=== PATIENT | female | born 1945 | race Caucasian/White ===

== ENCOUNTER 2017-09-01 02:40 | Inpatient (IN) | payer MEDICARE, MEDICAID, SELFPAY ==
--- NOTE | 2017-09-02 02:50 | RAD_ITS ---
STUDY: X-RAY CHEST REASON FOR EXAM: Female, 71 years old. Fever and cough. TECHNIQUE: Single AP portable view of the chest. COMPARISON: June 21, 2016. FINDINGS: Cardiac monitoring leads are present. The lungs are underexpanded with crowding of the bronchovascular markings and obscuration of lung bases. There is no demonstrated pleural abnormality. There is borderline cardiomegaly. Normal mediastinum and tomasz. There is prominence of the pulmonary hilar arteries with peripheral pulmonary vascular congestion. There is atherosclerotic calcification of the aortic arch with tortuosity. There is demineralization of the osseous structures. There are moderate degenerative changes of both shoulders. There is no demonstrated abnormality of the visualized soft tissue structures of the upper abdomen. RAD/Chest 1 View IMPRESSION: Borderline cardiomegaly with pulmonary congestion. Electronically Signed: Flory Hyde MD at 4:04 EDT , Service support ,
--- NOTE | 2017-09-02 06:45 | DT_ITS ---
This patient was seen during an EMR downtime August 28, 2017 - September 04, 2017. This patient may have a combination of paper and electronic documentation or all paper documentation. All documentation is viewable within the e-chart portion of [facility] for each patient visit.
--- NOTE | 2017-09-02 13:32 | EKG12_ITS ---
Test Reason : R/O SEPSIS Blood Pressure : / mmHG Vent. Rate : 116 BPM Atrial Rate : 116 BPM P-R Int : 158 ms QRS Dur : 092 ms QT Int : 334 ms P-R-T Axes : 049 -13 041 degrees QTc Int : 464 ms Sinus tachycardia Otherwise normal ECG Confirmed by KYLER BASHIR, JESÚS ([id number]), supervising editor trailer CYNTHIA PAT ([id number]) on 09/06/2017 5:40:44 PM Referred By: JUVE Confirmed By:JESÚS CHÁVEZ MD
[2017-09-03 07:16] LABS: White Blood Count 17.3 K/mm3 (4.4-11.0)
[2017-09-03 07:17] LABS: Hematocrit 32.8 % (37-47); Hemoglobin 9.8 g/dl (12.0-15.0); Mean Corpuscular Hgb 30.3 pg (27.0-32.0); Mean Corpuscular Volume 101.5 fL (81-99); Red Blood Count 3.23 M/mm3 (4.2-5.4)
[2017-09-03 07:18] LABS: Mean Corp Hgb Conc 29.9 g/gl (32-36)
[2017-09-03 07:19] LABS: Absolute Lymphocyte Count 0.55 X10^3/ul (0.83-4.51); Absolute Neutrophil Count 16.2 X10^3/uL (2.0-7.7); Basophil# 0.01 X10^3/uL; Basophil% 0.1 % (0-1); Differential Indicated SCAN CRITERIA MET; Lymphocyte # 0.55 X10^3/ul (4.0); Lymphocyte % 3.2 % (19-41); Mean Platelet Vol. 10.8 fl (6.2-12.0); Monocyte# 0.52 X10^3/uL; Neutrophil % 93.6 % (47-70); POSITIVE COUNT NO; POSITIVE DIFFERENTIAL YES; POSITIVE MORPHOLOGY NO; Platelet Count 89 K/mm3 (150-450); RBC Distribution Width CV 15.6 % (11.6-14.6); RBC Distribution Width SD 58.1 fl (35.1-43.9)
[2017-09-03 12:48] LABS: Anion Gap 8 (5-15); BUN 35 mg/dL (7-18); Calcium,Total 7.6 mg/dL (8.5-10.1); Chloride 105 mmol/L (98-107); Creatinine, Serum 1.46 mg/dL (0.55-1.02); EST Glomerular Filtration Rate 38 mL/min (>60); Est Glom Filt Rate - Afr Amer 46 mL/min (>60); Glucose 99 mg/dL (74-106); Potassium 4.3 mmol/L (3.5-5.1); Sodium Level 141 mmol/L (136-145)
[2017-09-04] MEDS: Acetaminophen 325 MG Tablet 650 MG PO (01:55)
[2017-09-04] MEDS: 0.9% Normal Saline 1,000 ML 100 ML IV (04:20)
[2017-09-04] MEDS: Nystatin Powder 15gm Bottle 1 APPLIC TOPICAL ×3 (06:00→21:17)
[2017-09-04] MEDS: Carbidopa/Levodopa 25/100 Tablet PO ×3 (06:00→21:16)
[2017-09-04] MEDS: Gabapentin 100 MG Capsule PO ×3 (06:00→21:16)
[2017-09-04 07:01] LABS: Hematocrit 37.1 % (37-47); Hemoglobin 11.3 g/dl (12.0-15.0); Mean Corp Hgb Conc 30.5 g/gl (32-36); Mean Corpuscular Hgb 31.1 pg (27.0-32.0); Mean Corpuscular Volume 102.2 fL (81-99); Mean Platelet Vol. 11.6 fl (6.2-12.0); Platelet Count 91 K/mm3 (150-450); RBC Distribution Width SD 55.6 fl (35.1-43.9); Red Blood Count 3.63 M/mm3 (4.2-5.4); White Blood Count 9.7 K/mm3 (4.4-11.0)
[2017-09-04 07:09] LABS: Scan Indicated on CBC? Y/N NO
[2017-09-04 07:23] LABS: Anion Gap 8 (5-15); BUN 21 mg/dL (7-18); BUN/Creat Ratio 19.4 RATIO (10-20); Calcium,Total 8.4 mg/dL (8.5-10.1); Chloride 106 mmol/L (98-107); Creatinine, Serum 1.08 mg/dL (0.55-1.02); EST Glomerular Filtration Rate 53 mL/min (>60); Est Glom Filt Rate - Afr Amer 65 mL/min (>60); Glucose 111 mg/dL (74-106); Potassium 3.9 mmol/L (3.5-5.1); Sodium Level 140 mmol/L (136-145)
[2017-09-04] MEDS: Ondansetron 4 MG/2 ML Vial IV ×2 (09:30→23:17)
--- NOTE | 2017-09-04 10:12 | CASEMGMT ---
Social Work Note SW received referral that pt is from [facility]. LAURA placed a call to Delfina in admissions updating her of pt's admission into hospital and asked if pt will need pre-cert to return to [facility] at discharge. LAURA waiting for call back. Plan: Return to [facility] Haven Travis LEAF STICKER, STEWARD/STEWARDESS WINE
[2017-09-04] MEDS: Escitalopram Oxalate 10 MG Tablet PO (10:52)
[2017-09-04] MEDS: ARIPiprazole 5 MG Tablet PO (10:52)
[2017-09-04] MEDS: Lactulose 20 GM/30 ML UDC PO (10:52)
[2017-09-04 11:48] VITALS: BP 160/87; PULSE 89; RESP 18; TEMP 37; O2SAT 93
[2017-09-04] MEDS: Famotidine 20 MG Tablet PO ×2 (12:18→21:17)
[2017-09-04] MEDS: buPROPion (XL) 300 MG TABLET.XL PO (12:18)
--- NOTE | 2017-09-04 12:31 | CASEMGMT ---
Social Work Note SW placed a call to [facility] and spoke with Dolores, linux system administrator regarding pt. 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 Dolores states that if pt requires skilled services, she can still accept pt back without pre-cert and can submit for pre-cert once pt is returned to facility. PAULINA Mejias updated of this. PAULINA Mejias updated Dr. Cooper of this. Plan: Return to [facility] when medically cleared Haven Travis QUALITY ASSURANCE QA LAB ANALYST, PAPER TUBE GRADER
--- NOTE | 2017-09-04 12:54 | PCM.PN.HOSP ---
Subjective: + Nausea and vomiting today. No abd pain. Vitals/I&O's: Vital Signs Temp Pulse Resp BP Pulse Ox 37.0 C 89 18 160/87 H 93 09/04/17 11:48 09/04/17 11:48 09/04/17 11:48 09/04/17 11:48 09/04/17 11:48 Oxygen Delivery Method Room Air Intake and Output for Last 24 Hours 09/02/17 09/03/17 09/04/17 23:59 23:59 23:59 Intake Total 612 / 612 Output Total 250 / 250 Balance 362 / 362 General: Alert, No apparent distress HEENT: Atraumatic, Normocephalic Neck: No Nodes, Thyroid Normal Size and Texture Lungs: Clear to auscultation, Normal air movement, No rhonchi, No wheeze Cardiovascular: Regular rate, Regular Rhythm, Normal S1, Normal S2, No murmurs Abdomen: Bowel Sounds Present, Soft, Non Tender, Non-Distended, No Hepato-splenomegaly Extremities: No edema, No Calf Tenderness Psych/Mental Status: Normal Affect, Appropriate Laboratory Results 09/04/17 05:40: WBC 9.7, RBC 3.63 L, Hgb 11.3 L, Hct 37.1, MCV 102.2 H, MCH 31.1, MCHC 30.5 L, RDW 15.0 H, RDW Differential 55.6 H, Plt Count 91 L, MPV 11.6 09/04/17 05:40: Sodium 140, Potassium 3.9, Chloride 106, Carbon Dioxide 26.0, Anion Gap 8, BUN 21 H, Creatinine 1.08 H, Est GFR (MDRD) Af Amer 65, Est GFR (MDRD) Non-Af 53 L, BUN/Creatinine Ratio 19.4, Glucose 111 H, Calcium 8.4 L Current Medications Acetaminophen (Tylenol) 650 mg PO Q4H PRN PRN PRN Reason: PAIN/FEVER Al Hydroxide/Mg Hydroxide (Mylanta Ii) 30 ml PO Q6H PRN PRN PRN Reason: DYSPEPSIA Albuterol Sulfate (Ventolin Aerosols) 2.5 mg INHALATION Q2H PRN PRN PRN Reason: DYSPNEA/WHEEZING Aripiprazole (Abilify) 5 mg PO DAILY [facility] Last Admin: 09/04/17 10:52 Dose: 5 mg Bupropion HCl (Wellbutrin Xl) 300 mg PO DAILY [facility] Last Admin: 09/04/17 12:18 Dose: 300 mg Carbidopa/Levodopa (Sinemet) 1 tablet PO TID [facility] Escitalopram Oxalate (Lexapro) 10 mg PO DAILY [facility] Last Admin: 09/04/17 10:52 Dose: 10 mg Famotidine (Pepcid) 20 mg PO BID [facility] Last Admin: 09/04/17 12:18 Dose: 20 mg Gabapentin (Neurontin) 100 mg PO TID [facility] Hydralazine HCl (Apresoline Iv) 10 mg IV Q4H PRN PRN PRN Reason: SBP >/= 160 Sodium Chloride () 1,000 mls @ 150 mls/hr IV .Q6H40M [facility] Vancomycin HCl (Vancomycin) 1,000 mg in 200 mls @ 200 mls/hr IV Q24H [facility] Clindamycin Phosphate 600 mg/ (Sodium Chloride) 54 mls @ 162 mls/hr IV Q8 [facility] Lactobacillus Acidophilus (Acidophilus) 1 tablet PO BID [facility] Last Admin: 09/04/17 10:52 Dose: 1 tablet Lactulose (Chronulac, Cephulac) 20 gm PO DAILY [facility] Last Admin: 09/04/17 10:52 Dose: 20 gm Morphine Sulfate () 1 - 2 mg IV Q4H PRN PRN PRN Reason: SEVERE PAIN (6-10/10) Nystatin (Mycostatin Powder) 1 applic TOPICAL TID [facility] Ondansetron HCl (Zofran) 4 mg IV Q6H PRN PRN PRN Reason: NAUSEA/VOMITING Last Admin: 09/04/17 09:30 Dose: 4 mg Oxycodone HCl (Oxyir) 5 - 10 mg PO Q4H PRN PRN PRN Reason: MILD-MODERATE PAIN Promethazine HCl (Phenergan) 6.25 mg IV Q6H PRN PRN PRN Reason: NAUSEA/VOMITING Sodium Chloride () 5 - 30 ml IV UD PRN PRN Reason: SALINE FLUSH Medical Necessity - Tobacco Use Smoking Status: Never smoker Assessment/Plan All Active Problems (Last Updated 08/23/17 @ 16:34 by Vero Jasso RN) Nausea & vomiting (Acute) UTI (urinary tract infection) (Acute) Dehydration (Acute) Hypomagnesemia (Acute) Hyponatremia (Acute) Cellulitis (Resolved) Squamous cell carcinoma in situ (Resolved) 1. Severe sepsis: POA due to LE cellultis v UTI BCx from 9th negative. 2. Bilateral LE cellulitis on vanc and clinda wrapped this AM, did not remove 3. Possible UTI + E. coli I suspect this could be a contaminant since pt improved with G+ coverage only No UA done, will check 4. Nausea and vomiting Ileus/SBO + umbilical hernia, but reducible. not incarcerated clinically check AXR 5. DVT proph LMWH Code Visit Inpatient E&M: 04166 Subs Hosp L2
--- NOTE | 2017-09-04 13:00 | PN_ITS ---
Subjective: + Nausea and vomiting today. No abd pain. Vitals/I&O's: Vital Signs Temp Pulse Resp BP Pulse Ox 37.0 C 89 18 160/87 H 93 09/04/17 11:48 09/04/17 11:48 09/04/17 11:48 09/04/17 11:48 09/04/17 11:48 Oxygen Delivery Method Room Air Intake and Output for Last 24 Hours 09/02/17 09/03/17 09/04/17 23:59 23:59 23:59 Intake Total 612 / 612 Output Total 250 / 250 Balance 362 / 362 General: Alert, No apparent distress HEENT: Atraumatic, Normocephalic Neck: No Nodes, Thyroid Normal Size and Texture Lungs: Clear to auscultation, Normal air movement, No rhonchi, No wheeze Cardiovascular: Regular rate, Regular Rhythm, Normal S1, Normal S2, No murmurs Abdomen: Bowel Sounds Present, Soft, Non Tender, Non-Distended, No Hepato- splenomegaly Extremities: No edema, No Calf Tenderness Psych/Mental Status: Normal Affect, Appropriate Laboratory Results 09/04/17 05:40: WBC 9.7, RBC 3.63 L, Hgb 11.3 L, Hct 37.1, MCV 102.2 H, MCH 31.1 , MCHC 30.5 L, RDW 15.0 H, RDW Differential 55.6 H, Plt Count 91 L, MPV 11.6 09/04/17 05:40: Sodium 140, Potassium 3.9, Chloride 106, Carbon Dioxide 26.0, Anion Gap 8, BUN 21 H, Creatinine 1.08 H, Est GFR (MDRD) Af Amer 65, Est GFR ( MDRD) Non-Af 53 L, BUN/Creatinine Ratio 19.4, Glucose 111 H, Calcium 8.4 L Current Medications Acetaminophen (Tylenol) 650 mg PO Q4H PRN PRN PRN Reason: PAIN/FEVER Al Hydroxide/Mg Hydroxide (Mylanta Ii) 30 ml PO Q6H PRN PRN PRN Reason: DYSPEPSIA Albuterol Sulfate (Ventolin Aerosols) 2.5 mg INHALATION Q2H PRN PRN PRN Reason: DYSPNEA/WHEEZING Aripiprazole (Abilify) 5 mg PO DAILY [facility] Last Admin: 09/04/17 10:52 Dose: 5 mg Bupropion HCl (Wellbutrin Xl) 300 mg PO DAILY [facility] Last Admin: 09/04/17 12:18 Dose: 300 mg Carbidopa/Levodopa (Sinemet) 1 tablet PO TID [facility] Escitalopram Oxalate (Lexapro) 10 mg PO DAILY [facility] Last Admin: 09/04/17 10:52 Dose: 10 mg Famotidine (Pepcid) 20 mg PO BID [facility] Last Admin: 09/04/17 12:18 Dose: 20 mg Gabapentin (Neurontin) 100 mg PO TID [facility] Hydralazine HCl (Apresoline Iv) 10 mg IV Q4H PRN PRN PRN Reason: SBP >/= 160 Sodium Chloride () 1,000 mls @ 150 mls/hr IV .Q6H40M [facility] Vancomycin HCl (Vancomycin) 1,000 mg in 200 mls @ 200 mls/hr IV Q24H [facility] Clindamycin Phosphate 600 mg/ (Sodium Chloride) 54 mls @ 162 mls/hr IV Q8 [facility] Lactobacillus Acidophilus (Acidophilus) 1 tablet PO BID [facility] Last Admin: 09/04/17 10:52 Dose: 1 tablet Lactulose (Chronulac, Cephulac) 20 gm PO DAILY [facility] Last Admin: 09/04/17 10:52 Dose: 20 gm Morphine Sulfate () 1 - 2 mg IV Q4H PRN PRN PRN Reason: SEVERE PAIN (6-10/10) Nystatin (Mycostatin Powder) 1 applic TOPICAL TID [facility] Ondansetron HCl (Zofran) 4 mg IV Q6H PRN PRN PRN Reason: NAUSEA/VOMITING Last Admin: 09/04/17 09:30 Dose: 4 mg Oxycodone HCl (Oxyir) 5 - 10 mg PO Q4H PRN PRN PRN Reason: MILD-MODERATE PAIN Promethazine HCl (Phenergan) 6.25 mg IV Q6H PRN PRN PRN Reason: NAUSEA/VOMITING Sodium Chloride () 5 - 30 ml IV UD PRN PRN Reason: SALINE FLUSH Medical Necessity - Tobacco Use Smoking Status: Never smoker Assessment/Plan All Active Problems (Last Updated 08/23/17 @ 16:34 by Vero Jasso RN) Nausea & vomiting (Acute) UTI (urinary tract infection) (Acute) Dehydration (Acute) Hypomagnesemia (Acute) Hyponatremia (Acute) Cellulitis (Resolved) Squamous cell carcinoma in situ (Resolved) 1. Severe sepsis: * POA * due to LE cellultis v UTI * BCx from 9th negative. 2. Bilateral LE cellulitis * on vanc and clinda * wrapped this AM, did not remove 3. Possible UTI * + E. coli * I suspect this could be a contaminant since pt improved with G+ coverage only * No UA done, will check 4. Nausea and vomiting * Ileus/SBO * + umbilical hernia, but reducible. not incarcerated clinically * check AXR 5. DVT proph LMWH Code Visit Inpatient E&M: 32848 Subs Hosp L2
--- NOTE | 2017-09-04 13:00 | RAD_ITS ---
STUDY: X-RAY - ABDOMEN/PELVIS REASON FOR EXAM: Female, 71 years old. Abdominal pain TECHNIQUE: 3 AP images of the abdomen. COMPARISON: July 11, 2016 FINDINGS: Normal visualized lung bases. There is a moderate amount of gastric distention. There are gas-filled dilated loops of small bowel. There are surgical clips within the right upper quadrant consistent with prior cystectomy. Normal soft tissue structures. There are diffuse degenerative changes of the visualized lumbar spine. RAD/Abdomen Single View (Portable) IMPRESSION: Findings suggestive of a small bowel obstruction. Gastric distention. Electronically Signed: Jessica Carnes MD at 17:01 EDT Tel , Service support ,
[2017-09-04] MEDS: 0.9% Normal Saline 1,000 ML 150 ML IV (13:25)
[2017-09-04 13:31] LABS: Mucous, Urine 0 SEEN /hpf (<or=2+)
[2017-09-04 13:43] LABS: Color, Urine Yellow (Yellow); Glucose, Dipstick Normal (Normal); Ketone-Dipstick 15 mg/dl (Negative); Leukocyte Esterase-Dipstick 25 /ul (Negative); Nitrite-Dipstick Negative (Negative); Occult Blood-Urine 250 /ul (Negative); Protein-Dipstick 100 mg/dl (Negative); Specific Gravity, Urine 1.025 (1.002-1.030); Urine Bilirubin Dipstick Negative (Negative); Urine Clarity Sl. Cloudy (Clear); Urine Urobilinogen Normal (Normal)
[2017-09-04 13:52] LABS: Bacteria 1+ /hpf (None Seen); Red Blood Cells-Urine 25-50 SEEN /hpf (0-5); Squamous Epithelial Cells - UA 0-5 SEEN /hpf (5-10); White Blood Cells 0-5 SEEN /hpf (0-5)
[2017-09-04 13:52] LABS: Vancomycin, Trough Level 6.5 ug/mL (5.0-15.0)
[2017-09-04 16:24] VITALS: BP 158/83; PULSE 88; RESP 16; TEMP 37.1; O2SAT 93
[2017-09-04 21:15] VITALS: BP 179/91; PULSE 90
[2017-09-04] MEDS: hydrALAZINE 20 MG/ML Vial 10 MG IV (21:15)
[2017-09-04 21:24] VITALS: BP 179/91; PULSE 90; RESP 18; TEMP 36.9; O2SAT 95
[2017-09-05] VITALS (8 sets, daily range): BP systolic 147–171; BP diastolic 83–97; PULSE 96–108; RESP 18–20; TEMP 36.9–37.1; O2SAT 94–96
[2017-09-05] MEDS: 0.9% Normal Saline 1,000 ML 100 ML IV ×2 (01:59→11:44)
[2017-09-05 05:52] LABS: Absolute Lymphocyte Count 0.67 X10^3/ul (0.83-4.51); Absolute Neutrophil Count 4.3 X10^3/uL (2.0-7.7); Eosinophil# 0.07 X10^3/uL; Eosinophils% 1.2 % (0-5); Hematocrit 37.8 % (37-47); Hemoglobin 11.4 g/dl (12.0-15.0); Lymphocyte # 0.67 X10^3/ul (4.0); Lymphocyte % 11.9 % (19-41); Mean Corp Hgb Conc 30.2 g/gl (32-36); Mean Corpuscular Hgb 30.6 pg (27.0-32.0); Mean Corpuscular Volume 101.3 fL (81-99); Monocyte# 0.55 X10^3/uL; Monocyte% 9.8 % (0-10); Neutrophil % 76.7 % (47-70); Platelet Count 94 K/mm3 (150-450); RBC Distribution Width CV 14.9 % (11.6-14.6); RBC Distribution Width SD 54.5 fl (35.1-43.9); Red Blood Count 3.73 M/mm3 (4.2-5.4); White Blood Count 5.6 K/mm3 (4.4-11.0)
--- NOTE | 2017-09-05 05:55 | RAD_ITS ---
STUDY: X-RAY - ABDOMEN/PELVIS REASON FOR EXAM: Female, 71 years old. Abdominal distention. TECHNIQUE: Two AP supine views of the abdomen and pelvis. COMPARISON: None. FINDINGS: Normal visualized lung bases. There is a paralytic ileus of the small intestine with mild gaseous distention. There is no demonstrated free abdominal air. The visualized liver, spleen and kidneys are grossly normal in size and morphology. Normal soft tissue structures. Normal visualized osseous structures. RAD/Abdomen Single View (Portable) IMPRESSION: There is a paralytic ileus of the small intestine with mild gaseous distention. Electronically Signed: Denis Brewster MD at 9:30 EDT Tel , Service support ,
[2017-09-05] MEDS: Carbidopa/Levodopa 25/100 Tablet PO (05:56)
[2017-09-05] MEDS: Gabapentin 100 MG Capsule PO (05:56)
[2017-09-05] MEDS: Enoxaparin 40 MG/0.4 ML Syringe SC (05:56)
[2017-09-05] MEDS: Nystatin Powder 15gm Bottle 1 APPLIC TOPICAL ×3 (05:57→22:00)
[2017-09-05 05:59] LABS: POSITIVE COUNT NO; POSITIVE DIFFERENTIAL NO; POSITIVE MORPHOLOGY NO
[2017-09-05 06:09] LABS: Anion Gap 9 (5-15); BUN 19 mg/dL (7-18); BUN/Creat Ratio 16.4 RATIO (10-20); Calcium,Total 8.1 mg/dL (8.5-10.1); Chloride 108 mmol/L (98-107); Creatinine, Serum 1.16 mg/dL (0.55-1.02); EST Glomerular Filtration Rate 49 mL/min (>60); Est Glom Filt Rate - Afr Amer 59 mL/min (>60); Glucose 102 mg/dL (74-106); Sodium Level 144 mmol/L (136-145)
[2017-09-05] MEDS: ARIPiprazole 5 MG Tablet PO (08:44)
[2017-09-05] MEDS: Escitalopram Oxalate 10 MG Tablet PO (08:44)
[2017-09-05] MEDS: buPROPion (XL) 300 MG TABLET.XL PO (08:44)
[2017-09-05] MEDS: Famotidine 20 MG Tablet PO (08:44)
[2017-09-05] MEDS: hydrALAZINE 20 MG/ML Vial 10 MG IV ×2 (08:51→15:05)
[2017-09-05] MEDS: Ondansetron 4 MG/2 ML Vial IV ×2 (08:51→15:05)
[2017-09-05 09:47] LABS: Lactic Acid 1.5 mmol/L (0.4-2.0); Phosphorus 4.3 mg/dL (2.5-4.9)
[2017-09-05 10:08] LABS: ALB/GLOB Ratio 0.6 RATIO (0.9-2.4); AST(SGOT) 29 U/L (15-37); Alanine Aminotransfer ALT/SGPT 19 U/L (13-56); Alkaline Phosphatase 139 U/L (45-117); Anion Gap 10 (5-15); BUN 42 mg/dL (7-18); Calcium,Total 8.6 mg/dL (8.5-10.1); Chloride 99 mmol/L (98-107); EST Glomerular Filtration Rate 26 mL/min (>60); Est Glom Filt Rate - Afr Amer 32 mL/min (>60); Globulin 4.8 g/dL (2.2-4.2); Glucose 156 mg/dL (74-106); Potassium 4.3 mmol/L (3.5-5.1); Protein, Total 7.8 g/dL (6.4-8.2); Sodium Level 139 mmol/L (136-145)
[2017-09-05 10:09] LABS: Lactic Acid 2.8 mmol/L (0.4-2.0)
--- NOTE | 2017-09-05 11:26 | CT_ITS ---
STUDY: CT ABDOMEN AND PELVIS WITH CONTRAST REASON FOR EXAM: Female, 71 years old. Bloating, ileus RADIATION DOSAGE (If Supplied By Facility): CTDIvol = ( 23.53 ) mGy, DLP = ( 1698.42 ) mGycm TECHNIQUE: Transaxial images were obtained from the dome of the diaphragm to the symphysis pubis without oral contrast. 100 ml of Isovue 300 contrast was administered. Sagittal and coronal images were reconstructed. Individualized dose optimization techniques were used for this CT. COMPARISON: July 15, 2016 and abdominal radiograph dated September 04, 2017 FINDINGS: The visualized lung bases are unremarkable. The visualized portions of the heart are within normal limits. There is fluid within the right upper quadrant. Normal liver. There are surgical clips in the gallbladder fossa consistent with a prior cholecystectomy. Normal spleen. Normal pancreas. Normal bilateral adrenal glands. Normal right kidney. Normal left kidney. Normal visualized stomach. There are dilated loops of jejunum and ileum associated with air-fluid levels. There appears to be twisting of the mesentery left of midline. Normal colon. There is non-visualization of the appendix. Normal abdominal aorta. Normal inferior vena cava. Normal retroperitoneum. Normal urinary bladder. There are postsurgical changes along the anterior abdominal wall. There are diffuse degenerative changes of the visualized lumbar spine. There is a grade 1 anterior spinal listhesis of L4 on L5. There is a left hip arthroplasty. CT/Abdomen/Pelvis WITH Contrast IMPRESSION: Small bowel obstruction, cannot exclude an underlying closed loop obstruction. Electronically Signed: Jessica Carnes MD at 16:00 EDT Tel , Service support ,
--- NOTE | 2017-09-05 11:28 | PN_ITS ---
Subjective: Cc: Abdominal distention Objective: Her abdomen is distended , plain x-rays done yesterday showed paralytic ileus of the small intestine with mild gaseous distention. She was made n.p.o. and is asking to drink liquids. Vitals/I&O's: Vital Signs Temp Pulse Resp BP Pulse Ox 98.6 F 96 20 H 171/97 H 96 09/05/17 08:37 09/05/17 08:51 09/05/17 08:37 09/05/17 08:37 09/05/17 08:37 Oxygen Delivery Method Room Air Weight: 119.7 kg Intake and Output for Last 24 Hours 09/03/17 09/04/17 09/05/17 23:59 23:59 23:59 Intake Total 1377 / 1377 1168 / 1168 Output Total 450 / 450 400 / 400 Balance 927 / 927 768 / 768 General: Alert, Oriented x3 Oral: Dry Mucosa Neck: Supple, No JVD Lungs: Clear to auscultation Cardiovascular: Normal S1, Normal S2 Abdomen: Bowel Sounds Present, Distended Extremities: No edema Neurological: Motor Exam 5/5 strength throughout Laboratory Results 09/02/17 07:58: Lactic Acid 1.5 09/02/17 07:58: Phosphorus 4.3, Magnesium 2.0 09/04/17 13:00: Urine Color Yellow, Urine Clarity Sl. Cloudy, Urine pH 6.0, Ur Specific [place] 1.025, Urine Protein 100 H, Urine Glucose (UA) Normal, Urine Ketones 15 H, Urine Occult Blood 250 H, Urine Nitrite Negative, Urine Bilirubin Negative, Urine Urobilinogen Normal, Ur Leukocyte Esterase 25 H, Urine RBC 25- 50 SEEN, Urine WBC 0-5 SEEN, Ur Squamous Epith Cells 0-5 SEEN, Urine Bacteria 1+ , Urine Mucus 0 SEEN 09/04/17 13:10: Vancomycin Trough 6.5 09/05/17 05:30: WBC 5.6, RBC 3.73 L, Hgb 11.4 L, Hct 37.8, MCV 101.3 H, MCH 30.6 , MCHC 30.2 L, RDW 14.9 H, RDW Differential 54.5 H, Plt Count 94 L, MPV 11.0, Immature Gran % (Auto) 0.400, Neut % (Auto) 76.7 H, Lymph % (Auto) 11.9 L, [place] % (Auto) 9.8, Eos % (Auto) 1.2, Baso % (Auto) 0.0, Absolute Neuts (auto) 4.3, Absolute Lymphs (auto) 0.67 L, Total Counted Not Reportable 09/05/17 05:30: Sodium 144, Potassium 4.0, Chloride 108 H, Carbon Dioxide 27.0, Anion Gap 9, BUN 19 H, Creatinine 1.16 H, Est GFR (MDRD) Af Amer 59 L, Est GFR ( MDRD) Non-Af 49 L, BUN/Creatinine Ratio 16.4, Glucose 102, Calcium 8.1 L Current Medications Acetaminophen (Tylenol) 650 mg PO Q4H PRN PRN PRN Reason: PAIN/FEVER Last Admin: 09/04/17 01:55 Dose: 650 mg Al Hydroxide/Mg Hydroxide (Mylanta Ii) 30 ml PO Q6H PRN PRN PRN Reason: DYSPEPSIA Albuterol Sulfate (Ventolin Aerosols) 2.5 mg INHALATION Q2H PRN PRN PRN Reason: DYSPNEA/WHEEZING Aripiprazole (Abilify) 5 mg PO DAILY [facility] Last Admin: 09/05/17 08:44 Dose: 5 mg Bupropion HCl (Wellbutrin Xl) 300 mg PO DAILY [facility] Last Admin: 09/05/17 08:44 Dose: 300 mg Carbidopa/Levodopa (Sinemet) 1 tablet PO TID [facility] Last Admin: 09/05/17 05:56 Dose: 1 tablet Enoxaparin Sodium (Lovenox) 40 mg SC DAILY@0600 [facility] Last Admin: 09/05/17 05:56 Dose: 40 mg Escitalopram Oxalate (Lexapro) 10 mg PO DAILY [facility] Last Admin: 09/05/17 08:44 Dose: 10 mg Famotidine (Pepcid) 20 mg PO BID [facility] Last Admin: 09/05/17 08:44 Dose: 20 mg Gabapentin (Neurontin) 100 mg PO TID [facility] Last Admin: 09/05/17 05:56 Dose: 100 mg Hydralazine HCl (Apresoline Iv) 10 mg IV Q4H PRN PRN PRN Reason: SBP >/= 160 Last Admin: 09/05/17 08:51 Dose: 10 mg Sodium Chloride () 1,000 mls @ 100 mls/hr IV .Q10H [facility] Last Admin: 09/05/17 01:59 Dose: 100 mls/hr Vancomycin HCl (Vancomycin) 1,000 mg in 200 mls @ 200 mls/hr IV Q24H [facility] Last Admin: 09/04/17 14:11 Dose: 200 mls/hr Clindamycin Phosphate 600 mg/ (Sodium Chloride) 54 mls @ 162 mls/hr IV Q8 [facility] Last Admin: 09/05/17 05:56 Dose: 162 mls/hr Lactobacillus Acidophilus (Acidophilus) 1 tablet PO BID [facility] Last Admin: 09/05/17 08:44 Dose: 1 tablet Lactulose (Chronulac, Cephulac) 20 gm PO DAILY [facility] Last Admin: 09/05/17 08:55 Dose: Not Given Morphine Sulfate () 1 - 2 mg IV Q4H PRN PRN PRN Reason: SEVERE PAIN (6-10/10) Nystatin (Mycostatin Powder) 1 applic TOPICAL TID [facility] Last Admin: 09/05/17 05:57 Dose: 1 applicatio Ondansetron HCl (Zofran) 4 mg IV Q6H PRN PRN PRN Reason: NAUSEA/VOMITING Last Admin: 09/05/17 08:51 Dose: 4 mg Oxycodone HCl (Oxyir) 5 - 10 mg PO Q4H PRN PRN PRN Reason: MILD-MODERATE PAIN Promethazine HCl (Phenergan) 6.25 mg IV Q6H PRN PRN PRN Reason: NAUSEA/VOMITING Sodium Chloride () 5 - 30 ml IV UD PRN PRN Reason: SALINE FLUSH Medical Necessity - Tobacco Use Smoking Status: Never smoker Assessment/Plan All Active Problems (Last Updated 08/23/17 @ 16:34 by Vero Jasso RN) Nausea & vomiting (Acute) UTI (urinary tract infection) (Acute) Dehydration (Acute) Hypomagnesemia (Acute) Hyponatremia (Acute) Cellulitis (Resolved) Squamous cell carcinoma in situ (Resolved) 1. Severe sepsis; patient remains hemodynamically stable. 2. Ileus/SBO; her abdomen very much distended today, we would go ahead and obtain a CT scan of the abdomen and pelvis to go from there. 3. Bilateral LE cellulitis; we will continue antibiotics and local skin care. 4. Acute cystitis; urine culture grew E. coli we will continue the current antibiotic therapy. Code Visit Inpatient E&M: 52146 Subs Hosp L2
[2017-09-05] MEDS: proMETHazine 25 MG/ML Syringe 6.25 MG IV (11:43)
[2017-09-05 11:59] LABS: LDH 404 U/L (84-246)
--- NOTE | 2017-09-05 15:43 | PCM.RX.CS ---
Consult Pharmacy has been consulted to manage selected antiobiotic: Vancomycin Type of Consult: Follow-up Suspected Infection: Skin/Soft tissue Labs: Sodium 144 mmol/L (136-145) 09/05/17 05:30 Potassium 4.0 mmol/L (3.5-5.1) 09/05/17 05:30 Chloride 108 mmol/L (98-107) H 09/05/17 05:30 Carbon Dioxide 27.0 mmol/L (21.0-32.0) 09/05/17 05:30 Anion Gap 9 (5-15) 09/05/17 05:30 BUN 19 mg/dL (7-18) H 09/05/17 05:30 Creatinine 1.16 mg/dL (0.55-1.02) H 09/05/17 05:30 Est GFR (MDRD) Af Amer 59 mL/min (>60) L 09/05/17 05:30 Est GFR (MDRD) Non-Af 49 mL/min (>60) L 09/05/17 05:30 BUN/Creatinine Ratio 16.4 RATIO (10-20) 09/05/17 05:30 Glucose 102 mg/dL (74-106) 09/05/17 05:30 Vancomycin Trough 6.5 ug/mL (5.0-15.0) 09/04/17 13:10 Weight used for dosin kg Goal Trough: 10-15 mcg/mL Pharmacy Plan for Drug Dosing: Pharmacy Service will continue to monitor and adjust dosing as required. The patient had a trough drawn @1310 on 09/05/17, which resulted in a value of 6.5, a trough goal of 10-15 has been set. Will plan on increasing the dose of vancomycin and rechecking a trough prior to the 3rd dose of new regimen. PLAN/RECOMMENDATIONS 1. START vancomycin 1500mg IV Q24hrs (09/06/17 @1000) 2. Trough scheduled 09/08/17 @0930, prior to 3rd dose of new regimen 3. Pharmacy will continue to monitor the patient daily
[2017-09-05 18:23] LABS: Differential Indicated SCAN CRITERIA MET; Hematocrit 39.9 % (37-47); Hemoglobin 12.3 g/dl (12.0-15.0); Lymphocyte % 1.4 % (19-41); Mean Corp Hgb Conc 30.8 g/gl (32-36); Mean Corpuscular Hgb 30.8 pg (27.0-32.0); Mean Platelet Vol. 10.7 fl (6.2-12.0); Monocyte% 2.9 % (0-10); Neutrophil % 95.3 % (47-70); POSITIVE COUNT NO; POSITIVE DIFFERENTIAL YES; POSITIVE MORPHOLOGY NO; Platelet Count 140 K/mm3 (150-450); RBC Distribution Width SD 54.9 fl (35.1-43.9); Red Blood Count 3.99 M/mm3 (4.2-5.4); White Blood Count 29.8 K/mm3 (4.4-11.0)
[2017-09-05 18:24] LABS: Absolute Lymphocyte Count 0.42 X10^3/ul (0.83-4.51); Absolute Neutrophil Count 23.3 X10^3/uL (2.0-7.7); Basophil# 0.01 X10^3/uL; Differential Comment SCANNED; Eosinophil# 0.01 X10^3/uL; Lymphocyte # 0.42 X10^3/ul (4.0); Monocyte# 0.87 X10^3/uL; Neutrophil # 28.32 X10^3/uL (2.7-7.7)
[2017-09-06] MEDS: 0.9% Normal Saline 1,000 ML 100 ML IV (01:35)
[2017-09-06 02:05] VITALS: BP 150/83; PULSE 103; RESP 18; TEMP 37.2; O2SAT 94
[2017-09-06] MEDS: Ondansetron 4 MG/2 ML Vial IV (02:13)
[2017-09-06] MEDS: Enoxaparin 40 MG/0.4 ML Syringe SC (05:30)
[2017-09-06] MEDS: Nystatin Powder 15gm Bottle 1 APPLIC TOPICAL ×3 (05:30→20:52)
[2017-09-06] MEDS: Acetaminophen 325 MG Tablet 650 MG PO (05:46)
[2017-09-06 07:25] VITALS: O2SAT 96
[2017-09-06 08:05] VITALS: BP 164/87; PULSE 95; RESP 20; TEMP 36.6; O2SAT 95
[2017-09-06 08:18] VITALS: PULSE 95
[2017-09-06] MEDS: hydrALAZINE 20 MG/ML Vial 10 MG IV (08:18)
[2017-09-06] MEDS: Morphine 2 MG/ML Syringe IV ×2 (08:18→13:27)
--- NOTE | 2017-09-06 10:30 | RAD_ITS ---
STUDY: X-RAY - ABDOMEN/PELVIS REASON FOR EXAM: Female, 71 years old. NG tube placement TECHNIQUE: Single view COMPARISON: None. FINDINGS: Gaseous distended small bowel loops. Obstruction cannot be excluded. Nasogastric tube is noted with tip just distal to the GE junction. It needs to be further transferred into the stomach. There is no demonstrated free abdominal air. Normal soft tissue structures. Degenerative vertebral changes and scoliosis. RAD/Abdomen Single View (Portable) IMPRESSION: Gaseous distended small bowel loops. Obstruction cannot be excluded. Nasogastric tube needs to be advanced further into the stomach. Electronically Signed: Bahman Orr DO at 21:40 EDT Tel [phone], Service support ,
[2017-09-06] MEDS: Dext 5%-0.45% NS 1,000 ML 60 ML IV (10:41)
--- NOTE | 2017-09-06 12:48 | CASEMGMT ---
Addendum entered by Haven Travis 09/06/17 12:55: Pt gave this worker permission to call her son Markie. SW placed a call to Markie and left a message for him. Original Note: Social Work Note Pt is needing NG Tube placed now. LAURA placed a call and left a message with Delfina at [facility] updating her that pt is needing NG Tubed placed and that pt is currently on IV antibiotics and that PT/OT has seen and evaluated pt and they recommend further skilled therapy. LAURA asked Delfina if she would like to get senior receptionist before returning on the [facility] care side. LAURA faxed updated clinicals to Delfina at [facility]. LAURA waiting for call back. Plan: Returning to [facility] skilled vs. non skilled Haven Travis MATERIALS PLANNING ANALYST, GUITAR PLAYER
[2017-09-06 14:35] VITALS: BP 145/85; PULSE 96; RESP 20; TEMP 36.6; O2SAT 93
--- NOTE | 2017-09-06 16:11 | PCM.PN.HOSP ---
Subjective: CC: Abdominal distention, bilateral leg swelling and erythema. Objective: The patient still has significant abdominal pain and distention, CT scan of the abdomen and pelvis done yesterday demonstrated small bowel obstruction. Vitals/I&O's: Vital Signs Temp Pulse Resp BP Pulse Ox 97.8 F 96 20 H 145/85 H 93 09/06/17 14:35 09/06/17 14:35 09/06/17 14:35 09/06/17 14:35 09/06/17 14:35 Oxygen Delivery Method Room Air Weight: 119.7 kg Intake and Output for Last 24 Hours 09/04/17 09/05/17 09/06/17 23:59 23:59 23:59 Intake Total 1377 / 1377 2898 / 2898 1399 / 1399 Output Total 450 / 450 1400 / 1400 500 / 500 Balance 927 / 927 1498 / 1498 899 / 899 General: Alert, Oriented x3 HEENT: Atraumatic Neck: Supple, No JVD Lungs: Clear to auscultation Cardiovascular: Regular rate, Normal S1, Normal S2 Abdomen: Bowel Sounds Present, Soft, Non Tender Neurological: Cranial nerves II-XII grossly intact, Deep Tendon Reflexes 2+/4 and Symmetrical, Motor Exam 5/5 strength throughout Current Medications Acetaminophen (Tylenol) 650 mg PO Q4H PRN PRN PRN Reason: PAIN/FEVER Last Admin: 09/06/17 05:46 Dose: 650 mg Al Hydroxide/Mg Hydroxide (Mylanta Ii) 30 ml PO Q6H PRN PRN PRN Reason: DYSPEPSIA Albuterol Sulfate (Ventolin Aerosols) 2.5 mg INHALATION Q2H PRN PRN PRN Reason: DYSPNEA/WHEEZING Aripiprazole (Abilify) 5 mg PO DAILY [facility] Last Admin: 09/06/17 08:07 Dose: Not Given Bupropion HCl (Wellbutrin Xl) 300 mg PO DAILY [facility] Last Admin: 09/06/17 08:08 Dose: Not Given Carbidopa/Levodopa (Sinemet) 1 tablet PO TID [facility] Last Admin: 09/06/17 13:20 Dose: Not Given Enoxaparin Sodium (Lovenox) 40 mg SC DAILY@0600 [facility] Last Admin: 09/06/17 05:30 Dose: 40 mg Escitalopram Oxalate (Lexapro) 10 mg PO DAILY [facility] Last Admin: 09/06/17 08:07 Dose: Not Given Famotidine (Pepcid) 20 mg PO BID [facility] Last Admin: 09/06/17 08:08 Dose: Not Given Gabapentin (Neurontin) 100 mg PO TID [facility] Last Admin: 09/06/17 13:20 Dose: Not Given Hydralazine HCl (Apresoline Iv) 10 mg IV Q4H PRN PRN PRN Reason: SBP >/= 160 Last Admin: 09/06/17 08:18 Dose: 10 mg Vancomycin HCl 1,500 mg/ (Sodium Chloride) 530 mls @ 250 mls/hr IV DAILY [facility] Last Admin: 09/06/17 10:39 Dose: 250 mls/hr Dextrose/Sodium Chloride () 1,000 mls @ 60 mls/hr IV .[id number] [facility] Last Admin: 09/06/17 10:41 Dose: 60 mls/hr Cefepime HCl 1 gm/ Sodium (Chloride) 50 mls @ 100 mls/hr IV Q12 [facility] Last Admin: 09/06/17 13:19 Dose: 100 mls/hr Lactobacillus Acidophilus (Acidophilus) 1 tablet PO BID [facility] Last Admin: 09/06/17 08:07 Dose: Not Given Lactulose (Chronulac, Cephulac) 20 gm PO DAILY [facility] Last Admin: 09/06/17 08:07 Dose: Not Given Morphine Sulfate () 1 - 2 mg IV Q4H PRN PRN PRN Reason: SEVERE PAIN (6-10/10) Last Admin: 09/06/17 13:27 Dose: 2 mg Nystatin (Mycostatin Powder) 1 applic TOPICAL TID [facility] Last Admin: 09/06/17 13:20 Dose: 1 applicatio Ondansetron HCl (Zofran) 4 mg IV Q6H PRN PRN PRN Reason: NAUSEA/VOMITING Last Admin: 09/06/17 02:13 Dose: 4 mg Oxycodone HCl (Oxyir) 5 - 10 mg PO Q4H PRN PRN PRN Reason: MILD-MODERATE PAIN Promethazine HCl (Phenergan) 6.25 mg IV Q6H PRN PRN PRN Reason: NAUSEA/VOMITING Last Admin: 09/05/17 11:43 Dose: 6.25 mg Sodium Chloride () 5 - 30 ml IV UD PRN PRN Reason: SALINE FLUSH Medical Necessity - Tobacco Use Smoking Status: Never smoker Assessment/Plan All Active Problems (Last Updated 08/23/17 @ 16:34 by Vero Jasso RN) Nausea & vomiting (Acute) UTI (urinary tract infection) (Acute) Dehydration (Acute) Hypomagnesemia (Acute) Hyponatremia (Acute) Cellulitis (Resolved) Squamous cell carcinoma in situ (Resolved) 1. Sepsis; patient remains hemodynamically stable. She is receiving IV antibiotics for her cellulitis 2. Acute small bowel obstruction ; we will place an NG tube to intermittent suction. 3. Bilateral LE cellulitis; we will continue on IV vancomycin, clindamycin was stopped and replaced with Cefepime. 4. Acute cystitis; urine culture grew E. coli , current antibiotics will cover. 5. chronic kidney disease stage III; we will monitor renal parameters closely. 6. Anemia of chronic disease; hemoglobin is stable, will monitor. 7. essential hypertension; 8. chronic bilateral lower extremity lymphedema/stasis dermatitis; keep legs elevated the patient will be started on diuretics, will continue local skin care. 9 Depression; we will continue current antidepressants. 10. DVT prophylaxis with subcu heparin. Code Visit Inpatient E&M: 02930 Subs Hosp L2
--- NOTE | 2017-09-06 16:19 | PN_ITS ---
Subjective: CC: Abdominal distention, bilateral leg swelling and erythema. Objective: The patient still has significant abdominal pain and distention, CT scan of the abdomen and pelvis done yesterday demonstrated small bowel obstruction. Vitals/I&O's: Vital Signs Temp Pulse Resp BP Pulse Ox 97.8 F 96 20 H 145/85 H 93 09/06/17 14:35 09/06/17 14:35 09/06/17 14:35 09/06/17 14:35 09/06/17 14:35 Oxygen Delivery Method Room Air Weight: 119.7 kg Intake and Output for Last 24 Hours 09/04/17 09/05/17 09/06/17 23:59 23:59 23:59 Intake Total 1377 / 1377 2898 / 2898 1399 / 1399 Output Total 450 / 450 1400 / 1400 500 / 500 Balance 927 / 927 1498 / 1498 899 / 899 General: Alert, Oriented x3 HEENT: Atraumatic Neck: Supple, No JVD Lungs: Clear to auscultation Cardiovascular: Regular rate, Normal S1, Normal S2 Abdomen: Bowel Sounds Present, Soft, Non Tender Neurological: Cranial nerves II-XII grossly intact, Deep Tendon Reflexes 2+/4 and Symmetrical, Motor Exam 5/5 strength throughout Current Medications Acetaminophen (Tylenol) 650 mg PO Q4H PRN PRN PRN Reason: PAIN/FEVER Last Admin: 09/06/17 05:46 Dose: 650 mg Al Hydroxide/Mg Hydroxide (Mylanta Ii) 30 ml PO Q6H PRN PRN PRN Reason: DYSPEPSIA Albuterol Sulfate (Ventolin Aerosols) 2.5 mg INHALATION Q2H PRN PRN PRN Reason: DYSPNEA/WHEEZING Aripiprazole (Abilify) 5 mg PO DAILY [facility] Last Admin: 09/06/17 08:07 Dose: Not Given Bupropion HCl (Wellbutrin Xl) 300 mg PO DAILY [facility] Last Admin: 09/06/17 08:08 Dose: Not Given Carbidopa/Levodopa (Sinemet) 1 tablet PO TID [facility] Last Admin: 09/06/17 13:20 Dose: Not Given Enoxaparin Sodium (Lovenox) 40 mg SC DAILY@0600 [facility] Last Admin: 09/06/17 05:30 Dose: 40 mg Escitalopram Oxalate (Lexapro) 10 mg PO DAILY [facility] Last Admin: 09/06/17 08:07 Dose: Not Given Famotidine (Pepcid) 20 mg PO BID [facility] Last Admin: 09/06/17 08:08 Dose: Not Given Gabapentin (Neurontin) 100 mg PO TID [facility] Last Admin: 09/06/17 13:20 Dose: Not Given Hydralazine HCl (Apresoline Iv) 10 mg IV Q4H PRN PRN PRN Reason: SBP >/= 160 Last Admin: 09/06/17 08:18 Dose: 10 mg Vancomycin HCl 1,500 mg/ (Sodium Chloride) 530 mls @ 250 mls/hr IV DAILY [facility] Last Admin: 09/06/17 10:39 Dose: 250 mls/hr Dextrose/Sodium Chloride () 1,000 mls @ 60 mls/hr IV .[id number] [facility] Last Admin: 09/06/17 10:41 Dose: 60 mls/hr Cefepime HCl 1 gm/ Sodium (Chloride) 50 mls @ 100 mls/hr IV Q12 [facility] Last Admin: 09/06/17 13:19 Dose: 100 mls/hr Lactobacillus Acidophilus (Acidophilus) 1 tablet PO BID [facility] Last Admin: 09/06/17 08:07 Dose: Not Given Lactulose (Chronulac, Cephulac) 20 gm PO DAILY [facility] Last Admin: 09/06/17 08:07 Dose: Not Given Morphine Sulfate () 1 - 2 mg IV Q4H PRN PRN PRN Reason: SEVERE PAIN (6-10/10) Last Admin: 09/06/17 13:27 Dose: 2 mg Nystatin (Mycostatin Powder) 1 applic TOPICAL TID [facility] Last Admin: 09/06/17 13:20 Dose: 1 applicatio Ondansetron HCl (Zofran) 4 mg IV Q6H PRN PRN PRN Reason: NAUSEA/VOMITING Last Admin: 09/06/17 02:13 Dose: 4 mg Oxycodone HCl (Oxyir) 5 - 10 mg PO Q4H PRN PRN PRN Reason: MILD-MODERATE PAIN Promethazine HCl (Phenergan) 6.25 mg IV Q6H PRN PRN PRN Reason: NAUSEA/VOMITING Last Admin: 09/05/17 11:43 Dose: 6.25 mg Sodium Chloride () 5 - 30 ml IV UD PRN PRN Reason: SALINE FLUSH Medical Necessity - Tobacco Use Smoking Status: Never smoker Assessment/Plan All Active Problems (Last Updated 08/23/17 @ 16:34 by Vero Jasso RN) Nausea & vomiting (Acute) UTI (urinary tract infection) (Acute) Dehydration (Acute) Hypomagnesemia (Acute) Hyponatremia (Acute) Cellulitis (Resolved) Squamous cell carcinoma in situ (Resolved) 1. Sepsis; patient remains hemodynamically stable. She is receiving IV antibiotics for her cellulitis 2. Acute small bowel obstruction ; we will place an NG tube to intermittent suction. 3. Bilateral LE cellulitis; we will continue on IV vancomycin, clindamycin was stopped and replaced with Cefepime. 4. Acute cystitis; urine culture grew E. coli , current antibiotics will cover. 5. chronic kidney disease stage III; we will monitor renal parameters closely. 6. Anemia of chronic disease; hemoglobin is stable, will monitor. 7. essential hypertension; 8. chronic bilateral lower extremity lymphedema/stasis dermatitis; keep legs elevated the patient will be started on diuretics, will continue local skin care. 9 Depression; we will continue current antidepressants. 10. DVT prophylaxis with subcu heparin. Code Visit Inpatient E&M: 57831 Subs Hosp L2
[2017-09-06 20:45] VITALS: BP 134/76; PULSE 89; RESP 18; TEMP 36.6; O2SAT 94
[2017-09-07 03:40] VITALS: BP 140/84; PULSE 95; RESP 18; TEMP 36.7; O2SAT 94
[2017-09-07] MEDS: Nystatin Powder 15gm Bottle 1 APPLIC TOPICAL ×3 (05:25→22:50)
[2017-09-07] MEDS: Enoxaparin 40 MG/0.4 ML Syringe SC (05:25)
[2017-09-07 07:42] VITALS: O2SAT 94
[2017-09-07 08:25] VITALS: O2SAT 94
[2017-09-07] MEDS: Dext 5%-0.45% NS 1,000 ML 60 ML IV (08:54)
[2017-09-07 09:45] VITALS: BP 156/77; PULSE 88; RESP 18; TEMP 36.7; O2SAT 95
--- NOTE | 2017-09-07 10:48 | CASEMGMT ---
Social Work Note LAURA received call from Delfina at [facility] stating that she will bring pt back on skilled side. Delfina confirms that pt has Medicare and that pt is able to return to [facility] when medically cleared as pt has met her three midnight stays. LAURA updated Delfina that this worker is unsure when pt will be discharged as pt now has a small bowel obstruction. LAURA informed Delfina that once this worker knows a tentative discharge date this worker will inform her. Delfina states understanding. LAURA will continue to follow along to assist with discharge planning. 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
--- NOTE | 2017-09-07 14:52 | PCM.PN.HOSP ---
Subjective: CC: abdominal distention, bilateral leg cellulitis Objective: The patient's emergency room is distended, NG tube to suction. She reports no abdominal pain, shortness of breath, chest pain, fever or chills. Vitals/I&O's: Vital Signs Temp Pulse Resp BP Pulse Ox 98.1 F 88 18 156/77 H 95 09/07/17 09:45 09/07/17 09:45 09/07/17 09:45 09/07/17 09:45 09/07/17 09:45 Oxygen Flow Rate (L/min) 1 Oxygen Delivery Method Room Air Weight: 119.7 kg Intake and Output for Last 24 Hours 09/05/17 09/06/17 09/07/17 23:59 23:59 23:59 Intake Total 2898 / 2898 2091 / 2091 1086 / 1086 Output Total 1400 / 1400 1350 / 1350 950 / 950 Balance 1498 / 1498 741 / 741 136 / 136 General: Alert, Oriented x3 HEENT: Atraumatic Oral: Moist Mucosa Neck: Supple Lungs: Clear to auscultation Cardiovascular: Regular rate, Normal S1, Normal S2 Abdomen: Bowel Sounds Present, Soft, Non Tender Extremities: No clubbing, No edema Neurological: Cranial nerves II-XII grossly intact, Motor Exam 5/5 strength throughout Current Medications Acetaminophen (Tylenol) 650 mg PO Q4H PRN PRN PRN Reason: PAIN/FEVER Last Admin: 09/06/17 05:46 Dose: 650 mg Al Hydroxide/Mg Hydroxide (Mylanta Ii) 30 ml PO Q6H PRN PRN PRN Reason: DYSPEPSIA Albuterol Sulfate (Ventolin Aerosols) 2.5 mg INHALATION Q2H PRN PRN PRN Reason: DYSPNEA/WHEEZING Aripiprazole (Abilify) 5 mg PO DAILY [facility] Last Admin: 09/07/17 12:07 Dose: Not Given Bupropion HCl (Wellbutrin Xl) 300 mg PO DAILY [facility] Last Admin: 09/07/17 12:08 Dose: Not Given Carbidopa/Levodopa (Sinemet) 1 tablet PO TID [facility] Last Admin: 09/07/17 05:25 Dose: Not Given Enoxaparin Sodium (Lovenox) 40 mg SC DAILY@0600 [facility] Last Admin: 09/07/17 05:25 Dose: 40 mg Escitalopram Oxalate (Lexapro) 10 mg PO DAILY [facility] Last Admin: 09/07/17 12:08 Dose: Not Given Gabapentin (Neurontin) 100 mg PO TID [facility] Last Admin: 09/07/17 05:25 Dose: Not Given Hydralazine HCl (Apresoline Iv) 10 mg IV Q4H PRN PRN PRN Reason: SBP >/= 160 Last Admin: 09/06/17 08:18 Dose: 10 mg Vancomycin HCl 1,500 mg/ (Sodium Chloride) 530 mls @ 250 mls/hr IV DAILY [facility] Last Admin: 09/07/17 10:44 Dose: 250 mls/hr Dextrose/Sodium Chloride () 1,000 mls @ 60 mls/hr IV .[id number] [facility] Last Admin: 09/07/17 08:54 Dose: 60 mls/hr Cefepime HCl 1 gm/ Sodium (Chloride) 50 mls @ 100 mls/hr IV Q12 [facility] Last Admin: 09/07/17 09:03 Dose: 100 mls/hr Famotidine (Pepcid 20mg) 20 mg in 50 mls @ 150 mls/hr IV Q12 [facility] Lactobacillus Acidophilus (Acidophilus) 1 tablet PO BID [facility] Last Admin: 09/07/17 12:08 Dose: Not Given Lactulose (Chronulac, Cephulac) 20 gm PO DAILY [facility] Last Admin: 09/07/17 12:08 Dose: Not Given Morphine Sulfate () 1 - 2 mg IV Q4H PRN PRN PRN Reason: SEVERE PAIN (6-10/10) Last Admin: 09/06/17 13:27 Dose: 2 mg Nystatin (Mycostatin Powder) 1 applic TOPICAL TID [facility] Last Admin: 09/07/17 05:25 Dose: 1 applicatio Ondansetron HCl (Zofran) 4 mg IV Q6H PRN PRN PRN Reason: NAUSEA/VOMITING Last Admin: 09/06/17 02:13 Dose: 4 mg Oxycodone HCl (Oxyir) 5 - 10 mg PO Q4H PRN PRN PRN Reason: MILD-MODERATE PAIN Promethazine HCl (Phenergan) 6.25 mg IV Q6H PRN PRN PRN Reason: NAUSEA/VOMITING Last Admin: 09/05/17 11:43 Dose: 6.25 mg Sodium Chloride () 5 - 30 ml IV UD PRN PRN Reason: SALINE FLUSH Medical Necessity - Tobacco Use Smoking Status: Never smoker Assessment/Plan All Active Problems (Last Updated 08/23/17 @ 16:34 by Vero Jasso RN) Nausea & vomiting (Acute) UTI (urinary tract infection) (Acute) Dehydration (Acute) Hypomagnesemia (Acute) Hyponatremia (Acute) Cellulitis (Resolved) Squamous cell carcinoma in situ (Resolved) 1. Sepsis; she remains hemodynamically stable. She is receiving IV antibiotics for her cellulitis. 2. Acute small bowel obstruction ; continue NG tube decompression, IV fluids , we will consult general surgery for an input. 3. Bilateral LE cellulitis; we will continue on IV vancomycin, clindamycin was stopped and replaced with Cefepime. 4. Acute cystitis; urine culture grew E. coli , current antibiotics will cover. 5. chronic kidney disease stage III; we will monitor renal parameters closely. 6. Anemia of chronic disease; hemoglobin is stable, will monitor. 7. essential hypertension; this is controlled. 8. chronic bilateral lower extremity lymphedema/stasis dermatitis; keep legs elevated the patient will be started on diuretics, will continue local skin care. 9 Depression; we will continue current antidepressants. 10. DVT prophylaxis with SC heparin. Code Visit Inpatient E&M: 39744 Subs Hosp L3
[2017-09-07 15:45] VITALS: BP 154/76; PULSE 91; RESP 16; TEMP 36.9; O2SAT 95
[2017-09-07 20:07] VITALS: BP 169/92; PULSE 84; RESP 20; TEMP 36.6; O2SAT 96
[2017-09-07] MEDS: Morphine 2 MG/ML Syringe IV (20:25)
[2017-09-07] MEDS: Gabapentin 100 MG Capsule NG (22:50)
[2017-09-07] MEDS: Carbidopa/Levodopa 25/100 Tablet NG (22:50)
[2017-09-08 02:07] VITALS: BP 155/81; PULSE 92; RESP 20; TEMP 36.7; O2SAT 95
[2017-09-08] MEDS: Dext 5%-0.45% NS 1,000 ML 60 ML IV (05:42)
[2017-09-08] MEDS: Enoxaparin 40 MG/0.4 ML Syringe SC (05:42)
[2017-09-08] MEDS: Carbidopa/Levodopa 25/100 Tablet NG (05:43)
[2017-09-08] MEDS: Gabapentin 100 MG Capsule NG (05:43)
[2017-09-08] MEDS: Nystatin Powder 15gm Bottle 1 APPLIC TOPICAL ×3 (05:43→22:17)
[2017-09-08] MEDS: Acetaminophen 650 MG/20 ML UDC NG (05:50)
[2017-09-08 05:59] LABS: Absolute Lymphocyte Count 0.73 X10^3/ul (0.83-4.51); Absolute Neutrophil Count 3.1 X10^3/uL (2.0-7.7); Basophil# 0.01 X10^3/uL; Basophil% 0.2 % (0-1); Eosinophil# 0.13 X10^3/uL; Eosinophils% 2.9 % (0-5); Hematocrit 36.1 % (37-47); Hemoglobin 10.8 g/dl (12.0-15.0); Lymphocyte # 0.73 X10^3/ul (4.0); Lymphocyte % 16.3 % (19-41); Mean Corp Hgb Conc 29.9 g/gl (32-36); Mean Corpuscular Hgb 29.6 pg (27.0-32.0); Mean Corpuscular Volume 98.9 fL (81-99); Mean Platelet Vol. 10.4 fl (6.2-12.0); Monocyte# 0.49 X10^3/uL; Monocyte% 10.9 % (0-10); Neutrophil # 3.07 X10^3/uL (2.7-7.7); Neutrophil % 68.6 % (47-70); Platelet Count 117 K/mm3 (150-450); RBC Distribution Width CV 14.7 % (11.6-14.6); RBC Distribution Width SD 52.6 fl (35.1-43.9); Red Blood Count 3.65 M/mm3 (4.2-5.4); White Blood Count 4.5 K/mm3 (4.4-11.0)
[2017-09-08 06:07] LABS: POSITIVE COUNT NO; POSITIVE DIFFERENTIAL NO; POSITIVE MORPHOLOGY NO
[2017-09-08 06:22] LABS: Anion Gap 7 (5-15); BUN 11 mg/dL (7-18); BUN/Creat Ratio 11.6 RATIO (10-20); Calcium,Total 7.9 mg/dL (8.5-10.1); Chloride 106 mmol/L (98-107); Creatinine, Serum 0.94 mg/dL (0.55-1.02); EST Glomerular Filtration Rate 62 mL/min (>60); Est Glom Filt Rate - Afr Amer 75 mL/min (>60); Estimated Creatinine Clearance 52.88 ml/min; Glucose 84 mg/dL (74-106); Potassium 3.5 mmol/L (3.5-5.1); Sodium Level 139 mmol/L (136-145)
[2017-09-08 08:07] VITALS: BP 178/96; PULSE 90; RESP 18; TEMP 36.9; O2SAT 97
[2017-09-08] MEDS: buPROPion (XL) 300 MG TABLET.XL PO (09:07)
[2017-09-08] MEDS: ARIPiprazole 5 MG Tablet NG (09:07)
[2017-09-08] MEDS: Lactulose 20 GM/30 ML UDC NG (09:08)
[2017-09-08] MEDS: Escitalopram Oxalate 10 MG Tablet NG (09:08)
[2017-09-08 10:13] LABS: Vancomycin, Trough Level 15.3 ug/mL (5.0-15.0)
[2017-09-08] MEDS: Carbidopa/Levodopa 25/100 Tablet PO ×2 (14:32→22:16)
[2017-09-08] MEDS: Gabapentin 100 MG Capsule PO ×2 (14:32→22:16)
--- NOTE | 2017-09-08 16:08 | PCM.RX.CS ---
Consult Pharmacy has been consulted to manage selected antiobiotic: Vancomycin Type of Consult: Follow-up Suspected Infection: Skin/Soft tissue Prior Doses of Antibiotics Received/Current Regimen: Vancomycin 1500mg q24h x2 doses Labs: Sodium 139 mmol/L (136-145) 09/08/17 05:35 Potassium 3.5 mmol/L (3.5-5.1) 09/08/17 05:35 Chloride 106 mmol/L (98-107) 09/08/17 05:35 Carbon Dioxide 26.0 mmol/L (21.0-32.0) 09/08/17 05:35 Anion Gap 7 (5-15) 09/08/17 05:35 BUN 11 mg/dL (7-18) 09/08/17 05:35 Creatinine 0.94 mg/dL (0.55-1.02) 09/08/17 05:35 Est GFR (MDRD) Af Amer 75 mL/min (>60) 09/08/17 05:35 Est GFR (MDRD) Non-Af 62 mL/min (>60) 09/08/17 05:35 BUN/Creatinine Ratio 11.6 RATIO (10-20) 09/08/17 05:35 Glucose 84 mg/dL (74-106) 09/08/17 05:35 Vancomycin Trough 15.3 ug/mL (5.0-15.0) H 09/08/17 09:35 Weight used for dosin kg Estimated Creatinine Clearance: 52ml/min Goal Trough: 10-15 mcg/mL Pharmacy Plan for Drug Dosing: Pt's trough came back at 15.3. Recommend keeping same dose of 1500mg q24h and checking trough 09/10/17 Pharmacy Service will continue to monitor and adjust dosing as required. Follow-Up Labs: Trough Vancomycin Labs to be done on [date and time ordered]: trough 09/10/17
--- NOTE | 2017-09-08 16:45 | RAD_ITS ---
STUDY: X-RAY - ABDOMEN/PELVIS REASON FOR EXAM: Female, 71 years old. Abdominal distention TECHNIQUE: 3 frontal views of the abdomen COMPARISON: 09/06/2017 FINDINGS: Again noted are multiple air-filled dilated loops of small bowel throughout the abdomen and pelvis. This is slightly decreased when compared with the prior exam. There is an enteric tube noted with its tip in the stomach. Stable degenerative changes noted in the spine. RAD/Abdomen Single View IMPRESSION: Redemonstration of multiple air filled dilated small bowel loops which is slightly decreased when compared with the prior exam. Continued follow-up is recommended as obstruction is not excluded. Electronically Signed: Jarrett Lux, at 17:47 EDT Tel , Service support ,
[2017-09-08 17:16] VITALS: BP 168/88; PULSE 84; RESP 18; TEMP 36.8; O2SAT 98
--- NOTE | 2017-09-08 17:18 | PCM.PN.HOSP ---
Subjective: Cc: Follow-up of small bowel obstruction Objective: Patient has less abdominal pain today, and still has significant output. Erythema and swelling of the legs have improved. Vitals/I&O's: Vital Signs Temp Pulse Resp BP Pulse Ox 98.2 F 84 18 168/88 H 98 09/08/17 17:16 09/08/17 17:16 09/08/17 17:16 09/08/17 17:16 09/08/17 17:16 Oxygen Flow Rate (L/min) 1 Oxygen Delivery Method Room Air Weight: 119.7 kg Intake and Output for Last 24 Hours 09/06/17 09/07/17 09/08/17 23:59 23:59 23:59 Intake Total 2091 / 2091 2167 / 2167 1025 / 1025 Output Total 1350 / 1350 1500 / 1500 1040 / 1040 Balance 741 / 741 667 / 667 - General: Alert, Oriented x3 Oral: Moist Mucosa Neck: Supple Cardiovascular: Regular rate, Normal S1, Normal S2 Abdomen: Bowel Sounds Present, Soft, Non Tender Extremities: No edema Neurological: Cranial nerves II-XII grossly intact, Deep Tendon Reflexes 2+/4 and Symmetrical, Motor Exam 5/5 strength throughout Laboratory Results 09/08/17 05:35: Sodium 139, Potassium 3.5, Chloride 106, Carbon Dioxide 26.0, Anion Gap 7, BUN 11, Creatinine 0.94, Estim Creat Clear Calc 52.88, Est GFR (MDRD) Af Amer 75, Est GFR (MDRD) Non-Af 62, BUN/Creatinine Ratio 11.6, Glucose 84, Calcium 7.9 L 09/08/17 05:35: WBC 4.5, RBC 3.65 L, Hgb 10.8 L, Hct 36.1 L, MCV 98.9, MCH 29.6, MCHC 29.9 L, RDW 14.7 H, RDW Differential 52.6 H, Plt Count 117 L, MPV 10.4, Immature Gran % (Auto) 1.100 H, Neut % (Auto) 68.6, Lymph % (Auto) 16.3 L, Phillips % (Auto) 10.9 H, Eos % (Auto) 2.9, Baso % (Auto) 0.2, Absolute Neuts (auto) 3.1, Absolute Lymphs (auto) 0.73 L, Total Counted Not Reportable 09/08/17 09:35: Vancomycin Trough 15.3 H Current Medications Acetaminophen (Tylenol) 650 mg PO Q4H PRN PRN PRN Reason: PAIN/FEVER Al Hydroxide/Mg Hydroxide (Mylanta Ii) 30 ml PO Q6H PRN PRN PRN Reason: DYSPEPSIA Albuterol Sulfate (Ventolin Aerosols) 2.5 mg INHALATION Q2H PRN PRN PRN Reason: DYSPNEA/WHEEZING Aripiprazole (Abilify) 5 mg PO DAILY [facility] Bupropion HCl (Wellbutrin Xl) 300 mg PO DAILY [facility] Last Admin: 09/08/17 09:07 Dose: 300 mg Carbidopa/Levodopa (Sinemet) 1 tablet PO TID [facility] Last Admin: 09/08/17 14:32 Dose: 1 tablet Enoxaparin Sodium (Lovenox) 40 mg SC DAILY@0600 [facility] Last Admin: 09/08/17 05:42 Dose: 40 mg Escitalopram Oxalate (Lexapro) 10 mg PO DAILY [facility] Gabapentin (Neurontin) 100 mg PO TID [facility] Last Admin: 09/08/17 14:32 Dose: 100 mg Hydralazine HCl (Apresoline Iv) 10 mg IV Q4H PRN PRN PRN Reason: SBP >/= 160 Last Admin: 09/06/17 08:18 Dose: 10 mg Hydralazine HCl (Apresoline Iv) 10 mg IV Q4H PRN PRN PRN Reason: Hypertensive Emergency Vancomycin HCl 1,500 mg/ (Sodium Chloride) 530 mls @ 250 mls/hr IV DAILY [facility] Last Admin: 09/08/17 11:28 Dose: 250 mls/hr Dextrose/Sodium Chloride () 1,000 mls @ 60 mls/hr IV .[id number] [facility] Last Admin: 09/08/17 05:42 Dose: 60 mls/hr Cefepime HCl 1 gm/ Sodium (Chloride) 50 mls @ 100 mls/hr IV Q12 [facility] Last Admin: 09/08/17 09:05 Dose: 100 mls/hr Famotidine (Pepcid 20mg) 20 mg in 50 mls @ 150 mls/hr IV Q12 [facility] Last Admin: 09/08/17 10:35 Dose: 150 mls/hr Lactobacillus Acidophilus (Acidophilus) 1 tablet PO BID [facility] Lactulose (Chronulac, Cephulac) 20 gm PO DAILY [facility] Morphine Sulfate () 1 - 2 mg IV Q4H PRN PRN PRN Reason: SEVERE PAIN (6-10/10) Last Admin: 09/07/17 20:25 Dose: 2 mg Nystatin (Mycostatin Powder) 1 applic TOPICAL TID [facility] Last Admin: 09/08/17 14:32 Dose: 1 applicatio Ondansetron HCl (Zofran) 4 mg IV Q6H PRN PRN PRN Reason: NAUSEA/VOMITING Last Admin: 09/06/17 02:13 Dose: 4 mg Oxycodone HCl (Oxyir) 5 - 10 mg PO Q4H PRN PRN PRN Reason: MILD-MODERATE PAIN Promethazine HCl (Phenergan) 6.25 mg IV Q6H PRN PRN PRN Reason: NAUSEA/VOMITING Last Admin: 09/05/17 11:43 Dose: 6.25 mg Sodium Chloride () 5 - 30 ml IV UD PRN PRN Reason: SALINE FLUSH Medical Necessity - Tobacco Use Smoking Status: Never smoker Assessment/Plan All Active Problems (Last Updated 08/23/17 @ 16:34 by Vero Jasso RN) Nausea & vomiting (Acute) UTI (urinary tract infection) (Acute) Dehydration (Acute) Hypomagnesemia (Acute) Hyponatremia (Acute) Cellulitis (Resolved) Squamous cell carcinoma in situ (Resolved) 1. Sepsis; she has improved with IV antibiotics for her cellulitis. 2. Acute small bowel obstruction ; continue NG tube decompression, IV fluids , will repeat KUB today and we will consult general surgery if no improvement. 3. Bilateral LE cellulitis; we will continue on IV vancomycin and Cefepime. 4. Acute cystitis; urine culture grew E. coli , current antibiotics will cover. 5. chronic kidney disease stage III; we will monitor renal parameters closely. We will avoid potential nephrotoxic medications. 6. Anemia of chronic disease; hemoglobin is stable, will monitor. 7. essential hypertension; this is controlled. 8. chronic bilateral lower extremity lymphedema/stasis dermatitis; keep legs elevated the patient will be started on diuretics, will continue local skin care. 9 Depression; we will continue current antidepressants. 10. DVT prophylaxis with SC heparin. Code Visit Inpatient E&M: 82923 Subs Hosp L3
--- NOTE | 2017-09-08 17:21 | PN_ITS ---
Subjective: Cc: Follow-up of small bowel obstruction Objective: Patient has less abdominal pain today, and still has significant output. Erythema and swelling of the legs have improved. Vitals/I&O's: Vital Signs Temp Pulse Resp BP Pulse Ox 98.2 F 84 18 168/88 H 98 09/08/17 17:16 09/08/17 17:16 09/08/17 17:16 09/08/17 17:16 09/08/17 17:16 Oxygen Flow Rate (L/min) 1 Oxygen Delivery Method Room Air Weight: 119.7 kg Intake and Output for Last 24 Hours 09/06/17 09/07/17 09/08/17 23:59 23:59 23:59 Intake Total 2091 / 2091 2167 / 2167 1025 / 1025 Output Total 1350 / 1350 1500 / 1500 1040 / 1040 Balance 741 / 741 667 / 667 - General: Alert, Oriented x3 Oral: Moist Mucosa Neck: Supple Cardiovascular: Regular rate, Normal S1, Normal S2 Abdomen: Bowel Sounds Present, Soft, Non Tender Extremities: No edema Neurological: Cranial nerves II-XII grossly intact, Deep Tendon Reflexes 2+/4 and Symmetrical, Motor Exam 5/5 strength throughout Laboratory Results 09/08/17 05:35: Sodium 139, Potassium 3.5, Chloride 106, Carbon Dioxide 26.0, Anion Gap 7, BUN 11, Creatinine 0.94, Estim Creat Clear Calc 52.88, Est GFR ( MDRD) Af Amer 75, Est GFR (MDRD) Non-Af 62, BUN/Creatinine Ratio 11.6, Glucose 84, Calcium 7.9 L 09/08/17 05:35: WBC 4.5, RBC 3.65 L, Hgb 10.8 L, Hct 36.1 L, MCV 98.9, MCH 29.6 , MCHC 29.9 L, RDW 14.7 H, RDW Differential 52.6 H, Plt Count 117 L, MPV 10.4, Immature Gran % (Auto) 1.100 H, Neut % (Auto) 68.6, Lymph % (Auto) 16.3 L, [place] % (Auto) 10.9 H, Eos % (Auto) 2.9, Baso % (Auto) 0.2, Absolute Neuts (auto) 3.1 , Absolute Lymphs (auto) 0.73 L, Total Counted Not Reportable 09/08/17 09:35: Vancomycin Trough 15.3 H Current Medications Acetaminophen (Tylenol) 650 mg PO Q4H PRN PRN PRN Reason: PAIN/FEVER Al Hydroxide/Mg Hydroxide (Mylanta Ii) 30 ml PO Q6H PRN PRN PRN Reason: DYSPEPSIA Albuterol Sulfate (Ventolin Aerosols) 2.5 mg INHALATION Q2H PRN PRN PRN Reason: DYSPNEA/WHEEZING Aripiprazole (Abilify) 5 mg PO DAILY [facility] Bupropion HCl (Wellbutrin Xl) 300 mg PO DAILY [facility] Last Admin: 09/08/17 09:07 Dose: 300 mg Carbidopa/Levodopa (Sinemet) 1 tablet PO TID [facility] Last Admin: 09/08/17 14:32 Dose: 1 tablet Enoxaparin Sodium (Lovenox) 40 mg SC DAILY@0600 [facility] Last Admin: 09/08/17 05:42 Dose: 40 mg Escitalopram Oxalate (Lexapro) 10 mg PO DAILY [facility] Gabapentin (Neurontin) 100 mg PO TID [facility] Last Admin: 09/08/17 14:32 Dose: 100 mg Hydralazine HCl (Apresoline Iv) 10 mg IV Q4H PRN PRN PRN Reason: SBP >/= 160 Last Admin: 09/06/17 08:18 Dose: 10 mg Hydralazine HCl (Apresoline Iv) 10 mg IV Q4H PRN PRN PRN Reason: Hypertensive Emergency Vancomycin HCl 1,500 mg/ (Sodium Chloride) 530 mls @ 250 mls/hr IV DAILY [facility] Last Admin: 09/08/17 11:28 Dose: 250 mls/hr Dextrose/Sodium Chloride () 1,000 mls @ 60 mls/hr IV .[id number] [facility] Last Admin: 09/08/17 05:42 Dose: 60 mls/hr Cefepime HCl 1 gm/ Sodium (Chloride) 50 mls @ 100 mls/hr IV Q12 [facility] Last Admin: 09/08/17 09:05 Dose: 100 mls/hr Famotidine (Pepcid 20mg) 20 mg in 50 mls @ 150 mls/hr IV Q12 [facility] Last Admin: 09/08/17 10:35 Dose: 150 mls/hr Lactobacillus Acidophilus (Acidophilus) 1 tablet PO BID [facility] Lactulose (Chronulac, Cephulac) 20 gm PO DAILY [facility] Morphine Sulfate () 1 - 2 mg IV Q4H PRN PRN PRN Reason: SEVERE PAIN (6-10/10) Last Admin: 09/07/17 20:25 Dose: 2 mg Nystatin (Mycostatin Powder) 1 applic TOPICAL TID [facility] Last Admin: 09/08/17 14:32 Dose: 1 applicatio Ondansetron HCl (Zofran) 4 mg IV Q6H PRN PRN PRN Reason: NAUSEA/VOMITING Last Admin: 09/06/17 02:13 Dose: 4 mg Oxycodone HCl (Oxyir) 5 - 10 mg PO Q4H PRN PRN PRN Reason: MILD-MODERATE PAIN Promethazine HCl (Phenergan) 6.25 mg IV Q6H PRN PRN PRN Reason: NAUSEA/VOMITING Last Admin: 09/05/17 11:43 Dose: 6.25 mg Sodium Chloride () 5 - 30 ml IV UD PRN PRN Reason: SALINE FLUSH Medical Necessity - Tobacco Use Smoking Status: Never smoker Assessment/Plan All Active Problems (Last Updated 08/23/17 @ 16:34 by Vero Jasso RN) Nausea & vomiting (Acute) UTI (urinary tract infection) (Acute) Dehydration (Acute) Hypomagnesemia (Acute) Hyponatremia (Acute) Cellulitis (Resolved) Squamous cell carcinoma in situ (Resolved) 1. Sepsis; she has improved with IV antibiotics for her cellulitis. 2. Acute small bowel obstruction ; continue NG tube decompression, IV fluids , will repeat KUB today and we will consult general surgery if no improvement. 3. Bilateral LE cellulitis; we will continue on IV vancomycin and Cefepime. 4. Acute cystitis; urine culture grew E. coli , current antibiotics will cover. 5. chronic kidney disease stage III; we will monitor renal parameters closely. We will avoid potential nephrotoxic medications. 6. Anemia of chronic disease; hemoglobin is stable, will monitor. 7. essential hypertension; this is controlled. 8. chronic bilateral lower extremity lymphedema/stasis dermatitis; keep legs elevated the patient will be started on diuretics, will continue local skin care. 9 Depression; we will continue current antidepressants. 10. DVT prophylaxis with SC heparin. Code Visit Inpatient E&M: 28777 Subs Hosp L3
[2017-09-08] MEDS: Morphine 2 MG/ML Syringe IV (17:57)
[2017-09-08] MEDS: Acetaminophen 325 MG Tablet 650 MG PO (22:19)
[2017-09-08 22:41] VITALS: BP 160/93; PULSE 91; RESP 20; TEMP 36.6; O2SAT 95
[2017-09-09] VITALS (8 sets, daily range): BP systolic 150–176; BP diastolic 72–100; PULSE 61–113; RESP 18–20; TEMP 36.5–37.1; O2SAT 95–100
[2017-09-09] MEDS: Dext 5%-0.45% NS 1,000 ML 60 ML IV ×2 (04:45→14:34)
--- NOTE | 2017-09-09 05:22 | NURSING ---
Called CPS about patient having audible exp wheezes.
[2017-09-09] MEDS: Gabapentin 100 MG Capsule PO ×3 (05:49→22:08)
[2017-09-09] MEDS: Acetaminophen 325 MG Tablet 650 MG PO (05:49)
[2017-09-09] MEDS: Carbidopa/Levodopa 25/100 Tablet PO ×3 (05:49→22:08)
[2017-09-09] MEDS: Nystatin Powder 15gm Bottle 1 APPLIC TOPICAL ×3 (05:50→22:08)
[2017-09-09] MEDS: Albuterol 2.5 MG/3 ML VIAL.NEB. INHALATION ×2 (05:56→16:10)
[2017-09-09 07:42] LABS: Absolute Lymphocyte Count 0.72 X10^3/ul (0.83-4.51); Absolute Neutrophil Count 2.6 X10^3/uL (2.0-7.7); Basophil# 0.01 X10^3/uL; Basophil% 0.3 % (0-1); Eosinophils% 2.6 % (0-5); Hematocrit 35.1 % (37-47); Hemoglobin 10.7 g/dl (12.0-15.0); Lymphocyte # 0.72 X10^3/ul (4.0); Lymphocyte % 18.5 % (19-41); Mean Corp Hgb Conc 30.5 g/gl (32-36); Mean Corpuscular Hgb 29.7 pg (27.0-32.0); Mean Corpuscular Volume 97.5 fL (81-99); Mean Platelet Vol. 10.4 fl (6.2-12.0); Monocyte# 0.37 X10^3/uL; Monocyte% 9.5 % (0-10); Neutrophil # 2.64 X10^3/uL (2.7-7.7); Neutrophil % 67.6 % (47-70); Platelet Count 119 K/mm3 (150-450); RBC Distribution Width CV 14.7 % (11.6-14.6); RBC Distribution Width SD 52.3 fl (35.1-43.9); White Blood Count 3.9 K/mm3 (4.4-11.0)
[2017-09-09 07:45] LABS: POSITIVE COUNT NO; POSITIVE DIFFERENTIAL NO; POSITIVE MORPHOLOGY NO
[2017-09-09 07:50] LABS: Anion Gap 7 (5-15); BUN 8 mg/dL (7-18); BUN/Creat Ratio 9.2 RATIO (10-20); Chloride 103 mmol/L (98-107); Creatinine, Serum 0.87 mg/dL (0.55-1.02); EST Glomerular Filtration Rate 68 mL/min (>60); Est Glom Filt Rate - Afr Amer 83 mL/min (>60); Estimated Creatinine Clearance 57.13 ml/min; Glucose 84 mg/dL (74-106); Potassium 3.4 mmol/L (3.5-5.1); Sodium Level 137 mmol/L (136-145)
[2017-09-09] MEDS: Enoxaparin 40 MG/0.4 ML Syringe SC (11:32)
[2017-09-09] MEDS: buPROPion (XL) 300 MG TABLET.XL PO (11:34)
[2017-09-09] MEDS: Lactulose 20 GM/30 ML UDC PO (11:35)
[2017-09-09] MEDS: Escitalopram Oxalate 10 MG Tablet PO (11:35)
[2017-09-09] MEDS: ARIPiprazole 5 MG Tablet PO (11:36)
--- NOTE | 2017-09-09 12:54 | PCM.PN.HOSP ---
Subjective: CC: smalll bowel obstruction, leg cellulitis Objective: She is much improved today, abdomen is less distended, she still has not passed gas or had bowel movement. Vitals/I&O's: Vital Signs Temp Pulse Resp BP Pulse Ox 97.9 F 100 20 H 163/90 H 95 09/09/17 04:00 09/09/17 05:57 09/09/17 05:57 09/09/17 04:00 09/09/17 04:00 Oxygen Flow Rate (L/min) 1 Oxygen Delivery Method Room Air Weight: 119.7 kg Intake and Output for Last 24 Hours 09/07/17 09/08/17 09/09/17 23:59 23:59 23:59 Intake Total 2167 / 2167 1320 / 1320 1069 / 1069 Output Total 1500 / 1500 990 / 990 900 / 900 Balance 667 / 667 330 / 330 169 / 169 General: Alert, Oriented x3 Oral: Moist Mucosa Neck: Supple, No JVD Lungs: No wheeze, No rales Cardiovascular: Regular rate, Normal S1, Normal S2 Abdomen: Distended, Tender, Hernia Extremities: Edema Skin: No rashes Neurological: Cranial nerves II-XII grossly intact, Motor Exam 5/5 strength throughout Laboratory Results 09/09/17 07:01: Sodium 137, Potassium 3.4 L, Chloride 103, Carbon Dioxide 27.0, Anion Gap 7, BUN 8, Creatinine 0.87, Estim Creat Clear Calc 57.13, Est GFR (MDRD) Af Amer 83, Est GFR (MDRD) Non-Af 68, BUN/Creatinine Ratio 9.2 L, Glucose 84, Calcium 8.0 L 09/09/17 07:01: WBC 3.9 L, RBC 3.60 L, Hgb 10.7 L, Hct 35.1 L, MCV 97.5, MCH 29.7, MCHC 30.5 L, RDW 14.7 H, RDW Differential 52.3 H, Plt Count 119 L, MPV 10.4, Immature Gran % (Auto) 1.500 H, Neut % (Auto) 67.6, Lymph % (Auto) 18.5 L, [place] % (Auto) 9.5, Eos % (Auto) 2.6, Baso % (Auto) 0.3, Absolute Neuts (auto) 2.6, Absolute Lymphs (auto) 0.72 L, Total Counted Not Reportable Current Medications Acetaminophen (Tylenol) 650 mg PO Q4H PRN PRN PRN Reason: PAIN/FEVER Last Admin: 09/09/17 05:49 Dose: 650 mg Al Hydroxide/Mg Hydroxide (Mylanta Ii) 30 ml PO Q6H PRN PRN PRN Reason: DYSPEPSIA Albuterol Sulfate (Ventolin Aerosols) 2.5 mg INHALATION Q2H PRN PRN PRN Reason: DYSPNEA/WHEEZING Last Admin: 09/09/17 05:56 Dose: 2.5 mg Aripiprazole (Abilify) 5 mg PO DAILY [facility] Last Admin: 09/09/17 11:36 Dose: 5 mg Bupropion HCl (Wellbutrin Xl) 300 mg PO DAILY [facility] Last Admin: 09/09/17 11:34 Dose: 300 mg Carbidopa/Levodopa (Sinemet) 1 tablet PO TID [facility] Last Admin: 09/09/17 05:49 Dose: 1 tablet Enoxaparin Sodium (Lovenox) 40 mg SC DAILY@0600 [facility] Last Admin: 09/09/17 11:32 Dose: 40 mg Escitalopram Oxalate (Lexapro) 10 mg PO DAILY [facility] Last Admin: 09/09/17 11:35 Dose: 10 mg Gabapentin (Neurontin) 100 mg PO TID [facility] Last Admin: 09/09/17 05:49 Dose: 100 mg Hydralazine HCl (Apresoline Iv) 10 mg IV Q4H PRN PRN PRN Reason: SBP >/= 160 Last Admin: 09/06/17 08:18 Dose: 10 mg Hydralazine HCl (Apresoline Iv) 10 mg IV Q4H PRN PRN PRN Reason: Hypertensive Emergency Vancomycin HCl 1,500 mg/ (Sodium Chloride) 530 mls @ 250 mls/hr IV DAILY [facility] Last Admin: 09/09/17 11:34 Dose: 250 mls/hr Dextrose/Sodium Chloride () 1,000 mls @ 60 mls/hr IV .[id number] [facility] Last Admin: 09/09/17 04:45 Dose: 60 mls/hr Cefepime HCl 1 gm/ Sodium (Chloride) 50 mls @ 100 mls/hr IV Q12 [facility] Last Admin: 09/09/17 10:47 Dose: 100 mls/hr Famotidine (Pepcid 20mg) 20 mg in 50 mls @ 150 mls/hr IV Q12 [facility] Last Admin: 09/08/17 22:40 Dose: 150 mls/hr Lactobacillus Acidophilus (Acidophilus) 1 tablet PO BID [facility] Last Admin: 09/09/17 11:36 Dose: 1 tablet Lactulose (Chronulac, Cephulac) 20 gm PO DAILY [facility] Last Admin: 09/09/17 11:35 Dose: 20 gm Morphine Sulfate () 1 - 2 mg IV Q4H PRN PRN PRN Reason: SEVERE PAIN (6-01/03) Last Admin: 09/08/17 17:57 Dose: 2 mg Nystatin (Mycostatin Powder) 1 applic TOPICAL TID [facility] Last Admin: 09/09/17 11:36 Dose: 1 applicatio Ondansetron HCl (Zofran) 4 mg IV Q6H PRN PRN PRN Reason: NAUSEA/VOMITING Last Admin: 09/06/17 02:13 Dose: 4 mg Oxycodone HCl (Oxyir) 5 - 10 mg PO Q4H PRN PRN PRN Reason: MILD-MODERATE PAIN Promethazine HCl (Phenergan) 6.25 mg IV Q6H PRN PRN PRN Reason: NAUSEA/VOMITING Last Admin: 09/05/17 11:43 Dose: 6.25 mg Sodium Chloride () 5 - 30 ml IV UD PRN PRN Reason: SALINE FLUSH Medical Necessity - Tobacco Use Smoking Status: Never smoker Assessment/Plan All Active Problems (Last Updated 08/23/17 @ 16:34 by Vero Jasso RN) Nausea & vomiting (Acute) UTI (urinary tract infection) (Acute) Dehydration (Acute) Hypomagnesemia (Acute) Hyponatremia (Acute) Cellulitis (Resolved) Squamous cell carcinoma in situ (Resolved) 1. Sepsis from cellulitis, resolved with antibiotic therapy. 2. Acute small bowel obstruction ; repeat KUB showed dilated small bowel loops, we will obtain Gastrografin status and if she has persistent small bowel obstruction we will consult general surgery. 3. Bilateral LE cellulitis; improved, will discontinue IV vancomycin, will continue on IV cefepime for now. . 4. Acute cystitis; treated with antibiotics. 5. chronic kidney disease stage III; we will monitor renal parameters closely. We will avoid potential nephrotoxic medications. 6. Anemia of chronic disease; hemoglobin is stable, will monitor. 7. essential hypertension; this is controlled. 8. chronic bilateral lower extremity lymphedema/stasis dermatitis; keep legs elevated the patient will be started on diuretics, will continue local skin care. 9 Depression; we will continue current antidepressants. 10. DVT prophylaxis with SC heparin.
--- NOTE | 2017-09-09 12:58 | PN_ITS ---
Subjective: CC: smalll bowel obstruction, leg cellulitis Objective: She is much improved today, abdomen is less distended, she still has not passed gas or had bowel movement. Vitals/I&O's: Vital Signs Temp Pulse Resp BP Pulse Ox 97.9 F 100 20 H 163/90 H 95 09/09/17 04:00 09/09/17 05:57 09/09/17 05:57 09/09/17 04:00 09/09/17 04:00 Oxygen Flow Rate (L/min) 1 Oxygen Delivery Method Room Air Weight: 119.7 kg Intake and Output for Last 24 Hours 09/07/17 09/08/17 09/09/17 23:59 23:59 23:59 Intake Total 2167 / 2167 1320 / 1320 1069 / 1069 Output Total 1500 / 1500 990 / 990 900 / 900 Balance 667 / 667 330 / 330 169 / 169 General: Alert, Oriented x3 Oral: Moist Mucosa Neck: Supple, No JVD Lungs: No wheeze, No rales Cardiovascular: Regular rate, Normal S1, Normal S2 Abdomen: Distended, Tender, Hernia Extremities: Edema Skin: No rashes Neurological: Cranial nerves II-XII grossly intact, Motor Exam 5/5 strength throughout Laboratory Results 09/09/17 07:01: Sodium 137, Potassium 3.4 L, Chloride 103, Carbon Dioxide 27.0, Anion Gap 7, BUN 8, Creatinine 0.87, Estim Creat Clear Calc 57.13, Est GFR (MDRD ) Af Amer 83, Est GFR (MDRD) Non-Af 68, BUN/Creatinine Ratio 9.2 L, Glucose 84, Calcium 8.0 L 09/09/17 07:01: WBC 3.9 L, RBC 3.60 L, Hgb 10.7 L, Hct 35.1 L, MCV 97.5, MCH 29.7, MCHC 30.5 L, RDW 14.7 H, RDW Differential 52.3 H, Plt Count 119 L, MPV 10.4, Immature Gran % (Auto) 1.500 H, Neut % (Auto) 67.6, Lymph % (Auto) 18.5 L , [place] % (Auto) 9.5, Eos % (Auto) 2.6, Baso % (Auto) 0.3, Absolute Neuts (auto) 2.6, Absolute Lymphs (auto) 0.72 L, Total Counted Not Reportable Current Medications Acetaminophen (Tylenol) 650 mg PO Q4H PRN PRN PRN Reason: PAIN/FEVER Last Admin: 09/09/17 05:49 Dose: 650 mg Al Hydroxide/Mg Hydroxide (Mylanta Ii) 30 ml PO Q6H PRN PRN PRN Reason: DYSPEPSIA Albuterol Sulfate (Ventolin Aerosols) 2.5 mg INHALATION Q2H PRN PRN PRN Reason: DYSPNEA/WHEEZING Last Admin: 09/09/17 05:56 Dose: 2.5 mg Aripiprazole (Abilify) 5 mg PO DAILY [facility] Last Admin: 09/09/17 11:36 Dose: 5 mg Bupropion HCl (Wellbutrin Xl) 300 mg PO DAILY [facility] Last Admin: 09/09/17 11:34 Dose: 300 mg Carbidopa/Levodopa (Sinemet) 1 tablet PO TID [facility] Last Admin: 09/09/17 05:49 Dose: 1 tablet Enoxaparin Sodium (Lovenox) 40 mg SC DAILY@0600 [facility] Last Admin: 09/09/17 11:32 Dose: 40 mg Escitalopram Oxalate (Lexapro) 10 mg PO DAILY [facility] Last Admin: 09/09/17 11:35 Dose: 10 mg Gabapentin (Neurontin) 100 mg PO TID [facility] Last Admin: 09/09/17 05:49 Dose: 100 mg Hydralazine HCl (Apresoline Iv) 10 mg IV Q4H PRN PRN PRN Reason: SBP >/= 160 Last Admin: 09/06/17 08:18 Dose: 10 mg Hydralazine HCl (Apresoline Iv) 10 mg IV Q4H PRN PRN PRN Reason: Hypertensive Emergency Vancomycin HCl 1,500 mg/ (Sodium Chloride) 530 mls @ 250 mls/hr IV DAILY [facility] Last Admin: 09/09/17 11:34 Dose: 250 mls/hr Dextrose/Sodium Chloride () 1,000 mls @ 60 mls/hr IV .[id number] [facility] Last Admin: 09/09/17 04:45 Dose: 60 mls/hr Cefepime HCl 1 gm/ Sodium (Chloride) 50 mls @ 100 mls/hr IV Q12 [facility] Last Admin: 09/09/17 10:47 Dose: 100 mls/hr Famotidine (Pepcid 20mg) 20 mg in 50 mls @ 150 mls/hr IV Q12 [facility] Last Admin: 09/08/17 22:40 Dose: 150 mls/hr Lactobacillus Acidophilus (Acidophilus) 1 tablet PO BID [facility] Last Admin: 09/09/17 11:36 Dose: 1 tablet Lactulose (Chronulac, Cephulac) 20 gm PO DAILY [facility] Last Admin: 09/09/17 11:35 Dose: 20 gm Morphine Sulfate () 1 - 2 mg IV Q4H PRN PRN PRN Reason: SEVERE PAIN (6-01/03) Last Admin: 09/08/17 17:57 Dose: 2 mg Nystatin (Mycostatin Powder) 1 applic TOPICAL TID [facility] Last Admin: 09/09/17 11:36 Dose: 1 applicatio Ondansetron HCl (Zofran) 4 mg IV Q6H PRN PRN PRN Reason: NAUSEA/VOMITING Last Admin: 09/06/17 02:13 Dose: 4 mg Oxycodone HCl (Oxyir) 5 - 10 mg PO Q4H PRN PRN PRN Reason: MILD-MODERATE PAIN Promethazine HCl (Phenergan) 6.25 mg IV Q6H PRN PRN PRN Reason: NAUSEA/VOMITING Last Admin: 09/05/17 11:43 Dose: 6.25 mg Sodium Chloride () 5 - 30 ml IV UD PRN PRN Reason: SALINE FLUSH Medical Necessity - Tobacco Use Smoking Status: Never smoker Assessment/Plan All Active Problems (Last Updated 08/23/17 @ 16:34 by Vero Jasso RN) Nausea & vomiting (Acute) UTI (urinary tract infection) (Acute) Dehydration (Acute) Hypomagnesemia (Acute) Hyponatremia (Acute) Cellulitis (Resolved) Squamous cell carcinoma in situ (Resolved) 1. Sepsis from cellulitis, resolved with antibiotic therapy. 2. Acute small bowel obstruction ; repeat KUB showed dilated small bowel loops , we will obtain Gastrografin status and if she has persistent small bowel obstruction we will consult general surgery. 3. Bilateral LE cellulitis; improved, will discontinue IV vancomycin, will continue on IV cefepime for now. . 4. Acute cystitis; treated with antibiotics. 5. chronic kidney disease stage III; we will monitor renal parameters closely. We will avoid potential nephrotoxic medications. 6. Anemia of chronic disease; hemoglobin is stable, will monitor. 7. essential hypertension; this is controlled. 8. chronic bilateral lower extremity lymphedema/stasis dermatitis; keep legs elevated the patient will be started on diuretics, will continue local skin care. 9 Depression; we will continue current antidepressants. 10. DVT prophylaxis with SC heparin.
--- NOTE | 2017-09-09 13:00 | RAD_ITS ---
STUDY: SMALL BOWEL FOLLOW-THROUGH EXAMINATION. REASON FOR EXAM: Female, 71 years old. Gaseous distention of the abdomen. TECHNIQUE: A city dispatch supervisor film was obtained. Following this, the patient ingested 2 cups of Gastrografin. A small bowel series was then obtained. COMPARISON: None. FINDINGS: The city dispatch supervisor film demonstrates gaseous distention of small bowel as well as the colon. Degenerative changes of the lumbar spine with a dextroscoliosis. Status post left total hip replacement. There is a marked delay of transit of the Gastrografin through the bowel. Contrast is seen within the rectosigmoid colon. Findings are in keeping with ileus pattern. RAD/Small Bowel Series Only IMPRESSION: The delayed transit. Findings are in keeping with ileus gas pattern. Electronically Signed: Federico Cevallos MD at 13:28 EDT Tel [phone], Service support ,
[2017-09-09] MEDS: 0.9% NaCl Peripheral Flush Adult/Peds IV ×4 (14:38→19:06)
[2017-09-09] MEDS: Morphine 2 MG/ML Syringe IV ×2 (14:43→19:06)
[2017-09-09] MEDS: hydrALAZINE 20 MG/ML Vial 10 MG IV ×2 (16:32→22:05)
[2017-09-10] VITALS (9 sets, daily range): BP systolic 146–171; BP diastolic 87–112; PULSE 80–111; RESP 20; TEMP 36.7–37.6; O2SAT 91–98
[2017-09-10] MEDS: Morphine 2 MG/ML Syringe IV ×2 (00:58→10:06)
[2017-09-10] MEDS: Dext 5%-0.45% NS 1,000 ML 60 ML IV (00:58)
[2017-09-10] MEDS: Enoxaparin 40 MG/0.4 ML Syringe SC (06:18)
[2017-09-10] MEDS: Carbidopa/Levodopa 25/100 Tablet PO (06:19)
[2017-09-10] MEDS: Gabapentin 100 MG Capsule PO (06:19)
[2017-09-10] MEDS: Nystatin Powder 15gm Bottle 1 APPLIC TOPICAL ×3 (06:19→21:42)
[2017-09-10 06:59] LABS: Absolute Neutrophil Count 3.7 X10^3/uL (2.0-7.7); Basophil# 0.01 X10^3/uL; Basophil% 0.2 % (0-1); Eosinophil# 0.09 X10^3/uL; Eosinophils% 1.7 % (0-5); Hematocrit 37.3 % (37-47); Hemoglobin 11.2 g/dl (12.0-15.0); Lymphocyte % 11.6 % (19-41); Mean Corpuscular Hgb 29.5 pg (27.0-32.0); Mean Corpuscular Volume 98.2 fL (81-99); Mean Platelet Vol. 10.6 fl (6.2-12.0); Monocyte# 0.69 X10^3/uL; Monocyte% 13.3 % (0-10); Neutrophil # 3.73 X10^3/uL (2.7-7.7); Platelet Count 130 K/mm3 (150-450); RBC Distribution Width SD 52.8 fl (35.1-43.9); White Blood Count 5.2 K/mm3 (4.4-11.0)
[2017-09-10 07:01] LABS: Differential Indicated SCAN CRITERIA MET; POSITIVE COUNT NO; POSITIVE DIFFERENTIAL YES; POSITIVE MORPHOLOGY NO
[2017-09-10 07:04] LABS: Anion Gap 8 (5-15); BUN 6 mg/dL (7-18); BUN/Creat Ratio 7.3 RATIO (10-20); Calcium,Total 8.2 mg/dL (8.5-10.1); Chloride 102 mmol/L (98-107); Creatinine, Serum 0.83 mg/dL (0.55-1.02); EST Glomerular Filtration Rate 73 mL/min (>60); Est Glom Filt Rate - Afr Amer 88 mL/min (>60); Estimated Creatinine Clearance 59.89 ml/min; Glucose 95 mg/dL (74-106); Potassium 3.3 mmol/L (3.5-5.1); Sodium Level 139 mmol/L (136-145)
[2017-09-10] MEDS: hydrALAZINE 20 MG/ML Vial 10 MG IV (08:31)
--- NOTE | 2017-09-10 10:28 | RAD_ITS ---
STUDY: X-RAY - ABDOMEN/PELVIS REASON FOR EXAM: Female, 71 years old. NG tube placement. TECHNIQUE: Single AP view of the abdomen / pelvis. COMPARISON: September 06, 2017 FINDINGS: An NG tube is place the tip is in the stomach. There are distended loops of small bowel present. RAD/Abdomen Single View (Portable) IMPRESSION: Distended loops of small bowel consider partial visualization of ileus or small bowel obstruction. NG tube in satisfactory position. Electronically Signed: Cierra Aguilar MD at 14:42 EDT Tel , Service support ,
[2017-09-10 10:33] LABS: Vancomycin, Trough Level 12.4 ug/mL (5.0-15.0)
--- NOTE | 2017-09-10 11:21 | PCM.PN.HOSP ---
Subjective: CC: Sepsis from leg cellulitis, small bowel obstruction Objective: The patient presented with sepsis from leg cellulitis that has improved with antibiotic therapy. She has a small bowel obstruction and NG tube is in Place Gastrografin status pending. Nursing noted blood in her NG tube today, she reports passing gas but no bowel movement as yet. Vitals/I&O's: Vital Signs Temp Pulse Resp BP Pulse Ox 98.2 F 80 20 H 161/87 H 94 09/10/17 11:18 09/10/17 11:18 09/10/17 11:18 09/10/17 11:18 09/10/17 11:18 Oxygen Flow Rate (L/min) 2 Oxygen Delivery Method Nasal Cannula Weight: 119.7 kg Intake and Output for Last 24 Hours 09/08/17 09/09/17 09/10/17 23:59 23:59 23:59 Intake Total 1320 / 1320 2362 / 2362 895 / 895 Output Total 990 / 990 3600 / 3600 1150 / 1150 Balance 330 / 330 -1238 / -1238 -255 / -255 Laboratory Results 09/10/17 05:40: Sodium 139, Potassium 3.3 L, Chloride 102, Carbon Dioxide 29.0, Anion Gap 8, BUN 6 L, Creatinine 0.83, Estim Creat Clear Calc 59.89, Est GFR (MDRD) Af Amer 88, Est GFR (MDRD) Non-Af 73, BUN/Creatinine Ratio 7.3 L, Glucose 95, Calcium 8.2 L 09/10/17 05:40: WBC 5.2, RBC 3.80 L, Hgb 11.2 L, Hct 37.3, MCV 98.2, MCH 29.5, MCHC 30.0 L, RDW 15.0 H, RDW Differential 52.8 H, Plt Count 130 L, MPV 10.6, Immature Gran % (Auto) 1.200 H, Neut % (Auto) 72.0 H, Lymph % (Auto) 11.6 L, [place] % (Auto) 13.3 H, Eos % (Auto) 1.7, Baso % (Auto) 0.2, Absolute Neuts (auto) 3.7, Absolute Lymphs (auto) 0.60 L, Total Counted Not Reportable, Differential Comment 06/17/18 09:13: Vancomycin Trough 12.4 Current Medications Acetaminophen (Tylenol) 650 mg PO Q4H PRN PRN PRN Reason: PAIN/FEVER Last Admin: 09/09/17 05:49 Dose: 650 mg Al Hydroxide/Mg Hydroxide (Mylanta Ii) 30 ml PO Q6H PRN PRN PRN Reason: DYSPEPSIA Albuterol Sulfate (Ventolin Aerosols) 2.5 mg INHALATION Q2H PRN PRN PRN Reason: DYSPNEA/WHEEZING Last Admin: 09/09/17 16:10 Dose: 2.5 mg Aripiprazole (Abilify) 5 mg PO DAILY [facility] Last Admin: 09/09/17 11:36 Dose: 5 mg Bupropion HCl (Wellbutrin Xl) 300 mg PO DAILY [facility] Last Admin: 09/09/17 11:34 Dose: 300 mg Carbidopa/Levodopa (Sinemet) 1 tablet PO TID [facility] Last Admin: 09/10/17 06:19 Dose: 1 tablet Enoxaparin Sodium (Lovenox) 40 mg SC DAILY@0600 [facility] Last Admin: 09/10/17 06:18 Dose: 40 mg Escitalopram Oxalate (Lexapro) 10 mg PO DAILY [facility] Last Admin: 09/09/17 11:35 Dose: 10 mg Gabapentin (Neurontin) 100 mg PO TID [facility] Last Admin: 09/10/17 06:19 Dose: 100 mg Hydralazine HCl (Apresoline Iv) 10 mg IV Q4H PRN PRN PRN Reason: SBP >/= 160 Last Admin: 09/10/17 08:31 Dose: 10 mg Hydralazine HCl (Apresoline Iv) 10 mg IV Q4H PRN PRN PRN Reason: Hypertensive Emergency Dextrose/Sodium Chloride () 1,000 mls @ 60 mls/hr IV .[id number] [facility] Last Admin: 09/10/17 00:58 Dose: 60 mls/hr Cefepime HCl 1 gm/ Sodium (Chloride) 50 mls @ 100 mls/hr IV Q12 [facility] Last Admin: 09/10/17 10:10 Dose: 100 mls/hr Famotidine (Pepcid 20mg) 20 mg in 50 mls @ 150 mls/hr IV Q12 [facility] Last Admin: 09/10/17 10:10 Dose: 150 mls/hr Lactobacillus Acidophilus (Acidophilus) 1 tablet PO BID [facility] Last Admin: 09/09/17 22:08 Dose: 1 tablet Lactulose (Chronulac, Cephulac) 20 gm PO DAILY [facility] Last Admin: 09/09/17 11:35 Dose: 20 gm Morphine Sulfate () 1 - 2 mg IV Q4H PRN PRN PRN Reason: SEVERE PAIN (6-10/10) Last Admin: 09/10/17 10:06 Dose: 2 mg Nystatin (Mycostatin Powder) 1 applic TOPICAL TID [facility] Last Admin: 09/10/17 06:19 Dose: 1 applicatio Ondansetron HCl (Zofran) 4 mg IV Q6H PRN PRN PRN Reason: NAUSEA/VOMITING Last Admin: 09/06/17 02:13 Dose: 4 mg Oxycodone HCl (Oxyir) 5 - 10 mg PO Q4H PRN PRN PRN Reason: MILD-MODERATE PAIN Promethazine HCl (Phenergan) 6.25 mg IV Q6H PRN PRN PRN Reason: NAUSEA/VOMITING Last Admin: 09/05/17 11:43 Dose: 6.25 mg Sodium Chloride () 5 - 30 ml IV UD PRN PRN Reason: SALINE FLUSH Last Admin: 09/09/17 19:06 Dose: 10 ml Medical Necessity - Tobacco Use Smoking Status: Never smoker Assessment/Plan All Active Problems (Last Updated 08/23/17 @ 16:34 by Vero Jasso RN) Nausea & vomiting (Acute) UTI (urinary tract infection) (Acute) Dehydration (Acute) Hypomagnesemia (Acute) Hyponatremia (Acute) Cellulitis (Resolved) Squamous cell carcinoma in situ (Resolved) 1. Sepsis from cellulitis, this has resolved with antibiotic therapy. 2. Acute small bowel obstruction ; repeat KUB showed dilated small bowel loops, Gastrografin studies ordered but would not be done until tomorrow, consulted general surgery. 3. Bilateral LE cellulitis; improved antibiotics, IV vancomycin discontinued, will continue on IV cefepime for now. 4. Acute cystitis; treated with antibiotics. 5. chronic kidney disease stage III; renal parameters remain stable. 6. Anemia of chronic disease; hemoglobin is stable, will monitor. 7. essential hypertension; this is controlled. 8. chronic bilateral lower extremity lymphedema/stasis dermatitis; keep legs elevated the patient will be started on diuretics, will continue local skin care. 9 Depression; we will continue current antidepressants. 10. DVT prophylaxis with SC heparin. 11. CODE STATUS; CC DNR CC and does not wish to undergo any invasive testing. Code Visit Inpatient E&M: 76607 Subs Hosp L2
--- NOTE | 2017-09-10 11:25 | PN_ITS ---
Subjective: CC: Sepsis from leg cellulitis, small bowel obstruction Objective: The patient presented with sepsis from leg cellulitis that has improved with antibiotic therapy. She has a small bowel obstruction and NG tube is in Place Gastrografin status pending. Nursing noted blood in her NG tube today, she reports passing gas but no bowel movement as yet. Vitals/I&O's: Vital Signs Temp Pulse Resp BP Pulse Ox 98.2 F 80 20 H 161/87 H 94 09/10/17 11:18 09/10/17 11:18 09/10/17 11:18 09/10/17 11:18 09/10/17 11:18 Oxygen Flow Rate (L/min) 2 Oxygen Delivery Method Nasal Cannula Weight: 119.7 kg Intake and Output for Last 24 Hours 09/08/17 09/09/17 09/10/17 23:59 23:59 23:59 Intake Total 1320 / 1320 2362 / 2362 895 / 895 Output Total 990 / 990 3600 / 3600 1150 / 1150 Balance 330 / 330 -1238 / -1238 -255 / -255 Laboratory Results 09/10/17 05:40: Sodium 139, Potassium 3.3 L, Chloride 102, Carbon Dioxide 29.0, Anion Gap 8, BUN 6 L, Creatinine 0.83, Estim Creat Clear Calc 59.89, Est GFR ( MDRD) Af Amer 88, Est GFR (MDRD) Non-Af 73, BUN/Creatinine Ratio 7.3 L, Glucose 95, Calcium 8.2 L 09/10/17 05:40: WBC 5.2, RBC 3.80 L, Hgb 11.2 L, Hct 37.3, MCV 98.2, MCH 29.5, MCHC 30.0 L, RDW 15.0 H, RDW Differential 52.8 H, Plt Count 130 L, MPV 10.6, Immature Gran % (Auto) 1.200 H, Neut % (Auto) 72.0 H, Lymph % (Auto) 11.6 L, [place] % (Auto) 13.3 H, Eos % (Auto) 1.7, Baso % (Auto) 0.2, Absolute Neuts (auto ) 3.7, Absolute Lymphs (auto) 0.60 L, Total Counted Not Reportable, Differential Comment 06/17/18 09:13: Vancomycin Trough 12.4 Current Medications Acetaminophen (Tylenol) 650 mg PO Q4H PRN PRN PRN Reason: PAIN/FEVER Last Admin: 09/09/17 05:49 Dose: 650 mg Al Hydroxide/Mg Hydroxide (Mylanta Ii) 30 ml PO Q6H PRN PRN PRN Reason: DYSPEPSIA Albuterol Sulfate (Ventolin Aerosols) 2.5 mg INHALATION Q2H PRN PRN PRN Reason: DYSPNEA/WHEEZING Last Admin: 09/09/17 16:10 Dose: 2.5 mg Aripiprazole (Abilify) 5 mg PO DAILY [facility] Last Admin: 09/09/17 11:36 Dose: 5 mg Bupropion HCl (Wellbutrin Xl) 300 mg PO DAILY [facility] Last Admin: 09/09/17 11:34 Dose: 300 mg Carbidopa/Levodopa (Sinemet) 1 tablet PO TID [facility] Last Admin: 09/10/17 06:19 Dose: 1 tablet Enoxaparin Sodium (Lovenox) 40 mg SC DAILY@0600 [facility] Last Admin: 09/10/17 06:18 Dose: 40 mg Escitalopram Oxalate (Lexapro) 10 mg PO DAILY [facility] Last Admin: 09/09/17 11:35 Dose: 10 mg Gabapentin (Neurontin) 100 mg PO TID [facility] Last Admin: 09/10/17 06:19 Dose: 100 mg Hydralazine HCl (Apresoline Iv) 10 mg IV Q4H PRN PRN PRN Reason: SBP >/= 160 Last Admin: 09/10/17 08:31 Dose: 10 mg Hydralazine HCl (Apresoline Iv) 10 mg IV Q4H PRN PRN PRN Reason: Hypertensive Emergency Dextrose/Sodium Chloride () 1,000 mls @ 60 mls/hr IV .[id number] [facility] Last Admin: 09/10/17 00:58 Dose: 60 mls/hr Cefepime HCl 1 gm/ Sodium (Chloride) 50 mls @ 100 mls/hr IV Q12 [facility] Last Admin: 09/10/17 10:10 Dose: 100 mls/hr Famotidine (Pepcid 20mg) 20 mg in 50 mls @ 150 mls/hr IV Q12 [facility] Last Admin: 09/10/17 10:10 Dose: 150 mls/hr Lactobacillus Acidophilus (Acidophilus) 1 tablet PO BID [facility] Last Admin: 09/09/17 22:08 Dose: 1 tablet Lactulose (Chronulac, Cephulac) 20 gm PO DAILY [facility] Last Admin: 09/09/17 11:35 Dose: 20 gm Morphine Sulfate () 1 - 2 mg IV Q4H PRN PRN PRN Reason: SEVERE PAIN (6-10/10) Last Admin: 09/10/17 10:06 Dose: 2 mg Nystatin (Mycostatin Powder) 1 applic TOPICAL TID [facility] Last Admin: 09/10/17 06:19 Dose: 1 applicatio Ondansetron HCl (Zofran) 4 mg IV Q6H PRN PRN PRN Reason: NAUSEA/VOMITING Last Admin: 09/06/17 02:13 Dose: 4 mg Oxycodone HCl (Oxyir) 5 - 10 mg PO Q4H PRN PRN PRN Reason: MILD-MODERATE PAIN Promethazine HCl (Phenergan) 6.25 mg IV Q6H PRN PRN PRN Reason: NAUSEA/VOMITING Last Admin: 09/05/17 11:43 Dose: 6.25 mg Sodium Chloride () 5 - 30 ml IV UD PRN PRN Reason: SALINE FLUSH Last Admin: 09/09/17 19:06 Dose: 10 ml Medical Necessity - Tobacco Use Smoking Status: Never smoker Assessment/Plan All Active Problems (Last Updated 08/23/17 @ 16:34 by Vero Jasso RN) Nausea & vomiting (Acute) UTI (urinary tract infection) (Acute) Dehydration (Acute) Hypomagnesemia (Acute) Hyponatremia (Acute) Cellulitis (Resolved) Squamous cell carcinoma in situ (Resolved) 1. Sepsis from cellulitis, this has resolved with antibiotic therapy. 2. Acute small bowel obstruction ; repeat KUB showed dilated small bowel loops , Gastrografin studies ordered but would not be done until tomorrow, consulted general surgery. 3. Bilateral LE cellulitis; improved antibiotics, IV vancomycin discontinued, will continue on IV cefepime for now. 4. Acute cystitis; treated with antibiotics. 5. chronic kidney disease stage III; renal parameters remain stable. 6. Anemia of chronic disease; hemoglobin is stable, will monitor. 7. essential hypertension; this is controlled. 8. chronic bilateral lower extremity lymphedema/stasis dermatitis; keep legs elevated the patient will be started on diuretics, will continue local skin care. 9 Depression; we will continue current antidepressants. 10. DVT prophylaxis with SC heparin. 11. CODE STATUS; CC DNR CC and does not wish to undergo any invasive testing. Code Visit Inpatient E&M: 08334 Subs Hosp L2
[2017-09-10 12:03] LABS: Absolute Lymphocyte Count 0.57 X10^3/ul (0.83-4.51); Absolute Neutrophil Count 3.6 X10^3/uL (2.0-7.7); Basophil# 0.02 X10^3/uL; Basophil% 0.4 % (0-1); Differential Indicated SCAN CRITERIA MET; Eosinophil# 0.12 X10^3/uL; Eosinophils% 2.5 % (0-5); Hematocrit 36.7 % (37-47); Hemoglobin 11.5 g/dl (12.0-15.0); Lymphocyte # 0.57 X10^3/ul (4.0); Lymphocyte % 11.7 % (19-41); Mean Corp Hgb Conc 31.3 g/gl (32-36); Mean Corpuscular Hgb 30.9 pg (27.0-32.0); Mean Corpuscular Volume 98.7 fL (81-99); Mean Platelet Vol. 10.1 fl (6.2-12.0); Monocyte# 0.52 X10^3/uL; Monocyte% 10.7 % (0-10); Neutrophil # 3.57 X10^3/uL (2.7-7.7); Neutrophil % 73.5 % (47-70); POSITIVE COUNT NO; POSITIVE DIFFERENTIAL YES; POSITIVE MORPHOLOGY NO; Platelet Count 109 K/mm3 (150-450); RBC Distribution Width CV 14.9 % (11.6-14.6); RBC Distribution Width SD 52.3 fl (35.1-43.9); Red Blood Count 3.72 M/mm3 (4.2-5.4); White Blood Count 4.9 K/mm3 (4.4-11.0)
--- NOTE | 2017-09-10 15:37 | CON.PCM_ITS ---
Problem List (1) Small bowel obstruction Status: Acute Reason for Consult Date of Consultation: 09/10/17 History of Present Illness: The patient is a 71 year old F who presented with lower extremity cellulitis and sepsis. She appears to involve a small bowel obstruction. I have been asked for surgical consultation. Been asked by Dr. Aguirre to see the patient and a written copy of my surgical consult will be returned to him. The patient is known not to be an operative surgical candidate. The patient's previously had nausea and vomiting. The following is results from a Gastrografin small bowel series performed June 30, 2016 ] Small Bowel Series Only MR#: [id number] Acct: [id number] Name: STACY VEE Rep #: [id number] : 1945 F 70 From: Federico Cevallos MD PCP: Care Physician,No Primary Status: ADM IN Study: Small Bowel Series Only Date of Exam: 06/30/16 Exam# [id number] Ordering Dr: Alcon Méndez MD STUDY: GASTROGRAFIN SMALL BOWEL FOLLOW-THROUGH. REASON FOR EXAM: Female, 70 years old. Distended small bowel loops most likely secondary to small bowel obstruction. TECHNIQUE: The patient ingested Gastrografin. A small bowel follow-through examination was performed up to 5 hours prior to ingestion. COMPARISON: None. FINDINGS: A nasogastric tube is seen with the tip in the body of the stomach. Gastrografin was introduced through the tube. There is evidence of a dilatation of the small bowel suggestive of a distal small bowel obstruction. The patient is status post cholecystectomy. A moderate amount of residual Gastrografin is seen within the distended stomach. A diverticulum is seen within the second portion of the duodenum. There is persistent dilatation of the small bowel loops down to the ileal region with a dilution of the contrast at that site. Several calcific densities seen in the right lower quadrant. This may represent patient's ingestion of pills and probable obstruction at that site. Clinical correlation is recommended. Multilevel degenerative changes of the lumbar spine with a dextroscoliosis. Status post left hip replacement. RAD/Small Bowel Series Only IMPRESSION: Multiple findings as discussed above. Electronically Signed: Federico Cevallos MD at 15:17 EDT Tel [phone], Service support [phone], I believe the patient was admitted September 02, 2017. Severe sepsis from ulcerations of lower extremities with cellulitis. She also had a distended abdomen. My understanding is that she has had an NG tube in place for 5 days. There was some bloody drainage and NG tube this morning. She is on subcu heparin therapy. She is felt not to be a surgical candidate and she has declined surgery. She has a known incisional hernia related to a classic cholecystectomy. She is also had a previous hysterectomy. On September 05, [address] a CT scan performed with IV but without oral contrast. Is felt to be twisting of the mesentery. Concern over a closed loop small bowel obstruction. In particular I am being asked to see her to determine any assistance with nonoperative management of her distended abdomen As of today her white blood cell count is 4.9 hemoglobin 11.5 hematocrit 36.7 platelet count 109,073% neutrophils.her potassium is 3.3 BUN is 6 and creatinine 0.83 Past Medical History Past Medical History (Chronic Problems): Chronic Problems (Last Updated 08/23/17 @ 16:34 by Vero Jasso RN) Obesity, Class III, BMI 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 obesity) (Chronic) HTN (hypertension) (Chronic) Chronic venous stasis dermatitis of both lower extremities (Chronic) Chronic venous insufficiency (Chronic) Venous ulcers of both lower extremities (Chronic) 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) Bilateral leg edema (Chronic) Parkinson's disease (tremor, stiffness, slow motion, unstable posture) (Chronic) Ileus (Chronic) Moderate malnutrition (Chronic) Autonomic neuropathy (Chronic) Schizo affective schizophrenia (Chronic) Medical History: Medical History (Last Updated 08/23/17 @ 16:34 by Vero Jasso RN) Anemia in other chronic diseases classified elsewhere D63.8 Anxiety F41.9 Bipolar disorder, current episode manic without psychotic features F31.10 COPD (chronic obstructive pulmonary disease) J44.9 Cellulitis of extremity L03.119 Chronic kidney disease N18.9 Dysuria R30.0 Encounter for attention to gastrostomy Z43.1 Hypertensive chronic kidney disease with stage 1 through stage 4 chronic kidney disease, or unspecified chronic kidney disease I12.9 Hypokalemia E87.6 Hypothyroidism E03.9 Ileus K56.7 Insomnia G47.00 Major depressive disorder, recurrent F33.9 Muscle weakness M62.81 Obesity E66.9 Other lack of coordination R27.8 Personal history of urinary infection Z87.440 Presence of artificial hip joint Z96.649 Schizoaffective disorder F25.9 Sepsis A41.9 Stage II pressure ulcer of sacral region L89.152 Thrombocytopenia D69.6 Unsteadiness on feet R26.81 Vitamin D deficiency E55.9 Allergies piperacillin [From Zosyn] Adverse Reaction (Verified 08/23/17 13:38) Rash tazobactam [From Zosyn] Adverse Reaction (Verified 08/23/17 13:38) Rash Home Medications: Ambulatory Orders Medication Instructions Recorded Carvedilol [Coreg (Beta Justin)] 3.125 mg PO BID 11/17/15 Cholecalciferol (VIT D3) [Vitamin 2,000 unit PO BREAKFAST 11/17/15 D3] Furosemide [Lasix] 20 mg PO DAILY 11/17/15 Gabapentin [Neurontin] 100 mg PO TIDCM 11/17/15 Lisinopril [Zestril] 2.5 mg PO QHS 11/17/15 Omeprazole [Prilosec] 20 mg PO DAILY 11/17/15 Ropinirole HCl [Ropinirole ER] 8 mg PO QHS 11/17/15 buPROPion XL [Wellbutrin Xl] 300 mg PO BREAKFAST 11/17/15 Acetaminophen [Tylenol] 500 mg PO QHS PRN PRN 06/21/16 Calcium Carbonate 600 mg PO DAILY 06/21/16 Escitalopram Oxalate [Lexapro] 10 mg PO BREAKFAST 06/22/16 Ondansetron HCl [Zofran] 4 mg PO Q6H PRN PRN 07/15/16 Hydrocodone Bitart/Apap 5-325 1 tablet PO Q4H PRN PRN #30 tablet 07/18/16 [[place] 5/325] Acetaminophen [Feverall] 1 supp RECTALLY Q4H PRN PRN MDD 4 08/23/17 GM Acetaminophen [Tylenol Arthritis] 650 mg PO Q4H PRN PRN MDD 4 GM 08/23/17 Aripiprazole [Abilify] 5 mg PO DAILY 08/23/17 Bisacodyl [Bisac-Evac] 10 mg RC DAILY PRN PRN 08/23/17 Carbidopa/Levodopa 25/100 [Sinemet 1 tablet PO TIDAC 08/23/17 25/100] Cetirizine HCl [Zyrtec] 10 mg PO BID 08/23/17 DiphenhydrAMINE [Benadryl] 25 mg PO Q6H PRN PRN 08/23/17 Diphenhydramine HCl/Zinc Acet 28.3 gm TP TID PRN PRN 08/23/17 [Benadryl Itch Stopping Crm] Guaifenesin 200 mg PO Q4H PRN PRN 08/23/17 Hydrocodone/Acetaminophen [[place] 1 each PO BID 08/23/17 5-325 Tablet] Lactobacillus Rhamnosus GG 1 unit PO QHS 08/23/17 [Culturelle] Lactulose [Chronulac] 20 gm PO BREAKFAST 08/23/17 Mag Hydrox/Al Hydrox/Simeth 30 ml PO Q4H PRN PRN 08/23/17 [Mylanta II] Magnesium Hydroxide [Milk Of 30 ml PO DAILY PRN PRN 08/23/17 Magnesia] Na Phos,M-B/Na Phos,Di-Ba [Fleet 1 bottle RECTAL DAILY PRN PRN 08/23/17 Enema] Nystatin Powder [Mycostatin Powder] 1 applic TOPICAL TID 08/23/17 Rotigotine [Neupro] 2 mg TRANSDERM. QHS 08/23/17 Urea [Ure-K] 142 gm TP QHS PRN PRN 08/23/17 Senna [Senokot] 2 tablet PO BID 09/05/17 Surgical History: Surgical History (Last Updated 08/23/17 @ 16:34 by Vero Jasso RN) Presence of cardiac and vascular implant and graft Z95.9 Surgical History: noncontributory Psychiatric History: Depression Smoking Status: Never smoker - *Family History Maternal History Items: No pertinent history Review of Systems Constitutional: Reports: Anorexia Eyes: Reports: Pain HEENT: Reports: Nasal Congestion Cardiovascular: Reports: Chest Tightness Gastrointestinal: Reports: Abdominal Pain, Nausea, Vomiting Musculoskeletal: Reports: Leg Pain Skin: Reports: Wounds Neurological: Reports: - - Able to respond to questions Psychiatric: Reports: - - Affect Patient Problems: Active and Suspected Problems (Last Updated 08/23/17 @ 16:34 by Vero Jasso RN) Small bowel obstruction (Acute) - Physical Exam General: Cooperative HEENT: - - Base appears very red Oral: Moist Mucosa Neck: - - Gorged neck Lungs: - - Markedly diminished breath sounds throughout Cardiovascular: - - Heart sounds Abdomen: - - Markedly tightly distended. Infraumbilical midline incision. Long supraumbilical midline incision with incisional hernia in the inferior aspect. Bulb was able to palpate it is not tender. She is other tightly distended in all other aspects of her abdomen. Mildly diffusely tender. Occasional audible rushes. Extremities: - - Erythematous lower extremities with multiple wounds Musculoskeletal: - - Lower extremities are tender to palpation and markedly edematous Lymphatic: No Cervical, Supraclavicular, or Inguinal Adenopathy Neurological: - - Patient completed bed rest Psych/Mental Status: Flat Affect Vital Signs Temp Pulse Resp BP Pulse Ox 98.0 F 111 H 20 H 146/90 H 98 09/10/17 15:09 09/10/17 15:09 09/10/17 15:09 09/10/17 15:09 09/10/17 15:09 Oxygen Flow Rate (L/min) 2 Oxygen Delivery Method Nasal Cannula Weight: 263 lb 14.293 oz Intake and Output for Last 24 Hours 09/08/17 09/09/17 09/10/17 23:59 23:59 23:59 Intake Total 1320 / 1320 2362 / 2362 1278 / 1278 Output Total 990 / 990 3600 / 3600 1450 / 1450 Balance 330 / 330 -1238 / -1238 -172 / -172 Laboratory Tests Past 24 Hrs 09/10/17 09/10/17 09/10/17 05:40 05:40 09:13 WBC 5.2 RBC 3.80 L Hgb 11.2 L Hct 37.3 MCV 98.2 MCH 29.5 MCHC 30.0 L RDW 15.0 H RDW Differential 52.8 H Plt Count 130 L MPV 10.6 Immature Gran % (Auto) 1.200 H Neut % (Auto) 72.0 H Lymph % (Auto) 11.6 L [place] % (Auto) 13.3 H Eos % (Auto) 1.7 Baso % (Auto) 0.2 Absolute Neuts (auto) 3.7 Absolute Lymphs (auto) 0.60 L Total Counted Not Reportable Differential Comment Sodium 139 Potassium 3.3 L Chloride 102 Carbon Dioxide 29.0 Anion Gap 8 BUN 6 L Creatinine 0.83 Estim Creat Clear Calc 59.89 Est GFR (MDRD) Af Amer 88 Est GFR (MDRD) Non-Af 73 BUN/Creatinine Ratio 7.3 L Glucose 95 Calcium 8.2 L Vancomycin Trough 12.4 09/10/17 11:50 WBC 4.9 RBC 3.72 L Hgb 11.5 L Hct 36.7 L MCV 98.7 MCH 30.9 MCHC 31.3 L RDW 14.9 H RDW Differential 52.3 H Plt Count 109 L MPV 10.1 Immature Gran % (Auto) 1.200 H Neut % (Auto) 73.5 H Lymph % (Auto) 11.7 L [place] % (Auto) 10.7 H Eos % (Auto) 2.5 Baso % (Auto) 0.4 Absolute Neuts (auto) 3.6 Absolute Lymphs (auto) 0.57 L Total Counted Not Reportable Differential Comment Sodium Potassium Chloride Carbon Dioxide Anion Gap BUN Creatinine Estim Creat Clear Calc Est GFR (MDRD) Af Amer Est GFR (MDRD) Non-Af BUN/Creatinine Ratio Glucose Calcium Vancomycin Trough Assessment/Plan All Active Problems (Last Updated 08/23/17 @ 16:34 by Vero Jasso RN) Nausea & vomiting (Acute) UTI (urinary tract infection) (Acute) Dehydration (Acute) Hypomagnesemia (Acute) Hyponatremia (Acute) Small bowel obstruction (Acute) Cellulitis (Resolved) Squamous cell carcinoma in situ (Resolved) 71-year-old female. She is felt not to be a operative candidate. She is DNR CC CODE STATUS. She declined surgery. Her NG tube currently appears to lightly bilious. This likely a small amount of NG tube trauma causing the small amount of bleeding. I do not recommend upper endoscopy or any particular intervention regarding that. Certainly the subcu heparin can be held if the bleeding persists. Regarding the patient's tightly distended abdomen. This may well represent a twist in the mesentery and a partial or complete small bowel obstruction. On September 05 to evaluate her abdomen she did not have oral contrast given for her CT scan. I would recommend a repeat abdominal pelvic CT scan with oral contrast given through the NG tube. This may assist with resumption of bowel function. She clearly has a component of chronic ileus as well as likely chronic obstruction. Her ventral hernia does not appear to be symptomatic at this time. We will obtain a CT with oral Gastrografin. This may facilitate diagnosis. May facilitate resolution. Otherwise I do not have any nonsurgical options. I would concur that the patient is a prohibitive operative risk let alone the fact that she is declining operative intervention Leonides Palomares M.D., F.A.C.S.
--- NOTE | 2017-09-10 15:40 | CT_ITS ---
STUDY: CT ABDOMEN AND PELVIS WITH CONTRAST REASON FOR EXAM: Female, 71 years old. BLOATING,ILEUS HX:COPD,KIDNEY DZ, squamous CELL TO BILAT LEGS RADIATION DOSAGE (If Supplied By Facility): CTDIvol = ( 18.74 ) mGy, DLP = ( 1244.94 ) mGycm TECHNIQUE: Transaxial images were obtained from the dome of the diaphragm to the symphysis pubis with oral contrast. 100ML ml of Isovue 300 contrast was administered. Sagittal and coronal images were reconstructed. Individualized dose optimization techniques were used for this CT. COMPARISON: September 05, 2017 FINDINGS: There is a new small left pleural effusion. There is a stable small right pleural effusion. The visualized portions of the heart are within normal limits. Normal liver. There are surgical clips in the gallbladder fossa consistent with a prior cholecystectomy. Normal spleen. Normal pancreas. Normal bilateral adrenal glands. Normal right kidney. Normal left kidney. Enteric tube distal tip is in the stomach. There is a stable duodenal diverticulum. Again seen are multiple dilated small bowel loops with air-fluid levels consistent with a partial small bowel obstruction or ileus. There is interval mild improvement with less severe dilatation. Normal colon. There is non-visualization of the appendix. There is diffuse atherosclerotic calcification of the abdominal aorta, without a demonstrated aneurysm. Normal inferior vena cava. There has been a hysterectomy. . There is a Sood catheter in a decompressed bladder. Again seen is an umbilical hernia. There is now bowel in the hernia. There hernia is not related to the small bowel obstruction or ileus. There are diffuse degenerative changes of the visualized lumbar spine. Again seen is a left hip arthroplasty. CT/Abdomen/Pelvis WITH Contrast IMPRESSION: There is mild interval improvement in the small bowel obstruction or ileus. Electronically Signed: Azul Page MD at 19:09 EDT , Service support ,
--- NOTE | 2017-09-10 17:36 | NURSING ---
pt to ct scan via bed
[2017-09-11] VITALS (7 sets, daily range): BP systolic 150–187; BP diastolic 74–88; PULSE 91–102; RESP 16–20; TEMP 36.4–36.9; O2SAT 93–98
[2017-09-11] MEDS: Nystatin Powder 15gm Bottle 1 APPLIC TOPICAL ×3 (05:38→23:46)
[2017-09-11] MEDS: Enoxaparin 40 MG/0.4 ML Syringe SC (05:38)
[2017-09-11 06:23] LABS: Hematocrit 36.3 % (37-47); Hemoglobin 10.9 g/dl (12.0-15.0); Mean Corpuscular Hgb 29.7 pg (27.0-32.0); Mean Corpuscular Volume 98.9 fL (81-99); Mean Platelet Vol. 10.3 fl (6.2-12.0); Platelet Count 120 K/mm3 (150-450); RBC Distribution Width CV 15.2 % (11.6-14.6); RBC Distribution Width SD 54.6 fl (35.1-43.9); Red Blood Count 3.67 M/mm3 (4.2-5.4); White Blood Count 4.1 K/mm3 (4.4-11.0)
--- NOTE | 2017-09-11 06:24 | PN.SURG_ITS ---
Patient Problems: Active and Suspected Problems (Last Updated 08/23/17 @ 16:34 by Vero Jasso RN) Small bowel obstruction (Acute) Subjective: Pt again states she will not have any surgery - Physical Exam Abdomen: - - tightly distended, occ spencer of BS, hernia is reducible Vital Signs Temp Pulse Resp BP Pulse Ox 98.2 F 102 H 20 H 159/74 H 96 09/11/17 03:21 09/11/17 03:21 09/11/17 03:21 09/11/17 03:21 09/11/17 03:21 Oxygen Flow Rate (L/min) 2 Oxygen Delivery Method Nasal Cannula Weight: 263 lb 14.293 oz Intake and Output for Last 24 Hours 09/09/17 09/10/17 09/11/17 23:59 23:59 23:59 Intake Total 2362 / 2362 1734 / 1734 706 / 706 Output Total 3600 / 3600 2050 / 2050 1550 / 1550 Balance -1238 / -1238 -316 / -316 -844 / -844 Laboratory Tests Past 24 Hrs 09/10/17 09/10/17 09/10/17 05:40 05:40 09:13 WBC 5.2 RBC 3.80 L Hgb 11.2 L Hct 37.3 MCV 98.2 MCH 29.5 MCHC 30.0 L RDW 15.0 H RDW Differential 52.8 H Plt Count 130 L MPV 10.6 Immature Gran % (Auto) 1.200 H Neut % (Auto) 72.0 H Lymph % (Auto) 11.6 L [place] % (Auto) 13.3 H Eos % (Auto) 1.7 Baso % (Auto) 0.2 Absolute Neuts (auto) 3.7 Absolute Lymphs (auto) 0.60 L Total Counted Not Reportable Differential Comment Sodium 139 Potassium 3.3 L Chloride 102 Carbon Dioxide 29.0 Anion Gap 8 BUN 6 L Creatinine 0.83 Estim Creat Clear Calc 59.89 Est GFR (MDRD) Af Amer 88 Est GFR (MDRD) Non-Af 73 BUN/Creatinine Ratio 7.3 L Glucose 95 Calcium 8.2 L Vancomycin Trough 12.4 09/10/17 09/11/17 11:50 05:40 WBC 4.9 Pending RBC 3.72 L Pending Hgb 11.5 L Pending Hct 36.7 L Pending MCV 98.7 Pending MCH 30.9 Pending MCHC 31.3 L Pending RDW 14.9 H Pending RDW Differential 52.3 H Pending Plt Count 109 L Pending MPV 10.1 Immature Gran % (Auto) 1.200 H Neut % (Auto) 73.5 H Lymph % (Auto) 11.7 L [place] % (Auto) 10.7 H Eos % (Auto) 2.5 Baso % (Auto) 0.4 Absolute Neuts (auto) 3.6 Absolute Lymphs (auto) 0.57 L Total Counted Not Reportable Differential Comment Sodium Potassium Chloride Carbon Dioxide Anion Gap BUN Creatinine Estim Creat Clear Calc Est GFR (MDRD) Af Amer Est GFR (MDRD) Non-Af BUN/Creatinine Ratio Glucose Calcium Vancomycin Trough Medical Necessity - Tobacco Use Smoking Status: Never smoker Assessment/Plan All Active Problems (Last Updated 08/23/17 @ 16:34 by Vero Jasso, RN) Nausea & vomiting (Acute) UTI (urinary tract infection) (Acute) Dehydration (Acute) Hypomagnesemia (Acute) Hyponatremia (Acute) Small bowel obstruction (Acute) Cellulitis (Resolved) Squamous cell carcinoma in situ (Resolved) CT performed with oral gastrograffin contrast with minimal change from 09/05 CT without oral contrast Ileus vs SBO NGT output does not appear grossly bloody this a.m. Pt is ordered for prn morphine and oxyir which will worsen ileus/sbo Mobilization would help but pt certainly appears to have limitations here Pt declines surgery I do not have additional advice at this time
[2017-09-11 06:27] LABS: Scan Indicated on CBC? Y/N NO
--- NOTE | 2017-09-11 07:55 | NURSING ---
O2 DECREASED TO 1L NC
[2017-09-11] MEDS: 0.9% NaCl Peripheral Flush Adult/Peds IV ×2 (08:07→23:46)
[2017-09-11] MEDS: Morphine 2 MG/ML Syringe IV ×2 (08:07→14:46)
--- NOTE | 2017-09-11 12:30 | PN_ITS ---
Patient Problems: Active and Suspected Problems (Last Updated 08/23/17 @ 16:34 by Vero Jasso RN) Small bowel obstruction (Acute) Subjective: The patient is a 71-year-old female originally admitted to the hospital with severe sepsis secondary to cellulitis of the lower extremity and urinary tract infection. The urine culture grew E. Coli resistant to fluoroquinolones and ampicillin. She is currently on cefepime. While in the hospital she developed a ileus versus small bowel obstruction and Dr. Palomares was consulted. CT of the abdomen with Gastrografin done on 09/10/2017 showed no significant change from a CT without contrast at admission. The patient has refused surgery. She is afebrile. Her pressures are mildly elevated and the current blood pressure is 150/76. Heart rate is 95 and the respiratory rate is 20 with a 95% saturation on a 2 L nasal cannula. Fluid balance since admission is +1765. All lab was personally reviewed. The white blood cell count today is 4.1. Hemoglobin is 10.9 and platelets are 120,000 and stable. SCM on 09/10 was 3.3 and has not been rechecked today. Has been primarily sedentary since admission. She is passing gas but has not had a BM. She has some pain in the abdomen but had no guarding with palpation. She currently denies nausea. - Physical Exam General: Alert, Oriented x3, Cooperative, No apparent distress HEENT: Atraumatic, PERRLA, EOMI Oral: Moist Mucosa, No Gingival or Mucosal Lesions/ Ulcerations Neck: Trachea Midline, - - short thick neck - unable to assess for JVD Lungs: Clear to auscultation, Diminished, - - Poor inspiratory effort Cardiovascular: Regular rate, Regular Rhythm, Normal S1, Normal S2, No Gallop Abdomen: Hypoactive Bowel Sounds, Distended, - - She has a reducible umbilical hernia. The abdomen is firm and she complains of some tenderness but there is no guarding. There are no masses. Extremities: No edema Skin: No rashes Neurological: Cranial nerves II-XII grossly intact, Neuro grossly intact Psych/Mental Status: Normal Affect, Appropriate Vital Signs Temp Pulse Resp BP Pulse Ox 98.5 F 95 20 H 150/76 H 95 09/11/17 07:54 09/11/17 07:54 09/11/17 07:54 09/11/17 07:54 09/11/17 07:54 Oxygen Flow Rate (L/min) 2 Oxygen Delivery Method Nasal Cannula Weight: 263 lb 14.293 oz Intake and Output for Last 24 Hours 09/09/17 09/10/17 09/11/17 23:59 23:59 23:59 Intake Total 2362 / 2362 1734 / 1734 706 / 706 Output Total 3600 / 3600 2050 / 2049 1550 / 1550 Balance -1238 / -1238 -316 / -316 -844 / -844 Laboratory Tests Past 24 Hrs 09/10/17 09/11/17 11:50 05:40 WBC 4.9 4.1 L RBC 3.72 L 3.67 L Hgb 11.5 L 10.9 L Hct 36.7 L 36.3 L MCV 98.7 98.9 MCH 30.9 29.7 MCHC 31.3 L 30.0 L RDW 14.9 H 15.2 H RDW Differential 52.3 H 54.6 H Plt Count 109 L 120 L MPV 10.1 10.3 Immature Gran % (Auto) 1.200 H Neut % (Auto) 73.5 H Lymph % (Auto) 11.7 L [place] % (Auto) 10.7 H Eos % (Auto) 2.5 Baso % (Auto) 0.4 Absolute Neuts (auto) 3.6 Absolute Lymphs (auto) 0.57 L Total Counted Not Reportable Medical Necessity - Tobacco Use Smoking Status: Never smoker Assessment/Plan All Active Problems (Last Updated 08/23/17 @ 16:34 by Vero Jasso RN) Nausea & vomiting (Acute) UTI (urinary tract infection) (Acute) Dehydration (Acute) Hypomagnesemia (Acute) Hyponatremia (Acute) Small bowel obstruction (Acute) Cellulitis (Resolved) Squamous cell carcinoma in situ (Resolved) Impressions 1. cellulitis of the LE's - improved 2. UTI secondary to E. coli. 3. Small bowel obstruction versus ileus 4. Morbid obesity DC the Cefepime and start ANcef and finish 10 days of antibiotic tx I strongly encouraged the patient to get out of bed an ambulate. Recheck BMP in the a.m. Patient has refused to have surgery. I did explain to her that if the small bowel obstruction/ileus fails to resolve she may not have a choice. She has had prior abdominal surgery and likely has adhesions. Appreciate Dr. Palomares's input. Continue the NPO status. Code Visit Inpatient E&M: 33506 Subs Hosp L2
--- NOTE | 2017-09-11 12:56 | NURSING ---
DRSGS TO BLES & LUE CHANGED ORDERED. PT TOLERATED WELL.
--- NOTE | 2017-09-11 14:29 | CASEMGMT ---
Social Work Note SW received message from Delfina at [facility] asking for updated clinicals. SW faxed updated clinicals to Delfina at [facility]. Plan: [facility] when medically cleared Haven Travis EQUIPMENT CLEANER AND TESTER, FILM MOUNTER
[2017-09-11] MEDS: Dext 5%-0.45% NS 1,000 ML 60 ML IV (14:41)
[2017-09-11] MEDS: hydrALAZINE 20 MG/ML Vial 10 MG IV (14:47)
[2017-09-11] MEDS: Gabapentin 100 MG Capsule PO (23:51)
[2017-09-11] MEDS: Carbidopa/Levodopa 25/100 Tablet PO (23:51)
[2017-09-12] VITALS (8 sets, daily range): BP systolic 158–173; BP diastolic 72–107; PULSE 95–117; RESP 18–20; TEMP 36.3–36.7; O2SAT 93–97
[2017-09-12] MEDS: Morphine 2 MG/ML Syringe IV (05:31)
[2017-09-12] MEDS: 0.9% NaCl Peripheral Flush Adult/Peds IV ×2 (05:31→09:27)
[2017-09-12] MEDS: Enoxaparin 40 MG/0.4 ML Syringe SC (05:32)
[2017-09-12] MEDS: Carbidopa/Levodopa 25/100 Tablet PO ×3 (05:32→21:15)
[2017-09-12] MEDS: Nystatin Powder 15gm Bottle 1 APPLIC TOPICAL ×3 (05:32→21:16)
[2017-09-12] MEDS: Gabapentin 100 MG Capsule PO ×3 (05:32→21:17)
--- NOTE | 2017-09-12 06:04 | PCM.PN.SRG ---
Patient Problems: Active and Suspected Problems (Last Updated 08/23/17 @ 16:34 by Vero Jasso, PAULINA) Small bowel obstruction (Acute) Subjective: Pt states she passes alot of flatus last night, feels better - Physical Exam Abdomen: - - sl softer, NT, occ BS Vital Signs Temp Pulse Resp BP Pulse Ox 97.4 F L 117 H 20 H 159/107 H 93 09/12/17 05:08 09/12/17 05:08 09/12/17 05:08 09/12/17 05:08 09/12/17 05:08 Oxygen Flow Rate (L/min) 1 Oxygen Delivery Method Room Air Weight: 263 lb 14.293 oz Intake and Output for Last 24 Hours 09/10/17 09/11/17 09/12/17 23:59 23:59 23:59 Intake Total 1734 / 1734 1329 / 1329 842 / 842 Output Total 2049 / 2049 2580 / 2580 625 / 625 Balance -316 / -316 -1251 / -1251 217 / 217 Laboratory Tests Past 24 Hrs 09/11/17 05:40 WBC 4.1 L RBC 3.67 L Hgb 10.9 L Hct 36.3 L MCV 98.9 MCH 29.7 MCHC 30.0 L RDW 15.2 H RDW Differential 54.6 H Plt Count 120 L MPV 10.3 Medical Necessity - Tobacco Use Smoking Status: Never smoker Assessment/Plan All Active Problems (Last Updated 08/23/17 @ 16:34 by Vero Jasso, RN) Nausea & vomiting (Acute) UTI (urinary tract infection) (Acute) Dehydration (Acute) Hypomagnesemia (Acute) Hyponatremia (Acute) Small bowel obstruction (Acute) Cellulitis (Resolved) Squamous cell carcinoma in situ (Resolved) I cannot find this a.m. ngt output record but yesterday it was declining With flatus I would consider removing ngt It seems apparent from previous studies that she either has a chronic partial sbo or ileus. I do not anticipate that her imaging will return to normal.
[2017-09-12 06:40] LABS: Hematocrit 37.3 % (37-47); Hemoglobin 11.6 g/dl (12.0-15.0); Mean Corp Hgb Conc 31.1 g/gl (32-36); Mean Corpuscular Hgb 30.4 pg (27.0-32.0); Mean Corpuscular Volume 97.9 fL (81-99); Mean Platelet Vol. 11.2 fl (6.2-12.0); Platelet Count 122 K/mm3 (150-450); RBC Distribution Width CV 15.2 % (11.6-14.6); RBC Distribution Width SD 54.2 fl (35.1-43.9); Red Blood Count 3.81 M/mm3 (4.2-5.4); White Blood Count 5.1 K/mm3 (4.4-11.0)
[2017-09-12 06:44] LABS: Scan Indicated on CBC? Y/N NO
[2017-09-12 08:25] LABS: Anion Gap 6 (5-15); BUN 4 mg/dL (7-18); BUN/Creat Ratio 5.1 RATIO (10-20); Calcium,Total 8.4 mg/dL (8.5-10.1); Chloride 100 mmol/L (98-107); Creatinine, Serum 0.79 mg/dL (0.55-1.02); EST Glomerular Filtration Rate 76 mL/min (>60); Est Glom Filt Rate - Afr Amer 93 mL/min (>60); Glucose 94 mg/dL (74-106); Potassium 3.6 mmol/L (3.5-5.1); Sodium Level 137 mmol/L (136-145)
--- NOTE | 2017-09-12 08:57 | PN_ITS ---
Patient Problems: Active and Suspected Problems (Last Updated 08/23/17 @ 16:34 by Vero Jasso RN) Small bowel obstruction (Acute) Subjective: Day #6 cefepime NG tube was clamped this a.m. by Dr. Palomares. Patient did not ambulate yesterday as instructed. Currently denies abdominal pain. Afebrile since admission. Blood pressures have been high. Her only antihypertensive as an outpatient is carvedilol 3.125 mg twice daily. Currently she is on as needed hydralazine for hypertension. All lab was personally reviewed. White blood cell count is 5.1 and hemoglobin is 11.6 and stable. Platelets are stable at 122,000. Electrolytes are within normal limits and the BUN is 4 with a creatinine of 0.79. - Physical Exam General: Alert, Non-Cooperative - will not ambulate and lies in bed and unable to even turn herself. Pages the nurses to adjust her pillow. Oral: Moist Mucosa Lungs: Clear to auscultation, Diminished Cardiovascular: Regular rate, Regular Rhythm, Normal S1, Normal S2, No Gallop Abdomen: Hypoactive Bowel Sounds, Distended - and hypertympanic, Obese, - - umbilical hernia still reducible, the abdomen is firm Extremities: No clubbing, No cyanosis, No edema, No Calf Tenderness Skin: No rashes, No breakdown Neurological: Cranial nerves II-XII grossly intact, Neuro grossly intact Psych/Mental Status: Flat Affect Vital Signs Temp Pulse Resp BP Pulse Ox 97.4 F L 117 H 20 H 159/107 H 93 09/12/17 05:08 09/12/17 05:08 09/12/17 05:08 09/12/17 05:08 09/12/17 05:08 Oxygen Flow Rate (L/min) 1 Oxygen Delivery Method Room Air Weight: 263 lb 14.293 oz Intake and Output for Last 24 Hours 09/10/17 09/11/17 09/12/17 23:59 23:59 23:59 Intake Total 1734 / 1734 1329 / 1329 842 / 842 Output Total 2049 / 2049 2580 / 2580 625 / 625 Balance -316 / -316 -1251 / -1251 217 / 217 Laboratory Tests Past 24 Hrs 09/12/17 09/12/17 06:04 07:50 WBC 5.1 RBC 3.81 L Hgb 11.6 L Hct 37.3 MCV 97.9 MCH 30.4 MCHC 31.1 L RDW 15.2 H RDW Differential 54.2 H Plt Count 122 L MPV 11.2 Sodium 137 Potassium 3.6 Chloride 100 Carbon Dioxide 31.0 Anion Gap 6 BUN 4 L Creatinine 0.79 Estim Creat Clear Calc 49.70 Est GFR (MDRD) Af Amer 93 Est GFR (MDRD) Non-Af 76 BUN/Creatinine Ratio 5.1 L Glucose 94 Calcium 8.4 L Medical Necessity - Tobacco Use Smoking Status: Never smoker Assessment/Plan All Active Problems (Last Updated 08/23/17 @ 16:34 by Vero Jasso, RN) Nausea & vomiting (Acute) UTI (urinary tract infection) (Acute) Dehydration (Acute) Hypomagnesemia (Acute) Hyponatremia (Acute) Small bowel obstruction (Acute) Cellulitis (Resolved) Squamous cell carcinoma in situ (Resolved) Impressions 1. cellulitis of the LE's - improved 2. UTI secondary to E. coli. 3. Small bowel obstruction versus ileus 4. Morbid obesity 5. Autonomic neuropathy 6. Chronic venous insufficiency with history of stasis ulcers 7. Hypertension 8. Parkinson's disease 9. prior admissions to [facility] for ileus without obstruction.....Tried on Reglan and Erythromycin with no improvement. Neupro patch has helped in the past. She has even been on TPN in the past because when she is started on a diet, even clear liquids, the abdomen becomes more distended. 10. Schizoaffective disorder DC the Cefepime and start ANcef and finish 10 days of antibiotic tx I strongly encouraged the patient to get out of bed an ambulate. Recheck BMP in the a.m. Pt is basically sedentary and does nothing to help herself......relies on nurses /aid for anything. Has not eaten since the . NG is currently clamped......if it is not removed today will need to consider starting TPN.......this is a recurrent problem. Will start a Neupro patch to see if this helps. Code Visit Inpatient E&M: 70626 Subs Hosp L2
[2017-09-12] MEDS: Escitalopram Oxalate 10 MG Tablet PO (09:28)
[2017-09-12] MEDS: buPROPion (XL) 300 MG TABLET.XL PO (09:28)
[2017-09-12] MEDS: ARIPiprazole 5 MG Tablet PO (09:28)
[2017-09-12] MEDS: Lactulose 20 GM/30 ML UDC PO (09:29)
[2017-09-12] MEDS: Dext 5%-0.45% NS 1,000 ML 60 ML IV (09:34)
[2017-09-12] MEDS: Cefazolin 1 GM/50 ML BAG IV ×3 (10:25→21:16)
[2017-09-12] MEDS: hydrALAZINE 20 MG/ML Vial 10 MG IV ×2 (14:09→18:42)
[2017-09-12] MEDS: oxyCODONE 5 MG Tablet PO (18:44)
[2017-09-12] MEDS: Acetaminophen 325 MG Tablet 650 MG PO (22:28)
[2017-09-13] VITALS (7 sets, daily range): BP systolic 143–182; BP diastolic 61–95; PULSE 92–111; RESP 14–18; TEMP 36.4–36.8; O2SAT 95–97
[2017-09-13] MEDS: oxyCODONE 5 MG Tablet PO ×2 (02:10→21:37)
[2017-09-13] MEDS: Dext 5%-0.45% NS 1,000 ML 60 ML IV ×2 (04:03→21:37)
--- NOTE | 2017-09-13 05:37 | PCM.PN.SRG ---
Patient Problems: Active and Suspected Problems (Last Updated 08/23/17 @ 16:34 by Vero Jasso, RN) Small bowel obstruction (Acute) Subjective: Pt states no abdominal pain and still passing flatus NGT 200, currently clamped - Physical Exam Abdomen: Non Tender, Hypoactive Bowel Sounds, Distended Vital Signs Temp Pulse Resp BP Pulse Ox 97.6 F L 103 H 14 143/61 H 95 09/13/17 02:00 09/13/17 02:00 09/13/17 02:00 09/13/17 02:00 09/13/17 02:00 Oxygen Flow Rate (L/min) 1 Oxygen Delivery Method Room Air Weight: 263 lb 14.293 oz Intake and Output for Last 24 Hours 09/11/17 09/12/17 09/13/17 23:59 23:59 23:59 Intake Total 1329 / 1329 1880 / 1880 617 / 617 Output Total 2580 / 2580 1700 / 1700 450 / 450 Balance -1251 / -1251 180 / 180 167 / 167 Laboratory Tests Past 24 Hrs 09/12/17 09/12/17 06:04 07:50 WBC 5.1 RBC 3.81 L Hgb 11.6 L Hct 37.3 MCV 97.9 MCH 30.4 MCHC 31.1 L RDW 15.2 H RDW Differential 54.2 H Plt Count 122 L MPV 11.2 Sodium 137 Potassium 3.6 Chloride 100 Carbon Dioxide 31.0 Anion Gap 6 BUN 4 L Creatinine 0.79 Estim Creat Clear Calc 49.70 Est GFR (MDRD) Af Amer 93 Est GFR (MDRD) Non-Af 76 BUN/Creatinine Ratio 5.1 L Glucose 94 Calcium 8.4 L Medical Necessity - Tobacco Use Smoking Status: Never smoker Assessment/Plan All Active Problems (Last Updated 08/23/17 @ 16:34 by Vero Jasso, RN) Nausea & vomiting (Acute) UTI (urinary tract infection) (Acute) Dehydration (Acute) Hypomagnesemia (Acute) Hyponatremia (Acute) Small bowel obstruction (Acute) Cellulitis (Resolved) Squamous cell carcinoma in situ (Resolved) Pt appears stable I would consider removing ngt because while it is clamped it does cause potential risk of aspiration
[2017-09-13] MEDS: Carbidopa/Levodopa 25/100 Tablet PO ×3 (05:59→21:21)
[2017-09-13] MEDS: Cefazolin 1 GM/50 ML BAG IV ×3 (05:59→22:14)
[2017-09-13] MEDS: Gabapentin 100 MG Capsule PO ×3 (05:59→21:21)
[2017-09-13] MEDS: Enoxaparin 40 MG/0.4 ML Syringe SC (05:59)
[2017-09-13] MEDS: Nystatin Powder 15gm Bottle 1 APPLIC TOPICAL ×3 (06:00→21:21)
[2017-09-13] MEDS: buPROPion (XL) 300 MG TABLET.XL PO (08:33)
[2017-09-13] MEDS: ARIPiprazole 5 MG Tablet PO (08:33)
[2017-09-13] MEDS: Lactulose 20 GM/30 ML UDC PO (08:33)
[2017-09-13] MEDS: Escitalopram Oxalate 10 MG Tablet PO (08:33)
--- NOTE | 2017-09-13 11:04 | CASEMGMT ---
Social Work Note Dr. Maldonado states that pt had TG tub taken out and that pt will begin advancing diet and if pt tolerates diet will then pt could possible d/c tomorrow. placed a call to Delfina at [facility] to update her of this. Delfina states understanding. Plan: [facility] when medically cleared Haven Travis PACKAGER OR PACKER AND WEIGHER, BIAS BINDING FOLDER
[2017-09-13] MEDS: hydrALAZINE 20 MG/ML Vial IV ×2 (14:55→22:15)
--- NOTE | 2017-09-13 20:45 | PN_ITS ---
Patient Problems: Active and Suspected Problems (Last Updated 08/23/17 @ 16:34 by Vero Jasso RN) Small bowel obstruction (Acute) Subjective: NG tube removed today. she is tolerating clears with no abdominal pain and no nausea or emesis. She took 1350 oral today. She is afebrile. Heart rate is persistently mildly increased in the range from 100-112. Blood pressures have been high and her oral antihypertensives have been restarted. Blood cell count is normal at 5.1 today. Platelets are low at 122 and stable. Hemoglobin is stable at 11.6. Electrolytes are within normal limits. Denies chest pain, shortness of breath, cough nausea, abdominal pain. She is able to understand she has autonomic neuropathy and she will always be prone to abdominal distension and recurrent ileus.......would likely benefit from frequent small meals Objective: General: Alert, cooperative today and pleasant Oral: Moist Mucosa Lungs: Clear to auscultation, Diminished Cardiovascular: Regular rate, Regular Rhythm, Normal S1, Normal S2, No Gallop Abdomen: Hypoactive Bowel Sounds, Distended - and hypertympanic, Obese, - - umbilical hernia still reducible, the abdomen is firm Extremities: No clubbing, No cyanosis, No edema, No Calf Tenderness Skin: No rashes, No breakdown Neurological: Cranial nerves II-XII grossly intact, Neuro grossly intact Psych/Mental Status: Flat Affect - Physical Exam Vital Signs Temp Pulse Resp BP Pulse Ox 97.8 F 111 H 18 148/82 H 95 09/13/17 14:50 09/13/17 17:15 09/13/17 14:50 09/13/17 17:15 09/13/17 14:50 Oxygen Flow Rate (L/min) 1 Oxygen Delivery Method Room Air Weight: 263 lb 14.293 oz Intake and Output for Last 24 Hours 09/11/17 09/12/17 09/13/17 23:59 23:59 23:59 Intake Total 1329 / 1329 1880 / 1880 2713 / 2713 Output Total 2580 / 2580 1700 / 1700 1625 / 1625 Balance -1251 / -1251 180 / 180 1088 / 1088 Medical Necessity - Tobacco Use Smoking Status: Never smoker Assessment/Plan All Active Problems (Last Updated 08/23/17 @ 16:34 by Vero Jasso, RN) Nausea & vomiting (Acute) UTI (urinary tract infection) (Acute) Dehydration (Acute) Hypomagnesemia (Acute) Hyponatremia (Acute) Small bowel obstruction (Acute) Cellulitis (Resolved) Squamous cell carcinoma in situ (Resolved) Day # 7 antibiotics Impressions 1. cellulitis of the LE's - improved 2. UTI secondary to E. coli. 3. Small bowel obstruction versus ileus 4. Morbid obesity 5. Autonomic neuropathy 6. Chronic venous insufficiency with history of stasis ulcers 7. Hypertension 8. Parkinson's disease 9. prior admissions to [facility] for ileus without obstruction.....Tried on Reglan and Erythromycin with no improvement. Neupro patch has helped in the past. She has even been on TPN in the past because when she is started on a diet, even clear liquids, the abdomen becomes more distended. 10. Schizoaffective disorder Advance the diet to full liquid in the AM.....if she tolerates this will DC the Ancef and start Duricef PO. 5 small meals a day Continue the Neupro Probable DC in the next 24-48 hours if she is able to tolerate the advance in the diet. Will need to research whether Wellbutrin slows down enteric motility Increase the lactobacillus to 2 capsules twice daily...could bacterial overgrowth be contributing to the gas and distension? EMYCIN has not helped in the past.....Flagyl? Code Visit Inpatient E&M: 99770 Subs Hosp L2
[2017-09-14 02:29] VITALS: BP 158/92; PULSE 109; RESP 18; TEMP 36.6; O2SAT 95
[2017-09-14] MEDS: Gabapentin 100 MG Capsule PO ×3 (05:19→20:48)
[2017-09-14] MEDS: Carbidopa/Levodopa 25/100 Tablet PO ×3 (05:19→20:48)
[2017-09-14] MEDS: Enoxaparin 40 MG/0.4 ML Syringe SC (05:20)
[2017-09-14] MEDS: Cefazolin 1 GM/50 ML BAG IV ×3 (05:20→20:50)
[2017-09-14] MEDS: Nystatin Powder 15gm Bottle 1 APPLIC TOPICAL ×3 (05:20→20:48)
--- NOTE | 2017-09-14 06:56 | PCM.PN.SRG ---
Patient Problems: Active and Suspected Problems (Last Updated 08/23/17 @ 16:34 by Vero Jasso, RN) Small bowel obstruction (Acute) Subjective: Patient evaluated resting comfortably in bed. She denies nausea, vomiting with diet. she tolerated clear liquids well over night. She noted having multiple bowel movements yesterday. She continues to pass flatus. She denies abdominal pain/discomfort. She denies increased distention. - Physical Exam General: Alert, Oriented x3, Cooperative Abdomen: Non Tender, Passing Flatus, Hypoactive Bowel Sounds, Distended, Obese, Hernia - umbilical Vital Signs Temp Pulse Resp BP Pulse Ox 97.8 F 109 H 18 158/92 H 95 09/14/17 02:29 09/14/17 02:29 09/14/17 02:29 09/14/17 02:29 09/14/17 02:29 Oxygen Flow Rate (L/min) 1 Oxygen Delivery Method Room Air Weight: 263 lb 14.293 oz Intake and Output for Last 24 Hours 09/12/17 09/13/17 09/14/17 23:59 23:59 23:59 Intake Total 1880 / 1880 2713 / 2713 1217 / 1217 Output Total 1700 / 1700 1625 / 1625 500 / 500 Balance 180 / 180 1088 / 1088 717 / 717 Medical Necessity - Tobacco Use Smoking Status: Never smoker Assessment/Plan All Active Problems (Last Updated 08/23/17 @ 16:34 by Vero Jasso, RN) Nausea & vomiting (Acute) UTI (urinary tract infection) (Acute) Dehydration (Acute) Hypomagnesemia (Acute) Hyponatremia (Acute) Small bowel obstruction (Acute) Cellulitis (Resolved) Squamous cell carcinoma in situ (Resolved) I am following this patient in conjunction with Dr. Palomares Impression: Small bowel obstruction, improving Increase diet to full liquids Patient appears stable If patient tolerates diet agree with discharge.
[2017-09-14 07:28] VITALS: O2SAT 95
[2017-09-14 08:30] VITALS: BP 160/83; PULSE 107; RESP 16; TEMP 36.8; O2SAT 94
[2017-09-14] MEDS: Escitalopram Oxalate 10 MG Tablet PO (08:32)
[2017-09-14] MEDS: Lactulose 20 GM/30 ML UDC PO (08:33)
[2017-09-14] MEDS: buPROPion (XL) 300 MG TABLET.XL PO (08:33)
[2017-09-14] MEDS: ARIPiprazole 5 MG Tablet PO (08:33)
[2017-09-14] MEDS: oxyCODONE 5 MG Tablet PO ×2 (08:35→20:39)
--- NOTE | 2017-09-14 08:58 | NURSING ---
wound photo: right lower leg
--- NOTE | 2017-09-14 08:58 | NURSING ---
wound photo: right medial thigh
--- NOTE | 2017-09-14 08:59 | NURSING ---
wound photo: left medial lower leg
--- NOTE | 2017-09-14 08:59 | NURSING ---
wound photo: left lateral lower leg
--- NOTE | 2017-09-14 13:42 | PN_ITS ---
Patient Problems: Active and Suspected Problems (Last Updated 08/23/17 @ 16:34 by Vero Jasso RN) Small bowel obstruction (Acute) Subjective: Continues to be afebrile. Blood pressures are better but still elevated. Heart rate is 107 today. She is 94-95% saturated on room air. She was advanced to full liquids today and did tolerate well until a short time ago when she had an emesis. She took 1350 orally yesterday with no problem. She denies abdominal pain. she is pleasant today and conversant - Physical Exam General: Alert, Oriented x3, Cooperative, No apparent distress Oral: Moist Mucosa Lungs: No rhonchi, No wheeze, No rales, Diminished Cardiovascular: Regular rate, Regular Rhythm, Normal S1, Normal S2, No Gallop Abdomen: Bowel Sounds Present, Distended - and hypertympanic Extremities: - - leg wounds are improving Neurological: Cranial nerves II-XII grossly intact, Neuro grossly intact Psych/Mental Status: Appropriate Vital Signs Temp Pulse Resp BP Pulse Ox 98.3 F 107 H 16 160/83 H 94 09/14/17 08:30 09/14/17 08:30 09/14/17 08:30 09/14/17 08:30 09/14/17 08:30 Oxygen Flow Rate (L/min) 1 Oxygen Delivery Method Room Air Weight: 263 lb 14.293 oz Intake and Output for Last 24 Hours 09/12/17 09/13/17 09/14/17 23:59 23:59 23:59 Intake Total 1880 / 1880 2713 / 2713 2098 / 2098 Output Total 1700 / 1700 1625 / 1625 750 / 750 Balance 180 / 180 1088 / 1088 1348 / 1348 Medical Necessity - Tobacco Use Smoking Status: Never smoker Assessment/Plan All Active Problems (Last Updated 08/23/17 @ 16:34 by Vero Jasso RN) Nausea & vomiting (Acute) UTI (urinary tract infection) (Acute) Dehydration (Acute) Hypomagnesemia (Acute) Hyponatremia (Acute) Small bowel obstruction (Acute) Cellulitis (Resolved) Squamous cell carcinoma in situ (Resolved) Day # 8 antibiotics Impressions 1. cellulitis of the LE's - improved 2. UTI secondary to E. coli. 3. Small bowel obstruction versus ileus 4. Morbid obesity 5. Autonomic neuropathy 6. Chronic venous insufficiency with history of stasis ulcers 7. Hypertension 8. Parkinson's disease 9. prior admissions to [facility] for ileus without obstruction.....Tried on Reglan and Erythromycin with no improvement. Neupro patch has helped in the past. She has even been on TPN in the past because when she is started on a diet, even clear liquids, the abdomen becomes more distended. 10. Schizoaffective disorder Asked the refiner operator to give a liquid diet that would be adequate in protein and calories.....she seems to tolerate liquids without a problem Obtain a gastric emptying study in the AM....if this is normal will consider getting rid of medications that slow the bowel down ...Wellbutrin, narcotics, gabapentin, abilify. would need to discuss with the psychiatrist treating the BPD Recheck lab in the a.m. Code Visit Inpatient E&M: 34749 Subs Hosp L2
[2017-09-14 14:20] VITALS: BP 135/71; PULSE 107; RESP 16; TEMP 36.8; O2SAT 96
[2017-09-14] MEDS: Dext 5%-0.45% NS 1,000 ML 60 ML IV (17:17)
[2017-09-14 20:20] VITALS: BP 175/87; PULSE 99; RESP 16; TEMP 36.6; O2SAT 96
[2017-09-14] MEDS: 0.9% NaCl Peripheral Flush Adult/Peds IV (20:39)
[2017-09-14] MEDS: Lisinopril 2.5 MG Tablet PO (20:47)
[2017-09-14] MEDS: Carvedilol 3.125 MG TABLET PO (20:47)
[2017-09-14] MEDS: Famotidine 20mg IV Push Syringe Q12 300 MG IVP (20:49)
[2017-09-14 22:55] VITALS: BP 160/104; PULSE 103
[2017-09-14] MEDS: hydrALAZINE 20 MG/ML Vial IV (22:55)
--- NOTE | 2017-09-14 23:17 | NURSING ---
Spoke to Svetlana in Radiology, said to have patient NPO at midnight for gastric empyting test in AM (for unknown time)
[2017-09-15 00:07] VITALS: BP 134/69; PULSE 107; RESP 18; TEMP 36.6; O2SAT 96
--- NOTE | 2017-09-15 03:57 | NURSING ---
Investigated reason for milan catheter. Unsure of why placed. No order to maintain, but there is order to D/C. Will D/C milan this AM prior to shift change.
[2017-09-15 05:28] VITALS: BP 151/77; PULSE 108; RESP 18; TEMP 36.6; O2SAT 93
[2017-09-15] MEDS: Nystatin Powder 15gm Bottle 1 APPLIC TOPICAL ×2 (05:46→15:10)
[2017-09-15] MEDS: Enoxaparin 40 MG/0.4 ML Syringe SC (05:46)
[2017-09-15] MEDS: Cefazolin 1 GM/50 ML BAG IV ×2 (05:46→15:08)
--- NOTE | 2017-09-15 05:55 | NM_ITS ---
CLINICAL: 71-year-old female with reported history of abdominal bloating and nausea. SEMI-SOLID PHASE 99m Tc SULFUR COLLOID GASTRIC EMPTYING STUDY COMPARISON: CT of the abdomen-pelvis report 09/10/2017 FINDINGS: The patient was administered 1.0 mCi of 99m Tc sulfur colloid mixed with oatmeal and consumed per os. Image acquisitions in the anterior-posterior projections for 60 minutes. There is prompt visualization of the stomach. There is no gastroesophageal reflux identified. There is no emptying visualized. The T1/2 linear fit was non-calculable, (Normal: 12-56 minutes). NM/Gastric Emptying Study IMPRESSION: 1. ABNORMAL 99m Tc sulfur colloid semi-solid phase (oatmeal) gastric emptying imaging examination. A. There is markedly severe delayed semi-solid phase gastric emptying compared to normal controls. (Padmini et al, J Nucl Med Tech 38: 186, 2010). Electronically Signed: Darryl Holm DO at 11:13 EDT Tel , Service support ,
[2017-09-15 06:54] LABS: Absolute Lymphocyte Count 0.68 X10^3/ul (0.83-4.51); Absolute Neutrophil Count 3.1 X10^3/uL (2.0-7.7); Basophil# 0.01 X10^3/uL; Basophil% 0.2 % (0-1); Eosinophil# 0.08 X10^3/uL; Eosinophils% 1.8 % (0-5); Hematocrit 38.6 % (37-47); Hemoglobin 11.5 g/dl (12.0-15.0); Lymphocyte # 0.68 X10^3/ul (4.0); Lymphocyte % 15.2 % (19-41); Mean Corp Hgb Conc 29.8 g/gl (32-36); Mean Corpuscular Hgb 29.7 pg (27.0-32.0); Mean Corpuscular Volume 99.7 fL (81-99); Mean Platelet Vol. 10.8 fl (6.2-12.0); Monocyte# 0.56 X10^3/uL; Monocyte% 12.5 % (0-10); Neutrophil # 3.12 X10^3/uL (2.7-7.7); Neutrophil % 69.9 % (47-70); Platelet Count 148 K/mm3 (150-450); RBC Distribution Width CV 16.1 % (11.6-14.6); RBC Distribution Width SD 58.3 fl (35.1-43.9); Red Blood Count 3.87 M/mm3 (4.2-5.4); White Blood Count 4.5 K/mm3 (4.4-11.0)
[2017-09-15 06:56] LABS: POSITIVE COUNT NO; POSITIVE DIFFERENTIAL NO; POSITIVE MORPHOLOGY NO
[2017-09-15 06:58] LABS: Erythrocyte Sedimentation Rate 83 mm/hr (0-30)
[2017-09-15 07:10] LABS: ALB/GLOB Ratio 0.5 RATIO (0.9-2.4); AST(SGOT) 22 U/L (15-37); Alanine Aminotransfer ALT/SGPT 12 U/L (13-56); Albumin, Serum 2.6 g/dL (3.2-5.0); Alkaline Phosphatase 94 U/L (45-117); Anion Gap 6 (5-15); BUN 4 mg/dL (7-18); BUN/Creat Ratio 4.1 RATIO (10-20); Calcium,Total 8.7 mg/dL (8.5-10.1); Chloride 100 mmol/L (98-107); Creatinine, Serum 0.98 mg/dL (0.55-1.02); EST Glomerular Filtration Rate 60 mL/min (>60); Est Glom Filt Rate - Afr Amer 72 mL/min (>60); Estimated Creatinine Clearance 50.72 ml/min; Glucose 133 mg/dL (74-106); Magnesium 2.1 mg/dL (1.6-2.6); Phosphorus 3.2 mg/dL (2.5-4.9); Potassium 3.2 mmol/L (3.5-5.1); Protein, Total 7.6 g/dL (6.4-8.2); Sodium Level 139 mmol/L (136-145)
--- NOTE | 2017-09-15 09:27 | NURSING ---
pt off unit for gastric emptying study at this time.
--- NOTE | 2017-09-15 09:29 | NURSING ---
At 08:55 this morning, this nurse Saline locked IV and was brought by DISTRICT AGENT to [facility] for gastric emptying study. Is still down there at this time on special [facility] mattress/bed.
[2017-09-15 11:15] VITALS: BP 174/99; PULSE 92; RESP 20; TEMP 36.8; O2SAT 96
[2017-09-15] MEDS: Famotidine 20mg IV Push Syringe Q12 300 MG IVP (11:19)
[2017-09-15] MEDS: Dext 5%-0.45% NS 1,000 ML 60 ML IV (11:20)
[2017-09-15] MEDS: oxyCODONE 5 MG Tablet PO (11:21)
[2017-09-15] MEDS: Carvedilol 3.125 MG TABLET PO (11:23)
[2017-09-15] MEDS: ARIPiprazole 5 MG Tablet PO (11:24)
[2017-09-15] MEDS: Escitalopram Oxalate 10 MG Tablet PO (11:25)
[2017-09-15] MEDS: buPROPion (XL) 300 MG TABLET.XL PO (11:26)
[2017-09-15] MEDS: Carbidopa/Levodopa 25/100 Tablet PO (15:10)
[2017-09-15] MEDS: Gabapentin 100 MG Capsule PO (15:10)
--- NOTE | 2017-09-15 15:17 | CASEMGMT ---
Social Work Note Dr. Maldonado is discharging pt. Pt will return to [facility] skilled at discharge. Dr. Maldonado is currently working on completed discharge paperwork. Once discharge paperwork is complete this worker or a different staff at [facility] will fax completed discharge paperwork to [facility]. LAURA completed convalescent 7000 in [facility]. Original in SNF folder and copy on pt's chart. LAURA set up transportation through [facility] via cot for 5:00pm. LAURA updated Charge Nurse Desiree, PAULINA Licea and pt of transportation time. Pt gave this worker permission to call her son to update him that pt will be discharged to [facility] today. Pt denied additional needs or concerns at this time. LAURA placed a call to pt's son Markie and left him a message updating him that pt will be discharged back to [facility] today and transportation is set up for 5:00pm. LAURA placed a call to Delfina at [facility] updated her that transportation is set up for 5:00pm and once discharge paperwork is completed this worker will fax paperwork. Delfina states understanding. Plan: Discharge paperwork will need fax to [facility] when available Pt to discharge to [facility] under skilled with transportation set up at 5:00pm through [place] via cot Haven Travis JOSS HOUSE KEEPER, EMBLEM FUSER TENDER
[2017-09-15 15:34] VITALS: BP 130/68; PULSE 87; RESP 18; TEMP 36.5; O2SAT 96
--- NOTE | 2017-09-15 15:41 | PCM.TXEXTCAR ---
- Diet 09/15/17 00:00 Very thin full liquid diet, 1800 calories daily, low salt with Ensure Enlive TID with meals. - Routine Orders/Code Status Enema Type: Fleetz Enema Frequency: Daily PRN Suppository Type: Dulcolax 10mg Suppository Frequency: Daily PRN O2 Liters per Minute: 1-2 O2 Frequency: PRN Keep PO Greater than or Equal to (%): 89 Routine Lab Work: - - CBC with diff, BMP, mag in 1 week - Wound(s) right lower leg Wound Type: scattered areas of squamous cell carcinoma Dressing Change: Dry Sterile Dressing left medial lower leg Wound Type: squamous cell carcinoma Dressing Change: Adaptic left lateral lower leg Wound Type: squamous cell carcinoma Dressing Change: Adaptic right medial thigh Wound Type: dried blister Dressing Change: Adaptic BUE Wound Type: small red scars scattered over arms Left arm Wound Type: Skin Tear - Problem/Diagnosis (1) Cellulitis Status: Acute Comment: legs Current Visit: Yes (2) Delayed gastric emptying Status: Chronic Current Visit: Yes (3) Small bowel obstruction Status: Ruled-out Current Visit: Yes (4) Dehydration Status: Acute Current Visit: No (5) Hypomagnesemia Status: Acute Current Visit: No (6) Hyponatremia Status: Acute Current Visit: No (7) Nausea & vomiting Status: Acute Current Visit: No (8) UTI (urinary tract infection) Status: Acute Comment: E. Coli Current Visit: No (9) Autonomic neuropathy Status: Chronic Current Visit: No (10) Bilateral leg edema Status: Chronic Current Visit: No (11) Chronic venous insufficiency Status: Chronic Current Visit: No (12) Chronic venous stasis dermatitis of both lower extremities Status: Chronic Current Visit: No (13) HTN (hypertension) Status: Chronic Current Visit: No (14) Ileus Status: Chronic Current Visit: No (15) Moderate malnutrition Status: Resolved Current Visit: No (16) 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 layer exposed Status: Chronic Current Visit: No (17) Obesity, Class III, BMI 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 obesity) Status: Chronic Current Visit: No (18) Parkinson's disease (tremor, stiffness, slow motion, unstable posture) Status: Chronic Current Visit: No (19) Schizo affective schizophrenia Status: Chronic Current Visit: No (20) Venous ulcers of both lower extremities Status: Chronic Current Visit: No - Allergies/Procedures Done in Hospital Allergies/Adverse Reactions: Allergies piperacillin [From Zosyn] Adverse Reaction (Verified 08/23/17 13:38) Rash tazobactam [From Zosyn] Adverse Reaction (Verified 08/23/17 13:38) Rash Procedures: - - Gastric emptying study - Type of Care/Length of Stay Estimated LOS: More Than 30 Days Type of Care Needed: Skilled Rehab Potential: Poor Prognosis: Poor - Additional Orders/Day of Discharge Additional Orders: She had a gastric emptying study on the day of DC and has very delayed emptying of her stomach......when give a regular full liquid diet she had vomiting. she tolerates thin liquids without N/V. She had a BM on the day of DC. H&P will serve as current which was dated: 09/02/17 Day of Discharge: 09/15/17 - Dietary and Speech Recommendations Dietitian Recommendations/Changes: Continue THIN full liquid diet as tolerated. - Follow Up Care Primary Care Physician: Bridget Corrales,Out of [Primary Care Provider] -
--- NOTE | 2017-09-15 15:54 | PCM.DC.SUM ---
Discharge Date and Diagnosis Date of Admission: 09/02/16 Date of Discharge: 09/15/17 - Primary Discharge Diagnosis Active and Suspected Problems (Last Updated 08/23/17 @ 16:34 by Vero Jasso RN) Severe sepsis secondary to cellulitis of the bilateral lower extremities and urinary tract infection secondary to E. coli. Cellulitis (Acute) - legs UTI due to E. 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 Electronically Signed: Flory Hyde MD at 4:04 EDT , Service support , KUB X-Ray 09/04/17 13:00 IMPRESSION: Findings suggestive of a small bowel obstruction. Gastric distention. Electronically Signed: Jessica Carnes MD at 17:01 EDT Tel , Service support , KUB X-Ray 09/05/17 05:55 IMPRESSION: There is a paralytic ileus of the small intestine with mild gaseous distention. Electronically Signed: Denis Brewster MD at 9:30 EDT Tel , Service support , Abdomen/Pelvis CT 09/05/17 11:26 IMPRESSION: Small bowel obstruction, cannot exclude an underlying closed loop obstruction. Electronically Signed: eJssica Carnes MD at 16:00 EDT Tel , Service support , KUB X-Ray 09/06/17 10:30 IMPRESSION: Gaseous distended small bowel loops. Obstruction cannot be excluded. Nasogastric tube needs to be advanced further into the stomach. Electronically Signed: Bahman Orr DO at 21:40 EDT Tel [phone], Service support , KUB X-Ray 09/08/17 16:45 IMPRESSION: Redemonstration of multiple air filled dilated small bowel loops which is slightly decreased when compared with the prior exam. Continued follow-up is recommended as obstruction is not excluded. Electronically Signed: Jarrett Lux at 17:47 EDT Tel , Service support , Small Bowel X-Ray 09/09/17 13:00 IMPRESSION: The delayed transit. Findings are in keeping with ileus gas pattern. Electronically Signed: Federico Cevallos MD at 13:28 EDT Tel [phone], Service support , KUB X-Ray 09/10/17 10:28 IMPRESSION: Distended loops of small bowel consider partial visualization of ileus or small bowel obstruction. NG tube in satisfactory position. Electronically Signed: Cierra Aguilar MD at 14:42 EDT Tel , Service support , Abdomen/Pelvis CT 09/10/17 15:40 IMPRESSION: There is mild interval improvement in the small bowel obstruction or ileus. Electronically Signed: Azul Page MD at 19:09 EDT cf, Service support , Gastric Emptying Nuclear Medicine 09/15/17 05:55 IMPRESSION: 1. ABNORMAL 99m Tc sulfur colloid semi-solid phase (oatmeal) gastric emptying imaging examination. A. There is markedly severe delayed semi-solid phase gastric emptying compared to normal controls. (Padmini et al, J Nucl Med Tech 38: 186, 2010). Electronically Signed: Darryl Holm DO at 11:13 EDT Tel , Service support , Microbiology 09/02/17 03:30 Blood Culture (Wb) - Right Hand Blood Culture - Final No growth in 5 days. 09/02/17 03:05 Blood Culture (Wb) - Left Hand Blood Culture - Final No growth in 5 days. 09/02/17 02:36 Urine, Clean Catch Urine Culture - Final Escherichia coli Laboratory Results - last 24 hr 09/15/17 09/15/17 06:27 06:27 WBC 4.5 RBC 3.87 L Hgb 11.5 L Hct 38.6 MCV 99.7 H MCH 29.7 MCHC 29.8 L RDW 16.1 H RDW Differential 58.3 H Plt Count 148 L MPV 10.8 Immature Gran % (Auto) 0.400 Neut % (Auto) 69.9 Lymph % (Auto) 15.2 L Gordon % (Auto) 12.5 H Eos % (Auto) 1.8 Baso % (Auto) 0.2 Absolute Neuts (auto) 3.1 Absolute Lymphs (auto) 0.68 L Total Counted Not Reportable ESR 83 H Sodium 139 Potassium 3.2 L Chloride 100 Carbon Dioxide 33.0 H Anion Gap 6 BUN 4 L Creatinine 0.98 Estim Creat Clear Calc 50.72 Est GFR (MDRD) Af Amer 72 Est GFR (MDRD) Non-Af 60 BUN/Creatinine Ratio 4.1 L Glucose 133 H Calcium 8.7 Phosphorus 3.2 Magnesium 2.1 Total Bilirubin 0.60 AST 22 ALT 12 L Alkaline Phosphatase 94 C-React Prot Ext Range 44.40 H Total Protein 7.6 Albumin 2.6 L Globulin 5.0 H Albumin/Globulin Ratio 0.5 L Consultations 09/02/17 05:00 Consult: Onc/Wound/box folding machine operator Routine Comment: Dr. Leonides Palomares-general surgery Operations: None Procedures: None Summary of Care Provided: The patient is a 71-year-old female originally admitted to the hospital with severe sepsis secondary to cellulitis of the lower extremity and urinary tract infection. The urine culture grew E. Coli resistant to fluoroquinolones and ampicillin. She was treated with cefepime initially and then transitioned to ancef when the culture report became available. While in the hospital she developed a ileus versus small bowel obstruction and Dr. Palomares was consulted. This has been a recurrent problem for her and she is presumed to have autonomic neuropathy due to PD. CT of the abdomen with Gastrografin done on 09/10/2017 showed no significant change from a CT without contrast at admission. The patient refused surgery. An NG was inserted. The NG was removed on 09/13 and she was started on Clear Liquids which she tolerated. On 09/14 she was advanced to full liquids and once again started vomiting. She has been tried on Reglan and Erythromycin in the past with no improvement. Diet was taken back down to liquids and the courtroom deputy or calendar clerk was asked to prescribe a liquid diet that would meet her protein and calorie requirements. On 09/15 she had a gastric emptying study that showed markedly severe delayed semisolid phase gastric emptying compared to normal controls. she was transferred back to the [place] on 09/15 and will remain on a very thin full liquid 1800 calorie diet with Ensure Enlive TID with meals. I think she should be referred to gastroenterology for consideration for a gastric PM in the future. she was not discharged on an antibiotics because she had a 10 day course while in the hospital. Home Medications: Medications to take at Discharge Carvedilol [Coreg (Beta Justin)] 3.125 mg PO BID 11/17/15 Cholecalciferol (VIT D3) [Vitamin D3] 2,000 unit PO BREAKFAST 11/17/15 Furosemide [Lasix] 20 mg PO DAILY 11/17/15 Gabapentin [Neurontin] 100 mg PO TIDCM 11/17/15 Lisinopril [Zestril] 2.5 mg PO QHS 11/17/15 Omeprazole [Prilosec] 20 mg PO DAILY 11/17/15 Ropinirole HCl [Ropinirole ER] 8 mg PO QHS 11/17/15 buPROPion XL [Wellbutrin Xl] 300 mg PO BREAKFAST 11/17/15 Acetaminophen [Tylenol] 500 mg PO QHS PRN PRN 06/21/16 Calcium Carbonate 600 mg PO DAILY 06/21/16 Escitalopram Oxalate [Lexapro] 10 mg PO BREAKFAST 06/22/16 Ondansetron HCl [Zofran] 4 mg PO Q6H PRN PRN 07/15/16 Hydrocodone Bitart/Apap 5-325 [[place] 5/325] 1 tablet PO Q4H PRN PRN #30 tablet 07/18/16 Acetaminophen [Feverall] 1 supp RECTALLY Q4H PRN PRN MDD 4 GM 08/23/17 Acetaminophen [Tylenol Arthritis] 650 mg PO Q4H PRN PRN MDD 4 GM 08/23/17 Aripiprazole [Abilify] 5 mg PO DAILY 08/23/17 Bisacodyl [Bisac-Evac] 10 mg RC DAILY PRN PRN 08/23/17 Carbidopa/Levodopa 25/100 [Sinemet 25/100] 1 tablet PO TIDAC 08/23/17 Cetirizine HCl [Zyrtec] 10 mg PO BID 08/23/17 DiphenhydrAMINE [Benadryl] 25 mg PO Q6H PRN PRN 08/23/17 Diphenhydramine HCl/Zinc Acet [Benadryl Itch Stopping Crm] 28.3 gm TP TID PRN PRN 08/23/17 Guaifenesin 200 mg PO Q4H PRN PRN 08/23/17 Hydrocodone/Acetaminophen [[place] 5-325 Tablet] 1 each PO BID 08/23/17 Lactobacillus Rhamnosus GG [Culturelle] 1 unit PO QHS 08/23/17 Lactulose [Chronulac] 20 gm PO BREAKFAST 08/23/17 Mag Hydrox/Al Hydrox/Simeth [Mylanta II] 30 ml PO Q4H PRN PRN 08/23/17 Magnesium Hydroxide [Milk Of Magnesia] 30 ml PO DAILY PRN PRN 08/23/17 Na Phos,M-B/Na Phos,Di-Ba [Fleet Enema] 1 bottle RECTAL DAILY PRN PRN 08/23/17 Nystatin Powder [Mycostatin Powder] 1 applic TOPICAL TID 08/23/17 Rotigotine [Neupro] 2 mg TRANSDERM. QHS 08/23/17 Urea [Ure-K] 142 gm TP QHS PRN PRN 08/23/17 Senna [Senokot] 2 tablet PO BID 09/05/17 Primary Care Physician: Bridget Doctor,Out of [Primary Care Provider] - Disposition: [facility] facility Minutes spent on discharge:: 35 Patient Condition:: Stable Medical Necessity - Tobacco Use Smoking Status: Never smoker Meaningful Use Info Meaningful Use Diagnoses (Choose all that apply): None applicable Code Visit Inpatient E&M: 66223 Disch Hosp
--- NOTE | 2017-09-15 15:58 | DS.PCM_ITS ---
Discharge Date and Diagnosis Date of Admission: 09/02/16 Date of Discharge: 09/15/17 - Primary Discharge Diagnosis Active and Suspected Problems (Last Updated 08/23/17 @ 16:34 by Vero Jasso RN) Severe sepsis secondary to cellulitis of the bilateral lower extremities and urinary tract infection secondary to E. coli. Cellulitis (Acute) - legs UTI due to E. 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 Electronically Signed: Flory Hyde MD at 4:04 EDT , Service support , KUB X-Ray 09/04/17 13:00 IMPRESSION: Findings suggestive of a small bowel obstruction. Gastric distention. Electronically Signed: Jessica Carnes MD at 17:01 EDT Tel , Service support , KUB X-Ray 09/05/17 05:55 IMPRESSION: There is a paralytic ileus of the small intestine with mild gaseous distention. Electronically Signed: Denis Brewster MD at 9:30 EDT Tel , Service support , Abdomen/Pelvis CT 09/05/17 11:26 IMPRESSION: Small bowel obstruction, cannot exclude an underlying closed loop obstruction. Electronically Signed: Jessica Carnes MD at 16:00 EDT Tel , Service support , KUB X-Ray 09/06/17 10:30 IMPRESSION: Gaseous distended small bowel loops. Obstruction cannot be excluded. Nasogastric tube needs to be advanced further into the stomach. Electronically Signed: Bahman Orr DO at 21:40 EDT Tel [phone], Service support , KUB X-Ray 09/08/17 16:45 IMPRESSION: Redemonstration of multiple air filled dilated small bowel loops which is slightly decreased when compared with the prior exam. Continued follow-up is recommended as obstruction is not excluded. Electronically Signed: Jarrett Lux at 17:47 EDT Tel , Service support , Small Bowel X-Ray 09/09/17 13:00 IMPRESSION: The delayed transit. Findings are in keeping with ileus gas pattern. Electronically Signed: Federico Cevallos MD at 13:28 EDT Tel [phone], Service support , KUB X-Ray 09/10/17 10:28 IMPRESSION: Distended loops of small bowel consider partial visualization of ileus or small bowel obstruction. NG tube in satisfactory position. Electronically Signed: Cierra Aguilar MD at 14:42 EDT Tel , Service support , Abdomen/Pelvis CT 09/10/17 15:40 IMPRESSION: There is mild interval improvement in the small bowel obstruction or ileus. Electronically Signed: Azul Page MD at 19:09 EDT cf, Service support , Gastric Emptying Nuclear Medicine 09/15/17 05:55 IMPRESSION: 1. ABNORMAL 99m Tc sulfur colloid semi-solid phase (oatmeal) gastric emptying imaging examination. A. There is markedly severe delayed semi-solid phase gastric emptying compared to normal controls. (Padmini et al, J Nucl Med Tech 38: 186, 2010). Electronically Signed: Darryl Holm DO at 11:13 EDT Tel , Service support , Microbiology 09/02/17 03:30 Blood Culture (Wb) - Right Hand Blood Culture - Final No growth in 5 days. 09/02/17 03:05 Blood Culture (Wb) - Left Hand Blood Culture - Final No growth in 5 days. 09/02/17 02:36 Urine, Clean Catch Urine Culture - Final Escherichia coli Laboratory Results - last 24 hr 09/15/17 09/15/17 06:27 06:27 WBC 4.5 RBC 3.87 L Hgb 11.5 L Hct 38.6 MCV 99.7 H MCH 29.7 MCHC 29.8 L RDW 16.1 H RDW Differential 58.3 H Plt Count 148 L MPV 10.8 Immature Gran % (Auto) 0.400 Neut % (Auto) 69.9 Lymph % (Auto) 15.2 L Thomas % (Auto) 12.5 H Eos % (Auto) 1.8 Baso % (Auto) 0.2 Absolute Neuts (auto) 3.1 Absolute Lymphs (auto) 0.68 L Total Counted Not Reportable ESR 83 H Sodium 139 Potassium 3.2 L Chloride 100 Carbon Dioxide 33.0 H Anion Gap 6 BUN 4 L Creatinine 0.98 Estim Creat Clear Calc 50.72 Est GFR (MDRD) Af Amer 72 Est GFR (MDRD) Non-Af 60 BUN/Creatinine Ratio 4.1 L Glucose 133 H Calcium 8.7 Phosphorus 3.2 Magnesium 2.1 Total Bilirubin 0.60 AST 22 ALT 12 L Alkaline Phosphatase 94 C-React Prot Ext Range 44.40 H Total Protein 7.6 Albumin 2.6 L Globulin 5.0 H Albumin/Globulin Ratio 0.5 L Consultations 09/02/17 05:00 Consult: Onc/Wound/crayon sawyer Routine Comment: Dr. Leonides Palomares-general surgery Operations: None Procedures: None Summary of Care Provided: The patient is a 71-year-old female originally admitted to the hospital with severe sepsis secondary to cellulitis of the lower extremity and urinary tract infection. The urine culture grew E. Coli resistant to fluoroquinolones and ampicillin. She was treated with cefepime initially and then transitioned to ancef when the culture report became available. While in the hospital she developed a ileus versus small bowel obstruction and Dr. Palomares was consulted. This has been a recurrent problem for her and she is presumed to have autonomic neuropathy due to PD. CT of the abdomen with Gastrografin done on 09/10/2017 showed no significant change from a CT without contrast at admission. The patient refused surgery. An NG was inserted. The NG was removed on 09/13 and she was started on Clear Liquids which she tolerated. On 09/14 she was advanced to full liquids and once again started vomiting. She has been tried on Reglan and Erythromycin in the past with no improvement. Diet was taken back down to liquids and the surg nurse was asked to prescribe a liquid diet that would meet her protein and calorie requirements. On 09/15 she had a gastric emptying study that showed markedly severe delayed semisolid phase gastric emptying compared to normal controls. she was transferred back to the [place] on 09/15 and will remain on a very thin full liquid 1800 calorie diet with Ensure Enlive TID with meals. I think she should be referred to gastroenterology for consideration for a gastric PM in the future. she was not discharged on an antibiotics because she had a 10 day course while in the hospital. Home Medications: Medications to take at Discharge Carvedilol [Coreg (Beta Justin)] 3.125 mg PO BID 11/17/15 Cholecalciferol (VIT D3) [Vitamin D3] 2,000 unit PO BREAKFAST 11/17/15 Furosemide [Lasix] 20 mg PO DAILY 11/17/15 Gabapentin [Neurontin] 100 mg PO TIDCM 11/17/15 Lisinopril [Zestril] 2.5 mg PO QHS 11/17/15 Omeprazole [Prilosec] 20 mg PO DAILY 11/17/15 Ropinirole HCl [Ropinirole ER] 8 mg PO QHS 11/17/15 buPROPion XL [Wellbutrin Xl] 300 mg PO BREAKFAST 11/17/15 Acetaminophen [Tylenol] 500 mg PO QHS PRN PRN 06/21/16 Calcium Carbonate 600 mg PO DAILY 06/21/16 Escitalopram Oxalate [Lexapro] 10 mg PO BREAKFAST 06/22/16 Ondansetron HCl [Zofran] 4 mg PO Q6H PRN PRN 07/15/16 Hydrocodone Bitart/Apap 5-325 [[place] 5/325] 1 tablet PO Q4H PRN PRN #30 tablet 07/18/16 Acetaminophen [Feverall] 1 supp RECTALLY Q4H PRN PRN MDD 4 GM 08/23/17 Acetaminophen [Tylenol Arthritis] 650 mg PO Q4H PRN PRN MDD 4 GM 08/23/17 Aripiprazole [Abilify] 5 mg PO DAILY 08/23/17 Bisacodyl [Bisac-Evac] 10 mg RC DAILY PRN PRN 08/23/17 Carbidopa/Levodopa 25/100 [Sinemet 25/100] 1 tablet PO TIDAC 08/23/17 Cetirizine HCl [Zyrtec] 10 mg PO BID 08/23/17 DiphenhydrAMINE [Benadryl] 25 mg PO Q6H PRN PRN 08/23/17 Diphenhydramine HCl/Zinc Acet [Benadryl Itch Stopping Crm] 28.3 gm TP TID PRN PRN 08/23/17 Guaifenesin 200 mg PO Q4H PRN PRN 08/23/17 Hydrocodone/Acetaminophen [[place] 5-325 Tablet] 1 each PO BID 08/23/17 Lactobacillus Rhamnosus GG [Culturelle] 1 unit PO QHS 08/23/17 Lactulose [Chronulac] 20 gm PO BREAKFAST 08/23/17 Mag Hydrox/Al Hydrox/Simeth [Mylanta II] 30 ml PO Q4H PRN PRN 08/23/17 Magnesium Hydroxide [Milk Of Magnesia] 30 ml PO DAILY PRN PRN 08/23/17 Na Phos,M-B/Na Phos,Di-Ba [Fleet Enema] 1 bottle RECTAL DAILY PRN PRN 08/23/17 Nystatin Powder [Mycostatin Powder] 1 applic TOPICAL TID 08/23/17 Rotigotine [Neupro] 2 mg TRANSDERM. QHS 08/23/17 Urea [Ure-K] 142 gm TP QHS PRN PRN 08/23/17 Senna [Senokot] 2 tablet PO BID 09/05/17 Primary Care Physician: Bridget Doctor,Out of [Primary Care Provider] - Disposition: [facility] facility Minutes spent on discharge:: 35 Patient Condition:: Stable Medical Necessity - Tobacco Use Smoking Status: Never smoker Meaningful Use Info Meaningful Use Diagnoses (Choose all that apply): None applicable Code Visit Inpatient E&M: 65926 Disch Hosp
--- NOTE | 2017-09-15 16:07 | CASEMGMT ---
Social Work Note SW updated Charge Nurse Rosa to fax transfer to extended care facility, signed medication list and any scripts to [facility] when completed. Green sheet on pt's chart. Plan: Discharge to [facility] via cot through [facility] at 5:00pm FAVIO WorleyW
--- NOTE | 2017-09-15 17:25 | NURSING ---
Report given to Rosa at [facility] at this time.
== END 2017-09-15 15:15 | disposition skilled nursing facility (03) | DRG 872 ==
LOC: ED 09-02 12:06 → MS3 09-02 12:33
PROVIDERS: Internal Medicine; Admitting Provider Family Medicine; Emergency Provider Emergency Medicine; Visit Provider Internal Medicine
DX: A41.9 Sepsis, unspecified organism (principal); L03.115 Cellulitis of right lower limb; L03.116 Cellulitis of left lower limb; K56.0 Paralytic ileus; N30.00 Acute cystitis without hematuria; Z68.41 Body mass index [BMI] 40.0-44.9, adult; Z66 Do not resuscitate; G20 Parkinson's disease; D69.6 Thrombocytopenia, unspecified; J44.9 Chronic obstructive pulmonary disease, unspecified; B96.20 Unspecified Escherichia coli [E. coli] as the cause of diseases classified elsewhere; D63.8 Anemia in other chronic diseases classified elsewhere; N18.3 Chronic kidney disease, stage 3 (moderate); I12.9 Hypertensive chronic kidney disease with stage 1 through stage 4 chronic kidney disease, or unspecified chronic kidney disease; I89.0 Lymphedema, not elsewhere classified; I87.2 Venous insufficiency (chronic) (peripheral); Z16.23 Resistance to quinolones and fluoroquinolones; Z16.11 Resistance to penicillins; E66.01 Morbid (severe) obesity due to excess calories; F25.9 Schizoaffective disorder, unspecified; G90.9 Disorder of the autonomic nervous system, unspecified; K30 Functional dyspepsia; E87.6 Hypokalemia; R65.20 Severe sepsis without septic shock
CPT/HCPCS: 36415; 51702; 71045; 74018; 74177; 74250; 78264; 80048; 80053; 80202; 81001; 83605; 83615; 83735; 84100; 85025; 85027; 85652; 86140; 87040; 87077; 87086; 87088; 87186; 93005; 94640; 96361; 96374; 97110; 97162; 97166; 97530; 97802; 99205; 99285; A9541; J7030; J7040; Q9967; A4216; G0463; J2405; J3490; J7799

== ENCOUNTER 2017-09-08 17:03 | Outpatient (RCR) | payer MEDICARE, MEDICAID, SELFPAY | END 2017-09-23 23:59 | LOC: WC 17:03 | PROVIDERS: Visit Provider Podiatrist | DX: L97.822 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 layer exposed (principal); L97.812 Non-pressure chronic ulcer of other part of right lower leg with fat layer exposed; I87.2 Venous insufficiency (chronic) (peripheral); F32.9 Major depressive disorder, single episode, unspecified; G20 Parkinson's disease | CPT/HCPCS: 99205; G0463 ==

== ENCOUNTER 2017-10-20 14:35 | Outpatient (RCR) | payer MEDICARE, MEDICAID, SELFPAY ==
--- NOTE | 2017-10-20 | IMM_PTH ---
PATIENT: STACY VEE LOC: U#:[id number] AGE/SX: 71/F ROOM: RE10/20/[address]: Dr. Stephanie Garcia DO : 1945 BED: DIS: 10/24/2017 SPEC #: [id number] RECD: 10/24/17 12:05 STATUS: UMESH DAVIDSON #: [id number] ANGELIA: 10/20/17 00:[address]: Stephanie Garcia DEPT: IMMUNOHISTOCHEMISTRY RECD BY: Desiree Nichole ENTERED: 10/24/17 12:08 SP TYPE: IMMUNO OTHR DR: Out of [facility] Doctor Tissues: A - ULCER Procedures: CK5-6 (initial) MART1 (add) P40 (add) S-100 (add) PHYSICIAN & INSTITUTION [place] [id number] SPECIMEN INFORMATION: Tissue Source: A ? Left lateral LE ulcer Clinical Info: SCC, nonhealing LE ulcers Specimen Number: [id number] CPT code: 11901, 90053 x3 METHODOLOGY: Deparaffinized sections of prefer/formalin-fixed tissue or PAP/DQ stained slides are incubated with monoclonal/polyclonal antibodies/oligonucleotide probes. Localization is made via biotin free immunoperoxidase method. Appropriate controls are performed and reacted as expected. Results on target cell population are indicated in the following table: RESULTS: ANTIBODY / CLONE RESULT Block A CK5-6 (D5 & 1684) positive P40 (BC28) positive S-100 (4C4.9) negative MART-1 (A-103) negative These tests were developed and their performance characteristics determined by [facility]. They may not have been cleared or approved by the U.S. Food and Drug Administration. The FDA has determined that such clearance or approval is not necessary. INTERPRETATION: A. Left lateral LE ulcer, punch biopsy: Detached minute fragments of tissue with markedly atypical cells consistent with poorly differentiated squamous cell carcinoma. SJ:anaya 10/25/17
[2017-10-20 14:51] VITALS: BP 108/46; PULSE 92; RESP 16; TEMP 35.7
--- NOTE | 2017-10-20 15:45 | UL_PTH ---
PATIENT: STACY VEE LOC: U#:[id number] AGE/SX: 71/F ROOM: RE10/20/[address]: Dr. Stephanie Garcia DO : 1945 BED: DIS: 10/24/2017 SPEC #: [id number] RECD: 10/20/17 17:41 STATUS: UMESH STUART #: [id number] ANGELIA: 10/20/17 15:[address]: Stephanie Garcia DEPT: SURGICAL PATHOLOGY RECD BY: Joshua Carson ENTERED: 10/23/17 09:02 SP TYPE: ULCER SUSANA DR: Out of Town Doctor Tissues: A - ULCER B - ULCER Procedures: Surgery Specimen Level IV HEADER OPERATION: Not noted PRE-OP DIAGNOSIS: SCC/nonhealing LE ulcers TISSUE SUBMITTED: A. Left lateral LE ulcer, B. Medial LE ulcer MICROSCOPIC DIAGNOSIS A. Left lateral LE ulcer, punch biopsy: Detached minute fragment of tissue with markedly atypical squamous cells consistent with poorly differentiated squamous cell carcinoma. See comment. Skin and underlying tissue with acute and chronic inflammation and granulation tissue reaction. B. Left medial LE ulcer, punch biopsy: Invasive moderately differentiated squamous cell carcinoma. SJ:rg 10/24/17 COMMENT A. Immunohistochemistry ([id number]) supports the above diagnosis. Please make reference to previous specimen ([id number]) skin of right lower leg, excision with diagnosis of basal cell carcinoma and ([id number]) skin lesion of left lower leg, excision with diagnosis of invasive squamous cell carcinoma. This case is discussed with Dr. Garcia on 10/1817. Case has been reviewed in consultation with Dr. Denis who concurs with the above diagnosis. IDC:AM MICROSCOPIC DESCRIPTION Slides are reviewed. GROSS DESCRIPTION A - Received in fixative is one container labeled with the patient's name and designated left lateral LE ulcer. The specimen consists of a punch biopsy of boothe-white skin measuring 0.2 cm in diameter and 0.4 cm in length. The specimen is totally submitted in one cassette. B - Received in fixative is one container labeled with the patient's name and designated left medial LE ulcer. The specimen consists of a punch biopsy of boothe-white skin measuring 0.2 cm in diameter and 0.2 cm in length. The specimen is totally submitted in one cassette. / QUINTIN:anaya 10/24/17 TC:0 CPT: 45196 x2
--- NOTE | 2017-10-20 18:05 | HP.PCM_ITS ---
(1) H/O squamous cell carcinoma of skin Status: Chronic Current Visit: Yes Code(s): Z85.828 - Personal history of other malignant neoplasm of skin Comment: of lower extremities (2) Obesity, Class III, BMI 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 obesity) Status: Chronic Current Visit: Yes Code(s): E66.01 - Morbid (severe) obesity due to excess calories (3) Chronic venous insufficiency Status: Chronic Current Visit: Yes (4) Venous ulcers of both lower extremities Status: Chronic Current Visit: Yes Code(s): I87.2 - Venous insufficiency ( chronic) (peripheral) (5) 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 layer exposed Status: Chronic Current Visit: Yes Code(s): L97.822 - 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 layer exposed (6) Bilateral leg edema Status: Chronic Current Visit: Yes Code(s): R60.0 - Localized edema (7) Parkinson's disease (tremor, stiffness, slow motion, unstable posture) Status: Chronic Current Visit: Yes Code(s): G20 - Parkinson's disease History of Present Illness Date of Service: 10/20/17 Chief Complaint: Venous ulcers to the bilateral lower extremities. Chronic venous stasis disease. Possible underlying SCC of nonhealing wounds. History of Wound: Judy is a pleasant 71-year-old female resident at [facility], [place] who presents to the wound healing center for evaluation of ulcers to her bilateral lower extremities. This has been an ongoing and recurrent problem for this patient. She's been treated numerous times previously at the wound center. She has a h/o nonhealing wound of left ankle which revealed squamous cell carcinoma which was treated with Mohs surgery on December 30 2015 and the lesion had been completely excised at the time. She is scheduled for vascular testing on 11/03/17. She was seen recently for her wounds by Dr. Bardales in the beginning of August but was subsequently admitted to the hospital for a bowel obstruction and sepsis. Her wounds have progressed since her visit in August. Vascular studies were postponed but labs ordered by Dr. Bardales are available and do not show any significant abnormalities other than some slight protein malnutrition for which she is already taking a protein supplement. She has been using adaptic and dry gauze as instructed after her visit with Dr. Bardales. She reports significant drainage from the wounds. She is wearing tubigrip compression as well. She has not had any biopsies of her current wounds. She is not surrently on antibiotics but was treated with Cefepime and Ancef during her hospital stay. She reports that the wounds are painful and draining but denies fever or chills. Past Medical History Past Medical History: Chronic Problems (Last Updated 08/23/17 @ 16:34 by Vero Jasso RN) Obesity, Class III, BMI 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 obesity) (Chronic) HTN (hypertension) (Chronic) Chronic venous stasis dermatitis of both lower extremities (Chronic) Chronic venous insufficiency (Chronic) Venous ulcers of both lower extremities (Chronic) 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) Bilateral leg edema (Chronic) Parkinson's disease (tremor, stiffness, slow motion, unstable posture) (Chronic) Ileus (Chronic) Autonomic neuropathy (Chronic) Schizo affective schizophrenia (Chronic) Delayed gastric emptying (Chronic) H/O squamous cell carcinoma of skin (Chronic) of lower extremities Surgical History: noncontributory Allergies/Adverse Reactions: Allergies piperacillin [From Zosyn] Adverse Reaction (Verified 08/23/17 13:38) Rash tazobactam [From Zosyn] Adverse Reaction (Verified 08/23/17 13:38) Rash Home Medications: Ambulatory Orders Medication Instructions Recorded Carvedilol [Coreg (Beta Justin)] 3.125 mg PO BID 11/17/15 Cholecalciferol (VIT D3) [Vitamin 2,000 unit PO BREAKFAST 11/17/15 D3] Furosemide [Lasix] 20 mg PO DAILY 11/17/15 Gabapentin [Neurontin] 100 mg PO TIDCM 11/17/15 Lisinopril [Zestril] 2.5 mg PO QHS 11/17/15 Omeprazole [Prilosec] 20 mg PO DAILY 11/17/15 Ropinirole HCl [Ropinirole ER] 8 mg PO QHS 11/17/15 buPROPion XL [Wellbutrin Xl] 300 mg PO BREAKFAST 11/17/15 Acetaminophen [Tylenol] 500 mg PO QHS PRN PRN 06/21/16 Calcium Carbonate 600 mg PO DAILY 06/21/16 Escitalopram Oxalate [Lexapro] 10 mg PO BREAKFAST 06/22/16 Ondansetron HCl [Zofran] 4 mg PO Q6H PRN PRN 07/15/16 Hydrocodone Bitart/Apap 5-325 1 tablet PO Q4H PRN PRN #30 tablet 07/18/16 [[place] 5/325] Acetaminophen [Feverall] 1 supp RECTALLY Q4H PRN PRN MDD 4 08/23/17 GM Acetaminophen [Tylenol Arthritis] 650 mg PO Q4H PRN PRN MDD 4 GM 08/23/17 Aripiprazole [Abilify] 5 mg PO DAILY 08/23/17 Bisacodyl [Bisac-Evac] 10 mg RC DAILY PRN PRN 08/23/17 Carbidopa/Levodopa 25/100 [Sinemet 1 tablet PO TIDAC 08/23/17 25/] Cetirizine HCl [Zyrtec] 10 mg PO BID 08/23/17 DiphenhydrAMINE [Benadryl] 25 mg PO Q6H PRN PRN 08/23/17 Diphenhydramine HCl/Zinc Acet 28.3 gm TP TID PRN PRN 08/23/17 [Benadryl Itch Stopping Crm] Guaifenesin 200 mg PO Q4H PRN PRN 08/23/17 Hydrocodone/Acetaminophen [[place] 1 each PO BID 08/23/17 5-325 Tablet] Lactobacillus Rhamnosus GG 1 unit PO QHS 08/23/17 [Culturelle] Lactulose [Chronulac] 20 gm PO BREAKFAST 08/23/17 Mag Hydrox/Al Hydrox/Simeth 30 ml PO Q4H PRN PRN 08/23/17 [Mylanta II] Magnesium Hydroxide [Milk Of 30 ml PO DAILY PRN PRN 08/23/17 Magnesia] Na Phos,M-B/Na Phos,Di-Ba [Fleet 1 bottle RECTAL DAILY PRN PRN 08/23/17 Enema] Nystatin Powder [Mycostatin Powder] 1 applic TOPICAL TID 08/23/17 Rotigotine [Neupro] 2 mg TRANSDERM. QHS 08/23/17 Urea [Ure-K] 142 gm TP QHS PRN PRN 08/23/17 Senna [Senokot] 2 tablet PO BID 09/05/17 - Family History Maternal No pertinent history Lives: Senior Living Smoking Status: Never smoker Tobacco Use: Non-smoker Alcohol: None Drugs: None Review of Systems Constitutional: Denies: Chills, Fever, Weight Change Eyes: Denies: Pain, Vision Change HEENT: Denies: Difficulty Hearing, Difficulty Swallowing, Sinus Congestion Cardiovascular: Denies: Chest Pain, Palpitations Respiratory: Denies: Cough, Shortness of Breath Gastrointestinal: Denies: Diarrhea, Nausea, Vomiting Genitourinary: Denies: Dysuria, Hematuria Musculoskeletal: Reports: Back Pain, Leg Pain Skin: Reports: Dryness, Wounds Hematologic/ Lymphatic: Denies: Easy Bruising, Easy Bleeding - Physical Exam Vital Signs Temp Pulse Resp BP 96.2 F L 92 16 108/46 L 10/20/17 14:51 10/20/17 14:51 10/20/17 14:51 10/20/17 14:51 General: Alert, Oriented x3, Cooperative, No apparent distress HEENT: Atraumatic, Normocephalic Oral: Moist Mucosa Neck: Supple Lungs: Clear to auscultation Cardiovascular: Regular rate, Regular Rhythm Abdomen: Soft, Non Tender, Obese Extremities: Diminished Peripheral Pulses, Edema Skin: Ulcer/ Wound Wound Measurements and Assessment WC - Nurse 1 - General Ulcer Measurement Start: 10/20/17 14:37 Freq: Status: Active Protocol: Activity Type Activity Date Activity User E-Sign Co-Sign Detail Recorded Client Recorded Date Recorded By Document 10/20/17 14:51 [id number] 10/20/17 15:10 10/20/17 14:51 Wound Center Nurse 1 [Ulcer Assessment] #9 LEFT ANTERIOR FOOT -Combined with other wound No -Current Size (cm) - Length 1.2 -Current Size (cm) - Width 1.3 -Current Size (cm) - Depth 0.1 -Total Square Cm 1.56 -Date of Last Picture (Recall this 10/20/17 field) -Photo Taken Yes -Epithelialization None Present -Tunneling No -Undermining/Tunneling No -Circular Undermining No -Granulation Quality N/A -Slough/Fibrin No -Necrosis Amt None Present (0 %) -Necrotic Tissue Type Adherent Slough -Texture (Cristina-wound Skin Appearance) No Abnormality Assessed -Moisture (Cristina-wound Skin Appearance No Abnormality ) Assessed -Color (Cristina-wound Skin Appearance) Assessed Hemosiderin Staining -Temperature (Cristina-wound Skin No Abnormality Appearance) (Pt Warm) -Tenderness on Palpation (Cristina-wound Yes Skin Appearance) -Ulcer Cleansing Wound Cleanser -Foul Odor after Cleansing No -Anesthetic Used 4% Lidocaine Solution #8 LEFT LATERAL -Combined with other wound No -Current Size (cm) - Length 2.1 -Current Size (cm) - Width 1.7 -Current Size (cm) - Depth 0.1 -Total Square Cm 3.57 -Moisture (Cristina-wound Skin Appearance No Abnormality ) Assessed -Color (Cristina-wound Skin Appearance) No Abnormality Assessed -Temperature (Cristina-wound Skin No Abnormality Appearance) (Pt Warm) -Tenderness on Palpation (Cristina-wound No Skin Appearance) -Ulcer Cleansing Wound Cleanser -Foul Odor after Cleansing No -Anesthetic Used 4% Lidocaine Solution #7 LEFT MEDIAL LE -Combined with other wound No -Current Size (cm) - Length 14 -Current Size (cm) - Width 11 -Current Size (cm) - Depth 0.1 -Total Square Cm 154 -Date of Last Picture (Recall this 10/20/17 field) -Photo Taken Yes -Epithelialization None Present -Tunneling No -Undermining/Tunneling No -Circular Undermining No -Exudate Amt Large (67-100%) -Exudate Type Serosanguineous -Wound Margin Distinct, Outline Attached -Granulation Amt Large (67-100%) -Granulation Quality [place] Red -Slough/Fibrin No -Necrosis Amt None Present (0 %) -Necrotic Tissue Type Adherent Slough -Structure Exposed N/A None/Limited to Skin Breakdown -Texture (Cristina-wound Skin Appearance) No Abnormality Assessed -Temperature (Cristina-wound Skin No Abnormality Appearance) (Pt Warm) -Tenderness on Palpation (Cristina-wound Yes Skin Appearance) -Ulcer Cleansing Wound Cleanser -Foul Odor after Cleansing No -Anesthetic Used 4% Lidocaine Solution [Edema Assessment] -Lower Limb Edema Present Yes -Right Calf (cm) 35.0 -Right Ankle (cm) 24.5 -Left Calf (cm) 37.2 -Left Ankle (cm) 25.0 WC - Nurse 2 - General Ulcer CM Notes Start: 10/20/17 14:37 Freq: Status: Active Protocol: Activity Type Activity Date Activity User E-Sign Co-Sign Detail Recorded Client Recorded Date Recorded By Document 10/20/17 15:21 TM [id number] 10/20/17 16:10 TM 10/20/17 15:21 Wound Center Nurse 2 [Procedure/Treatment] #9 LEFT ANTERIOR FOOT -Time 15:58 -Correct Patient Yes -Correct Side, Site, Position Yes -Correct Procedure Yes -Procedure Performed Yes -Type of Procedure Debridement -Clinical Debridement Subcutaneous -Post Debridement Size (cm) - Length 1.3 -Post Debridement Size (cm) - Width 1.4 -Post Debridement Size (cm) - Depth 0.1 -Total Square Cm 1.82 -Wound/Ulcer Outcome Not Healed -Ulcer Cleansing Rinsed/ Irrigated with Saline -Foul Odor after Cleansing No -Bioengineered Tissue No -Topical Lidocaine (%) 4 -Bleeding Controlled with Pressure -Treatment Response Procedure Tolerated Well #8 LEFT LATERAL -Time 16:01 -Correct Patient Yes -Correct Side, Site, Position Yes -Correct Procedure Yes -Procedure Performed Yes -Type of Procedure Debridement -Clinical Debridement Subcutaneous -Post Debridement Size (cm) - Length 2.2 -Post Debridement Size (cm) - Width 1.8 -Post Debridement Size (cm) - Depth 0.1 -Total Square Cm 3.96 -Wound/Ulcer Outcome Not Healed -Ulcer Cleansing Rinsed/ Irrigated with Saline -Foul Odor after Cleansing No -Bioengineered Tissue No -Topical Lidocaine (%) 4 -Bleeding Controlled with Pressure -Treatment Response Procedure Tolerated Well #7 LEFT MEDIAL LE -Time 16:01 -Correct Patient Yes -Correct Side, Site, Position Yes -Correct Procedure Yes -Procedure Performed Yes -Type of Procedure Debridement -Clinical Debridement Subcutaneous -Post Debridement Size (cm) - Length 14.1 -Post Debridement Size (cm) - Width 11.1 -Post Debridement Size (cm) - Depth 0.1 -Total Square Cm 156.51 -Wound/Ulcer Outcome Not Healed -Ulcer Cleansing Rinsed/ Irrigated with Saline -Foul Odor after Cleansing No -Bioengineered Tissue No -Topical Lidocaine (%) 4 -Bleeding Controlled with Pressure -Treatment Response Procedure Tolerated Well [See Physician Procedure note for Specifics] Pain Scale: 0-10 Numeric [Pain] -Is Patient Pain Free? Yes Psych/Mental Status: Normal Affect, Appropriate Debridement Note Post-Debridement Measurements/Treatment WC - Nurse 2 - General Ulcer CM Notes Start: 10/20/17 14:37 Freq: Status: Active Protocol: Activity Type Activity Date Activity User E-Sign Co-Sign Detail Recorded Client Recorded Date Recorded By Document 10/20/17 15:21 [id number] 10/20/17 16:10 10/20/17 15:21 Wound Center Nurse 2 #9 LEFT ANTERIOR FOOT -Time 15:58 -Correct Patient Yes -Correct Side, Site, Position Yes -Correct Procedure Yes -Procedure Performed Yes -Type of Procedure Debridement -Clinical Debridement Subcutaneous -Post Debridement Size (cm) - Length 1.3 -Post Debridement Size (cm) - Width 1.4 -Post Debridement Size (cm) - Depth 0.1 -Total Square Cm 1.82 -Wound/Ulcer Outcome Not Healed -Ulcer Cleansing Rinsed/ Irrigated with Saline -Foul Odor after Cleansing No -Bioengineered Tissue No -Topical Lidocaine (%) 4 -Bleeding Controlled with Pressure -Treatment Response Procedure Tolerated Well #8 LEFT LATERAL -Time 16:01 -Correct Patient Yes -Correct Side, Site, Position Yes -Correct Procedure Yes -Procedure Performed Yes -Type of Procedure Debridement -Clinical Debridement Subcutaneous -Post Debridement Size (cm) - Length 2.2 -Post Debridement Size (cm) - Width 1.8 -Post Debridement Size (cm) - Depth 0.1 -Total Square Cm 3.96 -Wound/Ulcer Outcome Not Healed -Ulcer Cleansing Rinsed/ Irrigated with Saline -Foul Odor after Cleansing No -Bioengineered Tissue No -Topical Lidocaine (%) 4 -Bleeding Controlled with Pressure -Treatment Response Procedure Tolerated Well #7 LEFT MEDIAL LE -Time 16:01 -Correct Patient Yes -Correct Side, Site, Position Yes -Correct Procedure Yes -Procedure Performed Yes -Type of Procedure Debridement -Clinical Debridement Subcutaneous -Post Debridement Size (cm) - Length 14.1 -Post Debridement Size (cm) - Width 11.1 -Post Debridement Size (cm) - Depth 0.1 -Total Square Cm 156.51 -Wound/Ulcer Outcome Not Healed -Ulcer Cleansing Rinsed/ Irrigated with Saline -Foul Odor after Cleansing No -Bioengineered Tissue No -Topical Lidocaine (%) 4 -Bleeding Controlled with Pressure -Treatment Response Procedure Tolerated Well Pain Scale: 0-10 Numeric Is Patient Pain Free? Yes Wound debrided: left anterior foot Laterality: Left Type of Debridement: Excisional debridement Anesthesia Used: 4% Lidocaine Solution Depth: Down to and including healthy tissue, in the subcutaneous layer Percentage of wound debrided: 100 Instrument Used: 5mm curette Tissue Removed: yellow slough, devitalized tissue Severity: Fat Layer Exposed Amount of bleeding with debridement: Mild Bleeding Controlled with: Compression and gauze Patient tolerated procedure well - Additional Wound Wound debrided: left lateral LE Laterality: Left Type of Debridement: Excisional debridement Anesthesia Used: 4% Lidocaine Solution Depth: Down to and including healthy tissue, in the subcutaneous layer Percentage of wound debrided: 100 Instrument Used: 5mm curette, - - 3 mm punch biopsy Tissue Removed: yellow slough, devitalized tissue - biopsy of lateral edge adjacent to vasquez Severity: Fat Layer Exposed Amount of bleeding with debridement: Mild Bleeding Controlled with: Compression and gauze Patient tolerated procedure: Patient tolerated procedure well - Additional Wound Wound debrided: left medial LE Laterality: Left Type of Debridement: Excisional debridement Anesthesia Used: 4% Lidocaine Solution Depth: Down to and including healthy tissue, in the subcutaneous layer Percentage of wound debrided: 100 Instrument Used: 5mm curette Tissue Removed: yellow slough, devitalized tissue - biopsy of edge adjacent to vasquez Severity: Fat Layer Exposed Amount of bleeding with debridement: Mild Bleeding Controlled with: Compression and gauze Patient tolerated procedure: Patient tolerated procedure well Assessment/Plan Active Problems (Last Updated 08/23/17 @ 16:34 by Vero Jasso RN) Obesity, Class III, BMI 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 obesity) (Chronic) Chronic venous insufficiency (Chronic) Venous ulcers of both lower extremities (Chronic) 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) Bilateral leg edema (Chronic) Parkinson's disease (tremor, stiffness, slow motion, unstable posture) (Chronic) H/O squamous cell carcinoma of skin (Chronic) of lower extremities Assessment: Chronic venous stasis disease of the bilateral lower extremities. Venous stasis ulcers of left LE and foot Plan: Judy's wounds were evaluated and debrided today. Punch biopsies with 3 mm punch biopsy instruments were taken of the two larger wounds to r/o possible SCC as being an underlying issue. Will treat her wounds with Aquacel and continue tubigrip for compression. Will continue with scheduled vascular testing. Advised to discontinue peroxide soaks to wounds/legs to remove scaling. Encouraged increased protein and continue with protein supplement that she is taking currently. Wounds were also cultured as there was a foul odor from the wounds. Will call with recommendations for treatment for wounds based on culture results. F/U in 1 week or sooner if necessary.
== END 2017-10-24 23:59 ==
LOC: WC 14:35
PROVIDERS: Visit Provider Family Medicine
DX: I87.2 Venous insufficiency (chronic) (peripheral) (principal); G20 Parkinson's disease; R60.0 Localized edema; E66.01 Morbid (severe) obesity due to excess calories; Z71.3 Dietary counseling and surveillance; L97.822 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 layer exposed; Z85.828 Personal history of other malignant neoplasm of skin; Z79.899 Other long term (current) drug therapy
CPT/HCPCS: 11042; 11045; 87070; 87075; 87186; 87205; 88304; 88305; 88341; 88342

== ENCOUNTER 2017-11-24 14:00 | Outpatient (RCR) | payer MEDICARE, MEDICAID, SELFPAY ==
[2017-10-25 01:08] VITALS: BP 108/46; PULSE 92; RESP 16; TEMP 35.7
[2017-10-27 15:43] VITALS: BP 108/68; PULSE 87; RESP 16; TEMP 36.6
--- NOTE | 2017-10-27 19:06 | PCM.WC.PN ---
(1) Squamous cell carcinoma of left lower leg Status: Chronic Current Visit: Yes Code(s): C44.729 - Squamous cell carcinoma of skin of left lower limb, including hip (2) Squamous cell carcinoma of right lower leg Status: Chronic Current Visit: Yes Code(s): C44.722 - Squamous cell carcinoma of skin of right lower limb, including hip (3) Obesity, Class III, BMI 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 obesity) Status: Chronic Current Visit: Yes Code(s): E66.01 - Morbid (severe) obesity due to excess calories (4) Chronic venous insufficiency Status: Chronic Current Visit: Yes (5) 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 layer exposed Status: Chronic Current Visit: Yes Code(s): L97.822 - 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 layer exposed (6) Parkinson's disease (tremor, stiffness, slow motion, unstable posture) Status: Chronic Current Visit: Yes Code(s): G20 - Parkinson's disease Type of Wound Date of Service: 10/27/17 Chief Complaint: Venous ulcers to the bilateral lower extremities. Chronic venous stasis disease. Possible underlying SCC of nonhealing wounds. History of Wound: Judy is a pleasant 71-year-old female resident at [facility] who presents to the wound healing center for evaluation of ulcers to her bilateral lower extremities. This has been an ongoing and recurrent problem for this patient. She's been treated numerous times previously at the wound center. She has a h/o nonhealing wound of left ankle which revealed squamous cell carcinoma which was treated with Mohs surgery on December 30 2015 and the lesion had been completely excised at the time. She is scheduled for vascular testing on 11/03/17. She was seen recently for her wounds by Dr. Bardales in the beginning of August but was subsequently admitted to the hospital for a bowel obstruction and sepsis. Her wounds have progressed since her visit in August. Vascular studies were postponed but labs ordered by Dr. Bardales are available and do not show any significant abnormalities other than some slight protein malnutrition for which she is already taking a protein supplement. She had been using adaptic and dry gauze as instructed after her visit with Dr. Bardales. She reports significant drainage from the wounds. She is wearing tubigrip compression as well. She was treated with Cefepime and Ancef during her hospital stay. Her large ulcers of her left lower leg were punch biopsied on 10/20/17 and showed squamous cell carcinoma. She reports that the wounds are painful and draining but denies fever or chills. Progress of Wound: Karins wounds have improved slightly in size with the change in dressings but are still significantly draining and friable, especially the left medial wound. Punch biopsy's taken last week revealed squamous cell carcinoma. Her case was discussed with her orthodontic treatment coordinator, Dr. Johnny Grady. Prior to her hospitalization in August, he had been considering radiation treatment for her squamous cell lesions of her lower extremities. He had consulted Dr. Le and planned to biopsy several areas to help with planning of radiation but unfortunately she was hospitalized and has not been back to see him in follow up. He still feels that this would be a viable treatment option and plans to discuss this further with Judy's son and with Dr. Le. Judy is tolerating antibiotic treatment at this time and also has tolerated dressings. They are adherent to her wounds per nursing staff. - Physical Exam Vital Signs Temp Pulse Resp BP 97.8 F 87 16 108/68 10/27/17 15:43 10/27/17 15:43 10/27/17 15:43 10/27/17 15:43 General: Alert, Oriented x3, Cooperative, No apparent distress HEENT: Atraumatic, Normocephalic Oral: Moist Mucosa Abdomen: Obese Skin: Ulcer/ Wound Wound Measurements and Assessment WC - Nurse 1 - General Ulcer Measurement Start: 10/27/17 15:43 Freq: Status: Active Protocol: Activity Type Activity Date Activity User E-Sign Co-Sign Detail Recorded Client Recorded Date Recorded By Document 10/27/17 15:43 MW [id number] 10/27/17 15:52 MW 10/27/17 15:43 Wound Center Nurse 1 [Ulcer Assessment] #9 LEFT ANTERIOR FOOT -Combined with other wound No -Current Size (cm) - Length 1.0 -Current Size (cm) - Width 0.6 -Current Size (cm) - Depth 0.1 -Total Square Cm 0.60 -Photo Taken No -Epithelialization None Present -Tunneling No -Undermining/Tunneling No -Circular Undermining No -Exudate Amt None Present (0 %) -Wound Margin Thickened -Granulation Amt None Present (0 %) -Granulation Quality N/A -Slough/Fibrin Yes -Necrosis Amt Large (67-100%) -Necrotic Tissue Type Eschar -Structure Exposed None/Limited to Skin Breakdown -Texture (Cristina-wound Skin Appearance) Assessed Localized Edema -Moisture (Cristina-wound Skin Appearance Assessed ) Dry/Scaly -Color (Cristina-wound Skin Appearance) Assessed Rubor -Temperature (Cristina-wound Skin No Abnormality Appearance) (Pt Warm) -Tenderness on Palpation (Cristina-wound No Skin Appearance) -Ulcer Cleansing Wound Cleanser -Foul Odor after Cleansing No -Anesthetic Used 5% Lidocaine Gel #10 LEFT LATERAL LE -Combined with other wound No -Current Size (cm) - Length 2.4 -Current Size (cm) - Width 1.9 -Current Size (cm) - Depth 0.2 -Total Square Cm 4.56 -Photo Taken No -Epithelialization Large 67-100% -Tunneling No -Undermining/Tunneling No -Circular Undermining No -Exudate Amt Medium (34-66%) -Exudate Type Sanguineous -Wound Margin Distinct, Outline Attached -Granulation Amt Large (67-100%) -Granulation Quality Red -Slough/Fibrin Yes -Necrosis Amt Small (1-33%) -Necrotic Tissue Type Adherent Slough -Structure Exposed None/Limited to Skin Breakdown -Texture (Cristina-wound Skin Appearance) Excoriation Friable Localized Edema -Moisture (Cristina-wound Skin Appearance Assessed ) Dry/Scaly -Color (Cristina-wound Skin Appearance) Assessed Hemosiderin Staining Rubor -Temperature (Cristina-wound Skin No Abnormality Appearance) (Pt Warm) -Tenderness on Palpation (Cristina-wound Yes Skin Appearance) -Ulcer Cleansing Wound Cleanser -Foul Odor after Cleansing No -Anesthetic Used 5% Lidocaine Gel #11 LEFT MEDIAL LE -Combined with other wound No -Current Size (cm) - Length 6.7 -Current Size (cm) - Width 8.2 -Current Size (cm) - Depth 0.1 -Total Square Cm 54.94 -Photo Taken No -Epithelialization None Present -Tunneling No -Undermining/Tunneling No -Circular Undermining No -Exudate Amt Medium (34-66%) -Exudate Type Sanguineous -Wound Margin Distinct, Outline Attached -Granulation Amt Large (67-100%) -Granulation Quality Red -Slough/Fibrin Yes -Necrosis Amt Small (1-33%) -Necrotic Tissue Type Adherent Slough -Structure Exposed None/Limited to Skin Breakdown -Texture (Cristina-wound Skin Appearance) Assessed Excoriation Friable Localized Edema -Moisture (Cristina-wound Skin Appearance Assessed ) Dry/Scaly -Color (Cristina-wound Skin Appearance) Assessed Hemosiderin Staining Rubor -Temperature (Cristina-wound Skin No Abnormality Appearance) (Pt Warm) -Tenderness on Palpation (Cristina-wound Yes Skin Appearance) -Ulcer Cleansing Wound Cleanser -Foul Odor after Cleansing No -Anesthetic Used 5% Lidocaine Gel [Edema Assessment] -Lower Limb Edema Present Yes -Right Calf (cm) 32.7 -Right Ankle (cm) 23.4 -Left Calf (cm) 35.6 -Left Ankle (cm) 24.0 WC - Nurse 2 - General Ulcer CM Notes Start: 10/27/17 15:43 Freq: Status: Active Protocol: Activity Type Activity Date Activity User E-Sign Co-Sign Detail Recorded Client Recorded Date Recorded By Document 10/27/17 16:40 [id number] 10/27/17 16:51 10/27/17 16:40 Wound Center Nurse 2 [Procedure/Treatment] #9 LEFT ANTERIOR FOOT -Time 16:48 -Correct Patient Yes -Correct Side, Site, Position Yes -Correct Procedure Yes -Procedure Performed Yes -Type of Procedure Debridement -Clinical Debridement Selective -Post Debridement Size (cm) - Length 0.4 -Post Debridement Size (cm) - Width 0.2 -Post Debridement Size (cm) - Depth 0.1 -Total Square Cm 0.08 -Wound/Ulcer Outcome Not Healed -Ulcer Cleansing Rinsed/ Irrigated with Saline -Foul Odor after Cleansing No -Bioengineered Tissue No -Topical Lidocaine (%) 4 -Bleeding Controlled with Pressure -Treatment Response Procedure Tolerated Well #10 LEFT LATERAL LE -Time 16:48 -Correct Patient Yes -Correct Side, Site, Position Yes -Correct Procedure Yes -Procedure Performed Yes -Post Debridement Size (cm) - Length 2.4 -Post Debridement Size (cm) - Width 1.9 -Post Debridement Size (cm) - Depth 0.2 -Total Square Cm 4.56 -Wound/Ulcer Outcome Not Healed -Ulcer Cleansing Rinsed/ Irrigated with Saline -Foul Odor after Cleansing No -Bioengineered Tissue No -Topical Lidocaine (%) 4 -Bleeding Controlled with NA -Other NO DEBRIDEMENT -Treatment Response Procedure Tolerated Well #11 LEFT MEDIAL LE -Time 16:49 -Correct Patient Yes -Correct Side, Site, Position Yes -Correct Procedure Yes -Procedure Performed Yes -Post Debridement Size (cm) - Length 6.4 -Post Debridement Size (cm) - Width 8.2 -Post Debridement Size (cm) - Depth 0.1 -Total Square Cm 52.48 -Wound/Ulcer Outcome Not Healed -Ulcer Cleansing Rinsed/ Irrigated with Saline -Foul Odor after Cleansing No -Bioengineered Tissue No -Topical Lidocaine (%) 4 -Bleeding Controlled with NA -Other NO DEBRIDEMENT -Treatment Response Procedure Tolerated Well [See Physician Procedure note for Specifics] Pain Scale: 0-10 Numeric [Pain] -Is Patient Pain Free? Yes Psych/Mental Status: Normal Affect, Appropriate Debridement Note Post-Debridement Measurements/Treatment WC - Nurse 2 - General Ulcer CM Notes Start: 10/27/17 15:43 Freq: Status: Active Protocol: Activity Type Activity Date Activity User E-Sign Co-Sign Detail Recorded Client Recorded Date Recorded By Document 10/27/17 16:40 [id number] 10/27/17 16:51 10/27/17 16:40 Wound Center Nurse 2 #9 LEFT ANTERIOR FOOT -Time 16:48 -Correct Patient Yes -Correct Side, Site, Position Yes -Correct Procedure Yes -Procedure Performed Yes -Type of Procedure Debridement -Clinical Debridement Selective -Post Debridement Size (cm) - Length 0.4 -Post Debridement Size (cm) - Width 0.2 -Post Debridement Size (cm) - Depth 0.1 -Total Square Cm 0.08 -Wound/Ulcer Outcome Not Healed -Ulcer Cleansing Rinsed/ Irrigated with Saline -Foul Odor after Cleansing No -Bioengineered Tissue No -Topical Lidocaine (%) 4 -Bleeding Controlled with Pressure -Treatment Response Procedure Tolerated Well #10 LEFT LATERAL LE -Time 16:48 -Correct Patient Yes -Correct Side, Site, Position Yes -Correct Procedure Yes -Procedure Performed Yes -Post Debridement Size (cm) - Length 2.4 -Post Debridement Size (cm) - Width 1.9 -Post Debridement Size (cm) - Depth 0.2 -Total Square Cm 4.56 -Wound/Ulcer Outcome Not Healed -Ulcer Cleansing Rinsed/ Irrigated with Saline -Foul Odor after Cleansing No -Bioengineered Tissue No -Topical Lidocaine (%) 4 -Bleeding Controlled with NA -Other NO DEBRIDEMENT -Treatment Response Procedure Tolerated Well #11 LEFT MEDIAL LE -Time 16:49 -Correct Patient Yes -Correct Side, Site, Position Yes -Correct Procedure Yes -Procedure Performed Yes -Post Debridement Size (cm) - Length 6.4 -Post Debridement Size (cm) - Width 8.2 -Post Debridement Size (cm) - Depth 0.1 -Total Square Cm 52.48 -Wound/Ulcer Outcome Not Healed -Ulcer Cleansing Rinsed/ Irrigated with Saline -Foul Odor after Cleansing No -Bioengineered Tissue No -Topical Lidocaine (%) 4 -Bleeding Controlled with NA -Other NO DEBRIDEMENT -Treatment Response Procedure Tolerated Well Pain Scale: 0-10 Numeric Is Patient Pain Free? Yes Wound debrided: left anterior foot Laterality: Left Type of Debridement: Selective debridement Anesthesia Used: 5% Lidocaine Gel Depth: Down to and including healthy tissue Percentage of wound debrided: 100 Instrument Used: Forceps Tissue Removed: devitalized tissue Severity: Fat Layer Exposed Amount of bleeding with debridement: Mild Bleeding Controlled with: Compression and gauze Patient tolerated procedure well - Additional Wound Wound debrided: left lateral LE Laterality: Left Operative Diagnosis: no debridement completed due to bleeding - Additional Wound Wound debrided: left medial LE Laterality: Left Operative Diagnosis: no debridement completed due to bleeding Assessment/Plan Active Problems (Last Updated 08/23/17 @ 16:34 by Vero Jasso RN) Obesity, Class III, BMI 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 obesity) (Chronic) Chronic venous insufficiency (Chronic) 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) Parkinson's disease (tremor, stiffness, slow motion, unstable posture) (Chronic) 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 Venous stasis ulcers of left LE and foot. 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 Punch biopsy results were reviewed with the patient. Will continue to treat her wounds with Aquacel and continue tubigrip for compression. Complete antibiotics prescribed for positive wound cultures. Will continue with scheduled vascular testing. Encouraged increased protein and continue with protein supplement that she is taking currently. Discussed following up with Dr. Grady for further recommendations for treatment of her squamous cell carcinoma with possible radiation treatment. Her treatment course has been changed to complex care due to her comorbidities and the complexity of her wounds. F/U in 2 weeks.
--- NOTE | 2017-11-03 12:59 | VDLE_ITS ---
Reason For Study: Non-healing wounds RIGHT LEFT CFV is compressible, spontaneous, phasic, CFV is compressible, spontaneous, phasic, competent and demonstrates normal competent, and demonstrates normal augmentation. augmentation. FV is compressible, spontaneous, phasic, FV is compressible, spontaneous, phasic, competent and demonstrates normal competent and demonstrates normal augmentation. augmentation. POP V is compressible, spontaneous, phasic, POP V is compressible, spontaneous, phasic, competent and demonstrates normal competent and demonstrates normal augmentation. augmentation. T/P Trunk is compressible. T/P Trunk is compressible. PTV is compressible. PTV is compressible. RT PerV is compressible. LT PerV is compressible. SFJ is INCOMPETENT SFJ is competent GSV is diminutive - unable to assess GSV is INCOMPETENT with reflux greater GSV branch at S5 is INCOMPETENT with reflux than .5 sec and diameter of .50 x .48 cm greater than .5 sec and diameter of .48 SSV is diminutive - unable to assess. x .53 cm SSV is INCOMPETENT with reflux greater than .5 sec and diameter of .23 x .24 cm. Procedure Exam performed in department. A preliminary report was called and/or faxed to [facility]. Interpretation Summary Deep veins of the lower extremities are bilaterally patent and compressible segmentally. There is no evidence of deep vein thrombosis on either side. Valvular competence appears intact within the proximal deep venous systems bilaterally. The right sapheno-femoral junction is incompetent . The left sapheno-femoral junction is competent . The right greater saphenous vein is too small to assess. The left greater saphenous vein appears segmentally incompetent. The right small saphenous vein is patent and incompetent. The left small saphenous vein is too small to assess. An incompetent accessory saphenous vein is noted in the right lower extremity at the S5 position. Ordering Physician: Stephanie Garcia Referring Physician: Stephanie Garcia Performed By: Chanel Hugo RVT
--- NOTE | 2017-11-03 19:48 | LEAS_ITS ---
Arterial Study - Arterial Study Arterial Study: This is a 71-year-old female with a history of hypertension, chronic obstructive pulmonary disease, and Parkinson's disease. The patient presents with chronic nonhealing wounds to the lower extremities. Suspecting the presence of atherosclerotic peripheral arterial occlusive disease, the patient was brought to the noninvasive vascular laboratory at this time for the purpose of bilateral noninvasive lower extremity arterial assessment. Doppler signal assessment was used to evaluate the pulses at ankle level bilaterally. The posterior tibial and dorsalis pedis pulses were triphasic bilaterally. Segmental limb pressures were obtained at ankle level bilaterally. The right ankle pressure, as determined by posterior tibial pulse, was measured at 166 mmHg. The right ankle pressure, as determined by dorsalis pedis pulse, was measured at 166 mmHg. The left ankle pressure, as determined by posterior tibial pulse, was measured at 148 mmHg. The left ankle pressure, as determined by dorsalis pedis pulse, was measured at 153 mmHg. Pulse-volume recordings were obtained bilaterally and segmentally. Waveform amplitudes appeared to be satisfactory at all levels bilaterally, including low thigh, calf, ankle, and digital levels. Resting ankle-brachial indices were calculated bilaterally. The resting right ankle-brachial index was calculated to be 1.17. The resting left ankle- brachial index was calculated be 1.08. Impression: Based upon the findings of this resting noninvasive lower extremity arterial study, there is no evidence of significant atherosclerotic peripheral arterial occlusive disease in the lower extremities bilaterally. Triphasic waveforms were noted at ankle level bilaterally. Resting ankle-brachial indices were bilaterally normal. In summary, this represents a normal resting noninvasive lower extremity arterial study bilaterally.
[2017-11-10 14:39] VITALS: BP 115/77; PULSE 96; RESP 16; TEMP 35.8
--- NOTE | 2017-11-10 17:39 | PCM.WC.PN ---
(1) Squamous cell carcinoma of left lower leg Status: Chronic Current Visit: Yes Code(s): C44.729 - Squamous cell carcinoma of skin of left lower limb, including hip (2) Squamous cell carcinoma of right lower leg Status: Chronic Current Visit: Yes Code(s): C44.722 - Squamous cell carcinoma of skin of right lower limb, including hip (3) Obesity, Class III, BMI 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 obesity) Status: Chronic Current Visit: Yes Code(s): E66.01 - Morbid (severe) obesity due to excess calories (4) Chronic venous insufficiency Status: Chronic Current Visit: Yes (5) 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 layer exposed Status: Chronic Current Visit: Yes Code(s): L97.822 - 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 layer exposed (6) Parkinson's disease (tremor, stiffness, slow motion, unstable posture) Status: Chronic Current Visit: Yes Code(s): G20 - Parkinson's disease Type of Wound Date of Service: 11/10/17 Chief Complaint: Venous ulcers to the bilateral lower extremities. Chronic venous stasis disease. Possible underlying SCC of nonhealing wounds. History of Wound: Judy is a pleasant 71-year-old female resident at [facility] who presents to the wound healing center for evaluation of ulcers to her bilateral lower extremities. This has been an ongoing and recurrent problem for this patient. She's been treated numerous times previously at the wound center. She has a h/o nonhealing wound of left ankle which revealed squamous cell carcinoma which was treated with Mohs surgery on December 30 2015 and the lesion had been completely excised at the time. She is scheduled for vascular testing on 11/03/17. She was seen recently for her wounds by Dr. Bardales in the beginning of August but was subsequently admitted to the hospital for a bowel obstruction and sepsis. Her wounds have progressed since her visit in August. Vascular studies were postponed but labs ordered by Dr. Bardales are available and do not show any significant abnormalities other than some slight protein malnutrition for which she is already taking a protein supplement. She had been using adaptic and dry gauze as instructed after her visit with Dr. Bardales. She reports significant drainage from the wounds. She is wearing tubigrip compression as well. She was treated with Cefepime and Ancef during her hospital stay. Her large ulcers of her left lower leg were punch biopsied on 10/20/17 and showed squamous cell carcinoma. She reports that the wounds are painful and draining but denies fever or chills. Progress of Wound: Karins wounds are still significantly draining and friable, especially the left medial wound. Punch biopsies revealed squamous cell carcinoma. Her case was discussed with her journeyman operator assistant, Dr. Johnny Grady. Prior to her hospitalization in August, he had been considering radiation treatment for her squamous cell lesions of her lower extremities. He had consulted Dr. Le and planned to biopsy several areas to help with planning of radiation but unfortunately she was hospitalized and has not been back to see him in follow up. He still feels that this would be a viable treatment option and plans to discuss this further with Judy's son and with Dr. Le. Judy completed antibiotic treatment and also has tolerated dressings and compression. Vascular studies were done last week which showed incompetence of bilateral GSV, right SSV and right SFJ. There has been an increase in odor for the last several days. - Physical Exam Vital Signs Temp Pulse Resp BP 96.4 F L 96 16 115/77 11/10/17 14:39 11/10/17 14:39 11/10/17 14:39 11/10/17 14:39 General: Alert, Oriented x3, Cooperative, No apparent distress HEENT: Atraumatic, Normocephalic Oral: Moist Mucosa Abdomen: Obese Extremities: Edema Skin: Ulcer/ Wound Wound Measurements and Assessment WC - Nurse 1 - General Ulcer Measurement Start: 10/27/17 15:43 Freq: Status: Active Protocol: Activity Type Activity Date Activity User E-Sign Co-Sign Detail Recorded Client Recorded Date Recorded By Document 11/10/17 14:39 [id number] 11/10/17 14:47 11/10/17 14:39 Wound Center Nurse 1 [Ulcer Assessment] #9 LEFT ANTERIOR FOOT -Combined with other wound No -Current Size (cm) - Length 0.1 -Current Size (cm) - Width 0.1 -Current Size (cm) - Depth 0.1 -Total Square Cm 0.01 -Photo Taken No -Epithelialization Large 67-100% #10 LEFT LATERAL LE -Combined with other wound No -Current Size (cm) - Length 2.6 -Current Size (cm) - Width 1.8 -Current Size (cm) - Depth 0.1 -Total Square Cm 4.68 -Photo Taken No -Epithelialization Large 67-100% -Tunneling No -Undermining/Tunneling No -Circular Undermining No -Exudate Amt Large (67-100%) -Exudate Type Sanguineous -Wound Margin Distinct, Outline Attached -Granulation Quality [place] Red -Necrosis Amt Small (1-33%) -Necrotic Tissue Type Adherent Slough -Structure Exposed None/Limited to Skin Breakdown -Texture (Cristina-wound Skin Appearance) No Abnormality Assessed -Moisture (Cristina-wound Skin Appearance No Abnormality ) Assessed -Color (Cristina-wound Skin Appearance) No Abnormality Assessed -Temperature (Cristina-wound Skin No Abnormality Appearance) (Pt Warm) -Tenderness on Palpation (Cristina-wound Yes Skin Appearance) -Ulcer Cleansing Wound Cleanser -Foul Odor after Cleansing Yes -Anesthetic Used 4% Lidocaine Solution #11 LEFT MEDIAL LE -Combined with other wound No -Current Size (cm) - Length 14.3 -Current Size (cm) - Width 14.0 -Current Size (cm) - Depth 0.1 -Total Square Cm 200.20 -Photo Taken No -Epithelialization None Present -Tunneling No -Undermining/Tunneling No -Circular Undermining No -Wound Margin Thickened -Granulation Amt None Present (0 %) -Slough/Fibrin Yes -Necrosis Amt None Present (0 %) -Necrotic Tissue Type Adherent Slough -Temperature (Cristina-wound Skin No Abnormality Appearance) (Pt Warm) -Tenderness on Palpation (Cristina-wound Yes Skin Appearance) -Ulcer Cleansing Wound Cleanser -Foul Odor after Cleansing Yes -Anesthetic Used 4% Lidocaine Solution [Edema Assessment] -Lower Limb Edema Present NA WC - Nurse 2 - General Ulcer CM Notes Start: 10/27/17 15:43 Freq: Status: Active Protocol: Activity Type Activity Date Activity User E-Sign Co-Sign Detail Recorded Client Recorded Date Recorded By Document 11/10/17 15:34 [id number] 11/10/17 15:37 11/10/17 15:34 Wound Center Nurse 2 [Procedure/Treatment] #10 LEFT LATERAL LE -Time 15:35 -Correct Patient Yes -Correct Side, Site, Position Yes -Correct Procedure Yes -Procedure Performed Yes -Type of Procedure Debridement -Clinical Debridement Subcutaneous -Post Debridement Size (cm) - Length 2.7 -Post Debridement Size (cm) - Width 1.9 -Post Debridement Size (cm) - Depth 0.1 -Total Square Cm 5.13 -Wound/Ulcer Outcome Not Healed -Ulcer Cleansing Rinsed/ Irrigated with Saline -Foul Odor after Cleansing No -Bioengineered Tissue No -Topical Lidocaine (%) 4 -Bleeding Controlled with Pressure -Treatment Response Procedure Tolerated Well #11 LEFT MEDIAL LE -Time 15:36 -Correct Patient Yes -Correct Side, Site, Position Yes -Correct Procedure Yes -Procedure Performed Yes -Type of Procedure Debridement -Clinical Debridement Subcutaneous -Post Debridement Size (cm) - Length 14.4 -Post Debridement Size (cm) - Width 14.1 -Post Debridement Size (cm) - Depth 0.1 -Total Square Cm 203.04 -Wound/Ulcer Outcome Not Healed -Ulcer Cleansing Rinsed/ Irrigated with Saline -Foul Odor after Cleansing No -Bioengineered Tissue No -Topical Lidocaine (%) 4 -Bleeding Controlled with Pressure -Treatment Response Procedure Tolerated Well [See Physician Procedure note for Specifics] Pain Scale: 0-10 Numeric [Pain] -Is Patient Pain Free? Yes Psych/Mental Status: Normal Affect, Appropriate Debridement Note Post-Debridement Measurements/Treatment WC - Nurse 2 - General Ulcer CM Notes Start: 10/27/17 15:43 Freq: Status: Active Protocol: Activity Type Activity Date Activity User E-Sign Co-Sign Detail Recorded Client Recorded Date Recorded By Document 10/27/17 16:40 [id number] 10/27/17 16:51 TM Document 11/10/17 15:34 [id number] 11/10/17 15:37 TM 10/27/17 11/10/17 16:40 15:34 Wound Center Nurse 2 #9 LEFT ANTERIOR FOOT -Time 16:48 -Correct Patient Yes -Correct Side, Site, Position Yes -Correct Procedure Yes -Procedure Performed Yes -Type of Procedure Debridement -Clinical Debridement Selective -Post Debridement Size (cm) - Length 0.4 -Post Debridement Size (cm) - Width 0.2 -Post Debridement Size (cm) - Depth 0.1 -Total Square Cm 0.08 -Wound/Ulcer Outcome Not Healed -Ulcer Cleansing Rinsed/ Irrigated with Saline -Foul Odor after Cleansing No -Bioengineered Tissue No -Topical Lidocaine (%) 4 -Bleeding Controlled with Pressure -Treatment Response Procedure Tolerated Well #10 LEFT LATERAL LE -Time 16:48 15:35 -Correct Patient Yes Yes -Correct Side, Site, Position Yes Yes -Correct Procedure Yes Yes -Procedure Performed Yes Yes -Type of Procedure Debridement -Clinical Debridement Subcutaneous -Post Debridement Size (cm) - Length 2.4 2.7 -Post Debridement Size (cm) - Width 1.9 1.9 -Post Debridement Size (cm) - Depth 0.2 0.1 -Total Square Cm 4.56 5.13 -Wound/Ulcer Outcome Not Healed Not Healed -Ulcer Cleansing Rinsed/ Rinsed/ Irrigated with Irrigated with Saline Saline -Foul Odor after Cleansing No No -Bioengineered Tissue No No -Topical Lidocaine (%) 4 4 -Bleeding Controlled with NA Pressure -Other NO DEBRIDEMENT -Treatment Response Procedure Procedure Tolerated Well Tolerated Well #11 LEFT MEDIAL LE -Time 16:49 15:36 -Correct Patient Yes Yes -Correct Side, Site, Position Yes Yes -Correct Procedure Yes Yes -Procedure Performed Yes Yes -Type of Procedure Debridement -Clinical Debridement Subcutaneous -Post Debridement Size (cm) - Length 6.4 14.4 -Post Debridement Size (cm) - Width 8.2 14.1 -Post Debridement Size (cm) - Depth 0.1 0.1 -Total Square Cm 52.48 203.04 -Wound/Ulcer Outcome Not Healed Not Healed -Ulcer Cleansing Rinsed/ Rinsed/ Irrigated with Irrigated with Saline Saline -Foul Odor after Cleansing No No -Bioengineered Tissue No No -Topical Lidocaine (%) 4 4 -Bleeding Controlled with NA Pressure -Other NO DEBRIDEMENT -Treatment Response Procedure Procedure Tolerated Well Tolerated Well Pain Scale: 0-10 Numeric Is Patient Pain Free? Yes Yes Wound debrided: left anterior foot Laterality: Left No debridement was completed today - wound is healed - Additional Wound Wound debrided: left medial LE Laterality: Left Type of Debridement: Excisional debridement Anesthesia Used: 4% Lidocaine Solution Depth: Down to and including healthy tissue, in the subcutaneous layer Percentage of wound debrided: 100 Instrument Used: 7mm curette Tissue Removed: yellow slough, devitalized tissue Severity: Fat Layer Exposed Amount of bleeding with debridement: Moderate Bleeding Controlled with: Compression and gauze Patient tolerated procedure: Patient tolerated procedure well - Additional Wound Wound debrided: left lateral LE Laterality: Left Type of Debridement: Excisional debridement Anesthesia Used: 4% Lidocaine Solution Depth: Down to and including healthy tissue, in the subcutaneous layer Percentage of wound debrided: 100 Instrument Used: 5mm curette Tissue Removed: yellow slough, devitalized tissue Severity: Fat Layer Exposed Amount of bleeding with debridement: Mild Bleeding Controlled with: Compression and gauze Patient tolerated procedure: Patient tolerated procedure well Assessment/Plan Active Problems (Last Updated 08/23/17 @ 16:34 by Vero Jasso RN) Obesity, Class III, BMI 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 obesity) (Chronic) Chronic venous insufficiency (Chronic) 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) Parkinson's disease (tremor, stiffness, slow motion, unstable posture) (Chronic) 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 Venous stasis ulcers of left LE and foot. 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 Vascular tests reviewed with the patient. Normal arterial testing, venous incompetence b/l. Will continue to treat her wounds with Aquacel and continue tubigrip for compression. Will restart antibiotics due to odor. Encouraged increased protein and continue with protein supplement that she is taking currently. Discussed following up with Dr. Grady for further recommendations for treatment of her squamous cell carcinoma with possible radiation treatment. Her treatment course has been changed to complex care due to her comorbidities and the complexity of her wounds. F/U in 2 weeks.
[2017-11-24 14:12] VITALS: BP 123/60; PULSE 85; RESP 16; TEMP 36.5
--- NOTE | 2017-11-24 19:21 | PCM.WC.PN ---
(1) Squamous cell carcinoma of left lower leg Status: Chronic Current Visit: Yes Code(s): C44.729 - Squamous cell carcinoma of skin of left lower limb, including hip (2) Squamous cell carcinoma of right lower leg Status: Chronic Current Visit: Yes Code(s): C44.722 - Squamous cell carcinoma of skin of right lower limb, including hip (3) Obesity, Class III, BMI 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 obesity) Status: Chronic Current Visit: Yes Code(s): E66.01 - Morbid (severe) obesity due to excess calories (4) Chronic venous insufficiency Status: Chronic Current Visit: Yes (5) 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 layer exposed Status: Chronic Current Visit: Yes Code(s): L97.822 - 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 layer exposed (6) Parkinson's disease (tremor, stiffness, slow motion, unstable posture) Status: Chronic Current Visit: Yes Code(s): G20 - Parkinson's disease Type of Wound Date of Service: 11/24/17 Chief Complaint: Venous ulcers to the bilateral lower extremities. Chronic venous stasis disease. Possible underlying SCC of nonhealing wounds. History of Wound: Judy is a pleasant 71-year-old female resident at [facility] who presents to the wound healing center for evaluation of ulcers to her bilateral lower extremities. This has been an ongoing and recurrent problem for this patient. She's been treated numerous times previously at the wound center. She has a h/o nonhealing wound of left ankle which revealed squamous cell carcinoma which was treated with Mohs surgery on December 30 2015 and the lesion had been completely excised at the time. She is scheduled for vascular testing on 11/03/17. She was seen recently for her wounds by Dr. Bardales in the beginning of August but was subsequently admitted to the hospital for a bowel obstruction and sepsis. Her wounds have progressed since her visit in August. Vascular studies were postponed but labs ordered by Dr. Bardales are available and do not show any significant abnormalities other than some slight protein malnutrition for which she is already taking a protein supplement. She had been using adaptic and dry gauze as instructed after her visit with Dr. Bardales. She reports significant drainage from the wounds. She is wearing tubigrip compression as well. She was treated with Cefepime and Ancef during her hospital stay. Her large ulcers of her left lower leg were punch biopsied on 10/20/17 and showed squamous cell carcinoma. She reports that the wounds are painful and draining but denies fever or chills. Progress of Wound: Karins wounds are still significantly draining and friable, especially the left medial wound. The left medial wound is increasing in size and has a large amount of necrotic tissue and odor. Punch biopsies revealed squamous cell carcinoma. Her case was discussed with her form designer, Dr. Johnny Grady. Prior to her hospitalization in August, he had been considering radiation treatment for her squamous cell lesions of her lower extremities. He had consulted Dr. Worrell and planned to biopsy several areas to help with planning of radiation but unfortunately she was hospitalized and has not been back to see him in follow up. He still feels that this would be a viable treatment option and plans to discuss this further with Judy's son and with Dr. Worrell. Judy completed antibiotic treatment and also has tolerated dressings and compression. Vascular studies were done last week which showed incompetence of bilateral GSV, right SSV and right SFJ. She is scheduled for follow up with Dr. Worrell to discuss possible radiation. - Physical Exam Vital Signs Temp Pulse Resp BP 97.7 F L 85 16 123/60 H 11/24/17 14:12 11/24/17 14:12 11/24/17 14:12 11/24/17 14:12 General: Alert, Oriented x3, Cooperative, No apparent distress HEENT: Atraumatic, Normocephalic Oral: Moist Mucosa Abdomen: Obese Extremities: Edema Skin: Ulcer/ Wound Wound Measurements and Assessment WC - Nurse 1 - General Ulcer Measurement Start: 10/27/17 15:43 Freq: Status: Active Protocol: Activity Type Activity Date Activity User E-Sign Co-Sign Detail Recorded Client Recorded Date Recorded By Document 11/24/17 14:12 [id number] 11/24/17 14:22 11/24/17 14:12 Wound Center Nurse 1 [Ulcer Assessment] #10 LEFT LATERAL LE -Combined with other wound No -Current Size (cm) - Length 3.1 -Current Size (cm) - Width 1.9 -Current Size (cm) - Depth 0.1 -Total Square Cm 5.89 -Photo Taken No -Epithelialization None Present -Tunneling No -Undermining/Tunneling No -Circular Undermining No -Exudate Amt Large (67-100%) -Exudate Type Sanguineous -Wound Margin Distinct, Outline Attached -Granulation Amt Large (67-100%) -Granulation Quality Red -Slough/Fibrin No -Necrosis Amt None Present (0 %) -Texture (Cristina-wound Skin Appearance) Scarring -Moisture (Cristina-wound Skin Appearance Maceration ) Weeping Dry/Scaly -Color (Cristina-wound Skin Appearance) Ecchymosis Erythema Hemosiderin Staining -Temperature (Cristina-wound Skin No Abnormality Appearance) (Pt Warm) -Tenderness on Palpation (Cristina-wound Yes Skin Appearance) -Ulcer Cleansing Wound Cleanser -Foul Odor after Cleansing No -Anesthetic Used 4% Lidocaine Solution #11 LEFT MEDIAL LE -Combined with other wound No -Current Size (cm) - Length 12.2 -Current Size (cm) - Width 10.5 -Current Size (cm) - Depth 0.1 -Total Square Cm 128.10 -Photo Taken No -Epithelialization None Present -Tunneling No -Undermining/Tunneling No -Circular Undermining No -Exudate Amt Large (67-100%) -Exudate Type Serosanguineous -Wound Margin Distinct, Outline Attached -Granulation Amt Medium (34-66%) -Granulation Quality Red -Slough/Fibrin Yes -Necrosis Amt Medium (34-66%) -Necrotic Tissue Type Adherent Slough -Texture (Cristina-wound Skin Appearance) Scarring -Moisture (Cristina-wound Skin Appearance Dry/Scaly ) -Color (Cristina-wound Skin Appearance) Erythema Hemosiderin Staining -Temperature (Cristina-wound Skin No Abnormality Appearance) (Pt Warm) -Tenderness on Palpation (Cristina-wound Yes Skin Appearance) -Ulcer Cleansing Wound Cleanser -Foul Odor after Cleansing No -Anesthetic Used 4% Lidocaine Solution WC - Nurse 2 - General Ulcer CM Notes Start: 10/27/17 15:43 Freq: Status: Active Protocol: Activity Type Activity Date Activity User E-Sign Co-Sign Detail Recorded Client Recorded Date Recorded By Document 11/24/17 14:58 TM [id number] 11/24/17 15:01 TM 11/24/17 14:58 Wound Center Nurse 2 [Procedure/Treatment] #10 LEFT LATERAL LE -Time 14:58 -Correct Patient Yes -Correct Side, Site, Position Yes -Correct Procedure Yes -Procedure Performed Yes -Type of Procedure Debridement -Clinical Debridement Subcutaneous -Post Debridement Size (cm) - Length 3.0 -Post Debridement Size (cm) - Width 2.8 -Post Debridement Size (cm) - Depth 0.1 -Total Square Cm 8.40 -Wound/Ulcer Outcome Not Healed -Ulcer Cleansing Rinsed/ Irrigated with Saline -Foul Odor after Cleansing No -Bioengineered Tissue No -Topical Lidocaine (%) 5 -Bleeding Controlled with Pressure -Treatment Response Procedure Tolerated Well #11 LEFT MEDIAL LE -Time 14:59 -Correct Patient Yes -Correct Side, Site, Position Yes -Correct Procedure Yes -Procedure Performed Yes -Type of Procedure Debridement -Clinical Debridement Subcutaneous -Post Debridement Size (cm) - Length 14.0 -Post Debridement Size (cm) - Width 11.0 -Post Debridement Size (cm) - Depth 0.1 -Total Square Cm 154.00 -Wound/Ulcer Outcome Not Healed -Ulcer Cleansing Rinsed/ Irrigated with Saline -Foul Odor after Cleansing No -Bioengineered Tissue No -Topical Lidocaine (%) 5 -Bleeding Controlled with Pressure -Treatment Response Procedure Tolerated Well [See Physician Procedure note for Specifics] Pain Scale: 0-10 Numeric [Pain] -Is Patient Pain Free? Yes Psych/Mental Status: Normal Affect, Appropriate Debridement Note Post-Debridement Measurements/Treatment WC - Nurse 2 - General Ulcer CM Notes Start: 10/27/17 15:43 Freq: Status: Active Protocol: Activity Type Activity Date Activity User E-Sign Co-Sign Detail Recorded Client Recorded Date Recorded By Document 10/27/17 16:40 [id number] 10/27/17 16:51 TM Document 11/10/17 15:34 [email or web address] [id number] 11/10/17 15:37 TM Document 11/24/17 14:58 [id number] 11/24/17 15:01 TM 10/27/17 11/10/17 11/24/17 16:40 15:34 14:58 Wound Center Nurse 2 #9 LEFT ANTERIOR FOOT -Time 16:48 -Correct Patient Yes -Correct Side, Site, Position Yes -Correct Procedure Yes -Procedure Performed Yes -Type of Procedure Debridement -Clinical Debridement Selective -Post Debridement Size (cm) - Length 0.4 -Post Debridement Size (cm) - Width 0.2 -Post Debridement Size (cm) - Depth 0.1 -Total Square Cm 0.08 -Wound/Ulcer Outcome Not Healed -Ulcer Cleansing Rinsed/ Irrigated with Saline -Foul Odor after Cleansing No -Bioengineered Tissue No -Topical Lidocaine (%) 4 -Bleeding Controlled with Pressure -Treatment Response Procedure Tolerated Well #10 LEFT LATERAL LE -Time 16:48 15:35 14:58 -Correct Patient Yes Yes Yes -Correct Side, Site, Position Yes Yes Yes -Correct Procedure Yes Yes Yes -Procedure Performed Yes Yes Yes -Type of Procedure Debridement Debridement -Clinical Debridement Subcutaneous Subcutaneous -Post Debridement Size (cm) - Length 2.4 2.7 3.0 -Post Debridement Size (cm) - Width 1.9 1.9 2.8 -Post Debridement Size (cm) - Depth 0.2 0.1 0.1 -Total Square Cm 4.56 5.13 8.40 -Wound/Ulcer Outcome Not Healed Not Healed Not Healed -Ulcer Cleansing Rinsed/ Rinsed/ Rinsed/ Irrigated with Irrigated with Irrigated with Saline Saline Saline -Foul Odor after Cleansing No No No -Bioengineered Tissue No No No -Topical Lidocaine (%) 4 4 5 -Bleeding Controlled with NA Pressure Pressure -Other NO DEBRIDEMENT -Treatment Response Procedure Procedure Procedure Tolerated Well Tolerated Well Tolerated Well #11 LEFT MEDIAL LE -Time 16:49 15:36 14:59 -Correct Patient Yes Yes Yes -Correct Side, Site, Position Yes Yes Yes -Correct Procedure Yes Yes Yes -Procedure Performed Yes Yes Yes -Type of Procedure Debridement Debridement -Clinical Debridement Subcutaneous Subcutaneous -Post Debridement Size (cm) - Length 6.4 14.4 14.0 -Post Debridement Size (cm) - Width 8.2 14.1 11.0 -Post Debridement Size (cm) - Depth 0.1 0.1 0.1 -Total Square Cm 52.48 203.04 154.00 -Wound/Ulcer Outcome Not Healed Not Healed Not Healed -Ulcer Cleansing Rinsed/ Rinsed/ Rinsed/ Irrigated with Irrigated with Irrigated with Saline Saline Saline -Foul Odor after Cleansing No No No -Bioengineered Tissue No No No -Topical Lidocaine (%) 4 4 5 -Bleeding Controlled with NA Pressure Pressure -Other NO DEBRIDEMENT -Treatment Response Procedure Procedure Procedure Tolerated Well Tolerated Well Tolerated Well Pain Scale: 0-10 Numeric Is Patient Pain Free? Yes Yes Yes Wound debrided: left lateral LE Laterality: Left Type of Debridement: Excisional debridement Anesthesia Used: 4% Lidocaine Solution Depth: Down to and including healthy tissue, in the subcutaneous layer Percentage of wound debrided: 100 Instrument Used: 5mm curette Tissue Removed: yellow slough, devitalized tissue Severity: Fat Layer Exposed Amount of bleeding with debridement: Mild Bleeding Controlled with: Compression and gauze Patient tolerated procedure well - Additional Wound Wound debrided: left medial LE Type of Debridement: Excisional debridement Anesthesia Used: 4% Lidocaine Solution Depth: Down to and including healthy tissue, in the subcutaneous layer Percentage of wound debrided: 100 Instrument Used: 5mm curette Tissue Removed: yellow slough, devitalized tissue, necrotic tissue Severity: Fat Layer Exposed Amount of bleeding with debridement: Mild Bleeding Controlled with: Compression and gauze Patient tolerated procedure: Patient tolerated procedure well Assessment/Plan Active Problems (Last Updated 08/23/17 @ 16:34 by Vero Jasso RN) Obesity, Class III, BMI 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 obesity) (Chronic) Chronic venous insufficiency (Chronic) 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) Parkinson's disease (tremor, stiffness, slow motion, unstable posture) (Chronic) 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 Venous stasis ulcers of left LE and foot. 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 Vascular tests reviewed with the patient. Normal arterial testing, venous incompetence b/l. Will continue to treat her wounds with Aquacel and continue tubigrip for compression. Wound culture taken due to odor but I suspect that it is due to necrosis. Will treat for infection if culture is positive. Encouraged increased protein and continue with protein supplement that she is taking currently. Discussed following up with Dr. Grady for further recommendations for treatment of her squamous cell carcinoma with possible radiation treatment. She has appointment with Dr. Worrell to discuss radiation treatment. Her treatment course has been changed to complex care due to her comorbidities and the complexity of her wounds. F/U in 2 weeks.
== END 2017-11-24 23:59 ==
LOC: WC 14:00
PROVIDERS: Visit Provider Family Medicine
DX: C44.729 Squamous cell carcinoma of skin of left lower limb, including hip (principal); E66.01 Morbid (severe) obesity due to excess calories; Z71.3 Dietary counseling and surveillance; C44.722 Squamous cell carcinoma of skin of right lower limb, including hip; I73.9 Peripheral vascular disease, unspecified; G20 Parkinson's disease; I87.8 Other specified disorders of veins; R60.0 Localized edema; L97.422 Non-pressure chronic ulcer of left heel and midfoot with fat layer exposed; L97.829 Non-pressure chronic ulcer of other part of left lower leg with unspecified severity
CPT/HCPCS: 11042; 11045; 87070; 87075; 87077; 87186; 87205; 93923; 93970; 97597; 99215; G0463

== ENCOUNTER 2017-12-03 08:48 | Inpatient (IN) | payer MEDICARE, MEDICAID, SELFPAY ==
[2017-12-03] VITALS (8 sets, daily range): BP systolic 125–154; BP diastolic 57–108; PULSE 88–93; RESP 18–22; TEMP 36.5–37.1; O2SAT 93–100; BMI 40.5; BMI 37.3; BMI 37.4
[2017-12-03 09:37] LABS: Absolute Lymphocyte Count 0.62 X10^3/ul (0.83-4.51); Absolute Neutrophil Count 3.3 X10^3/uL (2.0-7.7); Eosinophil# 0.13 X10^3/uL; Eosinophils% 2.9 % (0-5); Hematocrit 35.6 % (37-47); Hemoglobin 10.8 g/dl (12.0-15.0); Lymphocyte # 0.62 X10^3/ul (4.0); Lymphocyte % 13.9 % (19-41); Mean Corp Hgb Conc 30.3 g/gl (32-36); Mean Corpuscular Hgb 29.1 pg (27.0-32.0); Mean Platelet Vol. 11.2 fl (6.2-12.0); Monocyte# 0.42 X10^3/uL; Monocyte% 9.4 % (0-10); Neutrophil # 3.28 X10^3/uL (2.7-7.7); Neutrophil % 73.6 % (47-70); POSITIVE COUNT NO; POSITIVE DIFFERENTIAL NO; POSITIVE MORPHOLOGY NO; Platelet Count 148 K/mm3 (150-450); RBC Distribution Width CV 14.7 % (11.6-14.6); RBC Distribution Width SD 52.1 fl (35.1-43.9); Red Blood Count 3.71 M/mm3 (4.2-5.4); White Blood Count 4.5 K/mm3 (4.4-11.0)
[2017-12-03 09:44] LABS: International Normalized Ratio 1.2; Prothrombin Time (Protime)PT. 15.1 SECONDS (11.7-14.9)
[2017-12-03 09:53] LABS: ALB/GLOB Ratio 0.5 RATIO (0.9-2.4); AST(SGOT) 24 U/L (15-37); Alanine Aminotransfer ALT/SGPT 8 U/L (13-56); Albumin, Serum 2.4 g/dL (3.2-5.0); Alkaline Phosphatase 83 U/L (45-117); Anion Gap 7 (5-15); BUN 18 mg/dL (7-18); Calcium,Total 8.9 mg/dL (8.5-10.1); Chloride 101 mmol/L (98-107); Creatinine, Serum 1.06 mg/dL (0.55-1.02); EST Glomerular Filtration Rate 55 mL/min (>60); Est Glom Filt Rate - Afr Amer 66 mL/min (>60); Estimated Creatinine Clearance 46.89 ml/min; Globulin 4.7 g/dL (2.2-4.2); Glucose 98 mg/dL (74-106); Potassium 3.3 mmol/L (3.5-5.1); Protein, Total 7.1 g/dL (6.4-8.2); Sodium Level 143 mmol/L (136-145)
[2017-12-03 10:16] LABS: Lactic Acid 1.4 mmol/L (0.4-2.0)
[2017-12-03 11:01] LABS: Bacteria 0 SEEN /hpf (None Seen); Mucous, Urine 0 SEEN /hpf (<or=2+); Red Blood Cells-Urine 0 SEEN /hpf (0-5); Squamous Epithelial Cells - UA 0 SEEN /hpf (5-10); White Blood Cells 0 SEEN /hpf (0-5)
[2017-12-03 11:05] LABS: Color, Urine Yellow (Yellow); Glucose, Dipstick Normal (Normal); Ketone-Dipstick Negative (Negative); Leukocyte Esterase-Dipstick 25 /ul (Negative); Nitrite-Dipstick Negative (Negative); Occult Blood-Urine 10 /ul (Negative); Protein-Dipstick 15 mg/dl (Negative); Urine Bilirubin Dipstick Negative (Negative); Urine Clarity Clear (Clear); Urine Urobilinogen Normal (Normal)
--- NOTE | 2017-12-03 12:13 | ED.VISSUMM ---
- ER Visit Summary Date of Service: 12/03/17 Chief Complaint: Cellulitis History of Present Illness: The patient is a 71 F who [facility] for bilateral lower extremity infections. Patient has a history of the same. She has been taking doxycycline and Cefdinir. She also has a concurrent UTI. She has a long history of cellulitis, MRSA, and C. difficile infections. Patient is not doing well at her [facility] facility and was referred to the emergency department for admission and IV antibiotics. Patient has a history of schizophrenia and bipolar disorder. She does have ongoing hallucinations at baseline. She also has an order for DNR Comfort Care only. I spoke to her PCP to help obtain history. The patient does want treatment for her legs, and so they are treating her with antibiotics, hospitalization, and wound care. Physical Examination: Afebrile and vital signs unremarkable except for respiratory rate of 22. The patient is alert and in no acute distress. She does have delusions and is worried that someone is under her bed. Head and neck atraumatic. Heart regular. Lungs clear. Abdomen soft. Bilateral lower extremities show multiple areas of erythema and ulceration. She is neurovascularly intact Test Results: Hemoglobin 10.8 and platelets 148. Potassium 3.3 and CO2 35. Creatinine 1.06. Coags unremarkable. Urinalysis unremarkable. Cultures pending. Emergency Department Course and Treatment: Patient treated with aztreonam and vancomycin while awaiting results. She remained stable. I spoke with the hospitalist will admit for further care of her leg infections. Treatment Plan: As above Disposition: Admission Impression: 1. Bilateral leg cellulitis This note was generated with anfix dictation software. It may contain incorrect words, spelling, and punctuation that were not noted in review of the chart prior to signing ED Disposition - Plan for ED Patient: Chief Complaint: General Illness
--- NOTE | 2017-12-03 12:16 | ED.DCSUM_ITS ---
- ER Visit Summary Date of Service: 12/03/17 Chief Complaint: Cellulitis History of Present Illness: The patient is a 71 F who presents from a senior living facility for bilateral lower extremity infections. Patient has a history of the same. She has been taking doxycycline and Cefdinir. She also has a concurrent UTI. She has a long history of cellulitis, MRSA, and C. difficile infections. Patient is not doing well at her senior living facility and was referred to the emergency department for admission and IV antibiotics. Patient has a history of schizophrenia and bipolar disorder. She does have ongoing hallucinations at baseline. She also has an order for DNR Comfort Care only. I spoke to her PCP to help obtain history. The patient does want treatment for her legs, and so they are treating her with antibiotics , hospitalization, and wound care. Physical Examination: Afebrile and vital signs unremarkable except for respiratory rate of 22. The patient is alert and in no acute distress. She does have delusions and is worried that someone is under her bed. Head and neck atraumatic. Heart regular. Lungs clear. Abdomen soft. Bilateral lower extremities show multiple areas of erythema and ulceration. She is neurovascularly intact Test Results: Hemoglobin 10.8 and platelets 148. Potassium 3.3 and CO2 35. Creatinine 1.06. Coags unremarkable. Urinalysis unremarkable. Cultures pending. Emergency Department Course and Treatment: Patient treated with aztreonam and vancomycin while awaiting results. She remained stable. I spoke with the hospitalist will admit for further care of her leg infections. Treatment Plan: As above Disposition: Admission Impression: 1. Bilateral leg cellulitis This note was generated with [employer]att[employer] dictation software. It may contain incorrect words, spelling, and punctuation that were not noted in review of the chart prior to signing ED Disposition - Plan for ED Patient: Chief Complaint: General Illness
--- NOTE | 2017-12-03 14:57 | PCM.HP.STD ---
Problem List (1) Bilateral lower leg cellulitis Status: Acute (2) Obesity, Class III, BMI 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 obesity) Status: Chronic (3) HTN (hypertension) Status: Chronic (4) Chronic venous stasis dermatitis of both lower extremities Status: Chronic (5) Chronic venous insufficiency Status: Chronic (6) Venous ulcers of both lower extremities Status: Chronic (7) 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 layer exposed Status: Chronic (8) Bilateral leg edema Status: Chronic (9) Parkinson's disease (tremor, stiffness, slow motion, unstable posture) Status: Chronic (10) Dehydration Status: Acute (11) Autonomic neuropathy Status: Chronic (12) Hyponatremia Status: Acute (13) Schizo affective schizophrenia Status: Chronic (14) Cellulitis Status: Acute Comment: legs (15) Delayed gastric emptying Status: Chronic (16) H/O squamous cell carcinoma of skin Status: Chronic Comment: of lower extremities (17) Squamous cell carcinoma of left lower leg Status: Chronic (18) Squamous cell carcinoma of right lower leg Status: Chronic History of Present Illness Date of Admission: 12/03/17 Chief Complaint: Bilateral lower leg redness, swelling and cellulitis The patient is a 71 year old F with multiple comorbidities, [facility] resident from [facility] was sent to ER for bilateral lower extremity cellulitis. Patient has multiple comorbidities with very low functional capacity, mostly bedbound was a started on cefdinir and doxycycline by PCP, Dr. Hyde. Patient has lower extremities venous insufficiency with varicose vein, left lower leg, cell cancer has been treated, history of C. difficile and MRSA and recurrent episodes of UTI for which she was admitted in the past. Patient is not a good historian and only answers in yes or no in the background of schizophrenia and bipolar disorder. Denies fever or chills or sweating. In the ED heart rate was 92/minute. UA is negative of pyuria, small leukocyte esterase 25, negative nitrate, 0 bacteria with no squamous cells. Patient does not have indwelling Sood catheter. Patient is started on IV vancomycin and aztreonam ER. She has a history of IV Zosyn as per allergy list but she is not aware of it and denies it [] Past Medical History Past Medical History (Chronic Problems): Chronic Problems (Last Updated 11/30/17 @ 11:42 by Vero Jasso RN) Obesity, Class III, BMI 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 obesity) (Chronic) HTN (hypertension) (Chronic) Chronic venous stasis dermatitis of both lower extremities (Chronic) Chronic venous insufficiency (Chronic) Venous ulcers of both lower extremities (Chronic) 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) Bilateral leg edema (Chronic) Parkinson's disease (tremor, stiffness, slow motion, unstable posture) (Chronic) Autonomic neuropathy (Chronic) Schizo affective schizophrenia (Chronic) Delayed gastric emptying (Chronic) H/O squamous cell carcinoma of skin (Chronic) of lower extremities 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) Medical History: Medical History (Last Updated 11/30/17 @ 11:42 by Vero Jasso RN) Anemia in other chronic diseases classified elsewhere D63.8 Anxiety F41.9 Anxiety disorder F41.9 Bipolar disorder, current episode manic without psychotic features F31.10 COPD (chronic obstructive pulmonary disease) J44.9 Cellulitis of extremity L03.119 Chronic kidney disease N18.9 Colon stricture K56.699 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 Dysuria R30.0 Encounter for attention to gastrostomy Z43.1 Essential (primary) hypertension I10 Gastroparesis K31.84 History of falling Z91.81 Hypertensive chronic kidney disease with stage 1 through stage 4 chronic kidney disease, or unspecified chronic kidney disease I12.9 Hypokalemia E87.6 Hypothyroidism E03.9 Ileus K56.7 Insomnia G47.00 Major depressive disorder, recurrent F33.9 Muscle weakness M62.81 Obesity E66.9 Other abnormalities of gait and mobility R26.89 Other lack of coordination R27.8 Personal history of urinary infection Z87.440 Presence of artificial hip joint Z96.649 Schizoaffective disorder F25.9 Schizophrenia F20.9 Sepsis A41.9 Squamous cell carcinoma of overlapping sites of skin C44.82 Stage II pressure ulcer of sacral region L89.152 Stage II pressure ulcer of sacral region L89.152 Thrombocytopenia D69.6 Unsteadiness on feet R26.81 Vitamin D deficiency E55.9 Allergies piperacillin [From Zosyn] Adverse Reaction (Verified 11/30/17 11:05) Rash tazobactam [From Zosyn] Adverse Reaction (Verified 11/30/17 11:05) Rash Home Medications: Ambulatory Orders Medication Instructions Recorded Carvedilol [Coreg (Beta Justin)] 3.125 mg PO BID 11/17/15 Cholecalciferol (VIT D3) [Vitamin 2,000 unit PO BREAKFAST 11/17/15 D3] Furosemide [Lasix] 20 mg PO DAILY 11/17/15 Gabapentin [Neurontin] 100 mg PO TIDCM 11/17/15 Lisinopril [Zestril] 2.5 mg PO QHS 11/17/15 Omeprazole [Prilosec] 20 mg PO DAILY 11/17/15 Ropinirole HCl [Ropinirole ER] 8 mg PO QHS 11/17/15 buPROPion XL [Wellbutrin Xl] 300 mg PO BREAKFAST 11/17/15 Acetaminophen [Tylenol] 500 mg PO QHS PRN PRN 06/21/16 Calcium Carbonate 600 mg PO DAILY 06/21/16 Escitalopram Oxalate [Lexapro] 10 mg PO BREAKFAST 06/22/16 Ondansetron HCl [Zofran] 4 mg PO Q6H PRN PRN 07/15/16 Hydrocodone Bitart/Apap 5-325 1 tablet PO Q4H PRN PRN #30 tablet 07/18/16 [Gak[place] 5/325] Acetaminophen [Feverall] 1 supp RECTALLY Q4H PRN PRN MDD 4 08/23/17 GM Acetaminophen [Tylenol Arthritis] 650 mg PO Q4H PRN PRN MDD 4 GM 08/23/17 Aripiprazole [Abilify] 5 mg PO DAILY 08/23/17 Bisacodyl [Bisac-Evac] 10 mg RC DAILY PRN PRN 08/23/17 Carbidopa/Levodopa 25/100 [Sinemet 1 tablet PO TIDAC 08/23/17 25/100] Cetirizine HCl [Zyrtec] 10 mg PO BID 08/23/17 DiphenhydrAMINE [Benadryl] 25 mg PO Q6H PRN PRN 08/23/17 Diphenhydramine HCl/Zinc Acet 28.3 gm TP TID PRN PRN 08/23/17 [Benadryl Itch Stopping Crm] Guaifenesin 200 mg PO Q4H PRN PRN 08/23/17 Hydrocodone/Acetaminophen [[place] 1 each PO BID 08/23/17 5-325 Tablet] Lactulose [Chronulac] 20 gm PO BREAKFAST 08/23/17 Mag Hydrox/Al Hydrox/Simeth 30 ml PO Q4H PRN PRN 08/23/17 [Mylanta II] Magnesium Hydroxide [Milk Of 30 ml PO DAILY PRN PRN 08/23/17 Magnesia] Nystatin Powder [Mycostatin Powder] 1 applic TOPICAL TID 08/23/17 Rotigotine [Neupro] 2 mg TRANSDERM. QHS 08/23/17 Urea [Ure-K] 142 gm TP QHS PRN PRN 08/23/17 Senna [Senokot] 2 tablet PO BID 09/05/17 Cefdinir [Omnicef [equiv]] 300 mg PO Q12H 11/30/17 Cefuroxime Axetil [Ceftin] 500 mg PO BID 11/30/17 Doxycycline [Vibramycin] 100 mg PO BID 11/30/17 Lactobacillus Rhamnosus GG 1 each PO 11/30/17 [Culturelle] Surgical History: Surgical History (Last Updated 08/23/17 @ 16:34 by Vero Jasso, PAULINA) Presence of cardiac and vascular implant and graft Z95.9 Surgical History: noncontributory Smoking Status: Unknown if ever smoked - *Family History Maternal History Items: No pertinent history Review of Systems Genitourinary: Reports: - - Indwelling Sood catheter Musculoskeletal: Reports: Back Pain, Joint Pain, Joint stiffness Skin: Reports: Rash, Skin Changes Neurological: Reports: Balance problems, Incoordination Psychiatric: Reports: Anxiety, Depression Unable to obtain accurate/complete ROS d/t: Patient answers in yes or no. VTE Information - Inpt Only VTE Present on Admission: No VTE Mechan Device Prophylaxis: Knee High KEN Hose VTE Pharm Prophylaxis ordered?: Yes Patient Problems: Active and Suspected Problems (Last Updated 11/30/17 @ 11:42 by Vero Jasso RN) Bilateral lower leg cellulitis (Acute) - Physical Exam General: Oriented x3, Cooperative, Lethargic HEENT: Atraumatic, PERRLA, EOMI, Normocephalic Oral: Dry Mucosa Lungs: No rhonchi, No wheeze, No rales, Diminished Cardiovascular: Regular rate, Normal S1, Normal S2, No murmurs Abdomen: Bowel Sounds Present, Soft, Non Tender, - - Moderate-sized umbilical hernia, reducible Extremities: Edema Skin: Ulcer/ Wound - Multiple superficial ulcer, some covered with scab; covered by dressing. Skin has chronic venous stasis changes suggestive of venous hypertension., Skin Tear, Rash Present - Erythematouswith induration present up to knee level. No significant tenderness Vital Signs Temp Pulse Resp BP Pulse Ox 98.0 F 88 18 153/80 H 98 12/03/17 14:01 12/03/17 14:01 12/03/17 14:01 12/03/17 14:01 12/03/17 14:01 Oxygen Delivery Method Nasal Cannula Weight: 231 lb 7.766 oz Body Mass Index (BMI) 37.3 Assessment/Plan All Active Problems (Last Updated 11/30/17 @ 11:42 by Vero Jasso RN) Nausea & vomiting (Resolved) Ileus (Resolved) UTI (urinary tract infection) (Resolved) Dehydration (Acute) Hypomagnesemia (Resolved) Hyponatremia (Acute) Small bowel obstruction (Ruled-out) Cellulitis (Acute) Bilateral lower leg cellulitis (Acute) Cellulitis (Resolved) Moderate malnutrition (Resolved) Squamous cell carcinoma in situ (Resolved) The patient is a 71 year old F with multiple comorbidities, [facility] resident from [facility] was sent to ER for bilateral lower extremity cellulitis. Patient has multiple comorbidities with very low functional capacity, mostly bedbound was a started on cefdinir and doxycycline by PCP, Dr. Hyde. Patient has lower extremities venous insufficiency with varicose vein, left lower leg, cell cancer has been treated, history of C. difficile and MRSA and recurrent episodes of UTI for which she was admitted in the past. Patient is not a good historian and only answers in yes or no in the background of schizophrenia and bipolar disorder. Denies fever or chills or sweating. In the ED heart rate was 92/minute. UA is negative of pyuria, small leukocyte esterase 25, negative nitrate, 0 bacteria with no squamous cells. Patient does not have indwelling Sood catheter. Patient is started on IV vancomycin and aztreonam ER. She has a history of IV Zosyn as per allergy list but she is not aware of it and denies it. 1. Bilateral lower leg cellulitis, recurrent. She has history of chronic venous ulcer of both lower extremities secondary to chronic venous insufficiency with stasis dermatitis. Patient is being admitted on regular floor. As per [facility] documentation patient was on cefdinir and doxycycline started on 11/30/2017 but did not respond. Discussed with ID Dr. Odom and we agree for IV cefazolin 2 g every 8 hourly. She did not respond perhaps because of underdosing in view of increased body size. ID consult in view of significant infectious disease history of cellulitis, UTI. MRSA nasal screen and wound culture. Blood cultures ?2 and urine culture already ordered. Wound care nurse. 2. Parkinson disease with postural instability, autonomic neuropathy and mainly bedbound: Home medication continued. PT and OT. 3. 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 Home medication reconciliation done. Multiple comorbidities complicates the present care and expect difficult and delay recovery Advanced directive: As per the [facility] paper she is DNR CC. ER physician Dr. Benito confirmed with PCP Dr. Hyde the patient is DNR CC arrest. We will keep DNR CC arrest. Code Visit Inpatient E&M: 27190 Init Hosp L3
--- NOTE | 2017-12-03 15:30 | VDLE_ITS ---
Reason For Study: BLE swelling RIGHT LEFT CFV is compressible, spontaneous, phasic, CFV is compressible, spontaneous, phasic, competent and demonstrates normal competent, and demonstrates normal augmentation. augmentation. FV is compressible, spontaneous, phasic, FV is compressible, spontaneous, phasic, competent and demonstrates normal competent and demonstrates normal augmentation. augmentation. POP V is compressible, spontaneous, phasic, POP V is compressible, spontaneous, phasic, competent and demonstrates normal competent and demonstrates normal augmentation. augmentation. T/P Trunk is compressible. T/P Trunk is compressible. GSV is compressible above knee. GSV is compressible above knee. PTV, PERV, GSV BK were not imaged due to PTV, PERV, GSV BK were not imaged due to bandaged weepy wounds. bandaged weepy wounds. Procedure Exam performed portable in patient room. The study was technically difficult. Due to body habitus and bandaged weeping wounds below knee. A preliminary report was called and/or faxed to [facility]. Interpretation Summary Deep veins of the lower extremities are bilaterally patent and compressible segmentally. There is no evidence of deep vein thrombosis on either side. Valvular competence appears intact within the proximal deep venous systems bilaterally. The posterior tibial veins and peroneal veins were not visualized on either side due to the presence of wounds and bandages. Great saphenous veins are patent and compressible above the knees bilaterally, but not visualized below the knees due to the presence of wounds and bandages. Ordering Physician: Carroll Lopez Referring Physician: Stephanie Garcia Performed By: Bela Jarrett, RDCS, RVT
[2017-12-03 16:16] LABS: Erythrocyte Sedimentation Rate 68 mm/hr (0-30)
[2017-12-03] MEDS: Enoxaparin 40 MG/0.4 ML Syringe SC (16:37)
[2017-12-03] MEDS: 0.9% Normal Saline 1,000 ML 75 ML IV (16:37)
[2017-12-03 16:50] LABS: Bedside Glucose 74 mg/dL (70-110)
[2017-12-03] MEDS: oxyCODONE 5 MG Tablet PO (19:06)
[2017-12-03 20:08] LABS: M R Staph aureus DNA By PCR POSITIVE (Negative); Probe Check PASS
[2017-12-03] MEDS: LORazepam 2 MG/ML Syringe 1 MG IV (20:27)
[2017-12-03] MEDS: Cefazolin 2 GM in 0.9% Normal Saline 100 ML IV (21:46)
[2017-12-03] MEDS: Nystatin Powder 15gm Bottle 1 APPLIC TOPICAL (22:50)
[2017-12-03] MEDS: Pramipexole Di-HCl 0.25 MG Tablet 0.75 MG PO (22:51)
[2017-12-03] MEDS: Gabapentin 100 MG Capsule PO (22:52)
[2017-12-03 23:00] LABS: Bedside Glucose 98 mg/dL (70-110)
[2017-12-04 00:52] LABS: M R Staph aureus DNA By PCR POSITIVE (Negative); Probe Check PASS; Staph aureus DNA By PCR POSITIVE (Negative)
[2017-12-04 02:00] VITALS: BP 112/65; PULSE 86; RESP 18; TEMP 36.9; O2SAT 100
[2017-12-04] MEDS: Cefazolin 2 GM in 0.9% Normal Saline 100 ML IV ×3 (05:41→21:16)
[2017-12-04] MEDS: Enoxaparin 40 MG/0.4 ML Syringe SC (05:42)
[2017-12-04] MEDS: Pramipexole Di-HCl 0.25 MG Tablet 0.75 MG PO ×3 (05:42→21:15)
[2017-12-04] MEDS: oxyCODONE 5 MG Tablet PO ×2 (05:47→21:49)
[2017-12-04] MEDS: Carbidopa/Levodopa 25/100 Tablet PO ×3 (05:59→16:18)
[2017-12-04 06:45] LABS: Bedside Glucose 87 mg/dL (70-110)
[2017-12-04 06:49] LABS: Anion Gap 8 (5-15); BUN 14 mg/dL (7-18); BUN/Creat Ratio 14.2 RATIO (10-20); Calcium,Total 8.4 mg/dL (8.5-10.1); Chloride 103 mmol/L (98-107); Creatinine, Serum 0.99 mg/dL (0.55-1.02); EST Glomerular Filtration Rate 59 mL/min (>60); Est Glom Filt Rate - Afr Amer 72 mL/min (>60); Estimated Creatinine Clearance 50.21 ml/min; Glucose 73 mg/dL (74-106); Potassium 2.8 mmol/L (3.5-5.1); Sodium Level 145 mmol/L (136-145)
[2017-12-04 08:00] VITALS: BP 140/76; PULSE 93; RESP 20; TEMP 36.8; O2SAT 98
[2017-12-04 08:18] LABS: Magnesium 2.1 mg/dL (1.6-2.6)
--- NOTE | 2017-12-04 09:05 | PCM.PN.HOSP ---
Patient Problems: Active and Suspected Problems (Last Updated 11/30/17 @ 11:42 by Vero Jasso RN) Bilateral lower leg cellulitis (Acute) Subjective: Feels better today, wound care is consulted to evaluate. No fevers or chills Objective: General: Oriented x3, Cooperative, speech is slow HEENT: Atraumatic, EOMI, Normocephalic Oral: Dry Mucosa Lungs: No rhonchi, No wheeze, No rales, Diminished, CTAB Cardiovascular: Regular rate, regular rhythm, Normal S1, Normal S2, No murmurs Abdomen: Soft, Non Tender, - - Moderate-sized umbilical hernia, reducible Extremities: Edema Skin: Chronic venous stasis with redness and warmth on the LLE, multiple areas of scratches and ulcers Vitals/I&O's: Vital Signs Temp Pulse Resp BP Pulse Ox 98.4 F 86 18 112/65 100 12/04/17 02:00 12/04/17 02:00 12/04/17 02:00 12/04/17 02:00 12/04/17 02:00 Oxygen Flow Rate (L/min) 1 Oxygen Delivery Method Nasal Cannula Weight: 231 lb 7.766 oz Body Mass Index (BMI) 37.3 Intake and Output for Last 24 Hours 12/02/17 12/03/17 12/04/17 23:59 23:59 23:59 Intake Total 120 / 120 1737 / 1737 Balance 120 / 120 1737 / 1737 Laboratory Results 12/03/17 16:47: POC Glucose 74 12/03/17 17:35: MRSA (PCR) POSITIVE H 12/03/17 22:24: POC Glucose 98 12/03/17 22:40: S.aureus Protein A PCR POSITIVE H, MRSA (PCR) POSITIVE H 12/04/17 06:15: Sodium 145, Potassium 2.8 L, Chloride 103, Carbon Dioxide 34.0 H, Anion Gap 8, BUN 14, Creatinine 0.99, Estim Creat Clear Calc 50.21, Est GFR (MDRD) Af Amer 72, Est GFR (MDRD) Non-Af 59 L, BUN/Creatinine Ratio 14.2, Glucose 73 L, Calcium 8.4 L 12/04/17 06:15: Magnesium 2.1 12/04/17 06:40: POC Glucose 87 Current Medications Acetaminophen (Tylenol) 650 mg PO Q6H PRN PRN PRN Reason: Mild Pain (scale 0-3)/T>100.7 Al Hydroxide/Mg Hydroxide (Mylanta Ii) 30 ml PO Q4H PRN PRN PRN Reason: INDIGESTION Aripiprazole (Abilify) 5 mg PO DAILY [facility] Bisacodyl (Dulcolax) 10 mg RECTAL DAILY PRN PRN PRN Reason: Constipation Bupropion HCl (Wellbutrin Xl) 300 mg PO BREAKFAST [facility] Calamine/Phenol (Calmoseptine Ointment) 1 applic TOPICAL BID [facility] PRN Reason: Protocol Calcium Carbonate (Tums) 500 mg PO DAILY [facility] Carbidopa/Levodopa (Sinemet) 1 tablet PO TIDAC [facility] Last Admin: 12/04/17 05:59 Dose: 1 tablet Carvedilol (Coreg) 3.125 mg PO BID [facility] Cholecalciferol (Vitamin D) 2,000 unit PO BREAKFAST [facility] Dextrose (D50w Syringe) 0 gm IV X1 PRN; Protocol PRN Reason: Hypoglycemia Diphenhydramine HCl (Benadryl) 25 mg PO Q6H PRN PRN PRN Reason: ITCHING Docusate Sodium (Colace) 200 mg PO BID PRN PRN PRN Reason: Constipation Enoxaparin Sodium (Lovenox) 40 mg SC DAILY@0600 [facility] Last Admin: 12/04/17 05:42 Dose: 40 mg Escitalopram Oxalate (Lexapro) 10 mg PO BREAKFAST [facility] Furosemide (Lasix) 20 mg PO DAILY [facility] Gabapentin (Neurontin) 100 mg PO TIDCM [facility] Last Admin: 12/03/17 22:52 Dose: 100 mg Glucagon () 1 mg IM .X1 PRN PRN Reason: Hypoglycemia Guaifenesin (Robitussin) 10 ml PO Q4H PRN PRN PRN Reason: COUGH Cefazolin Sodium 2 gm/ Sodium (Chloride) 110 mls @ 150 mls/hr IV Q8 [facility] Last Admin: 12/04/17 05:41 Dose: 150 mls/hr Sodium Chloride () 250 mls @ 15 mls/hr IV .[id number] PRN PRN Reason: SALINE FLUSH Lactobacillus Acidophilus (Acidophilus) 1 tablet PO QHS [facility] Lactulose (Chronulac, Cephulac) 20 gm PO BREAKFAST [facility] Lisinopril (Zestril) 2.5 mg PO QHS [facility] Loratadine (Claritin) 10 mg PO DAILY [facility] Lorazepam (Ativan) 1 mg IV Q4H PRN PRN PRN Reason: AGITATION Last Admin: 12/03/17 20:27 Dose: 1 mg Magnesium Hydroxide (Milk Of Magnesia) 30 ml PO DAILY PRN PRN PRN Reason: Constipation Nutritional Formula (Lactose Free) (Ensure Enlive) 120 ml PO 4X/DAY [facility] Last Admin: 12/03/17 21:48 Dose: 120 ml Nystatin (Mycostatin Powder) 1 applic TOPICAL TID [facility] PRN Reason: Protocol Last Admin: 12/03/17 22:50 Dose: 1 applicatio Ondansetron HCl (Zofran) 4 mg IV Q6H PRN PRN PRN Reason: Nausea Ondansetron HCl (Zofran Odt) 4 mg PO Q6H PRN PRN PRN Reason: NAUSEA Oxycodone HCl (Oxyir) 5 mg PO Q4H PRN PRN PRN Reason: Moderate Pain (pain scale 4-5) Last Admin: 12/04/17 05:47 Dose: 5 mg Pantoprazole Sodium (Protonix) 20 mg PO DAILY [facility] Polyethylene Glycol (Miralax) 17 gm PO DAILY [facility] Pramipexole Dihydrochloride (Mirapex) 0.75 mg PO TID [facility] Last Admin: 12/04/17 05:42 Dose: 0.75 mg Rotigotine (Neupro) 2 mg TRANSDERM. QHS [facility] Last Admin: 12/03/17 22:49 Dose: 2 mg Sodium Chloride () 5 - 30 ml IV UD PRN PRN Reason: SALINE FLUSH Sodium Chloride () 5 - 30 ml IV UD PRN PRN Reason: SALINE FLUSH Zolpidem Tartrate (Ambien (Generic)) 5 mg PO QHS PRN PRN PRN Reason: INSOMNIA Medical Necessity - Tobacco Use Smoking Status: Unknown if ever smoked Assessment/Plan All Active Problems (Last Updated 11/30/17 @ 11:42 by Vero Jasso RN) Nausea & vomiting (Resolved) Ileus (Resolved) UTI (urinary tract infection) (Resolved) Dehydration (Acute) Hypomagnesemia (Resolved) Hyponatremia (Acute) Small bowel obstruction (Ruled-out) Cellulitis (Acute) Bilateral lower leg cellulitis (Acute) Cellulitis (Resolved) Moderate malnutrition (Resolved) Squamous cell carcinoma in situ (Resolved) 1. B/l LE cellulitis/b/l extensive SCC - Multiple scratches and h/o venous ulcers, follows in the wound clinic - Case was discussed with ID, switched from cefdinir/doxy to IV ancef - Also she has been treated in the past for squamous cell carcinoma and has had previous radiation with continued recurrence - She is to have radiation next week - Wound care nurse consulted, appreciate assistance - c/w to ID, appreciate recs 2. Parkinsons - stable - c/w home medications - PT/OT following 3. HTN/Morbid obesity - Stable - c/w home medications 4. Schizoaffective disorder - stable - c/w abilify DVT: Lovenox Code Visit Inpatient E&M: 65008 Subs Hosp L2
--- NOTE | 2017-12-04 09:13 | NURSING ---
wound photo: right lower leg
--- NOTE | 2017-12-04 09:13 | NURSING ---
wound photo: left medial lower leg
--- NOTE | 2017-12-04 09:13 | NURSING ---
wound photo: left lateral lower leg
[2017-12-04] MEDS: Lactulose 20 GM/30 ML UDC PO (09:32)
[2017-12-04] MEDS: Loratadine 10 MG Tablet PO (09:33)
[2017-12-04] MEDS: Gabapentin 100 MG Capsule PO ×3 (09:33→16:18)
[2017-12-04] MEDS: Furosemide 20 MG Tablet PO (09:33)
[2017-12-04] MEDS: Pantoprazole Sodium 20 MG Tablet PO (09:33)
[2017-12-04] MEDS: Escitalopram Oxalate 10 MG Tablet PO (09:33)
[2017-12-04] MEDS: ARIPiprazole 5 MG Tablet PO (09:34)
[2017-12-04] MEDS: Menthol/Lanolin/Calamine/Znox 113 GM Tube 1 APPLIC TOPICAL ×2 (09:34→21:15)
[2017-12-04] MEDS: Calcium Carbonate 500 MG Tablet PO (09:34)
[2017-12-04] MEDS: Carvedilol 3.125 MG TABLET PO ×2 (09:34→21:16)
[2017-12-04] MEDS: buPROPion (XL) 300 MG TABLET.XL PO (09:34)
--- NOTE | 2017-12-04 11:15 | CASEMGMT ---
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 No precert is needed for pt to return. SW inquired about hospice as there had been a referral in 2017. As per Stephania, son has refused hospice referral. SW also inquired about POA forms, they do not have any POA forms on file. SW faxed updates to Stephania at [facility]. As per RN note, pt is alert and oriented X1. Pt is sleeping at present. SW called nicolette Martinez, message left letting son know SW available and to confirm pt's plan will be to return to [facility]. SW will continue to follow, transport form on chart. LEI Pascual, [employer]
[2017-12-04 11:45] LABS: Bedside Glucose 105 mg/dL (70-110)
--- NOTE | 2017-12-04 12:54 | PCM.HP.ID ---
Reason for Consult: Bilateral lower extremity cellulitis Consulted by: Dr. Mueller History of Present Illness: The patient is a 71 year old F [] This is 71-year-old white female from an extended care facility with multiple comorbidities including Parkinson's disease, morbid obesity, she is basically bedbound and a vague historian who was admitted over the weekend with concern of worsening of her lower extremity ulcers and concern of cellulitic infection. No documented fevers. I did review the records from the admitting physician who mentioned the patient was started on oral antibiotics at the extended care facility. Patient is somewhat vague and difficult historian she denies any specific pain at this time. She does have a history of C. difficile infection. Currently no active diarrhea or gastrointestinal distress no cardiopulmonary symptoms. Patient was empirically started on Ancef 2 g IV every 8 hours. The photographs of her lower extremities were looked at this afternoon they were taken by the wound care nurse earlier today - Medical History Past Medical History (Chronic Problems): Chronic Problems (Last Updated 11/30/17 @ 11:42 by Vero Jasso RN) Obesity, Class III, BMI 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 obesity) (Chronic) HTN (hypertension) (Chronic) Chronic venous stasis dermatitis of both lower extremities (Chronic) Chronic venous insufficiency (Chronic) Venous ulcers of both lower extremities (Chronic) 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) Bilateral leg edema (Chronic) Parkinson's disease (tremor, stiffness, slow motion, unstable posture) (Chronic) Autonomic neuropathy (Chronic) Schizo affective schizophrenia (Chronic) Delayed gastric emptying (Chronic) H/O squamous cell carcinoma of skin (Chronic) of lower extremities 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) Allergies/Adverse Reactions: Allergies piperacillin [From Zosyn] Adverse Reaction (Verified 11/30/17 11:05) Rash tazobactam [From Zosyn] Adverse Reaction (Verified 11/30/17 11:05) Rash Home Medications: Ambulatory Orders Medication Instructions Recorded Carvedilol [Coreg (Beta Justin)] 3.125 mg PO BID 11/17/15 Cholecalciferol (VIT D3) [Vitamin 2,000 unit PO BREAKFAST 11/17/15 D3] Furosemide [Lasix] 20 mg PO DAILY 11/17/15 Gabapentin [Neurontin] 100 mg PO TIDCM 11/17/15 Lisinopril [Zestril] 2.5 mg PO QHS 11/17/15 Omeprazole [Prilosec] 20 mg PO DAILY 11/17/15 Ropinirole HCl [Ropinirole ER] 8 mg PO QHS 11/17/15 buPROPion XL [Wellbutrin Xl] 300 mg PO BREAKFAST 11/17/15 Acetaminophen [Tylenol] 500 mg PO QHS PRN PRN 06/21/16 Calcium Carbonate 600 mg PO DAILY 06/21/16 Escitalopram Oxalate [Lexapro] 10 mg PO BREAKFAST 06/22/16 Ondansetron HCl [Zofran] 4 mg PO Q6H PRN PRN 07/15/16 Hydrocodone Bitart/Apap 5-325 1 tablet PO Q4H PRN PRN #30 tablet 07/18/16 [[place] 5/325] Acetaminophen [Feverall] 1 supp RECTALLY Q4H PRN PRN MDD 4 08/23/17 GM Acetaminophen [Tylenol Arthritis] 650 mg PO Q4H PRN PRN MDD 4 GM 08/23/17 Aripiprazole [Abilify] 5 mg PO DAILY 08/23/17 Bisacodyl [Bisac-Evac] 10 mg RC DAILY PRN PRN 08/23/17 Carbidopa/Levodopa 25/100 [Sinemet 1 tablet PO TIDAC 08/23/17 25/100] Cetirizine HCl [Zyrtec] 10 mg PO DAILY 08/23/17 DiphenhydrAMINE [Benadryl] 25 mg PO Q6H PRN PRN 08/23/17 Diphenhydramine HCl/Zinc Acet 28.3 gm TP TID PRN PRN 08/23/17 [Benadryl Itch Stopping Crm] Hydrocodone/Acetaminophen [[place] 1 each PO BID 08/23/17 5-325 Tablet] Lactulose [Chronulac] 20 gm PO BREAKFAST 08/23/17 Mag Hydrox/Al Hydrox/Simeth 30 ml PO Q4H PRN PRN 08/23/17 [Mylanta II] Magnesium Hydroxide [Milk Of 30 ml PO DAILY PRN PRN 08/23/17 Magnesia] Nystatin Powder [Mycostatin Powder] 1 applic TOPICAL TID 08/23/17 Rotigotine [Neupro] 2 mg TRANSDERM. QHS 08/23/17 Urea [Ure-K] 142 gm TP QHS PRN PRN 08/23/17 Senna [Senokot] 2 tablet PO BID 09/05/17 Cefdinir [Omnicef [equiv]] 300 mg PO Q12H 11/30/17 Doxycycline [Vibramycin] 100 mg PO BID 11/30/17 Lactobacillus Rhamnosus GG 1 each PO QHS 11/30/17 [Culturelle] Cefuroxime Axetil [Ceftin] 500 mg PO BID 12/03/17 - Social History SMOKING STATUS:: Former smoker Vital Signs Temp Pulse Resp BP Pulse Ox 98.3 F 93 20 H 140/76 H 98 12/04/17 08:00 12/04/17 08:00 12/04/17 08:00 12/04/17 08:00 12/04/17 08:00 Oxygen Flow Rate (L/min) 1 Oxygen Delivery Method Room Air Weight: 105 kg Body Mass Index (BMI) 37.3 Laboratory Tests Past 24 Hrs 12/03/17 12/03/17 12/04/17 17:35 22:40 06:15 Sodium 145 Potassium 2.8 L Chloride 103 Carbon Dioxide 34.0 H Anion Gap 8 BUN 14 Creatinine 0.99 Estim Creat Clear Calc 50.21 Est GFR (MDRD) Af Amer 72 Est GFR (MDRD) Non-Af 59 L BUN/Creatinine Ratio 14.2 Glucose 73 L Calcium 8.4 L Magnesium S.aureus Protein A PCR POSITIVE H MRSA (PCR) POSITIVE H POSITIVE H 12/04/17 06:15 Sodium Potassium Chloride Carbon Dioxide Anion Gap BUN Creatinine Estim Creat Clear Calc Est GFR (MDRD) Af Amer Est GFR (MDRD) Non-Af BUN/Creatinine Ratio Glucose Calcium Magnesium 2.1 S.aureus Protein A PCR MRSA (PCR) - Other Studies Radiology: [] Other Studies: [] Route of nutrition/ use of supplements: [] Nutritional Intake: [] IV Site: [] Sood Catheter: [] Responsive but very weak chronically ill-appearing she has a resting tremor lungs are clear heart exam S1-S2 abdomen is obese but soft no focal tenderness she does have low her lower extremities bandaged. I did look at her legs via photographs taken earlier today. - Assessment/Plan Antibiotics: [] Assessment/Plan: [] Active and Suspected Problems (Last Updated 11/30/17 @ 11:42 by Vero Jasso RN) Bilateral lower leg cellulitis (Acute) Bilateral lower extremity cellulitic infection which appears to be mild the patient with chronic ulcerations. At this point will continue Ancef 2 g IV every 8 hours and continue supportive care.
[2017-12-04] MEDS: Nystatin Powder 15gm Bottle 1 APPLIC TOPICAL ×2 (14:32→21:15)
[2017-12-04 14:35] VITALS: BP 149/68; PULSE 84; RESP 18; TEMP 37.2; O2SAT 97
[2017-12-04 16:41] LABS: Bedside Glucose 83 mg/dL (70-110)
[2017-12-04 21:01] VITALS: BP 133/64; PULSE 92; RESP 18; TEMP 37.3; O2SAT 95
[2017-12-04] MEDS: Lisinopril 2.5 MG Tablet PO (21:16)
[2017-12-04 22:50] LABS: Bedside Glucose 113 mg/dL (70-110)
[2017-12-05 03:04] VITALS: BP 145/64; PULSE 85; RESP 18; TEMP 37.1; O2SAT 92
[2017-12-05 05:35] LABS: Absolute Lymphocyte Count 0.76 X10^3/ul (0.83-4.51); Absolute Neutrophil Count 1.9 X10^3/uL (2.0-7.7); Eosinophil# 0.11 X10^3/uL; Eosinophils% 3.4 % (0-5); Hematocrit 32.7 % (37-47); Lymphocyte # 0.76 X10^3/ul (4.0); Lymphocyte % 23.4 % (19-41); Mean Corp Hgb Conc 30.6 g/gl (32-36); Mean Corpuscular Volume 98.2 fL (81-99); Monocyte# 0.45 X10^3/uL; Monocyte% 13.8 % (0-10); Neutrophil # 1.93 X10^3/uL (2.7-7.7); Neutrophil % 59.4 % (47-70); Platelet Count 108 K/mm3 (150-450); RBC Distribution Width CV 14.5 % (11.6-14.6); Red Blood Count 3.33 M/mm3 (4.2-5.4); White Blood Count 3.3 K/mm3 (4.4-11.0)
[2017-12-05] MEDS: Nystatin Powder 15gm Bottle 1 APPLIC TOPICAL ×3 (05:45→22:31)
[2017-12-05] MEDS: Cefazolin 2 GM in 0.9% Normal Saline 100 ML IV ×3 (05:46→22:32)
[2017-12-05] MEDS: Pramipexole Di-HCl 0.25 MG Tablet 0.75 MG PO ×3 (05:46→22:33)
[2017-12-05] MEDS: Enoxaparin 40 MG/0.4 ML Syringe SC (05:46)
[2017-12-05 05:57] LABS: POSITIVE COUNT NO; POSITIVE DIFFERENTIAL NO; POSITIVE MORPHOLOGY NO
[2017-12-05 06:00] LABS: Anion Gap 8 (5-15); BUN 10 mg/dL (7-18); BUN/Creat Ratio 10.8 RATIO (10-20); Calcium,Total 8.6 mg/dL (8.5-10.1); Chloride 105 mmol/L (98-107); Creatinine, Serum 0.93 mg/dL (0.55-1.02); EST Glomerular Filtration Rate 64 mL/min (>60); Est Glom Filt Rate - Afr Amer 77 mL/min (>60); Estimated Creatinine Clearance 53.45 ml/min; Glucose 73 mg/dL (74-106); Sodium Level 148 mmol/L (136-145)
[2017-12-05] MEDS: Carbidopa/Levodopa 25/100 Tablet PO ×3 (06:06→16:14)
[2017-12-05 07:01] LABS: Bedside Glucose 79 mg/dL (70-110)
[2017-12-05 07:32] VITALS: O2SAT 95
--- NOTE | 2017-12-05 08:44 | PCM.PN.HOSP ---
Patient Problems: Active and Suspected Problems (Last Updated 11/30/17 @ 11:42 by Vero Jasso RN) Bilateral lower leg cellulitis (Acute) Subjective: States she feels about the same, no fevers, chills, SOB Objective: General: Oriented x3, Cooperative, speech is slow HEENT: Atraumatic, EOMI, Normocephalic Oral: Dry Mucosa Lungs: No rhonchi, No wheeze, No rales, Diminished, CTAB Cardiovascular: Regular rate, regular rhythm, Normal S1, Normal S2, No murmurs Abdomen: Soft, Non Tender, - - Moderate-sized umbilical hernia, reducible Extremities: Edema Skin: Chronic venous stasis with redness and warmth on the LLE, multiple areas of scratches and ulcers Vitals/I&O's: Vital Signs Temp Pulse Resp BP Pulse Ox 98.8 F 85 18 145/64 H 92 12/05/17 03:04 12/05/17 03:04 12/05/17 03:04 12/05/17 03:04 12/05/17 03:04 Oxygen Flow Rate (L/min) 1 Oxygen Delivery Method Room Air Weight: 231 lb 7.766 oz Body Mass Index (BMI) 37.3 Intake and Output for Last 24 Hours 12/03/17 12/04/17 12/05/17 23:59 23:59 23:59 Intake Total 120 / 120 2723 / 2723 300 / 300 Balance 120 / 120 2723 / 2723 300 / 300 Microbiology Past 72 Hours 12/03/17 22:40 Wound - No Site/Description Given Gram Stain - Final 12/03/17 22:40 Wound - No Site/Description Given Wound Culture - Preliminary Gram negative cecily Laboratory Results 12/04/17 11:29: POC Glucose 105 12/04/17 16:17: POC Glucose 83 12/04/17 21:19: POC Glucose 113 H 12/05/17 05:10: WBC 3.3 L, RBC 3.33 L, Hgb 10.0 L, Hct 32.7 L, MCV 98.2, MCH 30.0, MCHC 30.6 L, RDW 14.5, RDW Differential 50.0 H, Plt Count 108 L, MPV 11.0, Immature Gran % (Auto) 0.000, Neut % (Auto) 59.4, Lymph % (Auto) 23.4, [place] % (Auto) 13.8 H, Eos % (Auto) 3.4, Baso % (Auto) 0.0, Absolute Neuts (auto) 1.9 L, Absolute Lymphs (auto) 0.76 L, Total Counted Not Reportable 12/05/17 05:10: Sodium 148 H, Potassium 3.0 L, Chloride 105, Carbon Dioxide 35.0 H, Anion Gap 8, BUN 10, Creatinine 0.93, Estim Creat Clear Calc 53.45, Est GFR (MDRD) Af Amer 77, Est GFR (MDRD) Non-Af 64, BUN/Creatinine Ratio 10.8, Glucose 73 L, Calcium 8.6 12/05/17 05:10: Phosphorus 3.0 12/05/17 06:54: POC Glucose 79 Current Medications Acetaminophen (Tylenol) 650 mg PO Q6H PRN PRN PRN Reason: Mild Pain (scale 0-3)/T>100.7 Al Hydroxide/Mg Hydroxide (Mylanta Ii) 30 ml PO Q4H PRN PRN PRN Reason: INDIGESTION Aripiprazole (Abilify) 5 mg PO DAILY [facility] Last Admin: 12/04/17 09:34 Dose: 5 mg Bisacodyl (Dulcolax) 10 mg RECTAL DAILY PRN PRN PRN Reason: Constipation Bupropion HCl (Wellbutrin Xl) 300 mg PO BREAKFAST [facility] Last Admin: 12/04/17 09:34 Dose: 300 mg Calamine/Phenol (Calmoseptine Ointment) 1 applic TOPICAL BID [facility] PRN Reason: Protocol Last Admin: 12/04/17 21:15 Dose: 1 applicatio Calcium Carbonate (Tums) 500 mg PO DAILY [facility] Last Admin: 12/04/17 09:34 Dose: 500 mg Carbidopa/Levodopa (Sinemet) 1 tablet PO TIDAC [facility] Last Admin: 12/05/17 06:06 Dose: 1 tablet Carvedilol (Coreg) 3.125 mg PO BID [facility] Last Admin: 12/04/17 21:16 Dose: 3.125 mg Cholecalciferol (Vitamin D) 2,000 unit PO BREAKFAST [facility] Last Admin: 12/04/17 09:33 Dose: 2,000 unit Dextrose (D50w Syringe) 0 gm IV X1 PRN; Protocol PRN Reason: Hypoglycemia Diphenhydramine HCl (Benadryl) 25 mg PO Q6H PRN PRN PRN Reason: ITCHING Docusate Sodium (Colace) 200 mg PO BID PRN PRN PRN Reason: Constipation Enoxaparin Sodium (Lovenox) 40 mg SC DAILY@0600 [facility] Last Admin: 12/05/17 05:46 Dose: 40 mg Escitalopram Oxalate (Lexapro) 10 mg PO BREAKFAST [facility] Last Admin: 12/04/17 09:33 Dose: 10 mg Furosemide (Lasix) 20 mg PO DAILY [facility] Last Admin: 12/04/17 09:33 Dose: 20 mg Gabapentin (Neurontin) 100 mg PO TIDCM [facility] Last Admin: 12/04/17 16:18 Dose: 100 mg Glucagon () 1 mg IM .X1 PRN PRN Reason: Hypoglycemia Guaifenesin (Robitussin) 10 ml PO Q4H PRN PRN PRN Reason: COUGH Cefazolin Sodium 2 gm/ Sodium (Chloride) 110 mls @ 150 mls/hr IV Q8 [facility] Last Admin: 12/05/17 05:46 Dose: 150 mls/hr Sodium Chloride () 250 mls @ 15 mls/hr IV .[id number] PRN PRN Reason: SALINE FLUSH Lactobacillus Acidophilus (Acidophilus) 1 tablet PO QHS [facility] Last Admin: 12/04/17 21:14 Dose: 1 tablet Lactulose (Chronulac, Cephulac) 20 gm PO BREAKFAST [facility] Last Admin: 12/04/17 09:32 Dose: 20 gm Lisinopril (Zestril) 2.5 mg PO QHS [facility] Last Admin: 12/04/17 21:16 Dose: 2.5 mg Loratadine (Claritin) 10 mg PO DAILY [facility] Last Admin: 12/04/17 09:33 Dose: 10 mg Lorazepam (Ativan) 1 mg IV Q4H PRN PRN PRN Reason: AGITATION Last Admin: 12/03/17 20:27 Dose: 1 mg Magnesium Hydroxide (Milk Of Magnesia) 30 ml PO DAILY PRN PRN PRN Reason: Constipation Nutritional Formula (Lactose Free) (Ensure Enlive) 120 ml PO 4X/DAY [facility] Last Admin: 12/04/17 21:06 Dose: Not Given Nystatin (Mycostatin Powder) 1 applic TOPICAL TID [facility] PRN Reason: Protocol Last Admin: 12/05/17 05:45 Dose: 1 applicatio Ondansetron HCl (Zofran) 4 mg IV Q6H PRN PRN PRN Reason: Nausea Ondansetron HCl (Zofran Odt) 4 mg PO Q6H PRN PRN PRN Reason: NAUSEA Oxycodone HCl (Oxyir) 5 mg PO Q4H PRN PRN PRN Reason: Moderate Pain (pain scale 4-5) Last Admin: 12/04/17 21:49 Dose: 5 mg Pantoprazole Sodium (Protonix) 20 mg PO DAILY [facility] Last Admin: 12/04/17 09:33 Dose: 20 mg Polyethylene Glycol (Miralax) 17 gm PO DAILY [facility] Last Admin: 12/04/17 09:33 Dose: Not Given Potassium Chloride (K-Dur) 60 meq PO X1 ONE Stop: 12/05/17 09:01 Pramipexole Dihydrochloride (Mirapex) 0.75 mg PO TID [facility] Last Admin: 12/05/17 05:46 Dose: 0.75 mg Rotigotine (Neupro) 2 mg TRANSDERM. QHS [facility] Last Admin: 12/04/17 21:16 Dose: 2 mg Sodium Chloride () 5 - 30 ml IV UD PRN PRN Reason: SALINE FLUSH Sodium Chloride () 5 - 30 ml IV UD PRN PRN Reason: SALINE FLUSH Zolpidem Tartrate (Ambien (Generic)) 5 mg PO QHS PRN PRN PRN Reason: INSOMNIA Medical Necessity - Tobacco Use Smoking Status: Unknown if ever smoked Assessment/Plan All Active Problems (Last Updated 11/30/17 @ 11:42 by Vero Jasso RN) Nausea & vomiting (Resolved) Ileus (Resolved) UTI (urinary tract infection) (Resolved) Dehydration (Acute) Hypomagnesemia (Resolved) Hyponatremia (Acute) Small bowel obstruction (Ruled-out) Cellulitis (Acute) Bilateral lower leg cellulitis (Acute) Cellulitis (Resolved) Moderate malnutrition (Resolved) Squamous cell carcinoma in situ (Resolved) 1. B/l LE cellulitis/b/l extensive SCC - Multiple scratches and h/o venous ulcers, follows in the wound clinic - Case was discussed with ID, switched from cefdinir/doxy to IV ancef - Wound culture pending, though Gram Negative cecily appears to be the major organism, ID and sensitivities pending - Also she has been treated in the past for squamous cell carcinoma and has had previous radiation with continued recurrence - She is to have radiation next week - Wound care nurse consulted, appreciate assistance - c/w to ID, appreciate recs 2. Parkinsons - stable - c/w home medications - PT/OT following 3. HTN/Morbid obesity - Stable - c/w home medications 4. Schizoaffective disorder - stable - c/w abilify DVT: Lovenox Code Visit Inpatient E&M: 33582 Subs Hosp L2
[2017-12-05] MEDS: Lactulose 20 GM/30 ML UDC PO (09:05)
[2017-12-05] MEDS: Gabapentin 100 MG Capsule PO ×3 (09:05→16:15)
[2017-12-05] MEDS: ARIPiprazole 5 MG Tablet PO (09:05)
[2017-12-05] MEDS: Pantoprazole Sodium 20 MG Tablet PO (09:05)
[2017-12-05] MEDS: Loratadine 10 MG Tablet PO (09:05)
[2017-12-05] MEDS: Carvedilol 3.125 MG TABLET PO ×2 (09:06→23:21)
[2017-12-05] MEDS: buPROPion (XL) 300 MG TABLET.XL PO (09:06)
[2017-12-05] MEDS: Polyethylene Glycol 3350 17 GM PACKET PO (09:06)
[2017-12-05] MEDS: Furosemide 20 MG Tablet PO (09:06)
[2017-12-05] MEDS: Menthol/Lanolin/Calamine/Znox 113 GM Tube 1 APPLIC TOPICAL ×2 (09:07→22:31)
[2017-12-05] MEDS: Calcium Carbonate 500 MG Tablet PO (09:11)
[2017-12-05] MEDS: Escitalopram Oxalate 10 MG Tablet PO (09:11)
[2017-12-05 09:22] VITALS: BP 155/82; PULSE 83; RESP 18; TEMP 37.6; O2SAT 96
[2017-12-05 11:55] LABS: Bedside Glucose 92 mg/dL (70-110)
--- NOTE | 2017-12-05 13:04 | PCM.PN.ID ---
Patient Problems: Active and Suspected Problems (Last Updated 11/30/17 @ 11:42 by Vero Jasso RN) Bilateral lower leg cellulitis (Acute) Subjective: Patient is alert overall clinically stable. Had a uneventful night. Denies any gastrointestinal distress. No cardiopulmonary symptoms appears to be tolerating Ancef well. Objective: Alert does not appear toxic. Lungs are clear heart exam S1-S2 abdomen is obese but soft. Dressings remain in place. - Physical Exam Vital Signs Temp Pulse Resp BP Pulse Ox 99.7 F H 83 18 155/82 H 96 12/05/17 09:22 12/05/17 09:22 12/05/17 09:22 12/05/17 09:22 12/05/17 09:22 Oxygen Flow Rate (L/min) 1 Oxygen Delivery Method Room Air Weight: 105 kg Body Mass Index (BMI) 37.3 Intake and Output for Last 24 Hours 12/03/17 12/04/17 12/05/17 23:59 23:59 23:59 Intake Total 120 / 120 2723 / 2723 800 / 800 Balance 120 / 120 2723 / 2723 800 / 800 Microbiology Past 72 Hours 12/03/17 22:40 Gram Stain - Final Wound - No Site/Description Given Wound Culture - Preliminary Gram negative cecily Laboratory Tests Past 24 Hrs 12/05/17 12/05/17 12/05/17 05:10 05:10 05:10 WBC 3.3 L RBC 3.33 L Hgb 10.0 L Hct 32.7 L MCV 98.2 MCH 30.0 MCHC 30.6 L RDW 14.5 RDW Differential 50.0 H Plt Count 108 L MPV 11.0 Immature Gran % (Auto) 0.000 Neut % (Auto) 59.4 Lymph % (Auto) 23.4 [place] % (Auto) 13.8 H Eos % (Auto) 3.4 Baso % (Auto) 0.0 Absolute Neuts (auto) 1.9 L Absolute Lymphs (auto) 0.76 L Total Counted Not Reportable Sodium 148 H Potassium 3.0 L Chloride 105 Carbon Dioxide 35.0 H Anion Gap 8 BUN 10 Creatinine 0.93 Estim Creat Clear Calc 53.45 Est GFR (MDRD) Af Amer 77 Est GFR (MDRD) Non-Af 64 BUN/Creatinine Ratio 10.8 Glucose 73 L Calcium 8.6 Phosphorus 3.0 POC Glucose 12/05/17 12/05/17 12/04/17 11:43 06:54 21:19 POC Glucose 92 79 113 H 12/04/17 16:17 POC Glucose 83 Medical Necessity - Tobacco Use Smoking Status: Unknown if ever smoked Route of nutrition/ use of supplements: [] Nutritional Intake: [] IV Site: [] Sood Catheter: [] - Assessment/Plan Mild lower extremity cellulitis in the obese female with chronic ulcers in her legs. Continue empiric Ancef for now
[2017-12-05 16:24] VITALS: BP 114/50; PULSE 92; RESP 18; TEMP 36.8; O2SAT 96
[2017-12-05 16:40] LABS: Bedside Glucose 128 mg/dL (70-110)
[2017-12-05 22:26] VITALS: BP 144/70; PULSE 82; RESP 18; TEMP 37.1; O2SAT 96
[2017-12-05] MEDS: Lisinopril 2.5 MG Tablet PO (22:32)
[2017-12-05 23:15] LABS: Bedside Glucose 109 mg/dL (70-110)
[2017-12-06 04:25] VITALS: BP 146/68; PULSE 78; RESP 18; TEMP 36.9; O2SAT 98
[2017-12-06] MEDS: Enoxaparin 40 MG/0.4 ML Syringe SC (06:09)
[2017-12-06] MEDS: Cefazolin 2 GM in 0.9% Normal Saline 100 ML IV (06:09)
[2017-12-06] MEDS: Nystatin Powder 15gm Bottle 1 APPLIC TOPICAL ×2 (06:09→14:39)
[2017-12-06] MEDS: Pramipexole Di-HCl 0.25 MG Tablet 0.75 MG PO ×2 (06:10→14:39)
[2017-12-06] MEDS: Carbidopa/Levodopa 25/100 Tablet PO ×2 (06:10→10:35)
[2017-12-06 06:48] LABS: Anion Gap 9 (5-15); BUN 9 mg/dL (7-18); BUN/Creat Ratio 10.1 RATIO (10-20); Calcium,Total 8.5 mg/dL (8.5-10.1); Chloride 104 mmol/L (98-107); Creatinine, Serum 0.89 mg/dL (0.55-1.02); EST Glomerular Filtration Rate 66 mL/min (>60); Est Glom Filt Rate - Afr Amer 80 mL/min (>60); Estimated Creatinine Clearance 55.85 ml/min; Glucose 92 mg/dL (74-106); Potassium 3.3 mmol/L (3.5-5.1); Sodium Level 146 mmol/L (136-145)
[2017-12-06 06:52] LABS: Absolute Lymphocyte Count 0.58 X10^3/ul (0.83-4.51); Absolute Neutrophil Count 1.9 X10^3/uL (2.0-7.7); Eosinophil# 0.07 X10^3/uL; Eosinophils% 2.3 % (0-5); Hematocrit 32.9 % (37-47); Lymphocyte # 0.58 X10^3/ul (4.0); Lymphocyte % 19.5 % (19-41); Mean Corp Hgb Conc 30.4 g/gl (32-36); Mean Corpuscular Hgb 29.6 pg (27.0-32.0); Mean Corpuscular Volume 97.3 fL (81-99); Mean Platelet Vol. 11.1 fl (6.2-12.0); Monocyte# 0.45 X10^3/uL; Monocyte% 15.1 % (0-10); Neutrophil # 1.88 X10^3/uL (2.7-7.7); Neutrophil % 63.1 % (47-70); Platelet Count 99 K/mm3 (150-450); RBC Distribution Width CV 14.2 % (11.6-14.6); RBC Distribution Width SD 48.6 fl (35.1-43.9); Red Blood Count 3.38 M/mm3 (4.2-5.4)
[2017-12-06 06:58] LABS: Differential Indicated SCAN CRITERIA MET; POSITIVE COUNT NO; POSITIVE DIFFERENTIAL YES; POSITIVE MORPHOLOGY NO
[2017-12-06 07:01] LABS: Bedside Glucose 92 mg/dL (70-110)
[2017-12-06 07:27] VITALS: O2SAT 98
[2017-12-06] MEDS: Lactulose 20 GM/30 ML UDC PO (08:41)
[2017-12-06] MEDS: buPROPion (XL) 300 MG TABLET.XL PO (08:41)
[2017-12-06] MEDS: Gabapentin 100 MG Capsule PO ×2 (08:42→12:32)
[2017-12-06] MEDS: Escitalopram Oxalate 10 MG Tablet PO (08:42)
[2017-12-06] MEDS: Polyethylene Glycol 3350 17 GM PACKET PO (09:22)
[2017-12-06] MEDS: Carvedilol 3.125 MG TABLET PO (09:22)
[2017-12-06] MEDS: Calcium Carbonate 500 MG Tablet PO (09:22)
[2017-12-06] MEDS: Pantoprazole Sodium 20 MG Tablet PO (09:22)
[2017-12-06] MEDS: ARIPiprazole 5 MG Tablet PO (09:22)
[2017-12-06] MEDS: Loratadine 10 MG Tablet PO (09:22)
[2017-12-06 09:26] VITALS: BP 127/49; PULSE 90; RESP 18; TEMP 37.5; O2SAT 98
[2017-12-06] MEDS: Furosemide 20 MG Tablet PO (10:34)
[2017-12-06] MEDS: Menthol/Lanolin/Calamine/Znox 113 GM Tube 1 APPLIC TOPICAL (10:34)
--- NOTE | 2017-12-06 12:11 | PCM.PN.ID ---
Patient Problems: Active and Suspected Problems (Last Updated 11/30/17 @ 11:42 by Vero Jasso RN) Bilateral lower leg cellulitis (Acute) - Physical Exam General: Alert, Cooperative, No apparent distress Lungs: Clear to auscultation, Normal air movement Cardiovascular: Regular rate, Regular Rhythm Abdomen: Soft, Non Tender, Non-Distended Skin: Ulcer/ Wound - on BLE Vital Signs Temp Pulse Resp BP Pulse Ox 99.5 F H 90 18 127/49 H 98 12/06/17 09:26 12/06/17 09:26 12/06/17 09:26 12/06/17 09:26 12/06/17 09:26 Oxygen Flow Rate (L/min) 1 Oxygen Delivery Method Room Air Weight: 105 kg Body Mass Index (BMI) 37.3 Intake and Output for Last 24 Hours 12/04/17 12/05/17 12/06/17 23:59 23:59 23:59 Intake Total 2723 / 2723 1325 / 1325 194 / 1940 Balance 2723 / 2723 1325 / 1325 194 / 194 Microbiology Past 72 Hours 12/03/17 22:40 Gram Stain - Final Wound - No Site/Description Given Wound Culture - Preliminary Proteus mirabilis Gram positive cecily Laboratory Tests Past 24 Hrs 12/03/17 12/06/17 12/06/17 22:40 06:17 06:17 WBC 3.0 L RBC 3.38 L Hgb 10.0 L Hct 32.9 L MCV 97.3 MCH 29.6 MCHC 30.4 L RDW 14.2 RDW Differential 48.6 H Plt Count 99 L MPV 11.1 Immature Gran % (Auto) 0.000 Neut % (Auto) 63.1 Lymph % (Auto) 19.5 [place] % (Auto) 15.1 H Eos % (Auto) 2.3 Baso % (Auto) 0.0 Absolute Neuts (auto) 1.9 L Absolute Lymphs (auto) 0.58 L Total Counted Not Reportable Sodium 146 H Potassium 3.3 L Chloride 104 Carbon Dioxide 33.0 H Anion Gap 9 BUN 9 Creatinine 0.89 Estim Creat Clear Calc 55.85 Est GFR (MDRD) Af Amer 80 Est GFR (MDRD) Non-Af 66 BUN/Creatinine Ratio 10.1 Glucose 92 Calcium 8.5 S.aureus Protein A PCR POSITIVE H MRSA (PCR) POSITIVE H POC Glucose 12/06/17 12/05/17 12/05/17 06:52 22:30 16:14 POC Glucose 92 109 128 H Medical Necessity - Tobacco Use Smoking Status: Unknown if ever smoked Route of nutrition/ use of supplements: [] Nutritional Intake: [] IV Site: [] Sood Catheter: [] - Assessment/Plan Antibiotics: [] Assessment/Plan: [] Active and Suspected Problems (Last Updated 11/30/17 @ 11:42 by Vero Jasso RN) Bilateral lower leg cellulitis (Acute) Improving. Less red. On cefazolin, will change to keflex, planned stop date 12/13/17. Wound cx with proteus and GPR. Will follow, d/w wound care.
--- NOTE | 2017-12-06 14:28 | PCM.DC ---
- Discharge Diagnoses Current Active Problems: Current Active and Chronic Problems (Last Updated 11/30/17 @ 11:42 by Vero Jasso RN) Bilateral lower leg cellulitis (Acute) You will use the following diet at home:: No restrictions, Regular Your food should be the consistency of: Regular Discharge Activity: Return to Normal Activity Allergies/Adverse Reactions: Allergies piperacillin [From Zosyn] Adverse Reaction (Verified 11/30/17 11:05) Rash tazobactam [From Zosyn] Adverse Reaction (Verified 11/30/17 11:05) Rash Medications to take at Discharge Carvedilol [Coreg (Beta Justin)] 3.125 mg PO BID 11/17/15 Cholecalciferol (VIT D3) [Vitamin D3] 2,000 unit PO BREAKFAST 11/17/15 Furosemide [Lasix] 20 mg PO DAILY 11/17/15 Gabapentin [Neurontin] 100 mg PO TIDCM 11/17/15 Lisinopril [Zestril] 2.5 mg PO QHS 11/17/15 Ropinirole HCl [Ropinirole ER] 8 mg PO QHS 11/17/15 buPROPion XL [Wellbutrin Xl] 300 mg PO BREAKFAST 11/17/15 Calcium Carbonate 600 mg PO DAILY 06/21/16 Escitalopram Oxalate [Lexapro] 10 mg PO BREAKFAST 06/22/16 Ondansetron HCl [Zofran] 4 mg PO Q6H PRN PRN 07/15/16 Hydrocodone Bitart/Apap 5-325 [[place] 5/325] 1 tablet PO Q4H PRN PRN #30 tablet 07/18/16 Acetaminophen [Tylenol Arthritis] 650 mg PO Q4H PRN PRN MDD 4 GM 08/23/17 Aripiprazole [Abilify] 5 mg PO DAILY 08/23/17 Bisacodyl [Bisac-Evac] 10 mg RC DAILY PRN PRN 08/23/17 Carbidopa/Levodopa 25/100 [Sinemet 25/100] 1 tablet PO TIDAC 08/23/17 Hydrocodone/Acetaminophen [[place] 5-325 Tablet] 1 each PO BID 08/23/17 Lactulose [Chronulac] 20 gm PO BREAKFAST 08/23/17 Magnesium Hydroxide [Milk Of Magnesia] 30 ml PO DAILY PRN PRN 08/23/17 Rotigotine [Neupro] 2 mg TRANSDERM. QHS 08/23/17 Urea [Ure-K] 142 gm TP QHS PRN PRN 08/23/17 Senna [Senokot] 2 tablet PO BID 09/05/17 Lactobacillus Rhamnosus GG [Culturelle] 1 each PO QHS 11/30/17 Cephalexin [Keflex] 500 mg PO Q8 #30 capsule 12/06/17 The following prescriptions were given: Cephalexin [Keflex] 500 mg PO Q8 #30 capsule Primary Care Physician: [facility] Doctor,Out of [Primary Care Provider] - Test Results: Test results from this visit will be discussed in further detail at your follow-up appointment, if applicable.
--- NOTE | 2017-12-06 14:29 | PCM.DC.SUM ---
Discharge Date and Diagnosis - Problem List Patient Problems: Active and Suspected Problems (Last Updated 11/30/17 @ 11:42 by Vero Jasso RN) Bilateral lower leg cellulitis (Acute) Date of Admission: 12/03/17 Date of Discharge: 12/06/17 - Primary Discharge Diagnosis Active and Suspected Problems (Last Updated 11/30/17 @ 11:42 by Vero Jasso RN) Bilateral lower leg cellulitis (Acute) - Secondary Discharge Diagnosis Chronic Problems (Last Updated 11/30/17 @ 11:42 by Vero Jasso RN) Obesity, Class III, BMI 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 obesity) (Chronic) HTN (hypertension) (Chronic) Chronic venous stasis dermatitis of both lower extremities (Chronic) Chronic venous insufficiency (Chronic) Venous ulcers of both lower extremities (Chronic) 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) Bilateral leg edema (Chronic) Parkinson's disease (tremor, stiffness, slow motion, unstable posture) (Chronic) Autonomic neuropathy (Chronic) Schizo affective schizophrenia (Chronic) Delayed gastric emptying (Chronic) H/O squamous cell carcinoma of skin (Chronic) of lower 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 Suspect that this may be a Marjolin's Ulcer. Admitted on account of cellulitis involving both lower extremities. Was seen by skin/wound care and by infectious disease as well. She was treated with IV antibiotics and has improved quite a bit. Pictures of the legs/wounds were viewed in the EMR. Seen and examined today and no new issues. She is stable for discharge and return to F. I believe she will be followed up at the wound clinic. [] Discharge Activity: Return to Normal Activity Home Medications: Medications to take at Discharge Carvedilol [Coreg (Beta Justin)] 3.125 mg PO BID 11/17/15 Cholecalciferol (VIT D3) [Vitamin D3] 2,000 unit PO BREAKFAST 11/17/15 Furosemide [Lasix] 20 mg PO DAILY 11/17/15 Gabapentin [Neurontin] 100 mg PO TIDCM 11/17/15 Lisinopril [Zestril] 2.5 mg PO QHS 11/17/15 Ropinirole HCl [Ropinirole ER] 8 mg PO QHS 11/17/15 buPROPion XL [Wellbutrin Xl] 300 mg PO BREAKFAST 11/17/15 Calcium Carbonate 600 mg PO DAILY 06/21/16 Escitalopram Oxalate [Lexapro] 10 mg PO BREAKFAST 06/22/16 Ondansetron HCl [Zofran] 4 mg PO Q6H PRN PRN 07/15/16 Hydrocodone Bitart/Apap 5-325 [[place] 5/325] 1 tablet PO Q4H PRN PRN #30 tablet 07/18/16 Acetaminophen [Tylenol Arthritis] 650 mg PO Q4H PRN PRN MDD 4 GM 08/23/17 Aripiprazole [Abilify] 5 mg PO DAILY 08/23/17 Bisacodyl [Bisac-Evac] 10 mg RC DAILY PRN PRN 08/23/17 Carbidopa/Levodopa 25/100 [Sinemet 25/100] 1 tablet PO TIDAC 08/23/17 Hydrocodone/Acetaminophen [[place] 5-325 Tablet] 1 each PO BID 08/23/17 Lactulose [Chronulac] 20 gm PO BREAKFAST 08/23/17 Magnesium Hydroxide [Milk Of Magnesia] 30 ml PO DAILY PRN PRN 08/23/17 Rotigotine [Neupro] 2 mg TRANSDERM. QHS 08/23/17 Urea [Ure-K] 142 gm TP QHS PRN PRN 08/23/17 Senna [Senokot] 2 tablet PO BID 09/05/17 Lactobacillus Rhamnosus GG [Culturelle] 1 each PO QHS 11/30/17 Cephalexin [Keflex] 500 mg PO Q8 #30 capsule 12/06/17 Following Prescrptions Were Given to Patient: Cephalexin [Keflex] 500 mg PO Q8 #30 capsule Primary Care Physician: Bridget Corrales,Out of [Primary Care Provider] - Disposition: Sn[facility] facility Patient Condition:: Stable Medical Necessity - Tobacco Use Smoking Status: Unknown if ever smoked Meaningful Use Info Meaningful Use Diagnoses (Choose all that apply): None applicable Code Visit Inpatient E&M: 41252 Disch Hosp
--- NOTE | 2017-12-06 14:34 | DS.PCM_ITS ---
Discharge Date and Diagnosis - Problem List Patient Problems: Active and Suspected Problems (Last Updated 11/30/17 @ 11:42 by Vero Jasso RN) Bilateral lower leg cellulitis (Acute) Date of Admission: 12/03/17 Date of Discharge: 12/06/17 - Primary Discharge Diagnosis Active and Suspected Problems (Last Updated 11/30/17 @ 11:42 by Vero Jasso RN) Bilateral lower leg cellulitis (Acute) - Secondary Discharge Diagnosis Chronic Problems (Last Updated 11/30/17 @ 11:42 by Vero Jasso RN) Obesity, Class III, BMI 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 obesity) (Chronic) HTN (hypertension) (Chronic) Chronic venous stasis dermatitis of both lower extremities (Chronic) Chronic venous insufficiency (Chronic) Venous ulcers of both lower extremities (Chronic) 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) Bilateral leg edema (Chronic) Parkinson's disease (tremor, stiffness, slow motion, unstable posture) (Chronic) Autonomic neuropathy (Chronic) Schizo affective schizophrenia (Chronic) Delayed gastric emptying (Chronic) H/O squamous cell carcinoma of skin (Chronic) of lower extremities 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 Suspect that this may be a Marjolin's Ulcer. Admitted on account of cellulitis involving both lower extremities. Was seen by skin/wound care and by infectious disease as well. She was treated with IV antibiotics and has improved quite a bit. Pictures of the legs/wounds were viewed in the EMR. Seen and examined today and no new issues. She is stable for discharge and return to F. I believe she will be followed up at the wound clinic. [] Discharge Activity: Return to Normal Activity Home Medications: Medications to take at Discharge Carvedilol [Coreg (Beta Justin)] 3.125 mg PO BID 11/17/15 Cholecalciferol (VIT D3) [Vitamin D3] 2,000 unit PO BREAKFAST 11/17/15 Furosemide [Lasix] 20 mg PO DAILY 11/17/15 Gabapentin [Neurontin] 100 mg PO TIDCM 11/17/15 Lisinopril [Zestril] 2.5 mg PO QHS 11/17/15 Ropinirole HCl [Ropinirole ER] 8 mg PO QHS 11/17/15 buPROPion XL [Wellbutrin Xl] 300 mg PO BREAKFAST 11/17/15 Calcium Carbonate 600 mg PO DAILY 06/21/16 Escitalopram Oxalate [Lexapro] 10 mg PO BREAKFAST 06/22/16 Ondansetron HCl [Zofran] 4 mg PO Q6H PRN PRN 07/15/16 Hydrocodone Bitart/Apap 5-325 [[place] 5/325] 1 tablet PO Q4H PRN PRN #30 tablet 07/18/16 Acetaminophen [Tylenol Arthritis] 650 mg PO Q4H PRN PRN MDD 4 GM 08/23/17 Aripiprazole [Abilify] 5 mg PO DAILY 08/23/17 Bisacodyl [Bisac-Evac] 10 mg RC DAILY PRN PRN 08/23/17 Carbidopa/Levodopa 25/100 [Sinemet 25/100] 1 tablet PO TIDAC 08/23/17 Hydrocodone/Acetaminophen [[place] 5-325 Tablet] 1 each PO BID 08/23/17 Lactulose [Chronulac] 20 gm PO BREAKFAST 08/23/17 Magnesium Hydroxide [Milk Of Magnesia] 30 ml PO DAILY PRN PRN 08/23/17 Rotigotine [Neupro] 2 mg TRANSDERM. QHS 08/23/17 Urea [Ure-K] 142 gm TP QHS PRN PRN 08/23/17 Senna [Senokot] 2 tablet PO BID 09/05/17 Lactobacillus Rhamnosus GG [Culturelle] 1 each PO QHS 11/30/17 Cephalexin [Keflex] 500 mg PO Q8 #30 capsule 12/06/17 Following Prescrptions Were Given to Patient: Cephalexin [Keflex] 500 mg PO Q8 #30 capsule Primary Care Physician: Bridget Corrales,Out of [Primary Care Provider] - Disposition: Nursing Home facility Patient Condition:: Stable Medical Necessity - Tobacco Use Smoking Status: Unknown if ever smoked Meaningful Use Info Meaningful Use Diagnoses (Choose all that apply): None applicable Code Visit Inpatient E&M: 53339 Disch Hosp
--- NOTE | 2017-12-06 14:36 | PCM.TXEXTCAR ---
- Diet 12/03/17 13:31 Diet: 2 Gram Sodium - Wound(s) Lt buttock Wound Type: Stasis Ulcer Groin Wound Type: irriatation from attends Rt outer vasquez Wound Type: Stasis Ulcer Lt outer ankle Wound Type: Abrasion LT inner Leg Wound Type: Skin Cancer Lt lower leg Wound Type: Skin Cancer right lower leg Wound Type: scattered areas of dry squamous cell carcinoma Dressing Change: Dry Sterile Dressing left lateral lower leg Wound Type: non healing wound (squamous cell carcinoma) Dressing Change: Adaptic left medial lower leg Wound Type: squamous cell carcinoma Dressing Change: Adaptic and Aquacel - Allergies/Procedures Done in Hospital Allergies/Adverse Reactions: Allergies piperacillin [From Zosyn] Adverse Reaction (Verified 11/30/17 11:05) Rash tazobactam [From Zosyn] Adverse Reaction (Verified 11/30/17 11:05) Rash Procedures: None - Type of Care/Length of Stay Estimated LOS: More Than 30 Days Type of Care Needed: Skilled Rehab Potential: Fair Prognosis: Fair - Additional Orders/Day of Discharge Day of Discharge: 12/06/17 - Dietary and Speech Recommendations Dietitian Recommendations/Changes: Rec diet change to Cardic - low sodium. Rec Bennett bid to help w/ wound healing efforts - please order from pharmacy - Follow Up Care Primary Care Physician: Bridget Corrales,Out of [Primary Care Provider] -
[2017-12-06] MEDS: Cephalexin 500 MG Capsule PO (14:38)
--- NOTE | 2017-12-06 14:59 | CASEMGMT ---
Social Work: Patient ready for D/C today. TC to Delfina at [facility] to make aware that patient is ready for D/C. D/C orders and med list faxed to [facility]. TC to [facility]. Cot transport scheduled for 4:00pm. TC to Delfina at [facility]. Delfina aware of transport time. PAULINA Rebolledo and Kenneth Neff RN CM both aware of transport time. PLAN: Patient to return to termite control service representative care bed at [facility] today. LEI Roy
--- NOTE | 2017-12-06 15:10 | CASEMGMT ---
Social Work: TC to patient's son Markie to notify of D/C back to [facility] today. Voice message left for son regarding patient D/C back to [facility] today. Son aware to call this SW with questions. PLAN: Patient to return to [facility] for intermission coordinator care today by cot at 4:00pm. LEI Roy
[2017-12-06 15:41] VITALS: BP 134/66; PULSE 70; RESP 18; TEMP 36.9; O2SAT 98
== END 2017-12-06 16:15 | disposition skilled nursing facility (03) | DRG 603 ==
LOC: ED 09:53 → MS2 12:02
PROVIDERS: Family Medicine; Admitting Provider Internal Medicine; Emergency Provider Emergency Medicine; Visit Provider Internal Medicine
DX: L03.116 Cellulitis of left lower limb (principal); L03.115 Cellulitis of right lower limb; I87.2 Venous insufficiency (chronic) (peripheral); G20 Parkinson's disease; Z66 Do not resuscitate; E66.01 Morbid (severe) obesity due to excess calories; Z68.37 Body mass index [BMI] 37.0-37.9, adult; I10 Essential (primary) hypertension; F25.9 Schizoaffective disorder, unspecified; C76.52 Malignant neoplasm of left lower limb
CPT/HCPCS: 36415; 77014; 77290; 77295; 77300; 77307; 80048; 80053; 81001; 82962; 83605; 83735; 84100; 85025; 85610; 85652; 85730; 87040; 87070; 87075; 87077; 87086; 87186; 87205; 87640; 87641; 93970; 97162; 97165; 97530; 97802; 99285; J7030; J7040; P9612; A4216

== ENCOUNTER 2017-12-22 14:15 | Outpatient (RCR) | payer MEDICARE, MEDICAID, SELFPAY ==
[2017-11-25 01:13] VITALS: BP 123/60; PULSE 85; RESP 16; TEMP 36.5
[2017-12-08 13:14] VITALS: BP 121/66; PULSE 81; RESP 16; TEMP 36.5
--- NOTE | 2017-12-08 19:42 | PCM.WC.PN ---
(1) Obesity, Class III, BMI 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 obesity) Status: Chronic Current Visit: Yes Code(s): E66.01 - Morbid (severe) obesity due to excess calories (2) HTN (hypertension) Status: Chronic Current Visit: Yes Qualifiers: Hypertension type: unspecified Qualified Code(s): I10 - Essential (primary) hypertension Code(s): I10 - Essential (primary) hypertension (3) Chronic venous stasis dermatitis of both lower extremities Status: Chronic Current Visit: Yes Code(s): I83.11 - Varicose veins of right lower extremity with inflammation; I83.12 - Varicose veins of left lower extremity with inflammation (4) Venous ulcers of both lower extremities Status: Chronic Current Visit: Yes Code(s): I87.2 - Venous insufficiency (chronic) (peripheral) (5) 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 layer exposed Status: Chronic Current Visit: Yes Code(s): L97.822 - 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 layer exposed (6) Squamous cell carcinoma of left lower leg Status: Chronic Current Visit: Yes Code(s): C44.729 - Squamous cell carcinoma of skin of left lower limb, including hip (7) Squamous cell carcinoma of right lower leg Status: Chronic Current Visit: Yes Code(s): C44.722 - Squamous cell carcinoma of skin of right lower limb, including hip Type of Wound Date of Service: 12/08/17 Chief Complaint: Venous ulcers to the bilateral lower extremities. Chronic venous stasis disease. Possible underlying SCC of nonhealing wounds. History of Wound: Judy is a pleasant 71-year-old female resident at [facility] who presents to the wound healing center for evaluation of ulcers to her bilateral lower extremities. This has been an ongoing and recurrent problem for this patient. She's been treated numerous times previously at the wound center. She has a h/o nonhealing wound of left ankle which revealed squamous cell carcinoma which was treated with Mohs surgery on December 30 2015 and the lesion had been completely excised at the time. She is scheduled for vascular testing on 11/03/17. She was seen recently for her wounds by Dr. Bardales in the beginning of August but was subsequently admitted to the hospital for a bowel obstruction and sepsis. Her wounds have progressed since her visit in August. Vascular studies were postponed but labs ordered by Dr. Bardales are available and do not show any significant abnormalities other than some slight protein malnutrition for which she is already taking a protein supplement. She had been using adaptic and dry gauze as instructed after her visit with Dr. Bardales. She reports significant drainage from the wounds. She is wearing tubigrip compression as well. She was treated with Cefepime and Ancef during her hospital stay. Her large ulcers of her left lower leg were punch biopsied on 10/20/17 and showed squamous cell carcinoma. She reports that the wounds are painful and draining but denies fever or chills. Progress of Wound: Judy's wounds are still significantly draining and friable, especially the left medial wound. The left medial wound is increasing in size and has a large amount of necrotic tissue and odor. Punch biopsies revealed squamous cell carcinoma. Her case was discussed with her application development specialist, Dr. Johnny Grady. SHe had her first radiation treatment today. Judy was hospitalized earlier this week for UTI. She also had a wound culture performed which was positive for Proteus and B. fragilis. She is on keflex currently from her discharge from the hospital. Judy has tolerated dressings and compression. Vascular studies were done last week which showed incompetence of bilateral GSV, right SSV and right SFJ. - Physical Exam Vital Signs Temp Pulse Resp BP 97.7 F L 81 16 121/66 H 12/08/17 13:14 12/08/17 13:14 12/08/17 13:14 12/08/17 13:14 General: Alert, Oriented x3, Cooperative, No apparent distress HEENT: Atraumatic, Normocephalic Oral: Moist Mucosa Abdomen: Obese Extremities: Edema Skin: Ulcer/ Wound Wound Measurements and Assessment WC - Nurse 1 - General Ulcer Measurement Start: 12/08/17 11:43 Freq: Status: Active Protocol: Activity Type Activity Date Activity User E-Sign Co-Sign Detail Recorded Client Recorded Date Recorded By Document 12/08/17 13:14 MW [id number] 12/08/17 13:27 MW 12/08/17 13:14 Wound Center Nurse 1 [Ulcer Assessment] #10 LEFT LATERAL LE -Combined with other wound No -Current Size (cm) - Length 2.6 -Current Size (cm) - Width 1.7 -Current Size (cm) - Depth 0.2 -Total Square Cm 4.42 -Date of Last Picture (Recall this 12/08/17 field) -Photo Taken Yes -Epithelialization None Present -Tunneling No -Undermining/Tunneling No -Circular Undermining No -Exudate Amt Small (1-33%) -Exudate Type Sanguineous -Wound Margin Distinct, Outline Attached -Granulation Amt Large (67-100%) -Granulation Quality Red -Slough/Fibrin Yes -Necrosis Amt Small (1-33%) -Necrotic Tissue Type Adherent Slough -Structure Exposed N/A -Texture (Cristina-wound Skin Appearance) Assessed Excoriation Localized Edema -Moisture (Cristina-wound Skin Appearance Assessed ) Dry/Scaly -Color (Cristina-wound Skin Appearance) Assessed Rubor -Temperature (Cristina-wound Skin No Abnormality Appearance) (Pt Warm) -Tenderness on Palpation (Cristina-wound No Skin Appearance) -Ulcer Cleansing Wound Cleanser -Foul Odor after Cleansing No -Anesthetic Used 4% Lidocaine Solution #11 LEFT MEDIAL LE -Combined with other wound No -Current Size (cm) - Length 9.2 -Current Size (cm) - Width 12.4 -Current Size (cm) - Depth 0.1 -Total Square Cm 114.08 -Date of Last Picture (Recall this 12/08/17 field) -Photo Taken Yes -Tunneling No -Undermining/Tunneling No -Circular Undermining No -Exudate Amt Small (1-33%) -Exudate Type Sanguineous -Wound Margin Thickened -Granulation Quality Hyper- granulation Red -Slough/Fibrin Yes -Necrosis Amt Large (67-100%) -Necrotic Tissue Type Adherent Slough -Structure Exposed N/A -Texture (Cristina-wound Skin Appearance) Assessed Excoriation Friable Localized Edema -Moisture (Cristina-wound Skin Appearance Assessed ) -Color (Cristina-wound Skin Appearance) Assessed Rubor -Temperature (Cristina-wound Skin No Abnormality Appearance) (Pt Warm) -Tenderness on Palpation (Cristina-wound No Skin Appearance) -Ulcer Cleansing Wound Cleanser -Foul Odor after Cleansing No -Anesthetic Used 4% Lidocaine Solution [Edema Assessment] -Lower Limb Edema Present No WC - Nurse 2 - General Ulcer CM Notes Start: 12/08/17 11:43 Freq: Status: Active Protocol: Activity Type Activity Date Activity User E-Sign Co-Sign Detail Recorded Client Recorded Date Recorded By Document 12/08/17 14:26 [id number] 12/08/17 14:38 12/08/17 14:26 Wound Center Nurse 2 [Procedure/Treatment] #10 LEFT LATERAL LE -Time 14:26 -Correct Patient Yes -Correct Side, Site, Position Yes -Correct Procedure Yes -Procedure Performed Yes -Type of Procedure Debridement -Clinical Debridement Subcutaneous -Post Debridement Size (cm) - Length 3.0 -Post Debridement Size (cm) - Width 2.0 -Post Debridement Size (cm) - Depth 0.1 -Total Square Cm 6.00 -Wound/Ulcer Outcome Not Healed -Ulcer Cleansing Rinsed/ Irrigated with Saline -Foul Odor after Cleansing No -Bioengineered Tissue No -Topical Lidocaine (%) 4 -Bleeding Controlled with Pressure -Treatment Response Procedure Tolerated Well #11 LEFT MEDIAL LE -Time 14:27 -Correct Patient Yes -Correct Side, Site, Position Yes -Correct Procedure Yes -Procedure Performed Yes -Type of Procedure Debridement -Clinical Debridement Subcutaneous -Post Debridement Size (cm) - Length 9.5 -Post Debridement Size (cm) - Width 11.0 -Post Debridement Size (cm) - Depth 0.1 -Total Square Cm 104.50 -Wound/Ulcer Outcome Not Healed -Ulcer Cleansing Rinsed/ Irrigated with Saline -Foul Odor after Cleansing No -Bioengineered Tissue No -Topical Lidocaine (%) 4 -Bleeding Controlled with Pressure -Treatment Response Procedure Tolerated Well [See Physician Procedure note for Specifics] Pain Scale: 0-10 Numeric [Pain] -Is Patient Pain Free? Yes Psych/Mental Status: Normal Affect, Appropriate Debridement Note Post-Debridement Measurements/Treatment WC - Nurse 2 - General Ulcer CM Notes Start: 12/08/17 11:43 Freq: Status: Active Protocol: Activity Type Activity Date Activity User E-Sign Co-Sign Detail Recorded Client Recorded Date Recorded By Document 12/08/17 14:26 [id number] 12/08/17 14:38 12/08/17 14:26 Wound Center Nurse 2 #10 LEFT LATERAL LE -Time 14:26 -Correct Patient Yes -Correct Side, Site, Position Yes -Correct Procedure Yes -Procedure Performed Yes -Type of Procedure Debridement -Clinical Debridement Subcutaneous -Post Debridement Size (cm) - Length 3.0 -Post Debridement Size (cm) - Width 2.0 -Post Debridement Size (cm) - Depth 0.1 -Total Square Cm 6.00 -Wound/Ulcer Outcome Not Healed -Ulcer Cleansing Rinsed/ Irrigated with Saline -Foul Odor after Cleansing No -Bioengineered Tissue No -Topical Lidocaine (%) 4 -Bleeding Controlled with Pressure -Treatment Response Procedure Tolerated Well #11 LEFT MEDIAL LE -Time 14:27 -Correct Patient Yes -Correct Side, Site, Position Yes -Correct Procedure Yes -Procedure Performed Yes -Type of Procedure Debridement -Clinical Debridement Subcutaneous -Post Debridement Size (cm) - Length 9.5 -Post Debridement Size (cm) - Width 11.0 -Post Debridement Size (cm) - Depth 0.1 -Total Square Cm 104.50 -Wound/Ulcer Outcome Not Healed -Ulcer Cleansing Rinsed/ Irrigated with Saline -Foul Odor after Cleansing No -Bioengineered Tissue No -Topical Lidocaine (%) 4 -Bleeding Controlled with Pressure -Treatment Response Procedure Tolerated Well Pain Scale: 0-10 Numeric Is Patient Pain Free? Yes Wound debrided: left lateral LE Laterality: Left Type of Debridement: Excisional debridement Anesthesia Used: 4% Lidocaine Solution Depth: Down to and including healthy tissue, in the subcutaneous layer Percentage of wound debrided: 100 Instrument Used: 5mm curette Tissue Removed: yellow slough, devitalized tissue Severity: Fat Layer Exposed Amount of bleeding with debridement: Mild Bleeding Controlled with: Compression and gauze Patient tolerated procedure well - Additional Wound Wound debrided: left medial LE Laterality: Left Type of Debridement: Excisional debridement Anesthesia Used: 4% Lidocaine Solution Depth: Down to and including healthy tissue, in the subcutaneous layer Percentage of wound debrided: 100 Instrument Used: 5mm curette Tissue Removed: yellow slough, devitalized tissue Amount of bleeding with debridement: Moderate Bleeding Controlled with: Gel Foam Patient tolerated procedure: Patient tolerated procedure well Assessment/Plan Active Problems (Last Updated 11/30/17 @ 11:42 by Vero Jasso RN) Obesity, Class III, BMI 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 obesity) (Chronic) HTN (hypertension) (Chronic) Chronic venous stasis dermatitis of both lower extremities (Chronic) Venous ulcers of both lower extremities (Chronic) 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 Venous stasis ulcers of left LE and foot. 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 Cultures reviewed and will start her on Flagyl for treatment for B. fragilis. Normal arterial testing, venous incompetence b/l. Will continue to treat her wounds with Aquacel and continue tubigrip for compression. Encouraged increased protein and continue with protein supplement that she is taking currently. Continue radiation treatment. Her treatment course has been changed to complex care due to her comorbidities and the complexity of her wounds. F/U in 2 weeks.
--- NOTE | 2017-12-08 19:48 | PN.PCM_ITS ---
(1) Obesity, Class III, BMI 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 obesity) Status: Chronic Current Visit: Yes Code(s): E66.01 - Morbid (severe) obesity due to excess calories (2) HTN (hypertension) Status: Chronic Current Visit: Yes Qualifiers: Hypertension type: unspecified Qualified Code(s): I10 - Essential (primary ) hypertension Code(s): I10 - Essential (primary) hypertension (3) Chronic venous stasis dermatitis of both lower extremities Status: Chronic Current Visit: Yes Code(s): I83.11 - Varicose veins of right lower extremity with inflammation; I83.12 - Varicose veins of left lower extremity with inflammation (4) Venous ulcers of both lower extremities Status: Chronic Current Visit: Yes Code(s): I87.2 - Venous insufficiency ( chronic) (peripheral) (5) 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 layer exposed Status: Chronic Current Visit: Yes Code(s): L97.822 - 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 layer exposed (6) Squamous cell carcinoma of left lower leg Status: Chronic Current Visit: Yes Code(s): C44.729 - Squamous cell carcinoma of skin of left lower limb, including hip (7) Squamous cell carcinoma of right lower leg Status: Chronic Current Visit: Yes Code(s): C44.722 - Squamous cell carcinoma of skin of right lower limb, including hip Type of Wound Date of Service: 12/08/17 Chief Complaint: Venous ulcers to the bilateral lower extremities. Chronic venous stasis disease. Possible underlying SCC of nonhealing wounds. History of Wound: Judy is a pleasant 71-year-old female resident at [facility], [place] who presents to the wound healing center for evaluation of ulcers to her bilateral lower extremities. This has been an ongoing and recurrent problem for this patient. She's been treated numerous times previously at the wound center. She has a h/o nonhealing wound of left ankle which revealed squamous cell carcinoma which was treated with Mohs surgery on December 30 2015 and the lesion had been completely excised at the time. She is scheduled for vascular testing on 11/03/17. She was seen recently for her wounds by Dr. Bardales in the beginning of August but was subsequently admitted to the hospital for a bowel obstruction and sepsis. Her wounds have progressed since her visit in August. Vascular studies were postponed but labs ordered by Dr. Bardales are available and do not show any significant abnormalities other than some slight protein malnutrition for which she is already taking a protein supplement. She had been using adaptic and dry gauze as instructed after her visit with Dr. Bardales. She reports significant drainage from the wounds. She is wearing tubigrip compression as well. She was treated with Cefepime and Ancef during her hospital stay. Her large ulcers of her left lower leg were punch biopsied on 10/20/17 and showed squamous cell carcinoma. She reports that the wounds are painful and draining but denies fever or chills. Progress of Wound: Judy's wounds are still significantly draining and friable , especially the left medial wound. The left medial wound is increasing in size and has a large amount of necrotic tissue and odor. Punch biopsies revealed squamous cell carcinoma. Her case was discussed with her second baller, Dr. Johnny Grady. SHe had her first radiation treatment today. Judy was hospitalized earlier this week for UTI. She also had a wound culture performed which was positive for Proteus and B. fragilis. She is on keflex currently from her discharge from the hospital. Judy has tolerated dressings and compression. Vascular studies were done last week which showed incompetence of bilateral GSV, right SSV and right SFJ. - Physical Exam Vital Signs Temp Pulse Resp BP 97.7 F L 81 16 121/66 H 12/08/17 13:14 12/08/17 13:14 12/08/17 13:14 12/08/17 13:14 General: Alert, Oriented x3, Cooperative, No apparent distress HEENT: Atraumatic, Normocephalic Oral: Moist Mucosa Abdomen: Obese Extremities: Edema Skin: Ulcer/ Wound Wound Measurements and Assessment WC - Nurse 1 - General Ulcer Measurement Start: 12/08/17 11:43 Freq: Status: Active Protocol: Activity Type Activity Date Activity User E-Sign Co-Sign Detail Recorded Client Recorded Date Recorded By Document 12/08/17 13:14 MW [id number] 12/08/17 13:27 MW 12/08/17 13:14 Wound Center Nurse 1 [Ulcer Assessment] #10 LEFT LATERAL LE -Combined with other wound No -Current Size (cm) - Length 2.6 -Current Size (cm) - Width 1.7 -Current Size (cm) - Depth 0.2 -Total Square Cm 4.42 -Date of Last Picture (Recall this 12/08/17 field) -Photo Taken Yes -Epithelialization None Present -Tunneling No -Undermining/Tunneling No -Circular Undermining No -Exudate Amt Small (1-33%) -Exudate Type Sanguineous -Wound Margin Distinct, Outline Attached -Granulation Amt Large (67-100%) -Granulation Quality Red -Slough/Fibrin Yes -Necrosis Amt Small (1-33%) -Necrotic Tissue Type Adherent Slough -Structure Exposed N/A -Texture (Cristina-wound Skin Appearance) Assessed Excoriation Localized Edema -Moisture (Cristina-wound Skin Appearance Assessed ) Dry/Scaly -Color (Cristina-wound Skin Appearance) Assessed Rubor -Temperature (Cristina-wound Skin No Abnormality Appearance) (Pt Warm) -Tenderness on Palpation (Cristina-wound No Skin Appearance) -Ulcer Cleansing Wound Cleanser -Foul Odor after Cleansing No -Anesthetic Used 4% Lidocaine Solution #11 LEFT MEDIAL LE -Combined with other wound No -Current Size (cm) - Length 9.2 -Current Size (cm) - Width 12.4 -Current Size (cm) - Depth 0.1 -Total Square Cm 114.08 -Date of Last Picture (Recall this 12/08/17 field) -Photo Taken Yes -Tunneling No -Undermining/Tunneling No -Circular Undermining No -Exudate Amt Small (1-33%) -Exudate Type Sanguineous -Wound Margin Thickened -Granulation Quality Hyper- granulation Red -Slough/Fibrin Yes -Necrosis Amt Large (67-100%) -Necrotic Tissue Type Adherent Slough -Structure Exposed N/A -Texture (Cristina-wound Skin Appearance) Assessed Excoriation Friable Localized Edema -Moisture (Cristina-wound Skin Appearance Assessed ) -Color (Cristina-wound Skin Appearance) Assessed Rubor -Temperature (Cristina-wound Skin No Abnormality Appearance) (Pt Warm) -Tenderness on Palpation (Cristina-wound No Skin Appearance) -Ulcer Cleansing Wound Cleanser -Foul Odor after Cleansing No -Anesthetic Used 4% Lidocaine Solution [Edema Assessment] -Lower Limb Edema Present No WC - Nurse 2 - General Ulcer CM Notes Start: 12/08/17 11:43 Freq: Status: Active Protocol: Activity Type Activity Date Activity User E-Sign Co-Sign Detail Recorded Client Recorded Date Recorded By Document 12/08/17 14:26 [id number] 12/08/17 14:38 12/08/17 14:26 Wound Center Nurse 2 [Procedure/Treatment] #10 LEFT LATERAL LE -Time 14:26 -Correct Patient Yes -Correct Side, Site, Position Yes -Correct Procedure Yes -Procedure Performed Yes -Type of Procedure Debridement -Clinical Debridement Subcutaneous -Post Debridement Size (cm) - Length 3.0 -Post Debridement Size (cm) - Width 2.0 -Post Debridement Size (cm) - Depth 0.1 -Total Square Cm 6.00 -Wound/Ulcer Outcome Not Healed -Ulcer Cleansing Rinsed/ Irrigated with Saline -Foul Odor after Cleansing No -Bioengineered Tissue No -Topical Lidocaine (%) 4 -Bleeding Controlled with Pressure -Treatment Response Procedure Tolerated Well #11 LEFT MEDIAL LE -Time 14:27 -Correct Patient Yes -Correct Side, Site, Position Yes -Correct Procedure Yes -Procedure Performed Yes -Type of Procedure Debridement -Clinical Debridement Subcutaneous -Post Debridement Size (cm) - Length 9.5 -Post Debridement Size (cm) - Width 11.0 -Post Debridement Size (cm) - Depth 0.1 -Total Square Cm 104.50 -Wound/Ulcer Outcome Not Healed -Ulcer Cleansing Rinsed/ Irrigated with Saline -Foul Odor after Cleansing No -Bioengineered Tissue No -Topical Lidocaine (%) 4 -Bleeding Controlled with Pressure -Treatment Response Procedure Tolerated Well [See Physician Procedure note for Specifics] Pain Scale: 0-10 Numeric [Pain] -Is Patient Pain Free? Yes Psych/Mental Status: Normal Affect, Appropriate Debridement Note Post-Debridement Measurements/Treatment WC - Nurse 2 - General Ulcer CM Notes Start: 12/08/17 11:43 Freq: Status: Active Protocol: Activity Type Activity Date Activity User E-Sign Co-Sign Detail Recorded Client Recorded Date Recorded By Document 12/08/17 14:26 [id number] 12/08/17 14:38 12/08/17 14:26 Wound Center Nurse 2 #10 LEFT LATERAL LE -Time 14:26 -Correct Patient Yes -Correct Side, Site, Position Yes -Correct Procedure Yes -Procedure Performed Yes -Type of Procedure Debridement -Clinical Debridement Subcutaneous -Post Debridement Size (cm) - Length 3.0 -Post Debridement Size (cm) - Width 2.0 -Post Debridement Size (cm) - Depth 0.1 -Total Square Cm 6.00 -Wound/Ulcer Outcome Not Healed -Ulcer Cleansing Rinsed/ Irrigated with Saline -Foul Odor after Cleansing No -Bioengineered Tissue No -Topical Lidocaine (%) 4 -Bleeding Controlled with Pressure -Treatment Response Procedure Tolerated Well #11 LEFT MEDIAL LE -Time 14:27 -Correct Patient Yes -Correct Side, Site, Position Yes -Correct Procedure Yes -Procedure Performed Yes -Type of Procedure Debridement -Clinical Debridement Subcutaneous -Post Debridement Size (cm) - Length 9.5 -Post Debridement Size (cm) - Width 11.0 -Post Debridement Size (cm) - Depth 0.1 -Total Square Cm 104.50 -Wound/Ulcer Outcome Not Healed -Ulcer Cleansing Rinsed/ Irrigated with Saline -Foul Odor after Cleansing No -Bioengineered Tissue No -Topical Lidocaine (%) 4 -Bleeding Controlled with Pressure -Treatment Response Procedure Tolerated Well Pain Scale: 0-10 Numeric Is Patient Pain Free? Yes Wound debrided: left lateral LE Laterality: Left Type of Debridement: Excisional debridement Anesthesia Used: 4% Lidocaine Solution Depth: Down to and including healthy tissue, in the subcutaneous layer Percentage of wound debrided: 100 Instrument Used: 5mm curette Tissue Removed: yellow slough, devitalized tissue Severity: Fat Layer Exposed Amount of bleeding with debridement: Mild Bleeding Controlled with: Compression and gauze Patient tolerated procedure well - Additional Wound Wound debrided: left medial LE Laterality: Left Type of Debridement: Excisional debridement Anesthesia Used: 4% Lidocaine Solution Depth: Down to and including healthy tissue, in the subcutaneous layer Percentage of wound debrided: 100 Instrument Used: 5mm curette Tissue Removed: yellow slough, devitalized tissue Amount of bleeding with debridement: Moderate Bleeding Controlled with: Gel Foam Patient tolerated procedure: Patient tolerated procedure well Assessment/Plan Active Problems (Last Updated 11/30/17 @ 11:42 by Vero Jasso RN) Obesity, Class III, BMI 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 obesity) (Chronic) HTN (hypertension) (Chronic) Chronic venous stasis dermatitis of both lower extremities (Chronic) Venous ulcers of both lower extremities (Chronic) 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 Venous stasis ulcers of left LE and foot. Diffuse squamous cell carcinoma of b/ l LE - left leg with 2 large ulcerated lesions Plan: Judy's wounds were evaluated and debrided today. Cultures reviewed and will start her on Flagyl for treatment for B. fragilis. Normal arterial testing , venous incompetence b/l. Will continue to treat her wounds with Aquacel and continue tubigrip for compression. Encouraged increased protein and continue with protein supplement that she is taking currently. Continue radiation treatment. Her treatment course has been changed to complex care due to her comorbidities and the complexity of her wounds. F/U in 2 weeks.
[2017-12-22 14:26] VITALS: BP 122/75; PULSE 82; RESP 20; TEMP 36.6
--- NOTE | 2017-12-22 18:19 | PN.PCM_ITS ---
(1) Obesity, Class III, BMI 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 obesity) Status: Chronic Current Visit: Yes Code(s): E66.01 - Morbid (severe) obesity due to excess calories (2) HTN (hypertension) Status: Chronic Current Visit: Yes Qualifiers: Hypertension type: unspecified Qualified Code(s): I10 - Essential (primary) hypertension Code(s): I10 - Essential (primary) hypertension (3) Chronic venous stasis dermatitis of both lower extremities Status: Chronic Current Visit: Yes Code(s): I83.11 - Varicose veins of right lower extremity with inflammation; I83.12 - Varicose veins of left lower extremity with inflammation (4) Venous ulcers of both lower extremities Status: Chronic Current Visit: Yes Code(s): I87.2 - Venous insufficiency (chronic) (peripheral) (5) 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 layer exposed Status: Chronic Current Visit: Yes Code(s): L97.822 - 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 layer exposed (6) Squamous cell carcinoma of left lower leg Status: Chronic Current Visit: Yes Code(s): C44.729 - Squamous cell carcinoma of skin of left lower limb, including hip (7) Squamous cell carcinoma of right lower leg Status: Chronic Current Visit: Yes Code(s): C44.722 - Squamous cell carcinoma of skin of right lower limb, including hip (8) Cellulitis and abscess of left leg Status: Acute Current Visit: Yes Code(s): L03.116 - Cellulitis of left lower limb; L02.416 - Cutaneous abscess of left lower limb Type of Wound Chief Complaint: Venous ulcers to the bilateral lower extremities. Chronic venous stasis disease. Possible underlying SCC of nonhealing wounds. History of Wound: Judy is a pleasant 71-year-old female resident at [facility] who presents to the wound healing center for evaluation of ulcers to her bilateral lower extremities. This has been an ongoing and recurrent problem for this patient. She's been treated numerous times previously at the wound center. She has a h/o nonhealing wound of left ankle which revealed squamous cell carcinoma which was treated with Mohs surgery on December 30 2015 and the lesion had been completely excised at the time. She is scheduled for vascular testing on 11/03/17. She was seen recently for her wounds by Dr. Bardales in the beginning of August but was subsequently admitted to the hospital for a bowel obstruction and sepsis. Her wounds have progressed since her visit in August. Vascular studies were postponed but labs ordered by Dr. Bardales are available and do not show any significant abnormalities other than some slight protein malnutrition for which she is already taking a protein supplement. She had been using adaptic and dry gauze as instructed after her visit with Dr. Bardales. She reports significant drainage from the wounds. She is wearing tubigrip compression as well. She was treated with Cefepime and Ancef during her hospital stay. Her large ulcers of her left lower leg were punch biopsied on 10/20/17 and showed squamous cell carcinoma. She reports that the wounds are painful and draining but denies fever or chills. Progress of Wound: Judy's wounds are still significantly draining and friable, especially the left medial wound. The left medial wound is increasing in size and has a large amount of necrotic tissue and odor but is bleeding less today. Punch biopsies done previously revealed squamous cell carcinoma. Her case was discussed with her program project analyst, Dr. Johnny Grady. She completed radiation treatment. She reports increased pain in her legs/ulcers. She completed antibiotic treatment for positive wound cultures. Judy has tolerated dressings and compression. Vascular studies were done which showed incompetence of bilateral GSV, right SSV and right SFJ. - Physical Exam Vital Signs Temp Pulse Resp BP 97.8 F 82 20 H 122/75 H 12/22/17 14:26 12/22/17 14:26 12/22/17 14:26 12/22/17 14:26 General: Alert, Oriented x3, Cooperative, No apparent distress HEENT: Atraumatic, Normocephalic Oral: Moist Mucosa Abdomen: Obese Extremities: Cool, Diminished Peripheral Pulses, Edema Skin: Ulcer/ Wound Wound Measurements and Assessment WC - Nurse 1 - General Ulcer Measurement Start: 12/08/17 11:43 Freq: Status: Active Protocol: Activity Type Activity Date Activity User E-Sign Co-Sign Detail Recorded Client Recorded Date Recorded By Document 12/22/17 14:26 WI [id number] 12/22/17 14:43 WI 12/22/17 14:26 Wound Center Nurse 1 [Ulcer Assessment] #10 LEFT LATERAL LE -Combined with other wound No -Current Size (cm) - Length 3.4 -Current Size (cm) - Width 2.2 -Current Size (cm) - Depth 0.2 -Total Square Cm 7.48 -Photo Taken No -Epithelialization None Present -Tunneling No -Undermining/Tunneling No -Circular Undermining No -Exudate Amt Medium (34-66%) -Exudate Type Sanguineous -Wound Margin Distinct, Outline Attached -Granulation Amt Large (67-100%) -Granulation Quality Red -Slough/Fibrin Yes -Necrosis Amt None Present (0 %) -Texture (Cristina-wound Skin Appearance) Scarring -Moisture (Cristina-wound Skin Appearance Maceration ) Dry/Scaly -Color (Cristina-wound Skin Appearance) Mottled Palor -Temperature (Cristina-wound Skin No Abnormality Appearance) (Pt Warm) -Tenderness on Palpation (Cristina-wound Yes Skin Appearance) -Ulcer Cleansing Wound Cleanser -Foul Odor after Cleansing No -Anesthetic Used 5% Lidocaine Gel #11 LEFT MEDIAL LE -Combined with other wound No -Current Size (cm) - Length 14.5 -Current Size (cm) - Width 10.5 -Current Size (cm) - Depth 0.5 -Total Square Cm 152.25 -Photo Taken No -Epithelialization None Present -Tunneling No -Undermining/Tunneling No -Circular Undermining No -Exudate Amt Medium (34-66%) -Exudate Type Sanguineous -Wound Margin Distinct, Outline Attached -Granulation Amt Small (1-33%) -Granulation Quality Red -Slough/Fibrin Yes -Necrosis Amt Large (67-100%) -Necrotic Tissue Type Adherent Slough -Texture (Cristina-wound Skin Appearance) Scarring -Moisture (Cristina-wound Skin Appearance Dry/Scaly ) -Color (Cristina-wound Skin Appearance) Mottled -Temperature (Cristina-wound Skin No Abnormality Appearance) (Pt Warm) -Tenderness on Palpation (Cristina-wound Yes Skin Appearance) -Ulcer Cleansing Wound Cleanser -Foul Odor after Cleansing No -Anesthetic Used 5% Lidocaine Gel [Edema Assessment] -Left Calf (cm) 33.5 -Left Ankle (cm) 25 WC - Nurse 2 - General Ulcer CM Notes Start: 12/08/17 11:43 Freq: Status: Active Protocol: Activity Type Activity Date Activity User E-Sign Co-Sign Detail Recorded Client Recorded Date Recorded By Document 12/22/17 15:52 [id number] 12/22/17 15:54 12/22/17 15:52 Wound Center Nurse 2 [Procedure/Treatment] #10 LEFT LATERAL LE -Time 15:52 -Correct Patient Yes -Correct Side, Site, Position Yes -Correct Procedure Yes -Procedure Performed Yes -Type of Procedure Debridement -Clinical Debridement Subcutaneous -Post Debridement Size (cm) - Length 3.4 -Post Debridement Size (cm) - Width 2.3 -Post Debridement Size (cm) - Depth 0.1 -Total Square Cm 7.82 -Wound/Ulcer Outcome Not Healed -Ulcer Cleansing Rinsed/ Irrigated with Saline -Foul Odor after Cleansing No -Bioengineered Tissue No -Topical Lidocaine (%) 4 -Bleeding Controlled with Pressure -Treatment Response Procedure Tolerated Well #11 LEFT MEDIAL LE -Time 15:53 -Correct Patient Yes -Correct Side, Site, Position Yes -Correct Procedure Yes -Procedure Performed Yes -Type of Procedure Debridement -Clinical Debridement Subcutaneous -Post Debridement Size (cm) - Length 14.6 -Post Debridement Size (cm) - Width 10.6 -Post Debridement Size (cm) - Depth 0.5 -Total Square Cm 154.76 -Wound/Ulcer Outcome Not Healed -Ulcer Cleansing Rinsed/ Irrigated with Saline -Foul Odor after Cleansing No -Bioengineered Tissue No -Topical Lidocaine (%) 4 -Bleeding Controlled with Pressure -Treatment Response Procedure Tolerated Well [See Physician Procedure note for Specifics] Pain Scale: 0-10 Numeric [Pain] -Is Patient Pain Free? Yes Psych/Mental Status: Normal Affect, Appropriate Debridement Note Post-Debridement Measurements/Treatment WC - Nurse 2 - General Ulcer CM Notes Start: 12/08/17 11:43 Freq: Status: Active Protocol: Activity Type Activity Date Activity User E-Sign Co-Sign Detail Recorded Client Recorded Date Recorded By Document 12/08/17 14:26 [id number] 12/08/17 14:38 TM Document 12/22/17 15:52 [id number] 12/22/17 15:54 12/08/17 12/22/17 14:26 15:52 Wound Center Nurse 2 #10 LEFT LATERAL LE -Time 14:26 15:52 -Correct Patient Yes Yes -Correct Side, Site, Position Yes Yes -Correct Procedure Yes Yes -Procedure Performed Yes Yes -Type of Procedure Debridement Debridement -Clinical Debridement Subcutaneous Subcutaneous -Post Debridement Size (cm) - Length 3.0 3.4 -Post Debridement Size (cm) - Width 2.0 2.3 -Post Debridement Size (cm) - Depth 0.1 0.1 -Total Square Cm 6.00 7.82 -Wound/Ulcer Outcome Not Healed Not Healed -Ulcer Cleansing Rinsed/ Rinsed/ Irrigated with Irrigated with Saline Saline -Foul Odor after Cleansing No No -Bioengineered Tissue No No -Topical Lidocaine (%) 4 4 -Bleeding Controlled with Pressure Pressure -Treatment Response Procedure Procedure Tolerated Well Tolerated Well #11 LEFT MEDIAL LE -Time 14:27 15:53 -Correct Patient Yes Yes -Correct Side, Site, Position Yes Yes -Correct Procedure Yes Yes -Procedure Performed Yes Yes -Type of Procedure Debridement Debridement -Clinical Debridement Subcutaneous Subcutaneous -Post Debridement Size (cm) - Length 9.5 14.6 -Post Debridement Size (cm) - Width 11.0 10.6 -Post Debridement Size (cm) - Depth 0.1 0.5 -Total Square Cm 104.50 154.76 -Wound/Ulcer Outcome Not Healed Not Healed -Ulcer Cleansing Rinsed/ Rinsed/ Irrigated with Irrigated with Saline Saline -Foul Odor after Cleansing No No -Bioengineered Tissue No No -Topical Lidocaine (%) 4 4 -Bleeding Controlled with Pressure Pressure -Treatment Response Procedure Procedure Tolerated Well Tolerated Well Pain Scale: 0-10 Numeric Is Patient Pain Free? Yes Yes Wound debrided: left lateral LE Laterality: Left Type of Debridement: Excisional debridement Anesthesia Used: 4% Lidocaine Solution Depth: Down to and including healthy tissue, in the subcutaneous layer Percentage of wound debrided: 100 Instrument Used: 5mm curette Tissue Removed: yellow slough, devitalized tissue Severity: Fat Layer Exposed Amount of bleeding with debridement: Mild Bleeding Controlled with: Compression and gauze Patient tolerated procedure well - Additional Wound Wound debrided: left medial LE Laterality: Left Type of Debridement: Excisional debridement Anesthesia Used: 4% Lidocaine Solution Depth: Down to and including healthy tissue, in the subcutaneous layer Percentage of wound debrided: 100 Instrument Used: 5mm curette Tissue Removed: yellow slough, devitalized tissue Severity: Fat Layer Exposed Amount of bleeding with debridement: Mild Bleeding Controlled with: Compression and gauze Patient tolerated procedure: Patient tolerated procedure well Assessment/Plan Active Problems (Last Reviewed 12/20/17 @ 12:37 by Alejandra Singh) Obesity, Class III, BMI 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 obesity) (Chronic) HTN (hypertension) (Chronic) Chronic venous stasis dermatitis of both lower extremities (Chronic) Venous ulcers of both lower extremities (Chronic) 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) 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) Cellulitis and abscess of left leg (Acute) Assessment: Chronic venous stasis disease of the bilateral lower extremities. Venous stasis ulcers of left LE and foot. 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 Foul odor still present. Wound culture taken today and will treat based on results. Normal arterial testing, venous incompetence b/l. Will continue to treat her wounds with Aquacel and continue tubigrip for compression. Encouraged increased protein and continue with protein supplement that she is taking currently. Continue treatment of squamous cell as per dermatology. Her treatment course has been changed to complex care due to her comorbidities and the complexity of her wounds. F/U in 2 weeks.
== END 2017-12-24 23:59 ==
LOC: WC 14:15
PROVIDERS: Visit Provider Family Medicine
DX: I83.228 Varicose veins of left lower extremity with both ulcer of other part of lower extremity and inflammation (principal); L97.822 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 layer exposed; I83.11 Varicose veins of right lower extremity with inflammation; E66.9 Obesity, unspecified; Z71.3 Dietary counseling and surveillance; I10 Essential (primary) hypertension; Z85.828 Personal history of other malignant neoplasm of skin
CPT/HCPCS: 11042; 11045; 87070; 87075; 87077; 87186; 87205

== ENCOUNTER 2018-01-06 09:06 | Inpatient (IN) | payer MEDICARE, MEDICAID, SELFPAY ==
[2018-01-06 09:08] VITALS: BP 104/61; PULSE 92; RESP 23; TEMP 36.4; O2SAT 97; BMI 35.9
--- NOTE | 2018-01-06 09:27 | RAD_ITS ---
STUDY: X-RAY CHEST REASON FOR EXAM: Female, 72 years old. Cough. TECHNIQUE: Single AP portable view of the chest. COMPARISON: Chest radiograph dated September 02, 2017. FINDINGS: Cardiac monitoring leads are present. The lungs are expanded. There is mild elevation of the left hemidiaphragm. There is no demonstrated pleural abnormality. There is borderline cardiomegaly. Normal mediastinum and tomasz. Normal visualized pulmonary arteries. There is atherosclerotic tortuosity of the aortic arch and descending thoracic aorta. There is demineralization of the osseous structures. There are degenerative changes of the left shoulder. Incidental note is made of a large amount of bowel gas. RAD/Chest 1 View (Portable) IMPRESSION: No radiographic evidence of acute cardiopulmonary disease. Electronically Signed: Flory Hyde MD at 10:08 EDT , Service support ,
--- NOTE | 2018-01-06 09:29 | ED.VIS.GEN ---
History of Present Illness Chief Complaint: GI Bleed Informant: Patient, [facility] Onset: Yesterday Context: Gradual Onset Quality: coffee-ground emesis Associated Symptoms: diffuse abd aching Narrative: [facility] patient who was seen having some coffee-ground emesis since yesterday. Complaining of diffuse abdominal discomfort that is relatively mild. She states that she also noticed that she was rattling in her chest and having some nonproductive coughing at that started after the vomiting. When asked if she thinks maybe she aspirated vomit, she states no. She denies any dyspnea or chest discomfort. She has vomited no blood that she knows of. She has no idea if she has had hematochezia or melena. She states she had a bowel movement yesterday but did not look at it. No trouble urinating. She is DNR comfort care only, and is on no antiplatelet or anticoagulant medications. No history of peptic ulcer disease that she knows of. Of note according to the halfway, she has also had some hallucinations off and on for the past couple months. She has a known history of schizophrenia. - Past Medical History (1) Chronic venous insufficiency Status: Chronic (2) Venous ulcers of both lower extremities Status: Chronic (3) Bilateral lower leg cellulitis Status: Chronic (4) Autonomic neuropathy Status: Chronic (5) Chronic venous stasis dermatitis of both lower extremities Status: Chronic (6) Delayed gastric emptying Status: Chronic (7) H/O squamous cell carcinoma of skin Status: Chronic Comment: of lower extremities (8) HTN (hypertension) Status: Chronic (9) Parkinson's disease (tremor, stiffness, slow motion, unstable posture) Status: Chronic (10) Schizo affective schizophrenia Status: Chronic Past Medical History - Allergies and Home Meds Allergies/Adverse Reactions: Allergies piperacillin [From Zosyn] Adverse Reaction (Verified 01/06/18 09:16) Rash tazobactam [From Zosyn] Adverse Reaction (Verified 01/06/18 09:16) Rash Primary Care Physician: Ruby Hyde [Other] Surgical History: noncontributory Lives: Jail Smoking Status: Never smoker - Family History Maternal Family History: Reports: No pertinent history Review of Systems General: Reports: Malaise. Denies: Chills, Fever Eyes: Denies: Visual changes - bilaterally, Diplopia ENT: Denies: Rhinorrhea, Sore throat Cardiovascular: Denies: Chest pain, Palpitations Respiratory: Reports: Cough. Denies: Dyspnea, Sputum Gastrointestinal: Reports: Abdominal pain, Nausea, Vomiting Genitourinary: Denies: Dysuria, Hematuria Musculoskeletal: Reports: Swelling - BLE chronic, Extremity Pain - BLE chronic. Denies: Back pain Skin: Reports: Wounds - BLE, chronic Neurological: Denies: Headache, Weakness, Parasthesia Psych: Denies: Suicidal thoughts, Suicidal ideations Endocrine: Denies: Polyuria, Polydipsia Hematologic: Denies: Easy bruising, Easy bleeding Allergy: Denies: Uticaria, Swelling of the mouth, Swelling of the tongue Physical Exam Vital Signs/Narrative: Vital Signs Temp Pulse Resp BP Pulse Ox 01/06/18 09:08 97.6 F L 92 23 H 104/61 97 Inital Vital Signs reviewed: Yes General: Well nourished, Well developed, Obese, - - nad Head: Normocephalic, Atraumatic Eyes: Perrl, EOMI ENT: Moist mucous membranes, No rhinorrhea Neck: Supple, Nontender, No JVD Cardiovascular: Regular rate, Regular rhythm, No murmurs Respiratory: No distress, Chest nontender, - - expiratory diffuse/symmetric transmitted upper airway sounds. inspiratory clear throughout Abdomen: Soft, Nontender, Nondistended, Normal bowel sounds Back: Nontender, Normal Inspection Extremities: Nontender - multiple superificial wounds BLE, minor serosanguinous seeping from one medial distal left leg; Lower legs wrapped., No edema Skin: Normal color, No rash Neurological: Alert, Oriented x3, Cranial nerves II-XII grossly intact, Normal Strength, Normal Sensation Psychological: Normal affect Diagnostic/Tx/Re-eval Impressions Chest X-Ray 01/06/18 09:27 IMPRESSION: No radiographic evidence of acute cardiopulmonary disease. Electronically Signed: Flory Hyde MD at 10:08 EDT , Service support , 01/06/18 09:27 CXR [Chest 1 View (Portable)] [RAD] Stat Laboratory Results 01/06/18 01/06/18 01/06/18 09:55 09:55 10:00 WBC 10.8 RBC 4.09 L Hgb 11.8 L Hct 39.5 MCV 96.6 MCH 28.9 MCHC 29.9 L RDW 15.8 H RDW Differential 55.5 H Plt Count 237 MPV 10.7 Immature Gran % (Auto) 0.200 Neut % (Auto) 81.2 H Lymph % (Auto) 8.1 L [place] % (Auto) 9.7 Eos % (Auto) 0.7 Baso % (Auto) 0.1 Absolute Neuts (auto) 8.8 H Absolute Lymphs (auto) 0.87 Total Counted Not Reportable Sodium 133 L Potassium 5.3 H Chloride 95 L Carbon Dioxide 29.0 Anion Gap 9 BUN 55 H Creatinine 3.35 H Estim Creat Clear Calc 14.63 Est GFR (MDRD) Af Amer 18 L Est GFR (MDRD) Non-Af 14 L BUN/Creatinine Ratio 16.4 Glucose 117 H Calcium 10.0 Total Bilirubin 0.40 AST 30 ALT 7 L Alkaline Phosphatase 93 Total Protein 8.4 H Albumin 2.9 L Globulin 5.5 H Albumin/Globulin Ratio 0.5 L Blood Type A POSITIVE Antibody Screen NEGATIVE - Medical Decision Making Labs show acute renal failure, with creatinine over 3. Less than a month and a half ago, her creatinine was less than 1. Her BUN went from single digits to 55 and that same amount of time. Her chest x-ray is unremarkable, she was given slow IV fluids and Zofran and has had no more nausea or emesis here in the ER. Her abdomen is very benign. She was given a dose of IV Protonix. I discussed with Dr. Ruby Hyde, taking care of her at [facility] [place], who advised at least a 23-hour admission to make sure that her creatinine and BUN are improving with IV fluids, and to see if she will require further workup. We do not have GI coverage in the hospital this weekend, however I think it is reasonable to admit her given her symptoms of possible hematemesis/coffee-ground emesis, there was no bright red blood reported, and she is clinically stable. Of note, she is having visual hallucinations, seeing fish in her bed, but she has a history of schizoaffective disorder/schizophrenia which likely is causing that. She states otherwise she feels better. I do not think she needs to be admitted to the ICU or have emergency EGD. Discussed with Dr. Lopez. ED Disposition - Plan for ED Patient: Disposition: Acute Care Hospital [facility] Chief Complaint: GI Bleed Diagnosis: Coffee ground emesis, Diffuse abdominal pain, Acute renal failure Referrals: Ruby Hyde [Other]
--- NOTE | 2018-01-06 09:33 | ED.DCSUM_ITS ---
History of Present Illness Chief Complaint: GI Bleed Informant: Patient, [facility] Onset: Yesterday Context: Gradual Onset Quality: coffee-ground emesis Associated Symptoms: diffuse abd aching Narrative: custodial patient who was seen having some coffee-ground emesis since yesterday. Complaining of diffuse abdominal discomfort that is relatively mild. She states that she also noticed that she was rattling in her chest and having some nonproductive coughing at that started after the vomiting. When asked if she thinks maybe she aspirated vomit, she states no. She denies any dyspnea or chest discomfort. She has vomited no blood that she knows of. She has no idea if she has had hematochezia or melena. She states she had a bowel movement yesterday but did not look at it. No trouble urinating. She is DNR comfort care only, and is on no antiplatelet or anticoagulant medications. No history of peptic ulcer disease that she knows of. Of note according to the snf, she has also had some hallucinations off and on for the past couple months. She has a known history of schizophrenia. - Past Medical History (1) Chronic venous insufficiency Status: Chronic (2) Venous ulcers of both lower extremities Status: Chronic (3) Bilateral lower leg cellulitis Status: Chronic (4) Autonomic neuropathy Status: Chronic (5) Chronic venous stasis dermatitis of both lower extremities Status: Chronic (6) Delayed gastric emptying Status: Chronic (7) H/O squamous cell carcinoma of skin Status: Chronic Comment: of lower extremities (8) HTN (hypertension) Status: Chronic (9) Parkinson's disease (tremor, stiffness, slow motion, unstable posture) Status: Chronic (10) Schizo affective schizophrenia Status: Chronic Past Medical History - Allergies and Home Meds Allergies/Adverse Reactions: Allergies piperacillin [From Zosyn] Adverse Reaction (Verified 01/06/18 09:16) Rash tazobactam [From Zosyn] Adverse Reaction (Verified 01/06/18 09:16) Rash Primary Care Physician: Ruby Hyde [Other] Surgical History: noncontributory Lives: [facility] Smoking Status: Never smoker - Family History Maternal Family History: Reports: No pertinent history Review of Systems General: Reports: Malaise. Denies: Chills, Fever Eyes: Denies: Visual changes - bilaterally, Diplopia ENT: Denies: Rhinorrhea, Sore throat Cardiovascular: Denies: Chest pain, Palpitations Respiratory: Reports: Cough. Denies: Dyspnea, Sputum Gastrointestinal: Reports: Abdominal pain, Nausea, Vomiting Genitourinary: Denies: Dysuria, Hematuria Musculoskeletal: Reports: Swelling - BLE chronic, Extremity Pain - BLE chronic. Denies: Back pain Skin: Reports: Wounds - BLE, chronic Neurological: Denies: Headache, Weakness, Parasthesia Psych: Denies: Suicidal thoughts, Suicidal ideations Endocrine: Denies: Polyuria, Polydipsia Hematologic: Denies: Easy bruising, Easy bleeding Allergy: Denies: Uticaria, Swelling of the mouth, Swelling of the tongue Physical Exam Vital Signs/Narrative: Vital Signs Temp Pulse Resp BP Pulse Ox 01/06/18 09:08 97.6 F L 92 23 H 104/61 97 Inital Vital Signs reviewed: Yes General: Well nourished, Well developed, Obese, - - nad Head: Normocephalic, Atraumatic Eyes: Perrl, EOMI ENT: Moist mucous membranes, No rhinorrhea Neck: Supple, Nontender, No JVD Cardiovascular: Regular rate, Regular rhythm, No murmurs Respiratory: No distress, Chest nontender, - - expiratory diffuse/symmetric transmitted upper airway sounds. inspiratory clear throughout Abdomen: Soft, Nontender, Nondistended, Normal bowel sounds Back: Nontender, Normal Inspection Extremities: Nontender - multiple superificial wounds BLE, minor serosanguinous seeping from one medial distal left leg; Lower legs wrapped., No edema Skin: Normal color, No rash Neurological: Alert, Oriented x3, Cranial nerves II-XII grossly intact, Normal Strength, Normal Sensation Psychological: Normal affect Diagnostic/Tx/Re-eval Impressions Chest X-Ray 01/06/18 09:27 IMPRESSION: No radiographic evidence of acute cardiopulmonary disease. Electronically Signed: Flory Hyde MD at 10:08 EDT , Service support , 01/06/18 09:27 CXR [Chest 1 View (Portable)] [RAD] Stat Laboratory Results 01/06/18 01/06/18 01/06/18 09:55 09:55 10:00 WBC 10.8 RBC 4.09 L Hgb 11.8 L Hct 39.5 MCV 96.6 MCH 28.9 MCHC 29.9 L RDW 15.8 H RDW Differential 55.5 H Plt Count 237 MPV 10.7 Immature Gran % (Auto) 0.200 Neut % (Auto) 81.2 H Lymph % (Auto) 8.1 L [place] % (Auto) 9.7 Eos % (Auto) 0.7 Baso % (Auto) 0.1 Absolute Neuts (auto) 8.8 H Absolute Lymphs (auto) 0.87 Total Counted Not Reportable Sodium 133 L Potassium 5.3 H Chloride 95 L Carbon Dioxide 29.0 Anion Gap 9 BUN 55 H Creatinine 3.35 H Estim Creat Clear Calc 14.63 Est GFR (MDRD) Af Amer 18 L Est GFR (MDRD) Non-Af 14 L BUN/Creatinine Ratio 16.4 Glucose 117 H Calcium 10.0 Total Bilirubin 0.40 AST 30 ALT 7 L Alkaline Phosphatase 93 Total Protein 8.4 H Albumin 2.9 L Globulin 5.5 H Albumin/Globulin Ratio 0.5 L Blood Type A POSITIVE Antibody Screen NEGATIVE - Medical Decision Making Labs show acute renal failure, with creatinine over 3. Less than a month and a half ago, her creatinine was less than 1. Her BUN went from single digits to 55 and that same amount of time. Her chest x-ray is unremarkable, she was given slow IV fluids and Zofran and has had no more nausea or emesis here in the ER. Her abdomen is very benign. She was given a dose of IV Protonix. I discussed with Dr. Ruby Hyde, taking care of her at [facility], who advised at least a 23-hour admission to make sure that her creatinine and BUN are improving with IV fluids, and to see if she will require further workup. We do not have GI coverage in the hospital this weekend, however I think it is reasonable to admit her given her symptoms of possible hematemesis/coffee-ground emesis, there was no bright red blood reported, and she is clinically stable. Of note, she is having visual hallucinations, seeing fish in her bed, but she has a history of schizoaffective disorder/schizophrenia which likely is causing that. She states otherwise she feels better. I do not think she needs to be admitted to the ICU or have emergency EGD. Discussed with Dr. Lopez. ED Disposition - Plan for ED Patient: Disposition: Acute Care Hospital [facility] Chief Complaint: GI Bleed Diagnosis: Coffee ground emesis, Diffuse abdominal pain, Acute renal failure Referrals: Ruby Hyde [Other]
[2018-01-06] MEDS: Albuterol 2.5 MG/3 ML VIAL.NEB. INHALATION (09:54)
[2018-01-06 09:56] VITALS: PULSE 89; RESP 18
[2018-01-06] MEDS: Ondansetron 4 MG/2 ML Vial IV (10:02)
[2018-01-06] MEDS: 0.9% Normal Saline 1,000 ML 100 ML IV ×2 (10:02→14:21)
[2018-01-06 10:19] LABS: Absolute Lymphocyte Count 0.87 X10^3/ul (0.83-4.51); Absolute Neutrophil Count 8.8 X10^3/uL (2.0-7.7); Basophil# 0.01 X10^3/uL; Basophil% 0.1 % (0-1); Eosinophil# 0.08 X10^3/uL; Eosinophils% 0.7 % (0-5); Hematocrit 39.5 % (37-47); Hemoglobin 11.8 g/dl (12.0-15.0); Lymphocyte # 0.87 X10^3/ul (4.0); Lymphocyte % 8.1 % (19-41); Mean Corp Hgb Conc 29.9 g/gl (32-36); Mean Corpuscular Hgb 28.9 pg (27.0-32.0); Mean Corpuscular Volume 96.6 fL (81-99); Mean Platelet Vol. 10.7 fl (6.2-12.0); Monocyte# 1.05 X10^3/uL; Monocyte% 9.7 % (0-10); Neutrophil # 8.75 X10^3/uL (2.7-7.7); Neutrophil % 81.2 % (47-70); Platelet Count 237 K/mm3 (150-450); RBC Distribution Width CV 15.8 % (11.6-14.6); RBC Distribution Width SD 55.5 fl (35.1-43.9); Red Blood Count 4.09 M/mm3 (4.2-5.4); White Blood Count 10.8 K/mm3 (4.4-11.0)
[2018-01-06 10:21] LABS: POSITIVE COUNT NO; POSITIVE DIFFERENTIAL NO; POSITIVE MORPHOLOGY NO
[2018-01-06 11:04] LABS: ALB/GLOB Ratio 0.5 RATIO (0.9-2.4); AST(SGOT) 30 U/L (15-37); Alanine Aminotransfer ALT/SGPT 7 U/L (13-56); Albumin, Serum 2.9 g/dL (3.2-5.0); Alkaline Phosphatase 93 U/L (45-117); Anion Gap 9 (5-15); BUN 55 mg/dL (7-18); BUN/Creat Ratio 16.4 RATIO (10-20); Chloride 95 mmol/L (98-107); Creatinine, Serum 3.35 mg/dL (0.55-1.02); EST Glomerular Filtration Rate 14 mL/min (>60); Est Glom Filt Rate - Afr Amer 18 mL/min (>60); Estimated Creatinine Clearance 14.63 ml/min; Globulin 5.5 g/dL (2.2-4.2); Glucose 117 mg/dL (74-106); Potassium 5.3 mmol/L (3.5-5.1); Protein, Total 8.4 g/dL (6.4-8.2); Sodium Level 133 mmol/L (136-145)
--- NOTE | 2018-01-06 11:44 | NURSING ---
CALLED DR ALYSA PAT, , LEFT MESSAGE FOR HER TO CALL DR MCKINNON ABOUT PATIENT
[2018-01-06 12:48] VITALS: PULSE 92; RESP 22; O2SAT 97
--- NOTE | 2018-01-06 12:58 | PCM.HP.STD ---
History of Present Illness Date of Admission: 01/06/18 Chief Complaint: Kidney failure and possible upper GI bleed The patient is a 72 year old F with multiple comorbidities, jail resident was sent to ER for concern of coffee-ground emesis. Patient said she had about 2-3 times coffee-ground/brown emesis although she had vomiting for last 6 days on and off. In the ER note, there is mention about abdominal discomfort but patient did not complain to me. In ED, initial lab evaluation shows patient has creatinine 3.35, BUN 55, hyponatremia and hypochloremia, hyperkalemia, K5.3. Patient has baseline creatinine is about 1.0 as, last one in November 26, 2017. Chest x-ray shows no evidence of acute cardiopulmonary disease Patient had upper endoscopy long time ago and currently she does not want EGD. Patient is DNR CC arrest Past Medical History Past Medical History (Chronic Problems): Chronic Problems (Last Reviewed 12/20/17 @ 12:37 by Alejandra Singh) Obesity, Class III, BMI 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 obesity) (Chronic) HTN (hypertension) (Chronic) Chronic venous stasis dermatitis of both lower extremities (Chronic) Chronic venous insufficiency (Chronic) Venous ulcers of both lower extremities (Chronic) 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) Bilateral leg edema (Chronic) Parkinson's disease (tremor, stiffness, slow motion, unstable posture) (Chronic) Autonomic neuropathy (Chronic) Schizo affective schizophrenia (Chronic) Delayed gastric emptying (Chronic) H/O squamous cell carcinoma of skin (Chronic) of lower extremities 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) Bilateral lower leg cellulitis (Chronic) Medical History: Medical History (Last Reviewed 12/20/17 @ 12:37 by Alejandra Singh) Anemia in other chronic diseases classified elsewhere D63.8 Anxiety F41.9 Anxiety disorder F41.9 Bipolar disorder, current episode manic without psychotic features F31.10 COPD (chronic obstructive pulmonary disease) J44.9 Cellulitis of extremity L03.119 Chronic kidney disease N18.9 Colon stricture K56.699 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 Dysuria R30.0 Encounter for attention to gastrostomy Z43.1 Essential (primary) hypertension I10 Gastroparesis K31.84 History of falling Z91.81 Hypertensive chronic kidney disease with stage 1 through stage 4 chronic kidney disease, or unspecified chronic kidney disease I12.9 Hypokalemia E87.6 Hypothyroidism E03.9 Ileus K56.7 Insomnia G47.00 Major depressive disorder, recurrent F33.9 Muscle weakness M62.81 Obesity E66.9 Other abnormalities of gait and mobility R26.89 Other lack of coordination R27.8 Personal history of urinary infection Z87.440 Presence of artificial hip joint Z96.649 Schizoaffective disorder F25.9 Schizophrenia F20.9 Sepsis A41.9 Squamous cell carcinoma of overlapping sites of skin C44.82 Stage II pressure ulcer of sacral region L89.152 Stage II pressure ulcer of sacral region L89.152 Thrombocytopenia D69.6 Unsteadiness on feet R26.81 Vitamin D deficiency E55.9 Allergies piperacillin [From Zosyn] Adverse Reaction (Verified 01/06/18 09:16) Rash tazobactam [From Zosyn] Adverse Reaction (Verified 01/06/18 09:16) Rash Home Medications: Ambulatory Orders Medication Instructions Recorded Carvedilol [Coreg (Beta Justin)] 3.125 mg PO BID 11/17/15 Cholecalciferol (VIT D3) [Vitamin 2,000 unit PO BREAKFAST 11/17/15 D3] Furosemide [Lasix] 20 mg PO DAILY 11/17/15 Gabapentin [Neurontin] 100 mg PO TIDCM 11/17/15 Lisinopril [Zestril] 2.5 mg PO QHS 11/17/15 Ropinirole HCl [Ropinirole ER] 8 mg PO QHS 11/17/15 buPROPion XL [Wellbutrin Xl] 300 mg PO BREAKFAST 11/17/15 Calcium Carbonate 600 mg PO DAILY 06/21/16 Escitalopram Oxalate [Lexapro] 10 mg PO BREAKFAST 06/22/16 Ondansetron HCl [Zofran] 4 mg PO Q6H PRN PRN 07/15/16 Hydrocodone Bitart/Apap 5-325 1 tablet PO Q4H PRN PRN #30 tablet 07/18/16 [[place] 5/325] Acetaminophen [Tylenol Arthritis] 650 mg PO Q4H PRN PRN MDD 4 GM 08/23/17 Aripiprazole [Abilify] 7.5 mg PO DAILY 08/23/17 Bisacodyl [Bisac-Evac] 10 mg RC DAILY PRN PRN 08/23/17 Carbidopa/Levodopa 25/100 [Sinemet 1 tablet PO TIDAC 08/23/17 25/100] Hydrocodone/Acetaminophen [[place] 1 each PO BID 08/23/17 5-325 Tablet] Lactulose [Chronulac] 20 gm PO BREAKFAST 08/23/17 Magnesium Hydroxide [Milk Of 30 ml PO DAILY PRN PRN 08/23/17 Magnesia] Rotigotine [Neupro] 2 mg TRANSDERM. QHS 08/23/17 Urea [Ure-K] 142 gm TP QHS PRN PRN 08/23/17 Senna [Senokot] 2 tablet PO BID 09/05/17 Lactobacillus Rhamnosus GG 1 each PO QHS 11/30/17 [Culturelle] Linezolid [Zyvox] 600 mg PO Q12H 01/06/18 Metronidazole [Flagyl] 500 mg PO BID 01/06/18 Smz/Tmp Ds [Bactrim Ds] 1 tablet PO BID 01/06/18 Surgical History: Surgical History (Last Reviewed 12/20/17 @ 12:37 by Alejandra Singh) Presence of cardiac and vascular implant and graft Z95.9 Surgical History: noncontributory Lives: Prison Smoking Status: Never smoker - *Family History Maternal History Items: No pertinent history Review of Systems Constitutional: Denies: Chills, Fever, Weight Change HEENT: Denies: Head Aches, Sinus Congestion, Sinus Drainage Cardiovascular: Denies: Chest Pain, Palpitations Respiratory: Denies: Shortness of breath at rest, Sputum production Gastrointestinal: Reports: Constipation, - - Vague abdominal discomfort. Denies: Nausea, Vomiting Genitourinary: Denies: Dysuria Skin: Denies: Rash, Wounds Neurological: Denies: Numbness, Tingling, Focal weakness Psychiatric: Denies: Anxiety, Depression, Homicidal Ideations, Suicidal Ideations Hematologic/ Lymphatic: Denies: Easy Bruising, Easy Bleeding Unable to obtain accurate/complete ROS d/t: Dementia/schizoaffective disorder. Parkinson disease VTE Information - Inpt Only VTE Present on Admission: No VTE Mechan Device Prophylaxis: SCD's Reason prophylaxis not ordered:: Medical Contraindication - GI bleed Patient Problems: Active and Suspected Problems (Last Reviewed 12/20/17 @ 12:37 by Alejandra Singh) Coffee ground emesis (Acute) Diffuse abdominal pain (Acute) Acute renal failure (Acute) - Physical Exam General: Alert, Cooperative, Lethargic HEENT: Atraumatic, PERRLA, EOMI, Normocephalic Oral: Dry Mucosa Neck: Supple, No JVD, Negative Carotid Bruits Lungs: Diminished, Rhonchi Cardiovascular: Regular rate, No murmurs Abdomen: Bowel Sounds Present, Soft, Non Tender, Non-Distended Extremities: No edema, Capillary Refill Less than 3 Seconds Skin: - - Superficial skin distortion/ulcer in both legs. Covered with bandage Musculoskeletal: No Tenderness to Palpation of Joints or Extremities, Arthritic Changes Neurological: Cranial nerves II-XII grossly intact Psych/Mental Status: Normal Affect, Appropriate Vital Signs Temp Pulse Resp BP Pulse Ox 97.6 F L 92 22 H 104/61 97 01/06/18 09:08 01/06/18 12:48 01/06/18 12:48 01/06/18 09:08 01/06/18 12:48 Oxygen Delivery Method Room Air Weight: 222 lb 10.67 oz Body Mass Index (BMI) 35.9 Laboratory Tests Past 24 Hrs 01/06/18 01/06/18 01/06/18 09:55 09:55 10:00 WBC 10.8 RBC 4.09 L Hgb 11.8 L Hct 39.5 MCV 96.6 MCH 28.9 MCHC 29.9 L RDW 15.8 H RDW Differential 55.5 H Plt Count 237 MPV 10.7 Immature Gran % (Auto) 0.200 Neut % (Auto) 81.2 H Lymph % (Auto) 8.1 L [place] % (Auto) 9.7 Eos % (Auto) 0.7 Baso % (Auto) 0.1 Absolute Neuts (auto) 8.8 H Absolute Lymphs (auto) 0.87 Total Counted Not Reportable Sodium 133 L Potassium 5.3 H Chloride 95 L Carbon Dioxide 29.0 Anion Gap 9 BUN 55 H Creatinine 3.35 H Estim Creat Clear Calc 14.63 Est GFR (MDRD) Af Amer 18 L Est GFR (MDRD) Non-Af 14 L BUN/Creatinine Ratio 16.4 Glucose 117 H Calcium 10.0 Total Bilirubin 0.40 AST 30 ALT 7 L Alkaline Phosphatase 93 Total Protein 8.4 H Albumin 2.9 L Globulin 5.5 H Albumin/Globulin Ratio 0.5 L Blood Type A POSITIVE Antibody Screen NEGATIVE Assessment/Plan All Active Problems (Last Reviewed 12/20/17 @ 12:37 by Alejandra Singh) Nausea & vomiting (Resolved) Ileus (Resolved) UTI (urinary tract infection) (Resolved) Dehydration (Acute) Hypomagnesemia (Resolved) Hyponatremia (Acute) Small bowel obstruction (Ruled-out) Cellulitis (Acute) Cellulitis and abscess of left leg (Acute) Coffee ground emesis (Acute) Diffuse abdominal pain (Acute) Acute renal failure (Acute) Cellulitis (Resolved) Moderate malnutrition (Resolved) Squamous cell carcinoma in situ (Resolved) The patient is a 72 year old F with multiple comorbidities, jail resident was sent to ER for concern of coffee-ground emesis. Patient said she had about 2-3 times coffee-ground/brown emesis although she had vomiting for last 6 days on and off. In the ER note, there is mention about abdominal discomfort but patient did not complain to me. In ED, initial lab evaluation shows patient has creatinine 3.35, BUN 55, hyponatremia and hypochloremia, hyperkalemia, K5.3. Patient has baseline creatinine is about 1.0 as, last one in November 26, 2017. Chest x-ray shows no evidence of acute cardiopulmonary disease Patient had upper endoscopy long time ago and currently she does not want EGD. Patient is DNR CC arrest She was last admitted in November 2017 for bilateral lower leg cellulitis. Of note, she has bilateral lower leg edema/lymphedema, mostly bedridden. 1. Acute kidney injury on CKD stage III most probably prerenal/vomiting: IV fluid normal saline. Correct hypovolemia. Monitor kidney function and electrolytes. 2. Possible upper GI bleed: Monitor H&H. IV Protonix twice daily. Group and crossmatch. H&H is 11.8/39.5. Platelet count 237,000. 3. Multiple electrolyte disorder: Hyponatremia, hyperkalemia, hypochloremia consistent with hypovolemia. Anion gap is normal. Bicarb 29. IV fluid normal saline. 4. Parkinson disease, schizoaffective disorder and dementia: Hold oral medications. speech/swallow evaluation for concern of possible aspiration. Chest x-ray did not show evidence of pneumonia. 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 Multiple comorbidities complicates the present care and expect difficult and delay recovery Clinical Impression(s) from Imaging Studies Chest X-Ray 01/06/18 09:27 IMPRESSION: No radiographic evidence of acute cardiopulmonary disease. Laboratory Results 01/06/18 09:55: WBC 10.8, RBC 4.09 L, Hgb 11.8 L, Hct 39.5, MCV 96.6, MCH 28.9, MCHC 29.9 L, RDW 15.8 H, RDW Differential 55.5 H, Plt Count 237, MPV 10.7, Immature Gran % (Auto) 0.200, Neut % (Auto) 81.2 H, Lymph % (Auto) 8.1 L, [place] % (Auto) 9.7, Eos % (Auto) 0.7, Baso % (Auto) 0.1, Absolute Neuts (auto) 8.8 H, Absolute Lymphs (auto) 0.87, Total Counted Not Reportable 01/06/18 09:55: Sodium 133 L, Potassium 5.3 H, Chloride 95 L, Carbon Dioxide 29.0, Anion Gap 9, BUN 55 H, Creatinine 3.35 H, Estim Creat Clear Calc 14.63, Est GFR (MDRD) Af Amer 18 L, Est GFR (MDRD) Non-Af 14 L, BUN/Creatinine Ratio 16.4, Glucose 117 H, Calcium 10.0, Total Bilirubin 0.40, AST 30, ALT 7 L, Alkaline Phosphatase 93, Total Protein 8.4 H, Albumin 2.9 L, Globulin 5.5 H, Albumin/Globulin Ratio 0.5 L 01/06/18 10:00: Blood Type A POSITIVE, Antibody Screen NEGATIVE Code Visit Inpatient E&M: 96370 Subs Hosp L3
--- NOTE | 2018-01-06 13:10 | NURSING ---
313 DAXA FRANCIS ON CKD, GI BLEED
[2018-01-06 13:56] VITALS: BMI 34.6
[2018-01-06 13:57] VITALS: BP 81/52; PULSE 87; RESP 18; TEMP 37; O2SAT 94
[2018-01-06 16:00] VITALS: BP 100/35; PULSE 84; RESP 18; TEMP 37; O2SAT 92
[2018-01-06] MEDS: Gabapentin 100 MG Capsule PO (16:09)
[2018-01-06] MEDS: Carbidopa/Levodopa 25/100 Tablet PO (16:09)
[2018-01-06 21:42] VITALS: BP 105/61; PULSE 83; RESP 16; TEMP 36.6; O2SAT 96
[2018-01-06] MEDS: ARIPiprazole 5 MG Tablet 7.5 MG PO (21:46)
[2018-01-06] MEDS: Senna/Docusate Sodium 1 Tablet 2 TABLET PO (21:46)
[2018-01-06] MEDS: Pramipexole Di-HCl 0.25 MG Tablet 0.75 MG PO (21:47)
[2018-01-07] MEDS: Nystatin Powder 15gm Bottle 1 APPLIC TOPICAL ×4 (00:04→22:06)
[2018-01-07] MEDS: 0.9% Normal Saline 1,000 ML 100 ML IV ×3 (00:04→21:58)
[2018-01-07 02:48] VITALS: BP 113/56; PULSE 82; RESP 16; TEMP 36.6; O2SAT 95
[2018-01-07] MEDS: Carbidopa/Levodopa 25/100 Tablet PO ×3 (06:03→17:04)
[2018-01-07] MEDS: Pramipexole Di-HCl 0.25 MG Tablet 0.75 MG PO ×3 (06:03→22:04)
[2018-01-07 07:18] VITALS: O2SAT 94
[2018-01-07 08:15] VITALS: BP 110/62; PULSE 74; RESP 18; TEMP 36.6; O2SAT 100
[2018-01-07] MEDS: Senna/Docusate Sodium 1 Tablet 2 TABLET PO (08:17)
[2018-01-07] MEDS: buPROPion (XL) 300 MG TABLET.XL PO (08:17)
[2018-01-07] MEDS: Carvedilol 3.125 MG TABLET PO (08:17)
[2018-01-07] MEDS: Gabapentin 100 MG Capsule PO ×3 (08:17→17:04)
[2018-01-07] MEDS: Escitalopram Oxalate 10 MG Tablet PO (08:17)
[2018-01-07] MEDS: Menthol/Lanolin/Calamine/Znox 113 GM Tube 1 APPLIC TOPICAL ×4 (08:18→22:06)
[2018-01-07 08:19] LABS: Absolute Lymphocyte Count 0.92 X10^3/ul (0.83-4.51); Absolute Neutrophil Count 3.6 X10^3/uL (2.0-7.7); Eosinophils% 3.9 % (0-5); Hematocrit 32.6 % (37-47); Hemoglobin 9.9 g/dl (12.0-15.0); Lymphocyte # 0.92 X10^3/ul (4.0); Mean Corp Hgb Conc 30.4 g/gl (32-36); Mean Corpuscular Hgb 29.1 pg (27.0-32.0); Mean Corpuscular Volume 95.9 fL (81-99); Mean Platelet Vol. 9.7 fl (6.2-12.0); Monocyte% 7.8 % (0-10); Neutrophil # 3.59 X10^3/uL (2.7-7.7); Neutrophil % 70.1 % (47-70); Platelet Count 151 K/mm3 (150-450); RBC Distribution Width CV 15.9 % (11.6-14.6); RBC Distribution Width SD 55.5 fl (35.1-43.9); White Blood Count 5.1 K/mm3 (4.4-11.0)
[2018-01-07 08:20] LABS: POSITIVE COUNT NO; POSITIVE DIFFERENTIAL NO; POSITIVE MORPHOLOGY NO
[2018-01-07 08:44] LABS: Anion Gap 5 (5-15); BUN 48 mg/dL (7-18); BUN/Creat Ratio 19.3 RATIO (10-20); Calcium,Total 8.4 mg/dL (8.5-10.1); Chloride 104 mmol/L (98-107); Creatinine, Serum 2.49 mg/dL (0.55-1.02); EST Glomerular Filtration Rate 20 mL/min (>60); Est Glom Filt Rate - Afr Amer 25 mL/min (>60); Estimated Creatinine Clearance 19.68 ml/min; Glucose 65 mg/dL (74-106); Potassium 4.3 mmol/L (3.5-5.1); Sodium Level 136 mmol/L (136-145)
--- NOTE | 2018-01-07 11:50 | PN_ITS ---
Patient Problems: Active and Suspected Problems (Last Reviewed 12/20/17 @ 12:37 by Alejandra Singh) Coffee ground emesis (Acute) Diffuse abdominal pain (Acute) Acute renal failure (Acute) Subjective: Patient complain of 3 loose bowel movements but nonbloody. Patient also complains of left lower quadrant abdominal discomfort. No fever or chills. As per fdc, patient is on Bactrim DS for recent MRSA. Stool for C. difficile, enteric bacteriology panel, RBC and WBC ordered On contact precaution. Vitals/I&O's: Vital Signs Temp Pulse Resp BP Pulse Ox 97.8 F 74 18 110/62 100 01/07/18 08:15 01/07/18 08:15 01/07/18 08:15 01/07/18 08:15 01/07/18 08:15 Oxygen Delivery Method Room Air Weight: 214 lb 8 oz Body Mass Index (BMI) 34.6 Intake and Output for Last 24 Hours 01/05/18 01/06/18 01/07/18 23:59 23:59 23:59 Intake Total 328 / 328 2097 Balance 328 / 328 2097 General: Alert, Oriented x3, Cooperative HEENT: Atraumatic, PERRLA, EOMI, Normocephalic Neck: Supple, No JVD, Negative Carotid Bruits Lungs: Clear to auscultation, No rhonchi, No wheeze, No rales, Diminished Cardiovascular: Regular rate, Regular Rhythm, No murmurs Abdomen: Bowel Sounds Present, Soft, Non Tender, Non-Distended Extremities: No edema, Capillary Refill Less than 3 Seconds Skin: No rashes, No breakdown Musculoskeletal: No Tenderness to Palpation of Joints or Extremities Neurological: Cranial nerves II-XII grossly intact Psych/Mental Status: Normal Affect, Appropriate Laboratory Results 01/07/18 08:05: WBC 5.1, RBC 3.40 L, Hgb 9.9 L, Hct 32.6 L, MCV 95.9, MCH 29.1, MCHC 30.4 L, RDW 15.9 H, RDW Differential 55.5 H, Plt Count 151, MPV 9.7, Immature Gran % (Auto) 0.200, Neut % (Auto) 70.1 H, Lymph % (Auto) 18.0 L, [place] % (Auto) 7.8, Eos % (Auto) 3.9, Baso % (Auto) 0.0, Absolute Neuts (auto) 3.6, Absolute Lymphs (auto) 0.92, Total Counted Not Reportable 01/07/18 08:05: Sodium 136, Potassium 4.3, Chloride 104, Carbon Dioxide 27.0, Anion Gap 5, BUN 48 H, Creatinine 2.49 H, Estim Creat Clear Calc 19.68, Est GFR (MDRD) Af Amer 25 L, Est GFR (MDRD) Non-Af 20 L, BUN/Creatinine Ratio 19.3, Glucose 65 L, Calcium 8.4 L Current Medications Acetaminophen (Tylenol) 650 mg PO Q4H PRN PRN Reason: PAIN/FEVER Hydrocodone Bitart/Acetaminophen ([place] 5mg-325mg) 1 tablet PO Q4H PRN PRN PRN Reason: PAIN Aripiprazole (Abilify) 7.5 mg PO QHS [facility] Last Admin: 01/06/18 21:46 Dose: 7.5 mg Bisacodyl (Dulcolax) 10 mg RECTAL DAILY PRN PRN PRN Reason: Constipation Bupropion HCl (Wellbutrin Xl) 300 mg PO DAILY [facility] Last Admin: 01/07/18 08:17 Dose: 300 mg Calamine/Phenol (Calmoseptine Ointment) 1 applic TOPICAL 4X/DAY [facility]; Protocol Last Admin: 01/07/18 08:18 Dose: 1 applicatio Carbidopa/Levodopa (Sinemet) 1 tablet PO TIDAC [facility] Last Admin: 01/07/18 09:46 Dose: 1 tablet Carvedilol (Coreg) 3.125 mg PO BID [facility] Last Admin: 01/07/18 08:17 Dose: 3.125 mg Escitalopram Oxalate (Lexapro) 10 mg PO BREAKFAST [facility] Last Admin: 01/07/18 08:17 Dose: 10 mg Gabapentin (Neurontin) 100 mg PO TIDCM [facility] Last Admin: 01/07/18 11:22 Dose: 100 mg Sodium Chloride () 1,000 mls @ 100 mls/hr IV .Q10H [facility] Last Admin: 01/07/18 09:47 Dose: 100 mls/hr Pantoprazole Sodium 40 mg/ (Sodium Chloride) 110 mls @ 330 mls/hr IV Q12 [facility] Last Admin: 01/07/18 08:18 Dose: 330 mls/hr Metronidazole 500 mg/ N/A 100 mls @ 100 mls/hr IV Q8 [facility] Lactulose (Chronulac, Cephulac) 20 gm PO BREAKFAST [facility] Last Admin: 01/07/18 08:18 Dose: Not Given Lisinopril (Zestril) 2.5 mg PO QHS [facility] Last Admin: 01/06/18 21:48 Dose: Not Given Nystatin (Mycostatin Powder) 1 applic TOPICAL TID [facility]; Protocol Last Admin: 01/07/18 06:04 Dose: 1 applicatio Ondansetron HCl (Zofran) 4 mg IV Q6H PRN PRN PRN Reason: NAUSEA Pramipexole Dihydrochloride (Mirapex) 0.75 mg PO TID [facility] Last Admin: 01/07/18 06:03 Dose: 0.75 mg Promethazine HCl (Phenergan) 12.5 mg IV Q6H PRN PRN PRN Reason: NAUSEA/VOMITING Rotigotine (Neupro) 2 mg TRANSDERM. QHS [facility] Last Admin: 01/06/18 21:48 Dose: 2 mg Senna/Docusate Sodium (Senokot-S, Cristina-Colace) 2 tablet PO BID [facility] Last Admin: 01/07/18 08:17 Dose: 2 tablet Sodium Chloride () 5 - 30 ml IV UD PRN PRN Reason: SALINE FLUSH Medical Necessity - Tobacco Use Smoking Status: Never smoker Assessment/Plan All Active Problems (Last Reviewed 12/20/17 @ 12:37 by Alejandra Singh) Nausea & vomiting (Resolved) Ileus (Resolved) UTI (urinary tract infection) (Resolved) Dehydration (Acute) Hypomagnesemia (Resolved) Hyponatremia (Acute) Small bowel obstruction (Ruled-out) Cellulitis (Acute) Cellulitis and abscess of left leg (Acute) Coffee ground emesis (Acute) Diffuse abdominal pain (Acute) Acute renal failure (Acute) Cellulitis (Resolved) Moderate malnutrition (Resolved) Squamous cell carcinoma in situ (Resolved) The patient is a 72 year old F with multiple comorbidities, [facility]dc resident was sent to ER for concern of coffee-ground emesis. Patient said she had about 2-3 times coffee-ground/brown emesis although she had vomiting for last 6 days on and off. In the ER note, there is mention about abdominal discomfort but patient did not complain to me. In ED, initial lab evaluation shows patient has creatinine 3.35, BUN 55, hyponatremia and hypochloremia, hyperkalemia, K5.3. Patient has baseline creatinine is about 1.0 as, last one in November 26, 2017. Chest x-ray shows no evidence of acute cardiopulmonary disease Patient had upper endoscopy long time ago and currently she does not want EGD. Patient is DNR CC arrest She was last admitted in November 2017 for bilateral lower leg cellulitis. Of note, she has bilateral lower leg edema/lymphedema, mostly bedridden. 1. Acute kidney injury on CKD stage III most probably prerenal/vomiting: Continue IV fluid. Patient still BUN elevated. BUN and creatinine has improved. Monitor kidney function and electrolytes. 2. Possible upper or lower GI bleed: H&H is dropped from 11.8-9.9 but may be hemodilution as the patient is getting IV fluid. Monitor H&H. IV Protonix twice daily. Group and crossmatch. Admitting H&H is 11.8/39.5. Platelet count 237,000. Discussed with the patient again and patient refuses for EGD and colonoscopy and patient is high risk for anesthesia and procedure. Conservative management. 3. C. difficile colitis: Patient was on Bactrim DS for MRSA in fdc confirmed by the nursing staff. Bactrim was held at the time of admission for the suspicion of C. difficile. Patient already on Flagyl. Stool for C. difficile came positive. Occult blood positive. Vancomycin 125 mill grams p.o. every 6 hourly added. Enteric bacteriology panel negative. Multiple electrolyte disorder: Hyponatremia, hyperkalemia, hypochloremia consistent with hypovolemia. Anion gap is normal. Electrolyte profile is improved. IV fluid normal saline. 4. Parkinson disease, schizoaffective disorder and dementia: Hold oral medications. speech/swallow evaluation for concern of possible aspiration. Chest x-ray did not show evidence of pneumonia. 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 Multiple comorbidities complicates the present care and expect difficult and delay recovery. DVT prophylaxis: Pharmacological prophylaxis containing view of GI bleed and acute kidney injury on CKD Clinical Impression(s) from Imaging Studies. Chest X-Ray 01/06/18 09:27 IMPRESSION: No radiographic evidence of acute cardiopulmonary disease. Microbiology Past 72 Hours 01/07/18 11:50 Stool Enteric Bacteriology - Final 01/07/18 11:50 Stool C. difficile DNA Amplification - Final 01/07/18 11:50 Stool Stool Lactoferrin - Final 01/07/18 11:50 Stool Stool Occult Blood (BRIE) - Final Occult Blood Positive Laboratory Results 01/07/18 08:05: WBC 5.1, RBC 3.40 L, Hgb 9.9 L, Hct 32.6 L, MCV 95.9, MCH 29.1, MCHC 30.4 L, RDW 15.9 H, RDW Differential 55.5 H, Plt Count 151, MPV 9.7, Immature Gran % (Auto) 0.200, Neut % (Auto) 70.1 H, Lymph % (Auto) 18.0 L, [place] % (Auto) 7.8, Eos % (Auto) 3.9, Baso % (Auto) 0.0, Absolute Neuts (auto) 3.6, Absolute Lymphs (auto) 0.92, Total Counted Not Reportable 01/07/18 08:05: Sodium 136, Potassium 4.3, Chloride 104, Carbon Dioxide 27.0, Anion Gap 5, BUN 48 H, Creatinine 2.49 H, Estim Creat Clear Calc 19.68, Est GFR (MDRD) Af Amer 25 L, Est GFR (MDRD) Non-Af 20 L, BUN/Creatinine Ratio 19.3, Glucose 65 L, Calcium 8.4 L 01/06/18 09:55: WBC 10.8, RBC 4.09 L, Hgb 11.8 L, Hct 39.5, MCV 96.6, MCH 28.9, MCHC 29.9 L, RDW 15.8 H, RDW Differential 55.5 H, Plt Count 237, MPV 10.7, Immature Gran % (Auto) 0.200, Neut % (Auto) 81.2 H, Lymph % (Auto) 8.1 L, [place] % (Auto) 9.7, Eos % (Auto) 0.7, Baso % (Auto) 0.1, Absolute Neuts (auto) 8.8 H, Absolute Lymphs (auto) 0.87, Total Counted Not Reportable 01/06/18 09:55: Sodium 133 L, Potassium 5.3 H, Chloride 95 L, Carbon Dioxide 29.0, Anion Gap 9, BUN 55 H, Creatinine 3.35 H, Estim Creat Clear Calc 14.63, Est GFR (MDRD) Af Amer 18 L, Est GFR (MDRD) Non-Af 14 L, BUN/Creatinine Ratio 16.4, Glucose 117 H, Calcium 10.0, Total Bilirubin 0.40, AST 30, ALT 7 L, Alkaline Phosphatase 93, Total Protein 8.4 H, Albumin 2.9 L, Globulin 5.5 H, Albumin/Globulin Ratio 0.5 L 01/06/18 10:00: Blood Type A POSITIVE, Antibody Screen NEGATIVE Code Visit Inpatient E&M: 36684 Subs Hosp L3
[2018-01-07 15:00] VITALS: BP 113/69; PULSE 73; RESP 18; TEMP 36.6; O2SAT 95
--- NOTE | 2018-01-07 16:20 | RAD_ITS ---
STUDY: X-RAY - ABDOMEN/PELVIS REASON FOR EXAM: Female, 72 years old. C. Difficile colitis TECHNIQUE: AP supine and decubitus views of the abdomen and pelvis. COMPARISON: Prior study of September 10, 2017 FINDINGS: The lung bases are not in the field of view of the study. There is severe diffuse gaseous distention of colon to the level of the rectosigmoid. Liquid stool is seen in the cecal region. There is thumbprinting of the colon in the region of the splenic flexure suggestive of wall thickening. There is no demonstrated free abdominal air. The visualized liver, spleen and kidneys are grossly normal in size and morphology. Normal soft tissue structures. Status post total left hip replacement changes are seen. RAD/Abd Inc Decub and/or Erect IMPRESSION: Severe diffuse gaseous distention of the colon to the level of the rectosigmoid. There is thumbprinting of the colon in the region of the splenic flexure suggestive of wall thickening. There is no evidence of free intraperitoneal air. Electronically Signed: Rohan Estrella MD at 20:31 EDT , Service support ,
[2018-01-07 20:17] LABS: Hematocrit 33.3 % (37-47)
[2018-01-07 21:40] VITALS: BP 96/52; PULSE 68; RESP 16; TEMP 36.4; O2SAT 94
[2018-01-07] MEDS: ARIPiprazole 5 MG Tablet 7.5 MG PO (22:04)
[2018-01-08 04:52] VITALS: BP 132/65; PULSE 73; RESP 18; TEMP 36.4; O2SAT 99
[2018-01-08] MEDS: Nystatin Powder 15gm Bottle 1 APPLIC TOPICAL ×3 (05:01→22:06)
[2018-01-08] MEDS: Pramipexole Di-HCl 0.25 MG Tablet 0.75 MG PO ×3 (05:06→22:09)
[2018-01-08] MEDS: Acetaminophen 325 MG Tablet 650 MG PO (05:06)
[2018-01-08 06:25] LABS: Absolute Lymphocyte Count 0.65 X10^3/ul (0.83-4.51); Absolute Neutrophil Count 2.9 X10^3/uL (2.0-7.7); Basophil# 0.01 X10^3/uL; Basophil% 0.2 % (0-1); Eosinophil# 0.11 X10^3/uL; Eosinophils% 2.7 % (0-5); Hematocrit 32.7 % (37-47); Lymphocyte # 0.65 X10^3/ul (4.0); Lymphocyte % 15.8 % (19-41); Mean Corp Hgb Conc 30.6 g/gl (32-36); Mean Corpuscular Hgb 30.2 pg (27.0-32.0); Mean Corpuscular Volume 98.8 fL (81-99); Mean Platelet Vol. 10.2 fl (6.2-12.0); Monocyte# 0.42 X10^3/uL; Monocyte% 10.2 % (0-10); Neutrophil # 2.91 X10^3/uL (2.7-7.7); Neutrophil % 70.9 % (47-70); Platelet Count 116 K/mm3 (150-450); RBC Distribution Width CV 15.1 % (11.6-14.6); RBC Distribution Width SD 52.6 fl (35.1-43.9); Red Blood Count 3.31 M/mm3 (4.2-5.4); White Blood Count 4.1 K/mm3 (4.4-11.0)
[2018-01-08 06:41] LABS: Anion Gap 9 (5-15); BUN 32 mg/dL (7-18); BUN/Creat Ratio 21.8 RATIO (10-20); Calcium,Total 8.3 mg/dL (8.5-10.1); Chloride 107 mmol/L (98-107); Creatinine, Serum 1.47 mg/dL (0.55-1.02); EST Glomerular Filtration Rate 37 mL/min (>60); Est Glom Filt Rate - Afr Amer 45 mL/min (>60); Estimated Creatinine Clearance 33.34 ml/min; Glucose 52 mg/dL (74-106); Potassium 4.3 mmol/L (3.5-5.1); Sodium Level 141 mmol/L (136-145)
[2018-01-08 06:59] LABS: POSITIVE COUNT NO; POSITIVE DIFFERENTIAL NO; POSITIVE MORPHOLOGY NO
[2018-01-08] MEDS: 0.9% Normal Saline 1,000 ML 100 ML IV ×2 (06:59→17:45)
[2018-01-08] MEDS: Carbidopa/Levodopa 25/100 Tablet PO ×3 (06:59→15:00)
[2018-01-08 07:18] VITALS: O2SAT 96
[2018-01-08] MEDS: Lactulose 20 GM/30 ML UDC PO (10:00)
[2018-01-08] MEDS: Escitalopram Oxalate 10 MG Tablet PO (10:01)
[2018-01-08] MEDS: Carvedilol 3.125 MG TABLET PO ×2 (10:02→22:10)
[2018-01-08] MEDS: buPROPion (XL) 300 MG TABLET.XL PO (10:03)
[2018-01-08] MEDS: Senna/Docusate Sodium 1 Tablet 2 TABLET PO (10:03)
[2018-01-08] MEDS: Menthol/Lanolin/Calamine/Znox 113 GM Tube 1 APPLIC TOPICAL ×4 (10:05→22:06)
[2018-01-08] MEDS: Gabapentin 100 MG Capsule PO ×3 (10:05→17:44)
[2018-01-08 10:52] VITALS: BP 129/58; PULSE 72; RESP 16; TEMP 36.4; O2SAT 99
--- NOTE | 2018-01-08 11:21 | CASEMGMT ---
Addendum entered by Haven Travis 01/08/18 11:27: Pt was just at [facility] 12/03/2017 and per previous notes, [facility] doesn't have copies of advanced directives. Original Note: Social Work Note Pt is listed as being from [facility]. SW placed a call to [facility] and spoke with Delfina. 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 LAURA faxed updated clinicals to Delfina at [facility]. SW met with pt to confirm discharge plans. Pt confirms that she is from [facility] and the plan is for pt to return to [facility] when medically cleared. Pt gave this worker permission to call her son Markie. SW placed a call to Markie, voicemail was left, informing Markie SANCHEZ available for any questions, to confirm discharge plans, and asked Markie to bring in Advanced Directives as none have been scanned into [facility] system. Plan: Return to [facility] when medically cleared. Haven Travis MANAGER PLANNING, PHONE OPERATOR
--- NOTE | 2018-01-08 12:59 | PCM.PN.HOSP ---
Patient Problems: Active and Suspected Problems (Last Reviewed 12/20/17 @ 12:37 by Alejandra Singh) Coffee ground emesis (Acute) Diffuse abdominal pain (Acute) Acute renal failure (Acute) Subjective: No fever. Blood pressure has improved. H&H is stable. BUN and creatinine improved. 2 large liquid bowel movements yesterday and one today. . Vitals/I&O's: Vital Signs Temp Pulse Resp BP Pulse Ox 97.6 F L 72 16 129/58 H 99 01/08/18 10:52 01/08/18 10:52 01/08/18 10:52 01/08/18 10:52 01/08/18 10:52 Oxygen Delivery Method Room Air Weight: 214 lb 8.156 oz Body Mass Index (BMI) 34.6 Intake and Output for Last 24 Hours 01/06/18 01/07/18 01/08/18 23:59 23:59 23:59 Intake Total 328 / 328 3859 / 3859 757 / 757 Balance 328 / 328 3859 / 3859 757 / 757 General: Alert, Oriented x3, Cooperative HEENT: Atraumatic, PERRLA, EOMI, Normocephalic Neck: Supple, No JVD, Negative Carotid Bruits Lungs: Clear to auscultation, No rhonchi, No wheeze, Diminished Cardiovascular: Regular rate, Regular Rhythm, Normal S1, Normal S2, No murmurs Abdomen: Bowel Sounds Present, Soft, Non Tender, Distended - Mild gaseous distention, - - Umbilical hernia present Extremities: Capillary Refill Less than 3 Seconds, Edema Skin: Ulcer/ Wound - Superficial skin erosions/ulcer in both legs. Light bandage., Skin Tear Musculoskeletal: No Tenderness to Palpation of Joints or Extremities Neurological: Cranial nerves II-XII grossly intact Psych/Mental Status: Normal Affect, Appropriate Microbiology Past 72 Hours 01/07/18 11:50 Stool Enteric Bacteriology - Final 01/07/18 11:50 Stool C. difficile DNA Amplification - Final 01/07/18 11:50 Stool Stool Lactoferrin - Final 01/07/18 11:50 Stool Stool Occult Blood (BRIE) - Final Occult Blood Positive Laboratory Results 01/07/18 20:09: Hgb 10.0 L, Hct 33.3 L 01/08/18 06:14: WBC 4.1 L, RBC 3.31 L, Hgb 10.0 L, Hct 32.7 L, MCV 98.8, MCH 30.2, MCHC 30.6 L, RDW 15.1 H, RDW Differential 52.6 H, Plt Count 116 L, MPV 10.2, Immature Gran % (Auto) 0.200, Neut % (Auto) 70.9 H, Lymph % (Auto) 15.8 L, [place] % (Auto) 10.2 H, Eos % (Auto) 2.7, Baso % (Auto) 0.2, Absolute Neuts (auto) 2.9, Absolute Lymphs (auto) 0.65 L, Total Counted Not Reportable 01/08/18 06:14: Sodium 141, Potassium 4.3, Chloride 107, Carbon Dioxide 25.0, Anion Gap 9, BUN 32 H, Creatinine 1.47 H, Estim Creat Clear Calc 33.34, Est GFR (MDRD) Af Amer 45 L, Est GFR (MDRD) Non-Af 37 L, BUN/Creatinine Ratio 21.8 H, Glucose 52 L, Calcium 8.3 L Current Medications Acetaminophen (Tylenol) 650 mg PO Q4H PRN PRN Reason: PAIN/FEVER Last Admin: 01/08/18 05:06 Dose: 650 mg Hydrocodone Bitart/Acetaminophen ([place] 5mg-325mg) 1 tablet PO Q4H PRN PRN PRN Reason: PAIN Aripiprazole (Abilify) 7.5 mg PO QHS [facility] Last Admin: 01/07/18 22:04 Dose: 7.5 mg Bisacodyl (Dulcolax) 10 mg RECTAL DAILY PRN PRN PRN Reason: Constipation Bupropion HCl (Wellbutrin Xl) 300 mg PO DAILY [facility] Last Admin: 01/08/18 10:03 Dose: 300 mg Calamine/Phenol (Calmoseptine Ointment) 1 applic TOPICAL 4X/DAY [facility]; Protocol Last Admin: 01/08/18 12:40 Dose: 1 applicatio Carbidopa/Levodopa (Sinemet) 1 tablet PO TIDAC [facility] Last Admin: 01/08/18 10:06 Dose: 1 tablet Carvedilol (Coreg) 3.125 mg PO BID [facility] Last Admin: 01/08/18 10:02 Dose: 3.125 mg Escitalopram Oxalate (Lexapro) 10 mg PO BREAKFAST [facility] Last Admin: 01/08/18 10:01 Dose: 10 mg Gabapentin (Neurontin) 100 mg PO TIDCM [facility] Last Admin: 01/08/18 12:40 Dose: 100 mg Sodium Chloride () 1,000 mls @ 100 mls/hr IV .Q10H [facility] Last Admin: 01/08/18 06:59 Dose: 100 mls/hr Pantoprazole Sodium 40 mg/ (Sodium Chloride) 110 mls @ 330 mls/hr IV Q12 [facility] Last Admin: 01/08/18 10:02 Dose: 330 mls/hr Metronidazole 500 mg/ N/A 100 mls @ 100 mls/hr IV Q8 [facility] Last Admin: 01/08/18 05:06 Dose: 100 mls/hr Lactulose (Chronulac, Cephulac) 20 gm PO BREAKFAST [facility] Last Admin: 01/08/18 10:00 Dose: 20 gm Lisinopril (Zestril) 2.5 mg PO QHS [facility] Last Admin: 01/07/18 22:05 Dose: Not Given Nystatin (Mycostatin Powder) 1 applic TOPICAL TID [facility]; Protocol Last Admin: 01/08/18 12:41 Dose: 1 applicatio Ondansetron HCl (Zofran) 4 mg IV Q6H PRN PRN PRN Reason: NAUSEA Pramipexole Dihydrochloride (Mirapex) 0.75 mg PO TID [facility] Last Admin: 01/08/18 12:52 Dose: 0.75 mg Promethazine HCl (Phenergan) 12.5 mg IV Q6H PRN PRN PRN Reason: NAUSEA/VOMITING Rotigotine (Neupro) 2 mg TRANSDERM. QHS [facility] Last Admin: 01/07/18 22:05 Dose: 2 mg Senna/Docusate Sodium (Senokot-S, Cristina-Colace) 2 tablet PO BID [facility] Last Admin: 01/08/18 10:03 Dose: 2 tablet Sodium Chloride () 5 - 30 ml IV UD PRN PRN Reason: SALINE FLUSH Vancomycin HCl () 125 mg PO Q6 [facility] Last Admin: 01/08/18 12:40 Dose: 125 mg Medical Necessity - Tobacco Use Smoking Status: Never smoker Assessment/Plan All Active Problems (Last Reviewed 12/20/17 @ 12:37 by Alejandra Singh) Nausea & vomiting (Resolved) Ileus (Resolved) UTI (urinary tract infection) (Resolved) Dehydration (Acute) Hypomagnesemia (Resolved) Hyponatremia (Acute) Small bowel obstruction (Ruled-out) Cellulitis (Acute) Cellulitis and abscess of left leg (Acute) Coffee ground emesis (Acute) Diffuse abdominal pain (Acute) Acute renal failure (Acute) Cellulitis (Resolved) Moderate malnutrition (Resolved) Squamous cell carcinoma in situ (Resolved) The patient is a 72 year old F with multiple comorbidities, [facility] resident was sent to ER for concern of coffee-ground emesis. Patient said she had about 2-3 times coffee-ground/brown emesis although she had vomiting for last 6 days on and off. In the ER note, there is mention about abdominal discomfort but patient did not complain to me. In ED, initial lab evaluation shows patient has creatinine 3.35, BUN 55, hyponatremia and hypochloremia, hyperkalemia, K5.3. Patient has baseline creatinine is about 1.0 as, last one in November 26, 2017. Chest x-ray shows no evidence of acute cardiopulmonary disease Patient had upper endoscopy long time ago and currently she does not want EGD. Patient is DNR CC arrest She was last admitted in November 2017 for bilateral lower leg cellulitis. Of note, she has bilateral lower leg edema/lymphedema, mostly bedridden. 1. Acute kidney injury on CKD stage III most probably prerenal/vomiting: Continue IV fluid. BUN and creatinine has improved to 32/1.47. Monitor kidney function and electrolytes. Patient had a mild hypokalemia which improved. 2. Possible upper or lower GI bleed: H&H is dropped from 11.8-9.9 but may be hemodilution thereafter is stable. IV Protonix twice daily. Group and crossmatch. Admitting H&H is 11.8/39.5. Platelet count 237,000. Discussed with the patient again and patient refuses for EGD and colonoscopy and patient is high risk for anesthesia and procedure. Conservative management. 3. C. difficile colitis: Patient was on Bactrim DS for MRSA in [facility] confirmed by the nursing staff. Bactrim was held at the time of admission for the suspicion of C. difficile. Patient already on Flagyl. Stool for C. difficile came positive. Occult blood positive. Vancomycin 125 mill grams p.o. every 6 hourly. Enteric bacteriology panel negative. Abdominal x-ray reviewed shows diffuse gaseous distention of the colon to the level of rectosigmoid. Thumbprinting of the colon in the region of the splenic flexure suggestive of wall thickening. No free intraperitoneal air. Multiple electrolyte disorder: Hyponatremia, hyperkalemia, hypochloremia consistent with hypovolemia. Anion gap is normal. Electrolyte profile has improved. IV fluid normal saline decreased to 75 mill per hour. 4. Parkinson disease, schizoaffective disorder and dementia: Hold oral medications. speech/swallow evaluation for concern of possible aspiration. Chest x-ray did not show evidence of pneumonia. 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 Multiple comorbidities complicates the present care and expect difficult and delay recovery. DVT prophylaxis: Pharmacological prophylaxis containing view of GI bleed and acute kidney injury on CKD Clinical Impression(s) from Imaging Studies. Chest X-Ray 01/06/18 09:27 IMPRESSION: No radiographic evidence of acute cardiopulmonary disease. Microbiology Past 72 Hours 01/07/18 11:50 Stool Enteric Bacteriology - Final 01/07/18 11:50 Stool C. difficile DNA Amplification - Final 01/07/18 11:50 Stool Stool Lactoferrin - Final 01/07/18 11:50 Stool Stool Occult Blood (BRIE) - Final Occult Blood Positive Laboratory Results 01/07/18 08:05: WBC 5.1, RBC 3.40 L, Hgb 9.9 L, Hct 32.6 L, MCV 95.9, MCH 29.1, MCHC 30.4 L, RDW 15.9 H, RDW Differential 55.5 H, Plt Count 151, MPV 9.7, Immature Gran % (Auto) 0.200, Neut % (Auto) 70.1 H, Lymph % (Auto) 18.0 L, [place] % (Auto) 7.8, Eos % (Auto) 3.9, Baso % (Auto) 0.0, Absolute Neuts (auto) 3.6, Absolute Lymphs (auto) 0.92, Total Counted Not Reportable 01/07/18 08:05: Sodium 136, Potassium 4.3, Chloride 104, Carbon Dioxide 27.0, Anion Gap 5, BUN 48 H, Creatinine 2.49 H, Estim Creat Clear Calc 19.68, Est GFR (MDRD) Af Amer 25 L, Est GFR (MDRD) Non-Af 20 L, BUN/Creatinine Ratio 19.3, Glucose 65 L, Calcium 8.4 L 01/06/18 09:55: WBC 10.8, RBC 4.09 L, Hgb 11.8 L, Hct 39.5, MCV 96.6, MCH 28.9, MCHC 29.9 L, RDW 15.8 H, RDW Differential 55.5 H, Plt Count 237, MPV 10.7, Immature Gran % (Auto) 0.200, Neut % (Auto) 81.2 H, Lymph % (Auto) 8.1 L, [place] % (Auto) 9.7, Eos % (Auto) 0.7, Baso % (Auto) 0.1, Absolute Neuts (auto) 8.8 H, Absolute Lymphs (auto) 0.87, Total Counted Not Reportable 01/06/18 09:55: Sodium 133 L, Potassium 5.3 H, Chloride 95 L, Carbon Dioxide 29.0, Anion Gap 9, BUN 55 H, Creatinine 3.35 H, Estim Creat Clear Calc 14.63, Est GFR (MDRD) Af Amer 18 L, Est GFR (MDRD) Non-Af 14 L, BUN/Creatinine Ratio 16.4, Glucose 117 H, Calcium 10.0, Total Bilirubin 0.40, AST 30, ALT 7 L, Alkaline Phosphatase 93, Total Protein 8.4 H, Albumin 2.9 L, Globulin 5.5 H, Albumin/Globulin Ratio 0.5 L 01/06/18 10:00: Blood Type A POSITIVE, Antibody Screen NEGATIVE Code Visit Inpatient E&M: 64869 Subs Hosp L3
--- NOTE | 2018-01-08 13:03 | PN_ITS ---
Patient Problems: Active and Suspected Problems (Last Reviewed 12/20/17 @ 12:37 by Alejandra Singh) Coffee ground emesis (Acute) Diffuse abdominal pain (Acute) Acute renal failure (Acute) Subjective: No fever. Blood pressure has improved. H&H is stable. BUN and creatinine improved. 2 large liquid bowel movements yesterday and one today. . Vitals/I&O's: Vital Signs Temp Pulse Resp BP Pulse Ox 97.6 F L 72 16 129/58 H 99 01/08/18 10:52 01/08/18 10:52 01/08/18 10:52 01/08/18 10:52 01/08/18 10:52 Oxygen Delivery Method Room Air Weight: 214 lb 8.156 oz Body Mass Index (BMI) 34.6 Intake and Output for Last 24 Hours 01/06/18 01/07/18 01/08/18 23:59 23:59 23:59 Intake Total 328 / 328 3859 / 3859 757 / 757 Balance 328 / 328 3859 / 3859 757 / 757 General: Alert, Oriented x3, Cooperative HEENT: Atraumatic, PERRLA, EOMI, Normocephalic Neck: Supple, No JVD, Negative Carotid Bruits Lungs: Clear to auscultation, No rhonchi, No wheeze, Diminished Cardiovascular: Regular rate, Regular Rhythm, Normal S1, Normal S2, No murmurs Abdomen: Bowel Sounds Present, Soft, Non Tender, Distended - Mild gaseous distention, - - Umbilical hernia present Extremities: Capillary Refill Less than 3 Seconds, Edema Skin: Ulcer/ Wound - Superficial skin erosions/ulcer in both legs. Light bandage., Skin Tear Musculoskeletal: No Tenderness to Palpation of Joints or Extremities Neurological: Cranial nerves II-XII grossly intact Psych/Mental Status: Normal Affect, Appropriate Microbiology Past 72 Hours 01/07/18 11:50 Stool Enteric Bacteriology - Final 01/07/18 11:50 Stool C. difficile DNA Amplification - Final 01/07/18 11:50 Stool Stool Lactoferrin - Final 01/07/18 11:50 Stool Stool Occult Blood (BRIE) - Final Occult Blood Positive Laboratory Results 01/07/18 20:09: Hgb 10.0 L, Hct 33.3 L 01/08/18 06:14: WBC 4.1 L, RBC 3.31 L, Hgb 10.0 L, Hct 32.7 L, MCV 98.8, MCH 30.2, MCHC 30.6 L, RDW 15.1 H, RDW Differential 52.6 H, Plt Count 116 L, MPV 10.2, Immature Gran % (Auto) 0.200, Neut % (Auto) 70.9 H, Lymph % (Auto) 15.8 L, Coleman % (Auto) 10.2 H, Eos % (Auto) 2.7, Baso % (Auto) 0.2, Absolute Neuts (auto) 2.9, Absolute Lymphs (auto) 0.65 L, Total Counted Not Reportable 01/08/18 06:14: Sodium 141, Potassium 4.3, Chloride 107, Carbon Dioxide 25.0, Anion Gap 9, BUN 32 H, Creatinine 1.47 H, Estim Creat Clear Calc 33.34, Est GFR (MDRD) Af Amer 45 L, Est GFR (MDRD) Non-Af 37 L, BUN/Creatinine Ratio 21.8 H, Glucose 52 L, Calcium 8.3 L Current Medications Acetaminophen (Tylenol) 650 mg PO Q4H PRN PRN Reason: PAIN/FEVER Last Admin: 01/08/18 05:06 Dose: 650 mg Hydrocodone Bitart/Acetaminophen ([place] 5mg-325mg) 1 tablet PO Q4H PRN PRN PRN Reason: PAIN Aripiprazole (Abilify) 7.5 mg PO QHS [facility] Last Admin: 01/07/18 22:04 Dose: 7.5 mg Bisacodyl (Dulcolax) 10 mg RECTAL DAILY PRN PRN PRN Reason: Constipation Bupropion HCl (Wellbutrin Xl) 300 mg PO DAILY [facility] Last Admin: 01/08/18 10:03 Dose: 300 mg Calamine/Phenol (Calmoseptine Ointment) 1 applic TOPICAL 4X/DAY [facility]; Protocol Last Admin: 01/08/18 12:40 Dose: 1 applicatio Carbidopa/Levodopa (Sinemet) 1 tablet PO TIDAC [facility] Last Admin: 01/08/18 10:06 Dose: 1 tablet Carvedilol (Coreg) 3.125 mg PO BID [facility] Last Admin: 01/08/18 10:02 Dose: 3.125 mg Escitalopram Oxalate (Lexapro) 10 mg PO BREAKFAST [facility] Last Admin: 01/08/18 10:01 Dose: 10 mg Gabapentin (Neurontin) 100 mg PO TIDCM [facility] Last Admin: 01/08/18 12:40 Dose: 100 mg Sodium Chloride () 1,000 mls @ 100 mls/hr IV .Q10H [facility] Last Admin: 01/08/18 06:59 Dose: 100 mls/hr Pantoprazole Sodium 40 mg/ (Sodium Chloride) 110 mls @ 330 mls/hr IV Q12 [facility] Last Admin: 01/08/18 10:02 Dose: 330 mls/hr Metronidazole 500 mg/ N/A 100 mls @ 100 mls/hr IV Q8 [facility] Last Admin: 01/08/18 05:06 Dose: 100 mls/hr Lactulose (Chronulac, Cephulac) 20 gm PO BREAKFAST [facility] Last Admin: 01/08/18 10:00 Dose: 20 gm Lisinopril (Zestril) 2.5 mg PO QHS [facility] Last Admin: 01/07/18 22:05 Dose: Not Given Nystatin (Mycostatin Powder) 1 applic TOPICAL TID [facility]; Protocol Last Admin: 01/08/18 12:41 Dose: 1 applicatio Ondansetron HCl (Zofran) 4 mg IV Q6H PRN PRN PRN Reason: NAUSEA Pramipexole Dihydrochloride (Mirapex) 0.75 mg PO TID [facility] Last Admin: 01/08/18 12:52 Dose: 0.75 mg Promethazine HCl (Phenergan) 12.5 mg IV Q6H PRN PRN PRN Reason: NAUSEA/VOMITING Rotigotine (Neupro) 2 mg TRANSDERM. QHS [facility] Last Admin: 01/07/18 22:05 Dose: 2 mg Senna/Docusate Sodium (Senokot-S, Cristina-Colace) 2 tablet PO BID [facility] Last Admin: 01/08/18 10:03 Dose: 2 tablet Sodium Chloride () 5 - 30 ml IV UD PRN PRN Reason: SALINE FLUSH Vancomycin HCl () 125 mg PO Q6 [facility] Last Admin: 01/08/18 12:40 Dose: 125 mg Medical Necessity - Tobacco Use Smoking Status: Never smoker Assessment/Plan All Active Problems (Last Reviewed 12/20/17 @ 12:37 by Alejandra Singh) Nausea & vomiting (Resolved) Ileus (Resolved) UTI (urinary tract infection) (Resolved) Dehydration (Acute) Hypomagnesemia (Resolved) Hyponatremia (Acute) Small bowel obstruction (Ruled-out) Cellulitis (Acute) Cellulitis and abscess of left leg (Acute) Coffee ground emesis (Acute) Diffuse abdominal pain (Acute) Acute renal failure (Acute) Cellulitis (Resolved) Moderate malnutrition (Resolved) Squamous cell carcinoma in situ (Resolved) The patient is a 72 year old F with multiple comorbidities, intermediate resident was sent to ER for concern of coffee-ground emesis. Patient said she had about 2-3 times coffee-ground/brown emesis although she had vomiting for last 6 days on and off. In the ER note, there is mention about abdominal discomfort but patient did not complain to me. In ED, initial lab evaluation shows patient has creatinine 3.35, BUN 55, hyponatremia and hypochloremia, hyperkalemia, K5.3. Patient has baseline creatinine is about 1.0 as, last one in November 26, 2017. Chest x-ray shows no evidence of acute cardiopulmonary disease Patient had upper endoscopy long time ago and currently she does not want EGD. Patient is DNR CC arrest She was last admitted in November 2017 for bilateral lower leg cellulitis. Of note, she has bilateral lower leg edema/lymphedema, mostly bedridden. 1. Acute kidney injury on CKD stage III most probably prerenal/vomiting: Continue IV fluid. BUN and creatinine has improved to 32/1.47. Monitor kidney function and electrolytes. Patient had a mild hypokalemia which improved. 2. Possible upper or lower GI bleed: H&H is dropped from 11.8-9.9 but may be hemodilution thereafter is stable. IV Protonix twice daily. Group and crossmatch. Admitting H&H is 11.8/39.5. Platelet count 237,000. Discussed with the patient again and patient refuses for EGD and colonoscopy and patient is high risk for anesthesia and procedure. Conservative management. 3. C. difficile colitis: Patient was on Bactrim DS for MRSA in intermediate confirmed by the nursing staff. Bactrim was held at the time of admission for the suspicion of C. difficile. Patient already on Flagyl. Stool for C. difficile came positive. Occult blood positive. Vancomycin 125 mill grams p.o. every 6 hourly. Enteric bacteriology panel negative. Abdominal x-ray reviewed shows diffuse gaseous distention of the colon to the level of rectosigmoid. Thumbprinting of the colon in the region of the splenic flexure suggestive of wall thickening. No free intraperitoneal air. Multiple electrolyte disorder: Hyponatremia, hyperkalemia, hypochloremia consistent with hypovolemia. Anion gap is normal. Electrolyte profile has improved. IV fluid normal saline decreased to 75 mill per hour. 4. Parkinson disease, schizoaffective disorder and dementia: Hold oral medications. speech/swallow evaluation for concern of possible aspiration. Chest x-ray did not show evidence of pneumonia. 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 Multiple comorbidities complicates the present care and expect difficult and delay recovery. DVT prophylaxis: Pharmacological prophylaxis containing view of GI bleed and acute kidney injury on CKD Clinical Impression(s) from Imaging Studies. Chest X-Ray 01/06/18 09:27 IMPRESSION: No radiographic evidence of acute cardiopulmonary disease. Microbiology Past 72 Hours 01/07/18 11:50 Stool Enteric Bacteriology - Final 01/07/18 11:50 Stool C. difficile DNA Amplification - Final 01/07/18 11:50 Stool Stool Lactoferrin - Final 01/07/18 11:50 Stool Stool Occult Blood (BRIE) - Final Occult Blood Positive Laboratory Results 01/07/18 08:05: WBC 5.1, RBC 3.40 L, Hgb 9.9 L, Hct 32.6 L, MCV 95.9, MCH 29.1, MCHC 30.4 L, RDW 15.9 H, RDW Differential 55.5 H, Plt Count 151, MPV 9.7, Immature Gran % (Auto) 0.200, Neut % (Auto) 70.1 H, Lymph % (Auto) 18.0 L, [place] % (Auto) 7.8, Eos % (Auto) 3.9, Baso % (Auto) 0.0, Absolute Neuts (auto) 3.6, Absolute Lymphs (auto) 0.92, Total Counted Not Reportable 01/07/18 08:05: Sodium 136, Potassium 4.3, Chloride 104, Carbon Dioxide 27.0, Anion Gap 5, BUN 48 H, Creatinine 2.49 H, Estim Creat Clear Calc 19.68, Est GFR (MDRD) Af Amer 25 L, Est GFR (MDRD) Non-Af 20 L, BUN/Creatinine Ratio 19.3, Glucose 65 L, Calcium 8.4 L 01/06/18 09:55: WBC 10.8, RBC 4.09 L, Hgb 11.8 L, Hct 39.5, MCV 96.6, MCH 28.9, MCHC 29.9 L, RDW 15.8 H, RDW Differential 55.5 H, Plt Count 237, MPV 10.7, Immature Gran % (Auto) 0.200, Neut % (Auto) 81.2 H, Lymph % (Auto) 8.1 L, Coleman % (Auto) 9.7, Eos % (Auto) 0.7, Baso % (Auto) 0.1, Absolute Neuts (auto) 8.8 H, Absolute Lymphs (auto) 0.87, Total Counted Not Reportable 01/06/18 09:55: Sodium 133 L, Potassium 5.3 H, Chloride 95 L, Carbon Dioxide 29.0, Anion Gap 9, BUN 55 H, Creatinine 3.35 H, Estim Creat Clear Calc 14.63, Est GFR (MDRD) Af Amer 18 L, Est GFR (MDRD) Non-Af 14 L, BUN/Creatinine Ratio 16.4, Glucose 117 H, Calcium 10.0, Total Bilirubin 0.40, AST 30, ALT 7 L, Alkaline Phosphatase 93, Total Protein 8.4 H, Albumin 2.9 L, Globulin 5.5 H, Albumin/Globulin Ratio 0.5 L 01/06/18 10:00: Blood Type A POSITIVE, Antibody Screen NEGATIVE Code Visit Inpatient E&M: 23050 Subs Hosp L3
--- NOTE | 2018-01-08 14:43 | CASEMGMT ---
Social Work Note LAURA spoke with Delfina at [facility] stating pt has straight Medicare and [employer] for Medicaid only. Delfina states pt was skilled before coming to [facility] and they would like pt to return skilled at discharge. LAURA informed Delfina that physician was thinking possible discharge for tomorrow. Delfina states understanding, states that they are able to take pt back without a pre-cert. 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
[2018-01-08 16:52] VITALS: BP 111/68; PULSE 70; RESP 16; TEMP 36.6; O2SAT 99
[2018-01-08 22:05] VITALS: BP 129/71; PULSE 65; RESP 16; TEMP 36.4; O2SAT 100
[2018-01-08] MEDS: ARIPiprazole 5 MG Tablet 7.5 MG PO (22:08)
[2018-01-08] MEDS: Lisinopril 2.5 MG Tablet PO (22:10)
[2018-01-09 03:28] VITALS: BP 145/72; PULSE 70; RESP 16; TEMP 36.6; O2SAT 100
[2018-01-09] MEDS: 0.9% Normal Saline 1,000 ML 100 ML IV (03:37)
--- NOTE | 2018-01-09 05:55 | RAD_ITS ---
STUDY: X-RAY - ABDOMEN/PELVIS REASON FOR EXAM: Female, 72 years old. Abdominal distention. History of C. difficile. TECHNIQUE: AP supine and decubitus views of the abdomen and pelvis. COMPARISON: Comparison is made with prior study dated January 07, 2018. FINDINGS: Normal visualized lung bases. Once again, there is gaseous distention of the colon as well as several small bowel loops. This has improved as compared to prior study. There is no demonstrated free abdominal air. The visualized liver, spleen and kidneys are grossly normal in size and morphology. Normal soft tissue structures. 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 RAD/Abd Inc Decub and/or Erect IMPRESSION: Gaseous distention of the colon and several small bowel loops although there has been improvement as compared to prior study. Electronically Signed: Federico Cevallos MD at 15:18 EDT Tel [phone], Service support ,
[2018-01-09] MEDS: Nystatin Powder 15gm Bottle 1 APPLIC TOPICAL ×3 (06:15→23:04)
[2018-01-09] MEDS: Pramipexole Di-HCl 0.25 MG Tablet 0.75 MG PO ×3 (06:15→23:05)
[2018-01-09] MEDS: Carbidopa/Levodopa 25/100 Tablet PO ×3 (06:15→16:32)
[2018-01-09 07:49] LABS: Absolute Lymphocyte Count 0.51 X10^3/ul (0.83-4.51); Absolute Neutrophil Count 2.4 X10^3/uL (2.0-7.7); Basophil# 0.01 X10^3/uL; Basophil% 0.3 % (0-1); Eosinophil# 0.06 X10^3/uL; Eosinophils% 1.8 % (0-5); Hematocrit 32.9 % (37-47); Hemoglobin 9.9 g/dl (12.0-15.0); Lymphocyte # 0.51 X10^3/ul (4.0); Mean Corp Hgb Conc 30.1 g/gl (32-36); Mean Corpuscular Hgb 28.6 pg (27.0-32.0); Mean Corpuscular Volume 95.1 fL (81-99); Monocyte# 0.41 X10^3/uL; Neutrophil # 2.41 X10^3/uL (2.7-7.7); Neutrophil % 70.6 % (47-70); Platelet Count 109 K/mm3 (150-450); RBC Distribution Width CV 14.6 % (11.6-14.6); RBC Distribution Width SD 50.3 fl (35.1-43.9); Red Blood Count 3.46 M/mm3 (4.2-5.4); White Blood Count 3.4 K/mm3 (4.4-11.0)
[2018-01-09 07:53] LABS: Differential Indicated SCAN CRITERIA MET; POSITIVE COUNT NO; POSITIVE DIFFERENTIAL YES; POSITIVE MORPHOLOGY NO
[2018-01-09 08:02] LABS: Anion Gap 10 (5-15); BUN 18 mg/dL (7-18); BUN/Creat Ratio 19.8 RATIO (10-20); Calcium,Total 7.9 mg/dL (8.5-10.1); Chloride 107 mmol/L (98-107); Creatinine, Serum 0.91 mg/dL (0.55-1.02); EST Glomerular Filtration Rate 65 mL/min (>60); Est Glom Filt Rate - Afr Amer 79 mL/min (>60); Estimated Creatinine Clearance 53.85 ml/min; Glucose 58 mg/dL (74-106); Potassium 4.1 mmol/L (3.5-5.1); Sodium Level 140 mmol/L (136-145)
[2018-01-09 08:24] VITALS: O2SAT 96
--- NOTE | 2018-01-09 08:47 | NURSING ---
wound photo: right lower leg
--- NOTE | 2018-01-09 08:47 | NURSING ---
wound photo: left lateral lower leg
--- NOTE | 2018-01-09 08:48 | NURSING ---
wound photo: left medial lower leg
[2018-01-09] MEDS: Gabapentin 100 MG Capsule PO ×3 (09:05→16:32)
[2018-01-09] MEDS: buPROPion (XL) 300 MG TABLET.XL PO (09:05)
[2018-01-09] MEDS: Menthol/Lanolin/Calamine/Znox 113 GM Tube 1 APPLIC TOPICAL ×4 (09:06→23:03)
[2018-01-09] MEDS: Escitalopram Oxalate 10 MG Tablet PO (09:06)
[2018-01-09] MEDS: Carvedilol 3.125 MG TABLET PO ×2 (09:06→23:05)
[2018-01-09 09:16] VITALS: BP 162/80; PULSE 71; RESP 16; TEMP 37.1; O2SAT 96
[2018-01-09 13:32] VITALS: BP 117/65; PULSE 90; RESP 16; TEMP 36.9; O2SAT 96
[2018-01-09 14:17] VITALS: BP 159/86; PULSE 72; RESP 16; TEMP 36.7; O2SAT 94
--- NOTE | 2018-01-09 14:28 | CASEMGMT ---
Social Work Note Per physician pt is not ready for discharge yet. LAURA updated Delfina at [facility] of this. LAURA faxed updated clinicals to [facility]. 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
--- NOTE | 2018-01-09 15:20 | CHAPLAIN ---
Type of Pastoral Visit _x__ Initial Visit ___ Follow-up Visit ___ On-call Visit ___ General Patient Visit ___ Spiritual Assessment ___ Family Conference ___ Bereavement ___ Rapid Response ___ Code Blue ___ Other (describe below) Pastoral Care Referral From _x__ Patient ___ Family ___ Nurse ___ Physician ___ Critical Care Nurse Practitioner ___ Order Processing Clerk ___ Other (describe below) Sacrament/Intervention _x__ Active listening ___ Anointing ___ Spiritism ___ Bereavement ___ Communion ___ Maryann exploration ___ _x__ Life review _x__ Prayer ___ Reconciliation ___ Sacrament of Sick _x__ Supportive presence ___ Wedding ___ Other (describe below) Pastoral Comments
--- NOTE | 2018-01-09 15:40 | PCM.PN.HOSP ---
Patient Problems: Active and Suspected Problems (Last Reviewed 12/20/17 @ 12:37 by Alejandra Singh) Coffee ground emesis (Acute) Diffuse abdominal pain (Acute) Acute renal failure (Acute) Subjective: No fever/chill. No tachycardia. No leukocytosis. Yesterday patient had 1 bowel movements Vitals/I&O's: Vital Signs Temp Pulse Resp BP Pulse Ox 98.0 F 72 16 159/86 H 94 01/09/18 14:17 01/09/18 14:17 01/09/18 14:17 01/09/18 14:17 01/09/18 14:17 Oxygen Flow Rate (L/min) 2 Oxygen Delivery Method Room Air Weight: 214 lb 8.156 oz Body Mass Index (BMI) 34.6 Intake and Output for Last 24 Hours 01/07/18 01/08/18 01/09/18 23:59 23:59 23:59 Intake Total 3859 / 3859 3090 / 3090 731 / 731 Balance 3859 / 3859 3090 / 3090 731 / 731 General: Alert, Oriented x3, Cooperative HEENT: Atraumatic, PERRLA, EOMI, Normocephalic Neck: Supple, No JVD, Negative Carotid Bruits Lungs: Diminished, Rales - Coarse crepitation present on right lung base Cardiovascular: Regular rate, Regular Rhythm, Normal S1, Normal S2, No murmurs Abdomen: Bowel Sounds Present, Soft, Hypoactive Bowel Sounds, Tender - Slight tenderness in left lower quadrant. Extremities: No edema, Capillary Refill Less than 3 Seconds Skin: No rashes, No breakdown Musculoskeletal: No Tenderness to Palpation of Joints or Extremities Neurological: Cranial nerves II-XII grossly intact Psych/Mental Status: Normal Affect, Appropriate Microbiology Past 72 Hours 01/07/18 11:50 Stool C. difficile DNA Amplification - Final Toxigenic C. difficile DNA 01/07/18 11:50 Stool Enteric Bacteriology - Final 01/07/18 11:50 Stool Stool Lactoferrin - Final 01/07/18 11:50 Stool Stool Occult Blood (BRIE) - Final Occult Blood Positive Laboratory Results 01/09/18 06:08: WBC 3.4 L, RBC 3.46 L, Hgb 9.9 L, Hct 32.9 L, MCV 95.1, MCH 28.6, MCHC 30.1 L, RDW 14.6, RDW Differential 50.3 H, Plt Count 109 L, MPV 10.0, Immature Gran % (Auto) 0.300, Neut % (Auto) 70.6 H, Lymph % (Auto) 15.0 L, [place] % (Auto) 12.0 H, Eos % (Auto) 1.8, Baso % (Auto) 0.3, Absolute Neuts (auto) 2.4, Absolute Lymphs (auto) 0.51 L, Total Counted Not Reportable, Differential Comment COMMENT 01/09/18 06:08: Sodium 140, Potassium 4.1, Chloride 107, Carbon Dioxide 23.0, Anion Gap 10, BUN 18, Creatinine 0.91, Estim Creat Clear Calc 53.85, Est GFR (MDRD) Af Amer 79, Est GFR (MDRD) Non-Af 65, BUN/Creatinine Ratio 19.8, Glucose 58 L, Calcium 7.9 L Current Medications Acetaminophen (Tylenol) 650 mg PO Q4H PRN PRN Reason: PAIN/FEVER Last Admin: 01/08/18 05:06 Dose: 650 mg Hydrocodone Bitart/Acetaminophen ([place] 5mg-325mg) 1 tablet PO Q4H PRN PRN PRN Reason: PAIN Aripiprazole (Abilify) 7.5 mg PO QHS [facility] Last Admin: 01/08/18 22:08 Dose: 7.5 mg Bisacodyl (Dulcolax) 10 mg RECTAL DAILY PRN PRN PRN Reason: Constipation Bupropion HCl (Wellbutrin Xl) 300 mg PO DAILY [facility] Last Admin: 01/09/18 09:05 Dose: 300 mg Calamine/Phenol (Calmoseptine Ointment) 1 applic TOPICAL 4X/DAY [facility]; Protocol Last Admin: 01/09/18 14:20 Dose: 1 applicatio Carbidopa/Levodopa (Sinemet) 1 tablet PO TIDAC [facility] Last Admin: 01/09/18 11:38 Dose: 1 tablet Carvedilol (Coreg) 3.125 mg PO BID [facility] Last Admin: 01/09/18 09:06 Dose: 3.1249 mg Escitalopram Oxalate (Lexapro) 10 mg PO BREAKFAST [facility] Last Admin: 01/09/18 09:06 Dose: 10 mg Gabapentin (Neurontin) 100 mg PO TIDCM [facility] Last Admin: 01/09/18 11:38 Dose: 100 mg Pantoprazole Sodium 40 mg/ (Sodium Chloride) 110 mls @ 330 mls/hr IV Q12 [facility] Last Admin: 01/09/18 09:05 Dose: 330 mls/hr Metronidazole 500 mg/ N/A 100 mls @ 100 mls/hr IV Q8 [facility] Last Admin: 01/09/18 14:19 Dose: 100 mls/hr Sodium Chloride () 1,000 mls @ 50 mls/hr IV .Q20H [facility] Lactulose (Chronulac, Cephulac) 20 gm PO BREAKFAST [facility] Last Admin: 01/09/18 09:10 Dose: Not Given Lisinopril (Zestril) 2.5 mg PO QHS [facility] Last Admin: 01/08/18 22:10 Dose: 2.5 mg Nystatin (Mycostatin Powder) 1 applic TOPICAL TID [facility]; Protocol Last Admin: 01/09/18 14:20 Dose: 1 applicatio Ondansetron HCl (Zofran) 4 mg IV Q6H PRN PRN PRN Reason: NAUSEA Pramipexole Dihydrochloride (Mirapex) 0.75 mg PO TID [facility] Last Admin: 01/09/18 14:19 Dose: 0.75 mg Promethazine HCl (Phenergan) 12.5 mg IV Q6H PRN PRN PRN Reason: NAUSEA/VOMITING Rotigotine (Neupro) 2 mg TRANSDERM. QHS [facility] Last Admin: 01/08/18 22:09 Dose: 2 mg Senna/Docusate Sodium (Senokot-S, Cristina-Colace) 2 tablet PO BID [facility] Last Admin: 01/09/18 09:10 Dose: Not Given Sodium Chloride () 5 - 30 ml IV UD PRN PRN Reason: SALINE FLUSH Vancomycin HCl () 125 mg PO Q6 [facility] Last Admin: 01/09/18 11:38 Dose: 125 mg Medical Necessity - Tobacco Use Smoking Status: Never smoker Assessment/Plan All Active Problems (Last Reviewed 12/20/17 @ 12:37 by Alejandra Singh) Nausea & vomiting (Resolved) Ileus (Resolved) UTI (urinary tract infection) (Resolved) Dehydration (Acute) Hypomagnesemia (Resolved) Hyponatremia (Acute) Small bowel obstruction (Ruled-out) Cellulitis (Acute) Cellulitis and abscess of left leg (Acute) Coffee ground emesis (Acute) Diffuse abdominal pain (Acute) Acute renal failure (Acute) Cellulitis (Resolved) Moderate malnutrition (Resolved) Squamous cell carcinoma in situ (Resolved) The patient is a 72 year old F with multiple comorbidities, senior living resident was sent to ER for concern of coffee-ground emesis. Patient said she had about 2-3 times coffee-ground/brown emesis although she had vomiting for last 6 days on and off. In the ER note, there is mention about abdominal discomfort but patient did not complain to me. In ED, initial lab evaluation shows patient has creatinine 3.35, BUN 55, hyponatremia and hypochloremia, hyperkalemia, K5.3. Patient has baseline creatinine is about 1.0 as, last one in November 26, 2017. Chest x-ray shows no evidence of acute cardiopulmonary disease Patient had upper endoscopy long time ago and currently she does not want EGD. Patient is DNR CC arrest She was last admitted in November 2017 for bilateral lower leg cellulitis. Of note, she has bilateral lower leg edema/lymphedema, mostly bedridden. 1. Acute kidney injury on CKD stage III most probably prerenal/vomiting: Continue IV fluid. BUN and creatinine has improved to 32/1.47. Monitor kidney function and electrolytes. Patient had a mild hypokalemia which improved. 2. Possible upper or lower GI bleed: H&H is dropped from 11.8-9.9 but may be hemodilution thereafter is stable. IV Protonix twice daily. Group and crossmatch. Admitting H&H is 11.8/39.5. Platelet count 237,000. Discussed with the patient again and patient refuses for EGD and colonoscopy and patient is high risk for anesthesia and procedure. Conservative management. 3. C. difficile colitis: Patient was on Bactrim DS for MRSA in senior living confirmed by the nursing staff. Bactrim was held at the time of admission for the suspicion of C. difficile. Patient already on Flagyl. Stool for C. difficile came positive. Occult blood positive. Vancomycin 125 mill grams p.o. every 6 hourly. Enteric bacteriology panel negative. Abdominal x-ray reviewed shows diffuse gaseous distention of the colon to the level of rectosigmoid. Repeat abdominal x-ray done today shows gaseous distention of colon and several small bowel loops but has improved from the previous study. Multiple electrolyte disorder: Hyponatremia, hyperkalemia, hypochloremia consistent with hypovolemia. Anion gap is normal. Electrolyte profile has improved. IV fluid normal saline decreased to 50 mill per hour. Electrolytes corrected. 4. Parkinson disease, schizoaffective disorder and dementia: Hold oral medications. speech/swallow evaluation for concern of possible aspiration. Chest x-ray did not show evidence of pneumonia. 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 Multiple comorbidities complicates the present care and expect difficult and delay recovery. DVT prophylaxis: Pharmacological prophylaxis containing view of GI bleed and acute kidney injury on CKD Clinical Impression(s) from Imaging Studies. Chest X-Ray 01/06/18 09:27 IMPRESSION: No radiographic evidence of acute cardiopulmonary disease. Microbiology Past 72 Hours 01/07/18 11:50 Stool Enteric Bacteriology - Final 01/07/18 11:50 Stool C. difficile DNA Amplification - Final 01/07/18 11:50 Stool Stool Lactoferrin - Final 01/07/18 11:50 Stool Stool Occult Blood (BRIE) - Final Occult Blood Positive Laboratory Results 01/07/18 08:05: WBC 5.1, RBC 3.40 L, Hgb 9.9 L, Hct 32.6 L, MCV 95.9, MCH 29.1, MCHC 30.4 L, RDW 15.9 H, RDW Differential 55.5 H, Plt Count 151, MPV 9.7, Immature Gran % (Auto) 0.200, Neut % (Auto) 70.1 H, Lymph % (Auto) 18.0 L, [place] % (Auto) 7.8, Eos % (Auto) 3.9, Baso % (Auto) 0.0, Absolute Neuts (auto) 3.6, Absolute Lymphs (auto) 0.92, Total Counted Not Reportable 01/07/18 08:05: Sodium 136, Potassium 4.3, Chloride 104, Carbon Dioxide 27.0, Anion Gap 5, BUN 48 H, Creatinine 2.49 H, Estim Creat Clear Calc 19.68, Est GFR (MDRD) Af Amer 25 L, Est GFR (MDRD) Non-Af 20 L, BUN/Creatinine Ratio 19.3, Glucose 65 L, Calcium 8.4 L 01/06/18 09:55: WBC 10.8, RBC 4.09 L, Hgb 11.8 L, Hct 39.5, MCV 96.6, MCH 28.9, MCHC 29.9 L, RDW 15.8 H, RDW Differential 55.5 H, Plt Count 237, MPV 10.7, Immature Gran % (Auto) 0.200, Neut % (Auto) 81.2 H, Lymph % (Auto) 8.1 L, [place] % (Auto) 9.7, Eos % (Auto) 0.7, Baso % (Auto) 0.1, Absolute Neuts (auto) 8.8 H, Absolute Lymphs (auto) 0.87, Total Counted Not Reportable 01/06/18 09:55: Sodium 133 L, Potassium 5.3 H, Chloride 95 L, Carbon Dioxide 29.0, Anion Gap 9, BUN 55 H, Creatinine 3.35 H, Estim Creat Clear Calc 14.63, Est GFR (MDRD) Af Amer 18 L, Est GFR (MDRD) Non-Af 14 L, BUN/Creatinine Ratio 16.4, Glucose 117 H, Calcium 10.0, Total Bilirubin 0.40, AST 30, ALT 7 L, Alkaline Phosphatase 93, Total Protein 8.4 H, Albumin 2.9 L, Globulin 5.5 H, Albumin/Globulin Ratio 0.5 L 01/06/18 10:00: Blood Type A POSITIVE, Antibody Screen NEGATIVE Code Visit Inpatient E&M: 01150 Subs Hosp L3
--- NOTE | 2018-01-09 15:46 | PN_ITS ---
Patient Problems: Active and Suspected Problems (Last Reviewed 12/20/17 @ 12:37 by Alejandra Singh) Coffee ground emesis (Acute) Diffuse abdominal pain (Acute) Acute renal failure (Acute) Subjective: No fever/chill. No tachycardia. No leukocytosis. Yesterday patient had 1 bowel movements Vitals/I&O's: Vital Signs Temp Pulse Resp BP Pulse Ox 98.0 F 72 16 159/86 H 94 01/09/18 14:17 01/09/18 14:17 01/09/18 14:17 01/09/18 14:17 01/09/18 14:17 Oxygen Flow Rate (L/min) 2 Oxygen Delivery Method Room Air Weight: 214 lb 8.156 oz Body Mass Index (BMI) 34.6 Intake and Output for Last 24 Hours 01/07/18 01/08/18 01/09/18 23:59 23:59 23:59 Intake Total 3859 / 3859 3090 / 3090 731 / 731 Balance 3859 / 3859 3090 / 3090 731 / 731 General: Alert, Oriented x3, Cooperative HEENT: Atraumatic, PERRLA, EOMI, Normocephalic Neck: Supple, No JVD, Negative Carotid Bruits Lungs: Diminished, Rales - Coarse crepitation present on right lung base Cardiovascular: Regular rate, Regular Rhythm, Normal S1, Normal S2, No murmurs Abdomen: Bowel Sounds Present, Soft, Hypoactive Bowel Sounds, Tender - Slight te nderness in left lower quadrant. Extremities: No edema, Capillary Refill Less than 3 Seconds Skin: No rashes, No breakdown Musculoskeletal: No Tenderness to Palpation of Joints or Extremities Neurological: Cranial nerves II-XII grossly intact Psych/Mental Status: Normal Affect, Appropriate Microbiology Past 72 Hours 01/07/18 11:50 Stool C. difficile DNA Amplification - Final Toxigenic C. difficile DNA 01/07/18 11:50 Stool Enteric Bacteriology - Final 01/07/18 11:50 Stool Stool Lactoferrin - Final 01/07/18 11:50 Stool Stool Occult Blood (BRIE) - Final Occult Blood Positive Laboratory Results 01/09/18 06:08: WBC 3.4 L, RBC 3.46 L, Hgb 9.9 L, Hct 32.9 L, MCV 95.1, MCH 28.6, MCHC 30.1 L, RDW 14.6, RDW Differential 50.3 H, Plt Count 109 L, MPV 10.0, Immature Gran % (Auto) 0.300, Neut % (Auto) 70.6 H, Lymph % (Auto) 15.0 L, [place] % (Auto) 12.0 H, Eos % (Auto) 1.8, Baso % (Auto) 0.3, Absolute Neuts (auto) 2.4, Absolute Lymphs (auto) 0.51 L, Total Counted Not Reportable, Differential Comment COMMENT 01/09/18 06:08: Sodium 140, Potassium 4.1, Chloride 107, Carbon Dioxide 23.0, Anion Gap 10, BUN 18, Creatinine 0.91, Estim Creat Clear Calc 53.85, Est GFR (MDRD) Af Amer 79, Est GFR (MDRD) Non-Af 65, BUN/Creatinine Ratio 19.8, Glucose 58 L, Calcium 7.9 L Current Medications Acetaminophen (Tylenol) 650 mg PO Q4H PRN PRN Reason: PAIN/FEVER Last Admin: 01/08/18 05:06 Dose: 650 mg Hydrocodone Bitart/Acetaminophen ([place] 5mg-325mg) 1 tablet PO Q4H PRN PRN PRN Reason: PAIN Aripiprazole (Abilify) 7.5 mg PO QHS [facility] Last Admin: 01/08/18 22:08 Dose: 7.5 mg Bisacodyl (Dulcolax) 10 mg RECTAL DAILY PRN PRN PRN Reason: Constipation Bupropion HCl (Wellbutrin Xl) 300 mg PO DAILY [facility] Last Admin: 01/09/18 09:05 Dose: 300 mg Calamine/Phenol (Calmoseptine Ointment) 1 applic TOPICAL 4X/DAY [facility]; Protocol Last Admin: 01/09/18 14:20 Dose: 1 applicatio Carbidopa/Levodopa (Sinemet) 1 tablet PO TIDAC [facility] Last Admin: 01/09/18 11:38 Dose: 1 tablet Carvedilol (Coreg) 3.125 mg PO BID [facility] Last Admin: 01/09/18 09:06 Dose: 3.1249 mg Escitalopram Oxalate (Lexapro) 10 mg PO BREAKFAST [facility] Last Admin: 01/09/18 09:06 Dose: 10 mg Gabapentin (Neurontin) 100 mg PO TIDCM [facility] Last Admin: 01/09/18 11:38 Dose: 100 mg Pantoprazole Sodium 40 mg/ (Sodium Chloride) 110 mls @ 330 mls/hr IV Q12 [facility] Last Admin: 01/09/18 09:05 Dose: 330 mls/hr Metronidazole 500 mg/ N/A 100 mls @ 100 mls/hr IV Q8 [facility] Last Admin: 01/09/18 14:19 Dose: 100 mls/hr Sodium Chloride () 1,000 mls @ 50 mls/hr IV .Q20H [facility] Lactulose (Chronulac, Cephulac) 20 gm PO BREAKFAST [facility] Last Admin: 01/09/18 09:10 Dose: Not Given Lisinopril (Zestril) 2.5 mg PO QHS [facility] Last Admin: 01/08/18 22:10 Dose: 2.5 mg Nystatin (Mycostatin Powder) 1 applic TOPICAL TID [facility]; Protocol Last Admin: 01/09/18 14:20 Dose: 1 applicatio Ondansetron HCl (Zofran) 4 mg IV Q6H PRN PRN PRN Reason: NAUSEA Pramipexole Dihydrochloride (Mirapex) 0.75 mg PO TID [facility] Last Admin: 01/09/18 14:19 Dose: 0.75 mg Promethazine HCl (Phenergan) 12.5 mg IV Q6H PRN PRN PRN Reason: NAUSEA/VOMITING Rotigotine (Neupro) 2 mg TRANSDERM. QHS [facility] Last Admin: 01/08/18 22:09 Dose: 2 mg Senna/Docusate Sodium (Senokot-S, Cristina-Colace) 2 tablet PO BID [facility] Last Admin: 01/09/18 09:10 Dose: Not Given Sodium Chloride () 5 - 30 ml IV UD PRN PRN Reason: SALINE FLUSH Vancomycin HCl () 125 mg PO Q6 [facility] Last Admin: 01/09/18 11:38 Dose: 125 mg Medical Necessity - Tobacco Use Smoking Status: Never smoker Assessment/Plan All Active Problems (Last Reviewed 12/20/17 @ 12:37 by Alejandra Singh) Nausea & vomiting (Resolved) Ileus (Resolved) UTI (urinary tract infection) (Resolved) Dehydration (Acute) Hypomagnesemia (Resolved) Hyponatremia (Acute) Small bowel obstruction (Ruled-out) Cellulitis (Acute) Cellulitis and abscess of left leg (Acute) Coffee ground emesis (Acute) Diffuse abdominal pain (Acute) Acute renal failure (Acute) Cellulitis (Resolved) Moderate malnutrition (Resolved) Squamous cell carcinoma in situ (Resolved) The patient is a 72 year old F with multiple comorbidities, [facility] resident was sent to ER for concern of coffee-ground emesis. Patient said she had about 2-3 times coffee-ground/brown emesis although she had vomiting for last 6 days on and off. In the ER note, there is mention about abdominal discomfort but patient did not complain to me. In ED, initial lab evaluation shows patient has creatinine 3.35, BUN 55, hyponatremia and hypochloremia, hyperkalemia, K5.3. Patient has baseline creatinine is about 1.0 as, last one in November 26, 2017. Chest x-ray shows no evidence of acute cardiopulmonary disease Patient had upper endoscopy long time ago and currently she does not want EGD. Patient is DNR CC arrest She was last admitted in November 2017 for bilateral lower leg cellulitis. Of note, she has bilateral lower leg edema/lymphedema, mostly bedridden. 1. Acute kidney injury on CKD stage III most probably prerenal/vomiting: Continue IV fluid. BUN and creatinine has improved to 32/1.47. Monitor kidney function and electrolytes. Patient had a mild hypokalemia which improved. 2. Possible upper or lower GI bleed: H&H is dropped from 11.8-9.9 but may be hemodilution thereafter is stable. IV Protonix twice daily. Group and crossmatch. Admitting H&H is 11.8/39.5. Platelet count 237,000. Discussed with the patient again and patient refuses for EGD and colonoscopy and patient is high risk for anesthesia and procedure. Conservative management. 3. C. difficile colitis: Patient was on Bactrim DS for MRSA in [facility] confirmed by the nursing staff. Bactrim was held at the time of admission for the suspicion of C. difficile. Patient already on Flagyl. Stool for C. difficile came positive. Occult blood positive. Vancomycin 125 mill grams p.o. every 6 hourly. Enteric bacteriology panel negative. Abdominal x-ray reviewed shows diffuse gaseous distention of the colon to the level of rectosigmoid. Repeat abdominal x-ray done today shows gaseous distention of colon and several small bowel loops but has improved from the previous study. Multiple electrolyte disorder: Hyponatremia, hyperkalemia, hypochloremia consistent with hypovolemia. Anion gap is normal. Electrolyte profile has improved. IV fluid normal saline decreased to 50 mill per hour. Electrolytes corrected. 4. Parkinson disease, schizoaffective disorder and dementia: Hold oral medications. speech/swallow evaluation for concern of possible aspiration. Chest x-ray did not show evidence of pneumonia. 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 Multiple comorbidities complicates the present care and expect difficult and delay recovery. DVT prophylaxis: Pharmacological prophylaxis containing view of GI bleed and acute kidney injury on CKD Clinical Impression(s) from Imaging Studies. Chest X-Ray 01/06/18 09:27 IMPRESSION: No radiographic evidence of acute cardiopulmonary disease. Microbiology Past 72 Hours 01/07/18 11:50 Stool Enteric Bacteriology - Final 01/07/18 11:50 Stool C. difficile DNA Amplification - Final 01/07/18 11:50 Stool Stool Lactoferrin - Final 01/07/18 11:50 Stool Stool Occult Blood (BRIE) - Final Occult Blood Positive Laboratory Results 01/07/18 08:05: WBC 5.1, RBC 3.40 L, Hgb 9.9 L, Hct 32.6 L, MCV 95.9, MCH 29.1, MCHC 30.4 L, RDW 15.9 H, RDW Differential 55.5 H, Plt Count 151, MPV 9.7, Immature Gran % (Auto) 0.200, Neut % (Auto) 70.1 H, Lymph % (Auto) 18.0 L, [place] % (Auto) 7.8, Eos % (Auto) 3.9, Baso % (Auto) 0.0, Absolute Neuts (auto) 3.6, Absolute Lymphs (auto) 0.92, Total Counted Not Reportable 01/07/18 08:05: Sodium 136, Potassium 4.3, Chloride 104, Carbon Dioxide 27.0, Anion Gap 5, BUN 48 H, Creatinine 2.49 H, Estim Creat Clear Calc 19.68, Est GFR (MDRD) Af Amer 25 L, Est GFR (MDRD) Non-Af 20 L, BUN/Creatinine Ratio 19.3, Glucose 65 L, Calcium 8.4 L 01/06/18 09:55: WBC 10.8, RBC 4.09 L, Hgb 11.8 L, Hct 39.5, MCV 96.6, MCH 28.9, MCHC 29.9 L, RDW 15.8 H, RDW Differential 55.5 H, Plt Count 237, MPV 10.7, Immature Gran % (Auto) 0.200, Neut % (Auto) 81.2 H, Lymph % (Auto) 8.1 L, [place] % (Auto) 9.7, Eos % (Auto) 0.7, Baso % (Auto) 0.1, Absolute Neuts (auto) 8.8 H, Absolute Lymphs (auto) 0.87, Total Counted Not Reportable 01/06/18 09:55: Sodium 133 L, Potassium 5.3 H, Chloride 95 L, Carbon Dioxide 2 9.0, Anion Gap 9, BUN 55 H, Creatinine 3.35 H, Estim Creat Clear Calc 14.63, Est GFR (MDRD) Af Amer 18 L, Est GFR (MDRD) Non-Af 14 L, BUN/Creatinine Ratio 16.4, Glucose 117 H, Calcium 10.0, Total Bilirubin 0.40, AST 30, ALT 7 L, Alkaline Phosphatase 93, Total Protein 8.4 H, Albumin 2.9 L, Globulin 5.5 H, Albumin/Globulin Ratio 0.5 L 01/06/18 10:00: Blood Type A POSITIVE, Antibody Screen NEGATIVE Code Visit Inpatient E&M: 12130 Subs Hosp L3
[2018-01-09] MEDS: Dextrose 50%-Water 25 GM/50 ML DISP.SYRIN IV (19:05)
[2018-01-09 19:06] LABS: Bedside Glucose 92 mg/dL (70-110)
[2018-01-09] MEDS: Dext 5%-0.45% NS 1,000 ML 75 ML IV (19:06)
[2018-01-09 20:22] VITALS: BP 131/73; PULSE 73; RESP 18; TEMP 36.9; O2SAT 100
[2018-01-09] MEDS: Acetaminophen 325 MG Tablet 650 MG PO (20:38)
[2018-01-09] MEDS: ARIPiprazole 5 MG Tablet 7.5 MG PO (23:03)
[2018-01-09] MEDS: Famotidine 20 MG Tablet PO (23:05)
[2018-01-09] MEDS: Lisinopril 2.5 MG Tablet PO (23:05)
[2018-01-09 23:22] LABS: Bedside Glucose 92 mg/dL (70-110)
[2018-01-10 02:22] VITALS: BP 129/64; PULSE 82; RESP 18; TEMP 36.9; O2SAT 95
[2018-01-10 03:01] LABS: Bedside Glucose 80 mg/dL (70-110)
[2018-01-10] MEDS: Carbidopa/Levodopa 25/100 Tablet PO ×3 (06:52→17:24)
[2018-01-10] MEDS: Nystatin Powder 15gm Bottle 1 APPLIC TOPICAL ×3 (06:52→22:47)
[2018-01-10] MEDS: Pramipexole Di-HCl 0.25 MG Tablet 0.75 MG PO ×3 (06:52→22:45)
[2018-01-10 07:11] LABS: Bedside Glucose 98 mg/dL (70-110)
[2018-01-10 07:29] VITALS: O2SAT 94
[2018-01-10 08:05] LABS: Anion Gap 9 (5-15); BUN 9 mg/dL (7-18); Calcium,Total 8.4 mg/dL (8.5-10.1); Chloride 108 mmol/L (98-107); EST Glomerular Filtration Rate 66 mL/min (>60); Est Glom Filt Rate - Afr Amer 80 mL/min (>60); Estimated Creatinine Clearance 54.45 ml/min; Glucose 94 mg/dL (74-106); Potassium 3.9 mmol/L (3.5-5.1); Sodium Level 140 mmol/L (136-145)
[2018-01-10 08:06] VITALS: BP 92/47; PULSE 68; RESP 16; TEMP 36.9; O2SAT 96
[2018-01-10] MEDS: Dext 5%-0.45% NS 1,000 ML 75 ML IV (09:39)
[2018-01-10] MEDS: Menthol/Lanolin/Calamine/Znox 113 GM Tube 1 APPLIC TOPICAL ×4 (09:43→22:48)
[2018-01-10] MEDS: Escitalopram Oxalate 10 MG Tablet PO (09:43)
[2018-01-10] MEDS: buPROPion (XL) 300 MG TABLET.XL PO (09:43)
[2018-01-10] MEDS: Famotidine 20 MG Tablet PO ×2 (09:43→22:46)
[2018-01-10] MEDS: Gabapentin 100 MG Capsule PO ×3 (09:43→17:24)
[2018-01-10 10:31] LABS: Bedside Glucose 119 mg/dL (70-110)
--- NOTE | 2018-01-10 11:41 | PCM.CONS.GEN ---
Problem List (1) Abdominal distention Status: Acute Reason for Consult Date of Consultation: 01/10/18 Reason for Consultation: Abdominal distention History of Present Illness: The patient is a 72 year old F who presents with a 1 week history of nausea, vomiting and abdominal discomfort. Patient notes she was being treated for an infection in her stomach with Bactrim. Patient stated she started with diarrhea last Monday. Patient denies bright red blood per rectum, melena. She denies previous colonoscopy. She denies family history of colon cancer. She notes abdominal discomfort intermittently. Patient was brought to the ED due to dark emesis from the long term. Patient is mostly bedridden. She is a poor historian. She has had lack of appetite. She noted today at lunch was her first solid food meal since last Monday. She is able to tolerate her diet. She notes passing flatus. She notes dull headache. She notes history of total hysterectomy. I also found in her chart that she had an emergent open right hemicolectomy due to cecal perforation in 2009. Liver biopsy was obtained at that time demonstrating cirrhosis. She also had a PEG tube placed at the same admission in August of 2009. Patient notes a history of a stroke. She denies previous myocardial infarction, blood clots. Microbiology demonstrated positive for C Diff. Positive fecal occult blood test. Past Medical History Past Medical History (Chronic Problems): Chronic Problems (Last Reviewed 12/20/17 @ 12:37 by Alejandra Singh) Obesity, Class III, BMI 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 obesity) (Chronic) HTN (hypertension) (Chronic) Chronic venous stasis dermatitis of both lower extremities (Chronic) Chronic venous insufficiency (Chronic) Venous ulcers of both lower extremities (Chronic) 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) Bilateral leg edema (Chronic) Parkinson's disease (tremor, stiffness, slow motion, unstable posture) (Chronic) Autonomic neuropathy (Chronic) Schizo affective schizophrenia (Chronic) Delayed gastric emptying (Chronic) H/O squamous cell carcinoma of skin (Chronic) of lower extremities 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) Bilateral lower leg cellulitis (Chronic) Medical History: Medical History (Last Reviewed 12/20/17 @ 12:37 by Alejandra Singh) Anemia in other chronic diseases classified elsewhere D63.8 Anxiety F41.9 Anxiety disorder F41.9 Bipolar disorder, current episode manic without psychotic features F31.10 COPD (chronic obstructive pulmonary disease) J44.9 Cellulitis of extremity L03.119 Chronic kidney disease N18.9 Colon stricture K56.699 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 Dysuria R30.0 Encounter for attention to gastrostomy Z43.1 Essential (primary) hypertension I10 Gastroparesis K31.84 History of falling Z91.81 Hypertensive chronic kidney disease with stage 1 through stage 4 chronic kidney disease, or unspecified chronic kidney disease I12.9 Hypokalemia E87.6 Hypothyroidism E03.9 Ileus K56.7 Insomnia G47.00 Major depressive disorder, recurrent F33.9 Muscle weakness M62.81 Obesity E66.9 Other abnormalities of gait and mobility R26.89 Other lack of coordination R27.8 Personal history of urinary infection Z87.440 Presence of artificial hip joint Z96.649 Schizoaffective disorder F25.9 Schizophrenia F20.9 Sepsis A41.9 Squamous cell carcinoma of overlapping sites of skin C44.82 Stage II pressure ulcer of sacral region L89.152 Stage II pressure ulcer of sacral region L89.152 Thrombocytopenia D69.6 Unsteadiness on feet R26.81 Vitamin D deficiency E55.9 Allergies piperacillin [From Zosyn] Adverse Reaction (Verified 01/06/18 09:16) Rash tazobactam [From Zosyn] Adverse Reaction (Verified 01/06/18 09:16) Rash Home Medications: Ambulatory Orders Medication Instructions Recorded Carvedilol [Coreg (Beta Justin)] 3.125 mg PO BID 11/17/15 Cholecalciferol (VIT D3) [Vitamin 2,000 unit PO BREAKFAST 11/17/15 D3] Furosemide [Lasix] 20 mg PO DAILY 11/17/15 Gabapentin [Neurontin] 100 mg PO TIDCM 11/17/15 Lisinopril [Zestril] 2.5 mg PO QHS 11/17/15 Ropinirole HCl [Ropinirole ER] 8 mg PO QHS 11/17/15 buPROPion XL [Wellbutrin Xl] 300 mg PO DAILY 11/17/15 Calcium Carbonate 600 mg PO DAILY 06/21/16 Escitalopram Oxalate [Lexapro] 10 mg PO BREAKFAST 06/22/16 Ondansetron HCl [Zofran] 4 mg PO Q6H PRN PRN 07/15/16 Hydrocodone Bitart/Apap 5-325 1 tablet PO Q4H PRN PRN #30 tablet 07/18/16 [[place] 5/325] Acetaminophen [Tylenol Arthritis] 650 mg PO Q4H PRN PRN MDD 4 GM 08/23/17 Aripiprazole [Abilify] 7.5 mg PO QHS 08/23/17 Bisacodyl [Bisac-Evac] 10 mg RC DAILY PRN PRN 08/23/17 Carbidopa/Levodopa 25/100 [Sinemet 1 tablet PO TIDAC 08/23/17 25/100] Hydrocodone/Acetaminophen [[place] 1 each PO BID 08/23/17 5-325 Tablet] Lactulose [Chronulac] 20 gm PO BREAKFAST 08/23/17 Magnesium Hydroxide [Milk Of 30 ml PO DAILY PRN PRN 08/23/17 Magnesia] Rotigotine [Neupro] 2 mg TRANSDERM. QHS 08/23/17 Urea [Ure-K] 142 gm TP QHS PRN PRN 08/23/17 Senna [Senokot] 2 tablet PO BID 09/05/17 Lactobacillus Rhamnosus GG 1 each PO QHS 11/30/17 [Culturelle] Linezolid [Zyvox] 600 mg PO Q12H 01/06/18 Metronidazole [Flagyl] 500 mg PO BID 01/06/18 Smz/Tmp Ds [Bactrim Ds] 1 tablet PO BID 01/06/18 Surgical History: Surgical History (Last Reviewed 12/20/17 @ 12:37 by Alejandra Singh) Presence of cardiac and vascular implant and graft Z95.9 Surgical History: noncontributory Lives: Longterm Smoking Status: Never smoker - *Family History Maternal History Items: No pertinent history Review of Systems Constitutional: Denies: Chills, Fever, Weight Change HEENT: Denies: Head Aches, Sinus Congestion, Sinus Drainage Cardiovascular: Denies: Chest Pain, Palpitations Respiratory: Reports: Cough Gastrointestinal: Reports: Abdominal Pain, Diarrhea, Hematemesis, Nausea, Vomiting Genitourinary: Denies: Dysuria Musculoskeletal: Denies: Joint Pain, Joint Tenderness Skin: Denies: Rash, Wounds Neurological: Reports: Balance problems Psychiatric: Denies: Anxiety, Depression, Homicidal Ideations, Suicidal Ideations Hematologic/ Lymphatic: Reports: Anemia Patient Problems: Active and Suspected Problems (Last Reviewed 12/20/17 @ 12:37 by Alejandra Singh) Coffee ground emesis (Acute) Diffuse abdominal pain (Acute) Acute renal failure (Acute) Abdominal distention (Acute) - Physical Exam General: Alert, Oriented x3, Cooperative HEENT: Atraumatic, PERRLA, EOMI, Normocephalic Neck: Supple, No JVD, Negative Carotid Bruits Lungs: Clear to auscultation, Normal air movement Cardiovascular: Regular rate, No murmurs Abdomen: Bowel Sounds Present, Distended - moderately distended, Tender - generalized, Hernia - umbilical hernia will what appears to have bowel involvement. Extremities: No edema, Capillary Refill Less than 3 Seconds Skin: No rashes, No breakdown Musculoskeletal: No Tenderness to Palpation of Joints or Extremities Neurological: Neuro grossly intact Psych/Mental Status: Normal Affect, Appropriate Vital Signs Temp Pulse Resp BP Pulse Ox 98.5 F 68 16 92/47 L 96 01/10/18 08:06 01/10/18 08:06 01/10/18 08:06 01/10/18 08:06 01/10/18 08:06 Oxygen Flow Rate (L/min) 2 Oxygen Delivery Method Room Air Weight: 214 lb 8.156 oz Body Mass Index (BMI) 34.6 Intake and Output for Last 24 Hours 01/08/18 01/09/18 01/10/18 23:59 23:59 23:59 Intake Total 3090 / 3090 2294 / 2294 957 / 957 Balance 3090 / 3090 2294 / 2294 957 / 957 Microbiology Past 72 Hours 01/07/18 11:50 C. difficile DNA Amplification - Final Stool Toxigenic C. difficile DNA 01/07/18 11:50 Enteric Bacteriology - Final Stool 01/07/18 11:50 Stool Lactoferrin - Final Stool 01/07/18 11:50 Stool Occult Blood (BRIE) - Final Stool Occult Blood Positive Laboratory Tests Past 24 Hrs 01/10/18 06:48 Sodium 140 Potassium 3.9 Chloride 108 H Carbon Dioxide 23.0 Anion Gap 9 BUN 9 Creatinine 0.90 Estim Creat Clear Calc 54.45 Est GFR (MDRD) Af Amer 80 Est GFR (MDRD) Non-Af 66 BUN/Creatinine Ratio 10.0 Glucose 94 Calcium 8.4 L POC Glucose 01/10/18 01/10/18 01/10/18 10:20 06:50 02:42 POC Glucose 119 H 98 80 01/09/18 01/09/18 23:01 18:58 POC Glucose 92 92 Assessment/Plan All Active Problems (Last Reviewed 12/20/17 @ 12:37 by Alejandra Singh) Nausea & vomiting (Resolved) Ileus (Resolved) UTI (urinary tract infection) (Resolved) Dehydration (Acute) Hypomagnesemia (Resolved) Hyponatremia (Acute) Small bowel obstruction (Ruled-out) Cellulitis (Acute) Cellulitis and abscess of left leg (Acute) Coffee ground emesis (Acute) Diffuse abdominal pain (Acute) Acute renal failure (Acute) Abdominal distention (Acute) Cellulitis (Resolved) Moderate malnutrition (Resolved) Squamous cell carcinoma in situ (Resolved) I have been consulted in conjunction with Dr. Mancia. Impression: C Diff. Positive occult blood Plan: Discussed patient with Dr. Mancia. Dr. Mancia will plan to perform a colonoscopy with possible biopsies with MAC. Procedure details, risks and benefits have been explained. Golytely will be used for bowel prep. Colonoscopy will be scheduled for tomorrow. Thank you for allowing me to participate in this patient's care. Recommendations will be available via electronic medical records. Code Visit Office Visits / Consults: [id number] IP Consult L3
--- NOTE | 2018-01-10 13:13 | CASEMGMT ---
Social Work Note On 01/08/2018 this worker had left a message for pt's son to bring in advanced directives. Haven Travis INTERNET MARKETING STRATEGIST, EDITORIAL CLERK
--- NOTE | 2018-01-10 13:50 | RAD_ITS ---
STUDY: X-RAY - ABDOMEN/PELVIS REASON FOR EXAM: Female, 72 years old. Abdominal distention TECHNIQUE: 3 supine views of the abdomen COMPARISON: 01/09/2018 FINDINGS: There is still gaseous distention of small and large bowel loops. There is no free air noted on the decubitus view. There are stable degenerative changes in the spine. There are stable post surgical changes from left hip arthroplasty. RAD/Abd Inc Decub and/or Erect IMPRESSION: Stable exam. Electronically Signed: Jarrett Lux, at 19:43 EDT Tel , Service support ,
--- NOTE | 2018-01-10 14:11 | CASEMGMT ---
Social Work Note Pt is not ready for discharge today. LAURA updated Delfina at [facility] of this. LAURA faxed updated clinicals to Delfina at [facility]. Plan: Return to [facility] when medically cleared Haven Travis LUDLOW MACHINE OPERATOR, BUS DISPATCHER [employer]
[2018-01-10 14:30] VITALS: BP 125/70; PULSE 78; RESP 18; TEMP 36.9; O2SAT 95
[2018-01-10] MEDS: Electrolyte Solution/Peg's 4000 ML PO (14:36)
[2018-01-10 14:46] LABS: Bedside Glucose 93 mg/dL (70-110)
--- NOTE | 2018-01-10 15:44 | PCM.PN.HOSP ---
Patient Problems: Active and Suspected Problems (Last Reviewed 12/20/17 @ 12:37 by Alejandra Singh) Coffee ground emesis (Acute) Diffuse abdominal pain (Acute) Acute renal failure (Acute) Abdominal distention (Acute) Subjective: Patient still has abdominal distention. Patient complain of left lower quadrant abdominal pain/discomfort again today which was not yesterday. Abdominal x-ray ordered. Shows bowel distention mainly large bowel with no significant improvement from the previous abdominal x-rays. Vitals/I&O's: Vital Signs Temp Pulse Resp BP Pulse Ox 98.4 F 78 18 125/70 H 95 01/10/18 14:30 01/10/18 14:30 01/10/18 14:30 01/10/18 14:30 01/10/18 14:30 Oxygen Flow Rate (L/min) 2 Oxygen Delivery Method Room Air Weight: 214 lb 8.156 oz Body Mass Index (BMI) 34.6 Intake and Output for Last 24 Hours 01/08/18 01/09/18 01/10/18 23:59 23:59 23:59 Intake Total 3090 / 3090 2294 / 2294 1330 / 1330 Balance 3090 / 3090 2294 / 2294 1330 / 1330 General: Alert, Oriented x3, Cooperative HEENT: Atraumatic, PERRLA, EOMI, Normocephalic Neck: Supple, No JVD, Negative Carotid Bruits Lungs: Clear to auscultation, No rhonchi, No wheeze, No rales, Diminished Cardiovascular: Regular rate, Regular Rhythm, Normal S1, Normal S2, No murmurs Abdomen: Bowel Sounds Present, Soft, Non Tender Extremities: No edema, Capillary Refill Less than 3 Seconds Skin: No rashes, No breakdown Musculoskeletal: No Tenderness to Palpation of Joints or Extremities, Arthritic Changes, Muscle Wasting Neurological: Cranial nerves II-XII grossly intact, - - History of previous stroke with neurological deficit decreased cognitive deficit and slow speech with dysarthria, Psych/Mental Status: Normal Affect, Appropriate Microbiology Past 72 Hours 01/07/18 11:50 Stool C. difficile DNA Amplification - Final Toxigenic C. difficile DNA 01/07/18 11:50 Stool Enteric Bacteriology - Final 01/07/18 11:50 Stool Stool Lactoferrin - Final 01/07/18 11:50 Stool Stool Occult Blood (BRIE) - Final Occult Blood Positive Laboratory Results 01/09/18 18:58: POC Glucose 92 01/09/18 23:01: POC Glucose 92 01/10/18 02:42: POC Glucose 80 01/10/18 06:48: Sodium 140, Potassium 3.9, Chloride 108 H, Carbon Dioxide 23.0, Anion Gap 9, BUN 9, Creatinine 0.90, Estim Creat Clear Calc 54.45, Est GFR (MDRD) Af Amer 80, Est GFR (MDRD) Non-Af 66, BUN/Creatinine Ratio 10.0, Glucose 94, Calcium 8.4 L 01/10/18 06:50: POC Glucose 98 01/10/18 10:20: POC Glucose 119 H 01/10/18 14:37: POC Glucose 93 Current Medications Acetaminophen (Tylenol) 650 mg PO Q4H PRN PRN Reason: PAIN/FEVER Last Admin: 01/09/18 20:38 Dose: 650 mg Aripiprazole (Abilify) 7.5 mg PO QHS [facility] Last Admin: 01/09/18 23:03 Dose: 7.5 mg Bisacodyl (Dulcolax) 10 mg RECTAL DAILY PRN PRN PRN Reason: Constipation Bupropion HCl (Wellbutrin Xl) 300 mg PO DAILY [facility] Last Admin: 01/10/18 09:43 Dose: 300 mg Calamine/Phenol (Calmoseptine Ointment) 1 applic TOPICAL 4X/DAY [facility]; Protocol Last Admin: 01/10/18 14:39 Dose: 1 applicatio Carbidopa/Levodopa (Sinemet) 1 tablet PO TIDAC [facility] Last Admin: 01/10/18 11:59 Dose: 1 tablet Carvedilol (Coreg) 3.125 mg PO BID [facility] Last Admin: 01/10/18 09:44 Dose: Not Given Escitalopram Oxalate (Lexapro) 10 mg PO BREAKFAST [facility] Last Admin: 01/10/18 09:43 Dose: 10 mg Famotidine (Pepcid) 20 mg PO BID [facility] Last Admin: 01/10/18 09:43 Dose: 20 mg Gabapentin (Neurontin) 100 mg PO TIDCM [facility] Last Admin: 01/10/18 11:59 Dose: 100 mg Dextrose/Sodium Chloride () 1,000 mls @ 75 mls/hr IV .[id number] [facility] Last Admin: 01/10/18 09:39 Dose: 75 mls/hr Insulin Human Lispro (Humalog Kwikpen (Bkc)) 0 unit SC Q4 [facility]; Protocol Last Admin: 01/10/18 14:38 Dose: Not Given Lisinopril (Zestril) 2.5 mg PO QHS [facility] Last Admin: 01/09/18 23:05 Dose: 2.5 mg Nystatin (Mycostatin Powder) 1 applic TOPICAL TID [facility]; Protocol Last Admin: 01/10/18 14:40 Dose: 1 applicatio Ondansetron HCl (Zofran) 4 mg IV Q6H PRN PRN PRN Reason: NAUSEA Pramipexole Dihydrochloride (Mirapex) 0.75 mg PO TID [facility] Last Admin: 01/10/18 14:39 Dose: 0.75 mg Promethazine HCl (Phenergan) 12.5 mg IV Q6H PRN PRN PRN Reason: NAUSEA/VOMITING Rotigotine (Neupro) 2 mg TRANSDERM. QHS [facility] Last Admin: 01/09/18 23:04 Dose: 2 mg Sodium Chloride () 5 - 30 ml IV UD PRN PRN Reason: SALINE FLUSH Vancomycin HCl () 125 mg PO Q6 [facility] Last Admin: 01/10/18 11:59 Dose: 125 mg Medical Necessity - Tobacco Use Smoking Status: Never smoker Assessment/Plan All Active Problems (Last Reviewed 12/20/17 @ 12:37 by Alejandra Singh) Nausea & vomiting (Resolved) Ileus (Resolved) UTI (urinary tract infection) (Resolved) Dehydration (Acute) Hypomagnesemia (Resolved) Hyponatremia (Acute) Small bowel obstruction (Ruled-out) Cellulitis (Acute) Cellulitis and abscess of left leg (Acute) Coffee ground emesis (Acute) Diffuse abdominal pain (Acute) Acute renal failure (Acute) Abdominal distention (Acute) Cellulitis (Resolved) Moderate malnutrition (Resolved) Squamous cell carcinoma in situ (Resolved) The patient is a 72 year old F with multiple comorbidities, senior care resident was sent to ER for concern of coffee-ground emesis. Patient said she had about 2-3 times coffee-ground/brown emesis although she had vomiting for last 6 days on and off. In the ER note, there is mention about abdominal discomfort but patient did not complain to me. In ED, initial lab evaluation shows patient has creatinine 3.35, BUN 55, hyponatremia and hypochloremia, hyperkalemia, K5.3. Patient has baseline creatinine is about 1.0 as, last one in November 26, 2017. Chest x-ray shows no evidence of acute cardiopulmonary disease Patient had upper endoscopy long time ago and currently she does not want EGD. Patient is DNR CC arrest She was last admitted in November 2017 for bilateral lower leg cellulitis. Of note, she has bilateral lower leg edema/lymphedema, mostly bedridden. 1. Acute kidney injury on CKD stage III most probably prerenal/vomiting: Continue IV fluid. BUN and creatinine has improved to 32/1.47. Monitor kidney function and electrolytes. AK I resolved. Mild hypokalemia replaced and corrected. 2. Possible upper or lower GI bleed: H&H is dropped from 11.8-9.9 but may be hemodilution thereafter is stable. IV Protonix twice daily. Group and crossmatch. Admitting H&H is 11.8/39.5. Platelet count 237,000. Discussed with the patient again and patient refuses for EGD and colonoscopy and patient is high risk for anesthesia and procedure. Conservative management. 3. C. difficile colitis: Patient was on Bactrim DS for MRSA in senior care confirmed by the nursing staff. Bactrim was held at the time of admission for the suspicion of C. difficile. Patient already on Flagyl. Stool for C. difficile came positive. Occult blood positive. Vancomycin 125 mill grams p.o. every 6 hourly. Enteric bacteriology panel negative. Abdominal x-ray reviewed shows diffuse gaseous distention of the colon to the level of rectosigmoid. Repeat abdominal x-ray done today shows gaseous distention of colon and several small bowel loops with no significant improvement. Discussed with surgeon Dr. Mancia and consult reviewed and appreciated. Advised colonoscopy tomorrow. Multiple electrolyte disorder: Hyponatremia, hyperkalemia, hypochloremia consistent with hypovolemia. Anion gap is normal. Electrolyte profile has improved. IV fluid normal saline decreased to 50 mill per hour. Electrolytes corrected. 4. Parkinson disease, schizoaffective disorder and dementia: Hold oral medications. speech/swallow evaluation for concern of possible aspiration. Chest x-ray did not show evidence of pneumonia. 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 Multiple comorbidities complicates the present care and expect difficult and delay recovery. DVT prophylaxis: Pharmacological prophylaxis containing view of GI bleed and acute kidney injury on CKD Clinical Impression(s) from Imaging Studies. Chest X-Ray 01/06/18 09:27 IMPRESSION: No radiographic evidence of acute cardiopulmonary disease. Microbiology Past 72 Hours 01/07/18 11:50 Stool C. difficile DNA Amplification - Final Toxigenic C. difficile DNA 01/07/18 11:50 Stool Enteric Bacteriology - Final 01/07/18 11:50 Stool Stool Lactoferrin - Final 01/07/18 11:50 Stool Stool Occult Blood (BRIE) - Final Occult Blood Positive Laboratory Results 01/09/18 18:58: POC Glucose 92 01/09/18 23:01: POC Glucose 92 01/10/18 02:42: POC Glucose 80 01/10/18 06:48: Sodium 140, Potassium 3.9, Chloride 108 H, Carbon Dioxide 23.0, Anion Gap 9, BUN 9, Creatinine 0.90, Estim Creat Clear Calc 54.45, Est GFR (MDRD) Af Amer 80, Est GFR (MDRD) Non-Af 66, BUN/Creatinine Ratio 10.0, Glucose 94, Calcium 8.4 L 01/10/18 06:50: POC Glucose 98 01/10/18 10:20: POC Glucose 119 H 01/10/18 14:37: POC Glucose 93 Code Visit Inpatient E&M: 73539 Subs Hosp L3
--- NOTE | 2018-01-10 15:52 | PN_ITS ---
Patient Problems: Active and Suspected Problems (Last Reviewed 12/20/17 @ 12:37 by Alejandra Singh) Coffee ground emesis (Acute) Diffuse abdominal pain (Acute) Acute renal failure (Acute) Abdominal distention (Acute) Subjective: Patient still has abdominal distention. Patient complain of left lower quadrant abdominal pain/discomfort again today which was not yesterday. Abdominal x-ray ordered. Shows bowel distention mainly large bowel with no significant improvement from the previous abdominal x-rays. Vitals/I&O's: Vital Signs Temp Pulse Resp BP Pulse Ox 98.4 F 78 18 125/70 H 95 01/10/18 14:30 01/10/18 14:30 01/10/18 14:30 01/10/18 14:30 01/10/18 14:30 Oxygen Flow Rate (L/min) 2 Oxygen Delivery Method Room Air Weight: 214 lb 8.156 oz Body Mass Index (BMI) 34.6 Intake and Output for Last 24 Hours 01/08/18 01/09/18 01/10/18 23:59 23:59 23:59 Intake Total 3090 / 3090 2294 / 2294 1330 / 1330 Balance 3090 / 3090 2294 / 2294 1330 / 1330 General: Alert, Oriented x3, Cooperative HEENT: Atraumatic, PERRLA, EOMI, Normocephalic Neck: Supple, No JVD, Negative Carotid Bruits Lungs: Clear to auscultation, No rhonchi, No wheeze, No rales, Diminished Cardiovascular: Regular rate, Regular Rhythm, Normal S1, Normal S2, No murmurs Abdomen: Bowel Sounds Present, Soft, Non Tender Extremities: No edema, Capillary Refill Less than 3 Seconds Skin: No rashes, No breakdown Musculoskeletal: No Tenderness to Palpation of Joints or Extremities, Arthritic Changes, Muscle Wasting Neurological: Cranial nerves II-XII grossly intact, - - History of previous stroke with neurological deficit decreased cognitive deficit and slow speech with dysarthria, Psych/Mental Status: Normal Affect, Appropriate Microbiology Past 72 Hours 01/07/18 11:50 Stool C. difficile DNA Amplification - Final Toxigenic C. difficile DNA 01/07/18 11:50 Stool Enteric Bacteriology - Final 01/07/18 11:50 Stool Stool Lactoferrin - Final 01/07/18 11:50 Stool Stool Occult Blood (BRIE) - Final Occult Blood Positive Laboratory Results 01/09/18 18:58: POC Glucose 92 01/09/18 23:01: POC Glucose 92 01/10/18 02:42: POC Glucose 80 01/10/18 06:48: Sodium 140, Potassium 3.9, Chloride 108 H, Carbon Dioxide 23.0, Anion Gap 9, BUN 9, Creatinine 0.90, Estim Creat Clear Calc 54.45, Est GFR (MDRD) Af Amer 80, Est GFR (MDRD) Non-Af 66, BUN/Creatinine Ratio 10.0, Glucose 94, Calcium 8.4 L 01/10/18 06:50: POC Glucose 98 01/10/18 10:20: POC Glucose 119 H 01/10/18 14:37: POC Glucose 93 Current Medications Acetaminophen (Tylenol) 650 mg PO Q4H PRN PRN Reason: PAIN/FEVER Last Admin: 01/09/18 20:38 Dose: 650 mg Aripiprazole (Abilify) 7.5 mg PO QHS [facility] Last Admin: 01/09/18 23:03 Dose: 7.5 mg Bisacodyl (Dulcolax) 10 mg RECTAL DAILY PRN PRN PRN Reason: Constipation Bupropion HCl (Wellbutrin Xl) 300 mg PO DAILY [facility] Last Admin: 01/10/18 09:43 Dose: 300 mg Calamine/Phenol (Calmoseptine Ointment) 1 applic TOPICAL 4X/DAY [facility]; Protocol Last Admin: 01/10/18 14:39 Dose: 1 applicatio Carbidopa/Levodopa (Sinemet) 1 tablet PO TIDAC [facility] Last Admin: 01/10/18 11:59 Dose: 1 tablet Carvedilol (Coreg) 3.125 mg PO BID [facility] Last Admin: 01/10/18 09:44 Dose: Not Given Escitalopram Oxalate (Lexapro) 10 mg PO BREAKFAST [facility] Last Admin: 01/10/18 09:43 Dose: 10 mg Famotidine (Pepcid) 20 mg PO BID [facility] Last Admin: 01/10/18 09:43 Dose: 20 mg Gabapentin (Neurontin) 100 mg PO TIDCM [facility] Last Admin: 01/10/18 11:59 Dose: 100 mg Dextrose/Sodium Chloride () 1,000 mls @ 75 mls/hr IV .[id number] [facility] Last Admin: 01/10/18 09:39 Dose: 75 mls/hr Insulin Human Lispro (Humalog Kwikpen (Bkc)) 0 unit SC Q4 [facility]; Protocol Last Admin: 01/10/18 14:38 Dose: Not Given Lisinopril (Zestril) 2.5 mg PO QHS [facility] Last Admin: 01/09/18 23:05 Dose: 2.5 mg Nystatin (Mycostatin Powder) 1 applic TOPICAL TID [facility]; Protocol Last Admin: 01/10/18 14:40 Dose: 1 applicatio Ondansetron HCl (Zofran) 4 mg IV Q6H PRN PRN PRN Reason: NAUSEA Pramipexole Dihydrochloride (Mirapex) 0.75 mg PO TID [facility] Last Admin: 01/10/18 14:39 Dose: 0.75 mg Promethazine HCl (Phenergan) 12.5 mg IV Q6H PRN PRN PRN Reason: NAUSEA/VOMITING Rotigotine (Neupro) 2 mg TRANSDERM. QHS [facility] Last Admin: 01/09/18 23:04 Dose: 2 mg Sodium Chloride () 5 - 30 ml IV UD PRN PRN Reason: SALINE FLUSH Vancomycin HCl () 125 mg PO Q6 [facility] Last Admin: 01/10/18 11:59 Dose: 125 mg Medical Necessity - Tobacco Use Smoking Status: Never smoker Assessment/Plan All Active Problems (Last Reviewed 12/20/17 @ 12:37 by Alejandra Singh) Nausea & vomiting (Resolved) Ileus (Resolved) UTI (urinary tract infection) (Resolved) Dehydration (Acute) Hypomagnesemia (Resolved) Hyponatremia (Acute) Small bowel obstruction (Ruled-out) Cellulitis (Acute) Cellulitis and abscess of left leg (Acute) Coffee ground emesis (Acute) Diffuse abdominal pain (Acute) Acute renal failure (Acute) Abdominal distention (Acute) Cellulitis (Resolved) Moderate malnutrition (Resolved) Squamous cell carcinoma in situ (Resolved) The patient is a 72 year old F with multiple comorbidities, [facility] resident was sent to ER for concern of coffee-ground emesis. Patient said she had about 2-3 times coffee-ground/brown emesis although she had vomiting for last 6 days on and off. In the ER note, there is mention about abdominal discomfort but patient did not complain to me. In ED, initial lab evaluation shows patient has creatinine 3.35, BUN 55, hyponatremia and hypochloremia, hyperkalemia, K5.3. Patient has baseline creatinine is about 1.0 as, last one in November 26, 2017. Chest x-ray shows no evidence of acute cardiopulmonary disease Patient had upper endoscopy long time ago and currently she does not want EGD. Patient is DNR CC arrest She was last admitted in November 2017 for bilateral lower leg cellulitis. Of note, she has bilateral lower leg edema/lymphedema, mostly bedridden. 1. Acute kidney injury on CKD stage III most probably prerenal/vomiting: Continue IV fluid. BUN and creatinine has improved to 32/1.47. Monitor kidney function and electrolytes. AK I resolved. Mild hypokalemia replaced and corrected. 2. Possible upper or lower GI bleed: H&H is dropped from 11.8-9.9 but may be hemodilution thereafter is stable. IV Protonix twice daily. Group and crossmatch. Admitting H&H is 11.8/39.5. Platelet count 237,000. Discussed with the patient again and patient refuses for EGD and colonoscopy and patient is high risk for anesthesia and procedure. Conservative management. 3. C. difficile colitis: Patient was on Bactrim DS for MRSA in [facility] confirmed by the nursing staff. Bactrim was held at the time of admission for the suspicion of C. difficile. Patient already on Flagyl. Stool for C. difficile came positive. Occult blood positive. Vancomycin 125 mill grams p.o. every 6 hourly. Enteric bacteriology panel negative. Abdominal x-ray reviewed shows diffuse gaseous distention of the colon to the level of rectosigmoid. Repeat abdominal x-ray done today shows gaseous distention of colon and several small bowel loops with no significant improvement. Discussed with surgeon Dr. Mancia and consult reviewed and appreciated. Advised colonoscopy tomorrow. Multiple electrolyte disorder: Hyponatremia, hyperkalemia, hypochloremia consistent with hypovolemia. Anion gap is normal. Electrolyte profile has improved. IV fluid normal saline decreased to 50 mill per hour. Electrolytes corrected. 4. Parkinson disease, schizoaffective disorder and dementia: Hold oral medications. speech/swallow evaluation for concern of possible aspiration. Chest x-ray did not show evidence of pneumonia. 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 Multiple comorbidities complicates the present care and expect difficult and delay recovery. DVT prophylaxis: Pharmacological prophylaxis containing view of GI bleed and acute kidney injury on CKD Clinical Impression(s) from Imaging Studies. Chest X-Ray 01/06/18 09:27 IMPRESSION: No radiographic evidence of acute cardiopulmonary disease. Microbiology Past 72 Hours 01/07/18 11:50 Stool C. difficile DNA Amplification - Final Toxigenic C. difficile DNA 01/07/18 11:50 Stool Enteric Bacteriology - Final 01/07/18 11:50 Stool Stool Lactoferrin - Final 01/07/18 11:50 Stool Stool Occult Blood (BRIE) - Final Occult Blood Positive Laboratory Results 01/09/18 18:58: POC Glucose 92 01/09/18 23:01: POC Glucose 92 01/10/18 02:42: POC Glucose 80 01/10/18 06:48: Sodium 140, Potassium 3.9, Chloride 108 H, Carbon Dioxide 23.0, Anion Gap 9, BUN 9, Creatinine 0.90, Estim Creat Clear Calc 54.45, Est GFR (MDRD) Af Amer 80, Est GFR (MDRD) Non-Af 66, BUN/Creatinine Ratio 10.0, Glucose 94, Calcium 8.4 L 01/10/18 06:50: POC Glucose 98 01/10/18 10:20: POC Glucose 119 H 01/10/18 14:37: POC Glucose 93 Code Visit Inpatient E&M: 93170 Subs Hosp L3
[2018-01-10 18:41] LABS: Bedside Glucose 104 mg/dL (70-110)
--- NOTE | 2018-01-10 18:59 | EKG12_ITS ---
Test Reason : PRE-OP Blood Pressure : / mmHG Vent. Rate : 084 BPM Atrial Rate : 084 BPM P-R Int : 182 ms QRS Dur : 100 ms QT Int : 384 ms P-R-T Axes : 042 -01 025 degrees QTc Int : 453 ms Normal sinus rhythm Normal ECG When compared with ECG of 02-SEP-2017 02:52, No significant change was found Confirmed by KYLER BASHIR, JESÚS ([id number]), online content editor RAYNA ISRAEL ([id number]) on 01/15/2018 11:02:42 AM Referred By: Stephanie Garcia Confirmed By:JESÚS CHÁVEZ MD
[2018-01-10 20:11] VITALS: BP 125/86; PULSE 90; RESP 18; TEMP 36.9; O2SAT 95
[2018-01-10] MEDS: Lisinopril 2.5 MG Tablet PO (22:46)
[2018-01-10] MEDS: Carvedilol 3.125 MG TABLET PO (22:46)
[2018-01-10] MEDS: ARIPiprazole 5 MG Tablet 7.5 MG PO (22:46)
[2018-01-10 23:05] LABS: Bedside Glucose 106 mg/dL (70-110)
[2018-01-11 02:06] VITALS: BP 136/84; PULSE 90; RESP 18; TEMP 37; O2SAT 96
[2018-01-11 02:16] LABS: Bedside Glucose 106 mg/dL (70-110)
[2018-01-11] MEDS: Dext 5%-0.45% NS 1,000 ML 75 ML IV (06:05)
[2018-01-11] MEDS: Pramipexole Di-HCl 0.25 MG Tablet 0.75 MG PO ×3 (06:05→21:04)
[2018-01-11] MEDS: Carbidopa/Levodopa 25/100 Tablet PO ×3 (06:05→16:49)
[2018-01-11] MEDS: Nystatin Powder 15gm Bottle 1 APPLIC TOPICAL ×3 (06:06→20:59)
[2018-01-11] MEDS: 0.9% NaCl Peripheral Flush Adult/Peds IV (06:09)
--- NOTE | 2018-01-11 06:34 | PCM.PN.SRG ---
Patient Problems: Active and Suspected Problems (Last Reviewed 12/20/17 @ 12:37 by Alejandra Singh) Coffee ground emesis (Acute) Diffuse abdominal pain (Acute) Acute renal failure (Acute) Abdominal distention (Acute) Subjective: Patient evaluated resting comfortably in bed. She denies nausea, vomiting, and abdominal pain/discomfort. She had emesis with the bowel prep and could not complete. Colonoscopy was canceled for this morning. She notes passing flatus and having loose BM. - Physical Exam General: Alert, Oriented x3, Cooperative Abdomen: Bowel Sounds Present, Non Tender, Distended - slightly softer than yesterday Vital Signs Temp Pulse Resp BP Pulse Ox 98.6 F 90 18 136/84 H 96 01/11/18 02:06 01/11/18 02:06 01/11/18 02:06 01/11/18 02:06 01/11/18 02:06 Oxygen Flow Rate (L/min) 2 Oxygen Delivery Method Room Air Weight: 214 lb 8.156 oz Body Mass Index (BMI) 34.6 Intake and Output for Last 24 Hours 01/09/18 01/10/18 01/11/18 23:59 23:59 23:59 Intake Total 2294 / 2294 1330 / 1330 1739 / 1739 Output Total 300 / 300 Balance 2294 / 2294 1330 / 1330 1439 / 1439 Microbiology Past 72 Hours 01/07/18 11:50 C. difficile DNA Amplification - Final Stool Toxigenic C. difficile DNA Laboratory Tests Past 24 Hrs 01/10/18 06:48 Sodium 140 Potassium 3.9 Chloride 108 H Carbon Dioxide 23.0 Anion Gap 9 BUN 9 Creatinine 0.90 Estim Creat Clear Calc 54.45 Est GFR (MDRD) Af Amer 80 Est GFR (MDRD) Non-Af 66 BUN/Creatinine Ratio 10.0 Glucose 94 Calcium 8.4 L POC Glucose 01/11/18 01/10/18 01/10/18 02:01 22:42 18:35 POC Glucose 106 106 104 01/10/18 01/10/18 01/10/18 14:37 10:20 06:50 POC Glucose 93 119 H 98 Medical Necessity - Tobacco Use Smoking Status: Never smoker Assessment/Plan All Active Problems (Last Reviewed 12/20/17 @ 12:37 by Alejandra Singh) Nausea & vomiting (Resolved) Ileus (Resolved) UTI (urinary tract infection) (Resolved) Dehydration (Acute) Hypomagnesemia (Resolved) Hyponatremia (Acute) Small bowel obstruction (Ruled-out) Cellulitis (Acute) Cellulitis and abscess of left leg (Acute) Coffee ground emesis (Acute) Diffuse abdominal pain (Acute) Acute renal failure (Acute) Abdominal distention (Acute) Cellulitis (Resolved) Moderate malnutrition (Resolved) Squamous cell carcinoma in situ (Resolved) I have been consulted in conjunction with Dr. Mancia. Impression: C Diff. Positive occult blood KUB yesterday demonstrated gaseous distention within the small and large colon Continue clear liquids today We will continue to monitor this patient Will discuss with Dr. Mancia Code Visit Inpatient E&M: 19076 Subs Hosp L1
[2018-01-11 08:43] VITALS: BP 143/73; PULSE 90; RESP 18; TEMP 36.8; O2SAT 94
[2018-01-11] MEDS: buPROPion (XL) 300 MG TABLET.XL PO (08:44)
[2018-01-11] MEDS: Escitalopram Oxalate 10 MG Tablet PO (08:44)
[2018-01-11] MEDS: Carvedilol 3.125 MG TABLET PO ×2 (08:44→21:00)
[2018-01-11] MEDS: Famotidine 20 MG Tablet PO ×2 (08:44→21:02)
[2018-01-11] MEDS: Menthol/Lanolin/Calamine/Znox 113 GM Tube 1 APPLIC TOPICAL ×4 (08:44→20:59)
[2018-01-11] MEDS: Gabapentin 100 MG Capsule PO ×3 (08:44→16:49)
[2018-01-11] MEDS: Acetaminophen 325 MG Tablet 650 MG PO (08:51)
[2018-01-11 09:51] LABS: Bedside Glucose 145 mg/dL (70-110)
--- NOTE | 2018-01-11 10:05 | PCM.PN.HOSP ---
Patient Problems: Active and Suspected Problems (Last Reviewed 12/20/17 @ 12:37 by Alejandra Singh) Coffee ground emesis (Acute) Diffuse abdominal pain (Acute) Acute renal failure (Acute) Abdominal distention (Acute) Subjective: Patient did not had any fever or chills. Patient had one soft, semisolid bowel movement yesterday with no blood. Patient did not had bowel movement today. Discussed with the nursing staff. Patient could not tolerate GoLYTELY bowel prep as she was having vomiting, nausea and could not drink it. Colonoscopy was canceled. Vitals/I&O's: Vital Signs Temp Pulse Resp BP Pulse Ox 98.3 F 90 18 143/73 H 94 01/11/18 08:43 01/11/18 08:43 01/11/18 08:43 01/11/18 08:43 01/11/18 08:43 Oxygen Flow Rate (L/min) 2 Oxygen Delivery Method Room Air Weight: 214 lb 8.156 oz Body Mass Index (BMI) 34.6 Intake and Output for Last 24 Hours 01/09/18 01/10/18 01/11/18 23:59 23:59 23:59 Intake Total 2294 / 2294 1330 / 1330 1739 / 1739 Output Total 300 / 300 Balance 2294 / 2294 1330 / 1330 1439 / 1439 General: Alert, Oriented x3, Cooperative HEENT: Atraumatic, PERRLA, EOMI, Normocephalic Neck: Supple, No JVD, Negative Carotid Bruits Lungs: Clear to auscultation, No rhonchi, No wheeze, No rales, Diminished Cardiovascular: Regular rate, Regular Rhythm, Normal S1, Normal S2, No murmurs Abdomen: Bowel Sounds Present, Soft, Non Tender - No tenderness palpable over all 4 quadrants., Hypoactive Bowel Sounds, Distended, Hernia - Umbilical hernia reducible Extremities: No edema, Capillary Refill Less than 3 Seconds, Edema Skin: No rashes, No breakdown Musculoskeletal: No Tenderness to Palpation of Joints or Extremities, Arthritic Changes, Muscle Wasting Neurological: Cranial nerves II-XII grossly intact Psych/Mental Status: Normal Affect, Appropriate Microbiology Past 72 Hours 01/07/18 11:50 Stool C. difficile DNA Amplification - Final Toxigenic C. difficile DNA Laboratory Results 01/10/18 10:20: POC Glucose 119 H 10/17/18 14:37: POC Glucose 93 01/10/18 18:35: POC Glucose 104 01/10/18 22:42: POC Glucose 106 01/11/18 02:01: POC Glucose 106 01/11/18 09:44: POC Glucose 145 H Current Medications Acetaminophen (Tylenol) 650 mg PO Q4H PRN PRN Reason: PAIN/FEVER Last Admin: 01/11/18 08:51 Dose: 650 mg Aripiprazole (Abilify) 7.5 mg PO QHS [facility] Last Admin: 01/10/18 22:46 Dose: 7.5 mg Bisacodyl (Dulcolax) 10 mg RECTAL DAILY PRN PRN PRN Reason: Constipation Bupropion HCl (Wellbutrin Xl) 300 mg PO DAILY [facility] Last Admin: 01/11/18 08:44 Dose: 300 mg Calamine/Phenol (Calmoseptine Ointment) 1 applic TOPICAL 4X/DAY [facility]; Protocol Last Admin: 01/11/18 08:44 Dose: 1 applicatio Carbidopa/Levodopa (Sinemet) 1 tablet PO TIDAC [facility] Last Admin: 01/11/18 06:05 Dose: 1 tablet Carvedilol (Coreg) 3.125 mg PO BID [facility] Last Admin: 01/11/18 08:44 Dose: 3.125 mg Escitalopram Oxalate (Lexapro) 10 mg PO BREAKFAST [facility] Last Admin: 01/11/18 08:44 Dose: 10 mg Famotidine (Pepcid) 20 mg PO BID [facility] Last Admin: 01/11/18 08:44 Dose: 20 mg Gabapentin (Neurontin) 100 mg PO TIDCM [facility] Last Admin: 01/11/18 08:44 Dose: 100 mg Dextrose/Sodium Chloride () 1,000 mls @ 75 mls/hr IV .[id number] [facility] Last Admin: 01/11/18 06:05 Dose: 75 mls/hr Insulin Human Lispro (Humalog Kwikpen (Bkc)) 0 unit SC Q4 [facility]; Protocol Last Admin: 01/11/18 09:52 Dose: Not Given Lisinopril (Zestril) 2.5 mg PO QHS [facility] Last Admin: 01/10/18 22:46 Dose: 2.5 mg Nystatin (Mycostatin Powder) 1 applic TOPICAL TID [facility]; Protocol Last Admin: 01/11/18 06:06 Dose: 1 applicatio Ondansetron HCl (Zofran) 4 mg IV Q6H PRN PRN PRN Reason: NAUSEA Pramipexole Dihydrochloride (Mirapex) 0.75 mg PO TID [facility] Last Admin: 01/11/18 06:05 Dose: 0.75 mg Promethazine HCl (Phenergan) 12.5 mg IV Q6H PRN PRN PRN Reason: NAUSEA/VOMITING Rotigotine (Neupro) 2 mg TRANSDERM. QHS [facility] Last Admin: 01/10/18 22:46 Dose: 2 mg Sodium Chloride () 5 - 30 ml IV UD PRN PRN Reason: SALINE FLUSH Last Admin: 01/11/18 06:09 Dose: 30 ml Vancomycin HCl () 125 mg PO Q6 [facility] Last Admin: 01/11/18 06:05 Dose: 125 mg Medical Necessity - Tobacco Use Smoking Status: Never smoker Assessment/Plan All Active Problems (Last Reviewed 12/20/17 @ 12:37 by Alejandra Singh) Nausea & vomiting (Resolved) Ileus (Resolved) UTI (urinary tract infection) (Resolved) Dehydration (Acute) Hypomagnesemia (Resolved) Hyponatremia (Acute) Small bowel obstruction (Ruled-out) Cellulitis (Acute) Cellulitis and abscess of left leg (Acute) Coffee ground emesis (Acute) Diffuse abdominal pain (Acute) Acute renal failure (Acute) Abdominal distention (Acute) Cellulitis (Resolved) Moderate malnutrition (Resolved) Squamous cell carcinoma in situ (Resolved) The patient is a 72 year old F with multiple comorbidities, alf resident was sent to ER for concern of coffee-ground emesis. Patient said she had about 2-3 times coffee-ground/brown emesis although she had vomiting for last 6 days on and off. In the ER note, there is mention about abdominal discomfort but patient did not complain to me. In ED, initial lab evaluation shows patient has creatinine 3.35, BUN 55, hyponatremia and hypochloremia, hyperkalemia, K5.3. Patient has baseline creatinine is about 1.0 as, last one in November 26, 2017. Chest x-ray shows no evidence of acute cardiopulmonary disease Patient had upper endoscopy long time ago and currently she does not want EGD. Patient is DNR CC arrest She was last admitted in November 2017 for bilateral lower leg cellulitis. Of note, she has bilateral lower leg edema/lymphedema, mostly bedridden. 1. Acute kidney injury on CKD stage III most probably prerenal/vomiting: Continue IV fluid, changed to D5 half NS at 50 mils per hour. BUN and creatinine has improved to 32/1.47 to 9/0.9.. Monitor kidney function and electrolytes. FRANCIS resolved. Mild hypokalemia replaced and corrected. 2. Possible upper or lower GI bleed: H&H is dropped from 11.8-9.9 but may be hemodilution thereafter is stable. IV Protonix twice daily. Group and crossmatch. Admitting H&H is 11.8/39.5. Platelet count 237,000. Discussed with the patient again and patient refuses for EGD and colonoscopy and patient is high risk for anesthesia and procedure. Conservative management. 3. C. difficile colitis: Patient was on Bactrim DS for MRSA in alf confirmed by the nursing staff. Bactrim was held at the time of admission for the suspicion of C. difficile. Patient already on Flagyl. Stool for C. difficile came positive. Occult blood positive. Vancomycin 125 mill grams p.o. every 6 hourly. Enteric bacteriology panel negative. Abdominal x-ray reviewed shows diffuse gaseous distention of the colon to the level of rectosigmoid. Repeat abdominal x-ray done on 01/10 shows gaseous distention of colon and several small bowel loops with no significant improvement reported as a stable exam. Discussed with surgeon Dr. Mancia and consult reviewed and appreciated. Colonoscopy was canceled that patient could not tolerate GoLYTELY colon prep solution. Surgical team recommended conservative medical management and follow-up as an outpatient and try to get colonoscopy as an outpatient. Multiple electrolyte disorder: Hyponatremia, hyperkalemia, hypochloremia consistent with hypovolemia. Anion gap is normal. Electrolyte profile has improved. Electrolytes corrected. 4. Diabetes mellitus type 2 with hypoglycemia: Patient blood sugar dropped to 52 as she was n.p.o. on IV fluid normal saline. Blood sugar improved after IV fluid was changed to D5 half NS and diet changed to clear liquid. Patient oral intake has increased to 75%. Parkinson disease, schizoaffective disorder and dementia: Hold oral medications. speech/swallow evaluation for concern of possible aspiration. Chest x-ray did not show evidence of pneumonia. 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 Multiple comorbidities complicates the present care and expect difficult and delay recovery. DVT prophylaxis: Pharmacological prophylaxis containing view of GI bleed and acute kidney injury on CKD Clinical Impression(s) from Imaging Studies. Chest X-Ray 01/06/18 09:27 IMPRESSION: No radiographic evidence of acute cardiopulmonary disease. Microbiology Past 72 Hours 01/07/18 11:50 Stool C. difficile DNA Amplification - Final Toxigenic C. difficile DNA 01/07/18 11:50 Stool Enteric Bacteriology - Final 01/07/18 11:50 Stool Stool Lactoferrin - Final 01/07/18 11:50 Stool Stool Occult Blood (BRIE) - Final Occult Blood Positive Laboratory Results 01/09/18 18:58: POC Glucose 92 01/09/18 23:01: POC Glucose 92 01/10/18 02:42: POC Glucose 80 01/10/18 06:48: Sodium 140, Potassium 3.9, Chloride 108 H, Carbon Dioxide 23.0, Anion Gap 9, BUN 9, Creatinine 0.90, Estim Creat Clear Calc 54.45, Est GFR (MDRD) Af Amer 80, Est GFR (MDRD) Non-Af 66, BUN/Creatinine Ratio 10.0, Glucose 94, Calcium 8.4 L 01/10/18 06:50: POC Glucose 98 01/10/18 10:20: POC Glucose 119 H 01/10/18 14:37: POC Glucose 93 Code Visit Inpatient E&M: 12657 Subs Hosp L3
[2018-01-11 14:09] VITALS: BP 143/77; PULSE 79; RESP 16; TEMP 36.9; O2SAT 96
[2018-01-11 15:37] VITALS: O2SAT 96
[2018-01-11 16:55] LABS: Bedside Glucose 87 mg/dL (70-110)
[2018-01-11 20:54] VITALS: BP 148/72; PULSE 88; RESP 18; TEMP 37; O2SAT 95
[2018-01-11] MEDS: ARIPiprazole 5 MG Tablet 7.5 MG PO (21:01)
[2018-01-11] MEDS: Lisinopril 2.5 MG Tablet PO (21:02)
[2018-01-11 21:31] LABS: Bedside Glucose 92 mg/dL (70-110)
[2018-01-11] MEDS: Dext 5%-0.45% NS 1,000 ML 50 ML IV (23:14)
[2018-01-12 00:45] LABS: Bedside Glucose 98 mg/dL (70-110)
[2018-01-12 02:34] VITALS: BP 151/83; PULSE 96; RESP 18; TEMP 37.1; O2SAT 97
[2018-01-12] MEDS: Pramipexole Di-HCl 0.25 MG Tablet 0.75 MG PO (05:20)
[2018-01-12] MEDS: Nystatin Powder 15gm Bottle 1 APPLIC TOPICAL (05:21)
[2018-01-12] MEDS: Carbidopa/Levodopa 25/100 Tablet PO ×2 (06:42→11:10)
[2018-01-12 06:55] LABS: Bedside Glucose 91 mg/dL (70-110)
[2018-01-12] MEDS: Gabapentin 100 MG Capsule PO ×2 (08:00→11:10)
[2018-01-12] MEDS: Escitalopram Oxalate 10 MG Tablet PO (08:05)
[2018-01-12 09:16] VITALS: BP 144/88; PULSE 95; RESP 18; TEMP 36.6; O2SAT 97
[2018-01-12] MEDS: Carvedilol 3.125 MG TABLET PO (09:17)
[2018-01-12] MEDS: Famotidine 20 MG Tablet PO (09:17)
[2018-01-12] MEDS: buPROPion (XL) 300 MG TABLET.XL PO (09:17)
[2018-01-12] MEDS: Menthol/Lanolin/Calamine/Znox 113 GM Tube 1 APPLIC TOPICAL (09:22)
--- NOTE | 2018-01-12 10:48 | PCM.TXEXTCAR ---
- Diet 01/11/18 12:46 Diet: Full Liquid Dietary Modifications:: Mechanical Soft Diet Is pt able to select menu?: No Diet Comments: no carbonated drink. 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 Dressing Change: AntiMicrobial (Aquacel AG, etc) Rt elbow Wound Type: Skin Tear - Allergies/Procedures Done in Hospital Allergies/Adverse Reactions: Allergies piperacillin [From Zosyn] Adverse Reaction (Verified 01/06/18 09:16) Rash tazobactam [From Zosyn] Adverse Reaction (Verified 01/06/18 09:16) Rash - Type of Care/Length of Stay Estimated LOS: Convalescent Care Less Than 30 days Type of Care Needed: Skilled Rehab Potential: Good Prognosis: Good - Additional Orders/Day of Discharge Day of Discharge: 01/12/18 - Dietary and Speech Recommendations Dietitian Recommendations/Changes: When medically able, suggest advance diet as tolerated to transitional/low sodium with texture & consistency as per SERVICE ORDER TAKER. Consider Bennett 1 packet BID for wound healing. Will provide ensure clear w/meals while on clear liquid diet. Consider parenteral nutrition support if unable to advance PO nutrition in next 72 hours s/p colonoscopy. - Follow Up Care Primary Care Physician: Ruby Hyde [Other]
--- NOTE | 2018-01-12 10:51 | TREXTCAR_ITS ---
- Diet 01/11/18 12:46 Diet: Full Liquid Dietary Modifications:: Mechanical Soft Diet Is pt able to select menu?: No Diet Comments: no carbonated drink. 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 Dressing Change: AntiMicrobial (Aquacel AG, etc) Rt elbow Wound Type: Skin Tear - Allergies/Procedures Done in Hospital Allergies/Adverse Reactions: Allergies piperacillin [From Zosyn] Adverse Reaction (Verified 01/06/18 09:16) Rash tazobactam [From Zosyn] Adverse Reaction (Verified 01/06/18 09:16) Rash - Type of Care/Length of Stay Estimated LOS: Convalescent Care Less Than 30 days Type of Care Needed: Skilled Rehab Potential: Good Prognosis: Good - Additional Orders/Day of Discharge Day of Discharge: 01/12/18 - Dietary and Speech Recommendations Dietitian Recommendations/Changes: When medically able, suggest advance diet as tolerated to transitional/low sodium with texture & consistency as per PARTS TECHNICIAN. Consider Bennett 1 packet BID for wound healing. Will provide ensure clear w/meals while on clear liquid diet. Consider parenteral nutrition support if unable to advance PO nutrition in next 72 hours s/p colonoscopy. - Follow Up Care Primary Care Physician: Ruby Hyde [Other]
--- NOTE | 2018-01-12 10:53 | PCM.DC.SUM ---
Discharge Date and Diagnosis - Problem List Patient Problems: Active and Suspected Problems (Last Reviewed 12/20/17 @ 12:37 by Alejandra Singh) Coffee ground emesis (Acute) Diffuse abdominal pain (Acute) Acute renal failure (Acute) Abdominal distention (Acute) Date of Admission: 01/06/18 Date of Discharge: 01/12/18 - Primary Discharge Diagnosis Active and Suspected Problems (Last Reviewed 12/20/17 @ 12:37 by Alejandra Singh) Coffee ground emesis (Acute) Diffuse abdominal pain (Acute) Acute renal failure (Acute) Abdominal distention (Acute) - Secondary Discharge Diagnosis Chronic Problems (Last Reviewed 12/20/17 @ 12:37 by Alejandra Singh) Obesity, Class III, BMI 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 obesity) (Chronic) HTN (hypertension) (Chronic) Chronic venous stasis dermatitis of both lower extremities (Chronic) Chronic venous insufficiency (Chronic) Venous ulcers of both lower extremities (Chronic) 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) Bilateral leg edema (Chronic) Parkinson's disease (tremor, stiffness, slow motion, unstable posture) (Chronic) Autonomic neuropathy (Chronic) Schizo affective schizophrenia (Chronic) Delayed gastric emptying (Chronic) 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 Patient said she had about 2-3 times coffee-ground/brown emesis although she had vomiting for last 6 days on and off. In the ER note, there is mention about abdominal discomfort but patient did not complain to me. In ED, initial lab evaluation shows patient has creatinine 3.35, BUN 55, hyponatremia and hypochloremia, hyperkalemia, K5.3. Patient has baseline creatinine is about 1.0 as, last one in November 26, 2017. Chest x-ray shows no evidence of acute cardiopulmonary disease. Patient had upper endoscopy long time ago and currently she does not want EGD. Patient is DNR CC arrest. Vital Signs - 24 hr Temp Pulse Resp BP Pulse Ox 01/12/18 09:16 97.8 F 95 18 144/88 H 97 01/12/18 02:34 98.7 F 96 18 151/83 H 97 01/11/18 20:54 98.6 F 88 18 148/72 H 95 01/11/18 15:37 96 01/11/18 14:09 98.5 F 79 16 143/77 H 96 Hospital Course 1. GI bleed/Nausea and Vomiting/C. diff/Squamous cell carcinoma of the LLE/H/o Cellulitis - She presented with coffee ground emesis and stable vital signs. She was offered an EGD and she refused. The risks of not having one were discussed and she understood. She was having + occult stool as well and surgery was consulted for a colonoscopy, however, she could not tolerate the prep. Her H/H was stable, so she was discharged back to the SNF and will need an outpatient colonoscopy. I do recommend that for the time being she be maintained on protonix 40 mg daily PO, since she is refusing an EGD and the possibility of a UGI bleed. She was also found to be C-diff + and will need to be on PO vanocmycin q6 for 10 days which will be completed on 01/17. Unsure as to why she was on Zyvox, flagyl and bactrim, but will discontinue these on discharge. She is being seen in the wound care clinic for her squamous cell, and and given how the wound looks, currently, unlikely to be infected, and with her current C. diff, would hold her abx. 2. Delayed gastric emptying - Advised slowing down and increase number of smaller meals throughout the day\ 3. Her other diagnoses were evaluated and her home medications were continued where appropriate Patient Problems: Active and Suspected Problems (Last Reviewed 12/20/17 @ 12:37 by Alejandra Singh) Coffee ground emesis (Acute) Diffuse abdominal pain (Acute) Acute renal failure (Acute) Abdominal distention (Acute) - Physical Exam General: Alert, Oriented x3, Cooperative, No apparent distress HEENT: Atraumatic, EOMI, Normocephalic Oral: Moist Mucosa Neck: Supple, No JVD Lungs: Clear to auscultation, Normal air movement, No rhonchi, No wheeze, No rales Cardiovascular: Regular rate, Regular Rhythm, Normal S1, Normal S2, No murmurs Abdomen: Soft, Non Tender, Non-Distended, No Hepato-splenomegaly, Hernia Skin: - - Wound is improving, pictures from wound care nurse reviewed Neurological: Neuro grossly intact, Sensory exam intact to light touch and pain Psych/Mental Status: Normal Affect, Appropriate Vital Signs Temp Pulse Resp BP Pulse Ox 97.8 F 95 18 144/88 H 97 01/12/18 09:16 01/12/18 09:16 01/12/18 09:16 01/12/18 09:16 01/12/18 09:16 Oxygen Flow Rate (L/min) 2 Oxygen Delivery Method Room Air Weight: 214 lb 8.156 oz Body Mass Index (BMI) 34.6 Intake and Output for Last 24 Hours 01/10/18 01/11/18 01/12/18 23:59 23:59 23:59 Intake Total 1330 / 1330 3879 / 3879 427 / 427 Output Total 300 / 300 Balance 1330 / 1330 3579 / 3579 427 / 427 POC Glucose 01/12/18 01/11/18 01/11/18 06:36 20:57 16:42 POC Glucose 91 92 87 01/11/18 06:11 POC Glucose 98 Home Medications: Medications to take at Discharge Carvedilol [Coreg (Beta Justin)] 3.125 mg PO BID 11/17/15 Cholecalciferol (VIT D3) [Vitamin D3] 2,000 unit PO BREAKFAST 11/17/15 Furosemide [Lasix] 20 mg PO DAILY 11/17/15 Gabapentin [Neurontin] 100 mg PO TIDCM 11/17/15 Lisinopril [Zestril] 2.5 mg PO QHS 11/17/15 Ropinirole HCl [Ropinirole ER] 8 mg PO QHS 11/17/15 buPROPion XL [Wellbutrin Xl] 300 mg PO DAILY 11/17/15 Calcium Carbonate 600 mg PO DAILY 06/21/16 Escitalopram Oxalate [Lexapro] 10 mg PO BREAKFAST 06/22/16 Ondansetron HCl [Zofran] 4 mg PO Q6H PRN PRN 07/15/16 Hydrocodone Bitart/Apap 5-325 [[place] 5/325] 1 tablet PO Q4H PRN PRN #30 tablet 07/18/16 Acetaminophen [Tylenol Arthritis] 650 mg PO Q4H PRN PRN MDD 4 GM 08/23/17 Aripiprazole [Abilify] 7.5 mg PO QHS 08/23/17 Bisacodyl [Bisac-Evac] 10 mg RC DAILY PRN PRN 08/23/17 Carbidopa/Levodopa 25/100 [Sinemet 25/100] 1 tablet PO TIDAC 08/23/17 Hydrocodone/Acetaminophen [[place] 5-325 Tablet] 1 each PO BID 08/23/17 Magnesium Hydroxide [Milk Of Magnesia] 30 ml PO DAILY PRN PRN 08/23/17 Rotigotine [Neupro] 2 mg TRANSDERM. QHS 08/23/17 Urea [Ure-K] 142 gm TP QHS PRN PRN 08/23/17 Senna [Senokot] 2 tablet PO BID 09/05/17 Lactobacillus Rhamnosus GG [Culturelle] 1 each PO QHS 11/30/17 Vancomcyin 125mg/5mL PO Liquid 125 mg PO Q6 po.syringe 01/12/18 Primary Care Physician: Ruby Hyde [Other] Disposition: [facility] facility Minutes spent on discharge:: 35 Patient Condition:: Good Medical Necessity - Tobacco Use Smoking Status: Never smoker Meaningful Use Info Meaningful Use Diagnoses (Choose all that apply): None applicable Code Visit Inpatient E&M: 26874 Disch Hosp
--- NOTE | 2018-01-12 11:05 | DS.PCM_ITS ---
Discharge Date and Diagnosis - Problem List Patient Problems: Active and Suspected Problems (Last Reviewed 12/20/17 @ 12:37 by Alejandra Singh) Coffee ground emesis (Acute) Diffuse abdominal pain (Acute) Acute renal failure (Acute) Abdominal distention (Acute) Date of Admission: 01/06/18 Date of Discharge: 01/12/18 - Primary Discharge Diagnosis Active and Suspected Problems (Last Reviewed 12/20/17 @ 12:37 by Alejandra Singh) Coffee ground emesis (Acute) Diffuse abdominal pain (Acute) Acute renal failure (Acute) Abdominal distention (Acute) - Secondary Discharge Diagnosis Chronic Problems (Last Reviewed 12/20/17 @ 12:37 by Alejandra Singh) Obesity, Class III, BMI 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 obesity) (Chronic) HTN (hypertension) (Chronic) Chronic venous stasis dermatitis of both lower extremities (Chronic) Chronic venous insufficiency (Chronic) Venous ulcers of both lower extremities (Chronic) 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) Bilateral leg edema (Chronic) Parkinson's disease (tremor, stiffness, slow motion, unstable posture) (Chronic) Autonomic neuropathy (Chronic) Schizo affective schizophrenia (Chronic) Delayed gastric emptying (Chronic) 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 Patient said she had about 2-3 times coffee-ground/brown emesis although she had vomiting for last 6 days on and off. In the ER note, there is mention about abdominal discomfort but patient did not complain to me. In ED, initial lab evaluation shows patient has creatinine 3.35, BUN 55, hyponatremia and hypochloremia, hyperkalemia, K5.3. Patient has baseline creat inine is about 1.0 as, last one in November 26, 2017. Chest x-ray shows no evidence of acute cardiopulmonary disease. Patient had upper endoscopy long time ago and currently she does not want EGD. Patient is DNR CC arrest. Vital Signs - 24 hr Temp Pulse Resp BP Pulse Ox 01/12/18 09:16 97.8 F 95 18 144/88 H 97 01/12/18 02:34 98.7 F 96 18 151/83 H 97 01/11/18 20:54 98.6 F 88 18 148/72 H 95 01/11/18 15:37 96 01/11/18 14:09 98.5 F 79 16 143/77 H 96 Hospital Course 1. GI bleed/Nausea and Vomiting/C. diff/Squamous cell carcinoma of the LLE/H/o Cellulitis - She presented with coffee ground emesis and stable vital signs. She was offered an EGD and she refused. The risks of not having one were discussed and she understood. She was having + occult stool as well and surgery was consulted for a colonoscopy, however, she could not tolerate the prep. Her H/H was stable, so she was discharged back to the SNF and will need an outpatient colonoscopy. I do recommend that for the time being she be maintained on protonix 40 mg daily PO, since she is refusing an EGD and the possibility of a UGI bleed. She was also found to be C-diff + and will need to be on PO vanocmycin q6 for 10 days which will be completed on 01/17. Unsure as to why she was on Zyvox, flagyl and bactrim, but will discontinue these on discharge. She is being seen in the wound care clinic for her squamous cell, and and given how the wound looks, currently, unlikely to be infected, and with her current C. diff, would hold her abx. 2. Delayed gastric emptying - Advised slowing down and increase number of smaller meals throughout the day\ 3. Her other diagnoses were evaluated and her home medications were continued where appropriate Patient Problems: Active and Suspected Problems (Last Reviewed 12/20/17 @ 12:37 by Alejandra Singh) Coffee ground emesis (Acute) Diffuse abdominal pain (Acute) Acute renal failure (Acute) Abdominal distention (Acute) - Physical Exam General: Alert, Oriented x3, Cooperative, No apparent distress HEENT: Atraumatic, EOMI, Normocephalic Oral: Moist Mucosa Neck: Supple, No JVD Lungs: Clear to auscultation, Normal air movement, No rhonchi, No wheeze, No rales Cardiovascular: Regular rate, Regular Rhythm, Normal S1, Normal S2, No murmurs Abdomen: Soft, Non Tender, Non-Distended, No Hepato-splenomegaly, Hernia Skin: - - Wound is improving, pictures from wound care nurse reviewed Neurological: Neuro grossly intact, Sensory exam intact to light touch and pain Psych/Mental Status: Normal Affect, Appropriate Vital Signs Temp Pulse Resp BP Pulse Ox 97.8 F 95 18 144/88 H 97 01/12/18 09:16 01/12/18 09:16 01/12/18 09:16 01/12/18 09:16 01/12/18 09:16 Oxygen Flow Rate (L/min) 2 Oxygen Delivery Method Room Air Weight: 214 lb 8.156 oz Body Mass Index (BMI) 34.6 Intake and Output for Last 24 Hours 01/10/18 01/11/18 01/12/18 23:59 23:59 23:59 Intake Total 1330 / 1330 3879 / 3879 427 / 427 Output Total 300 / 300 Balance 1330 / 1330 3579 / 3579 427 / 427 POC Glucose 01/12/18 01/11/18 01/11/18 06:36 20:57 16:42 POC Glucose 91 92 87 01/11/18 06:11 POC Glucose 98 Home Medications: Medications to take at Discharge Carvedilol [Coreg (Beta Justin)] 3.125 mg PO BID 11/17/15 Cholecalciferol (VIT D3) [Vitamin D3] 2,000 unit PO BREAKFAST 11/17/15 Furosemide [Lasix] 20 mg PO DAILY 11/17/15 Gabapentin [Neurontin] 100 mg PO TIDCM 11/17/15 Lisinopril [Zestril] 2.5 mg PO QHS 11/17/15 Ropinirole HCl [Ropinirole ER] 8 mg PO QHS 11/17/15 buPROPion XL [Wellbutrin Xl] 300 mg PO DAILY 11/17/15 Calcium Carbonate 600 mg PO DAILY 06/21/16 Escitalopram Oxalate [Lexapro] 10 mg PO BREAKFAST 06/22/16 Ondansetron HCl [Zofran] 4 mg PO Q6H PRN PRN 07/15/16 Hydrocodone Bitart/Apap 5-325 [Reg[place] 5/325] 1 tablet PO Q4H PRN PRN #30 tablet 07/18/16 Acetaminophen [Tylenol Arthritis] 650 mg PO Q4H PRN PRN MDD 4 GM 08/23/17 Aripiprazole [Abilify] 7.5 mg PO QHS 08/23/17 Bisacodyl [Bisac-Evac] 10 mg RC DAILY PRN PRN 08/23/17 Carbidopa/Levodopa 25/100 [Sinemet 25/100] 1 tablet PO TIDAC 08/23/17 Hydrocodone/Acetaminophen [[place] 5-325 Tablet] 1 each PO BID 08/23/17 Magnesium Hydroxide [Milk Of Magnesia] 30 ml PO DAILY PRN PRN 08/23/17 Rotigotine [Neupro] 2 mg TRANSDERM. QHS 08/23/17 Urea [Ure-K] 142 gm TP QHS PRN PRN 08/23/17 Senna [Senokot] 2 tablet PO BID 09/05/17 Lactobacillus Rhamnosus GG [Culturelle] 1 each PO QHS 11/30/17 Vancomcyin 125mg/5mL PO Liquid 125 mg PO Q6 po.syringe 01/12/18 Primary Care Physician: Ruby Hyde [Other] Disposition: Care Home facility Minutes spent on discharge:: 35 Patient Condition:: Good Medical Necessity - Tobacco Use Smoking Status: Never smoker Meaningful Use Info Meaningful Use Diagnoses (Choose all that apply): None applicable Code Visit Inpatient E&M: 32728 Disch Hosp
[2018-01-12 11:20] VITALS: BP 159/104; PULSE 86; RESP 18; TEMP 37; O2SAT 95
--- NOTE | 2018-01-12 11:23 | CASEMGMT ---
Social Work Note Pt is being discharged back to [facility] today. SW faxed discharge paperwork to [facility] including transfer to extended care facility, signed medication list and any scripts to [facility]. Originals in SNF folder and copy on pt's chart. LAURA set up transportation through [facility] via cot for 12:30pm. Transportation form on SNF folder and copy on pt's chart. LAURA updated PAULINA Bettencourt, clerk secretary Sabrina and placed a call to Delfina at [facility] to update on transportation time. [facility] doesn't need to be completed in [facility] as pt is from skilled at [facility] and will be returning skilled at discharge. Pt gave this worker permission to call her son Markie and update him on discharge. SW placed a call to pt's son Markie and left him a message informing her that pt will be discharged today back to [facility] at 12:30pm. Plan: Pt to discharge to [facility] today skilled at 12:30pm with [facility] transporting at 12:30pm [facility] ANALYST, MULTIFOCAL LENS ASSEMBLER
[2018-01-12 11:25] LABS: Bedside Glucose 115 mg/dL (70-110)
== END 2018-01-12 12:32 | disposition skilled nursing facility (03) | DRG 378 ==
LOC: ED 12:48 → MS3 13:42
PROVIDERS: Admitting Provider Internal Medicine; Emergency Provider Emergency Medicine; Visit Provider Family Medicine
DX: K92.2 Gastrointestinal hemorrhage, unspecified (principal); N17.9 Acute kidney failure, unspecified; E87.1 Hypo-osmolality and hyponatremia; A04.72 Enterocolitis due to Clostridium difficile, not specified as recurrent; E66.01 Morbid (severe) obesity due to excess calories; Z68.34 Body mass index [BMI] 34.0-34.9, adult; G20 Parkinson's disease; E87.5 Hyperkalemia; E87.8 Other disorders of electrolyte and fluid balance, not elsewhere classified; Z66 Do not resuscitate; K30 Functional dyspepsia; C76.52 Malignant neoplasm of left lower limb; I10 Essential (primary) hypertension; R10.84 Generalized abdominal pain; F20.9 Schizophrenia, unspecified; R11.10 Vomiting, unspecified
CPT/HCPCS: 36415; 36569; 71045; 74019; 80048; 80053; 82274; 82962; 83630; 85014; 85018; 85025; 86850; 86900; 87493; 87506; 93005; 94640; 97161; 97165; 97530; 97802; 99285; J7030; A4216; J2405; J3490; J7799

== ENCOUNTER 2018-01-19 13:15 | Outpatient (RCR) | payer MEDICARE, SELFPAY ==
[2017-12-25 00:56] VITALS: BP 122/75; PULSE 82; RESP 20; TEMP 36.6
[2018-01-05 15:06] VITALS: PULSE 90; RESP 16; TEMP 35.3
--- NOTE | 2018-01-05 16:59 | PCM.WC.PN ---
(1) Obesity, Class III, BMI 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 obesity) Status: Chronic Current Visit: Yes Code(s): E66.01 - Morbid (severe) obesity due to excess calories (2) Chronic venous insufficiency Status: Chronic Current Visit: Yes (3) Venous ulcers of both lower extremities Status: Chronic Current Visit: Yes Code(s): I87.2 - Venous insufficiency (chronic) (peripheral) (4) Squamous cell carcinoma of left lower leg Status: Chronic Current Visit: Yes Code(s): C44.729 - Squamous cell carcinoma of skin of left lower limb, including hip (5) Squamous cell carcinoma of right lower leg Status: Chronic Current Visit: Yes Code(s): C44.722 - Squamous cell carcinoma of skin of right lower limb, including hip Type of Wound Chief Complaint: Venous ulcers to the bilateral lower extremities. Chronic venous insufficiency. Underlying SCC of nonhealing ulcers of left lower extremity History of Wound: Judy is a pleasant 71-year-old female resident at [facility] who presents to the wound healing center for evaluation of ulcers to her bilateral lower extremities. This has been an ongoing and recurrent problem for this patient. She's been treated numerous times previously at the wound center. She has a h/o nonhealing wound of left ankle which revealed squamous cell carcinoma which was treated with Mohs surgery on December 30 2015 and the lesion had been completely excised at the time. She is scheduled for vascular testing on 11/03/17. She was seen recently for her wounds by Dr. Bardales in the beginning of August but was subsequently admitted to the hospital for a bowel obstruction and sepsis. Her wounds have progressed since her visit in August. Vascular studies were postponed but labs ordered by Dr. Bardales are available and do not show any significant abnormalities other than some slight protein malnutrition for which she is already taking a protein supplement. She had been using adaptic and dry gauze as instructed after her visit with Dr. Bardales. She reports significant drainage from the wounds. She is wearing tubigrip compression as well. She was treated with Cefepime and Ancef during her hospital stay. Her large ulcers of her left lower leg were punch biopsied on 10/20/17 and showed squamous cell carcinoma. She reports that the wounds are painful and draining but denies fever or chills. Progress of Wound: Judy's wounds are somewhat improved but still very friable, especially the left medial wound. The left medial wound is about the same in size but has less amount of necrotic tissue and no odor today. Punch biopsies done previously revealed squamous cell carcinoma. Her case was discussed with her fringing machine operator, Dr. Johnny Grady. She completed radiation treatment. She reports increased pain in her legs/ulcers. She completed antibiotic treatment for positive wound cultures. Judy has tolerated dressings and compression. Vascular studies were done which showed incompetence of bilateral GSV, right SSV and right SFJ. She is hypotensive today and feels fatigued but denies any urinary, respiratory or bowel symptoms or fever or chills. - Physical Exam Vital Signs Temp Pulse Resp BP 95.5 F L 90 16 122/75 H 01/05/18 15:06 01/05/18 15:06 01/05/18 15:06 12/25/17 00:56 General: Alert, Oriented x3, Cooperative, No apparent distress HEENT: Atraumatic, Normocephalic Oral: Moist Mucosa Abdomen: Obese Extremities: Diminished Peripheral Pulses Skin: Ulcer/ Wound Wound Measurements and Assessment WC - Nurse 1 - General Ulcer Measurement Start: 01/05/18 09:41 Freq: Status: Active Protocol: Activity Type Activity Date Activity User E-Sign Co-Sign Detail Recorded Client Recorded Date Recorded By Document 01/05/18 15:06 [facility] [id number] 01/05/18 15:12 [facility] 01/05/18 15:06 Wound Center Nurse 1 [Ulcer Assessment] #10 LEFT LATERAL LE -Combined with other wound No -Current Size (cm) - Length 3.5 -Current Size (cm) - Width 2.1 -Current Size (cm) - Depth 0.1 -Total Square Cm 7.35 -Date of Last Picture (Recall this 01/05/18 field) -Photo Taken Yes -Epithelialization None Present -Tunneling No -Undermining/Tunneling No -Circular Undermining No -Exudate Amt Small (1-33%) -Exudate Type Serosanguineous -Wound Margin Distinct, Outline Attached -Granulation Amt Medium (34-66%) -Granulation Quality Red -Slough/Fibrin Yes -Necrosis Amt Medium (34-66%) -Necrotic Tissue Type Adherent Slough -Texture (Cristina-wound Skin Appearance) Scarring -Moisture (Cristina-wound Skin Appearance Dry/Scaly ) -Color (Cristina-wound Skin Appearance) Hemosiderin Staining -Temperature (Cristina-wound Skin No Abnormality Appearance) (Pt Warm) -Tenderness on Palpation (Cristina-wound No Skin Appearance) -Ulcer Cleansing Wound Cleanser -Foul Odor after Cleansing No -Anesthetic Used 4% Lidocaine Solution #11 LEFT MEDIAL LE -Combined with other wound No -Current Size (cm) - Length 17.5 -Current Size (cm) - Width 11.5 -Current Size (cm) - Depth 0.3 -Total Square Cm 201.25 -Date of Last Picture (Recall this 01/05/18 field) -Photo Taken Yes -Epithelialization None Present -Tunneling No -Undermining/Tunneling No -Circular Undermining No -Exudate Amt Medium (34-66%) -Exudate Type Serosanguineous -Wound Margin Distinct, Outline Attached -Granulation Amt Medium (34-66%) -Granulation Quality Red -Slough/Fibrin Yes -Necrosis Amt Medium (34-66%) -Necrotic Tissue Type Adherent Slough -Texture (Cristina-wound Skin Appearance) Scarring -Moisture (Cristina-wound Skin Appearance Dry/Scaly ) -Color (Cristina-wound Skin Appearance) Hemosiderin Staining -Temperature (Cristina-wound Skin No Abnormality Appearance) (Pt Warm) -Tenderness on Palpation (Cristina-wound No Skin Appearance) -Ulcer Cleansing Wound Cleanser -Foul Odor after Cleansing No -Anesthetic Used 4% Lidocaine Solution [Edema Assessment] -Lower Limb Edema Present Yes -Left Calf (cm) 33.9 -Left Ankle (cm) 23.5 WC - Nurse 2 - General Ulcer CM Notes Start: 01/05/18 09:41 Freq: Status: Active Protocol: Activity Type Activity Date Activity User E-Sign Co-Sign Detail Recorded Client Recorded Date Recorded By Document 01/05/18 15:37 [id number] 01/05/18 15:42 01/05/18 15:37 Wound Center Nurse 2 [Procedure/Treatment] #10 LEFT LATERAL LE -Time 15:39 -Correct Patient Yes -Correct Side, Site, Position Yes -Correct Procedure Yes -Procedure Performed Yes -Type of Procedure Debridement -Clinical Debridement Subcutaneous -Post Debridement Size (cm) - Length 5.0 -Post Debridement Size (cm) - Width 5.5 -Post Debridement Size (cm) - Depth 0.1 -Total Square Cm 27.50 -Wound/Ulcer Outcome Not Healed -Ulcer Cleansing Not Cleansed -Foul Odor after Cleansing No -Bioengineered Tissue No -Bleeding Controlled with Pressure -Treatment Response Procedure Tolerated Well #11 LEFT MEDIAL LE -Time 15:37 -Correct Patient Yes -Correct Side, Site, Position Yes -Correct Procedure Yes -Procedure Performed Yes -Type of Procedure Debridement -Clinical Debridement Subcutaneous -Post Debridement Size (cm) - Length 9.5 -Post Debridement Size (cm) - Width 7.5 -Post Debridement Size (cm) - Depth 0.5 -Total Square Cm 71.25 -Wound/Ulcer Outcome Not Healed -Ulcer Cleansing Rinsed/ Irrigated with Saline -Foul Odor after Cleansing No -Bioengineered Tissue No -Bleeding Controlled with Pressure -Treatment Response Procedure Tolerated Well [See Physician Procedure note for Specifics] Pain Scale: 0-10 Numeric [Pain] -Is Patient Pain Free? Yes Psych/Mental Status: Normal Affect, Appropriate Debridement Note Post-Debridement Measurements/Treatment WC - Nurse 2 - General Ulcer CM Notes Start: 01/05/18 09:41 Freq: Status: Active Protocol: Activity Type Activity Date Activity User E-Sign Co-Sign Detail Recorded Client Recorded Date Recorded By Document 01/05/18 15:37 [id number] 01/05/18 15:42 01/05/18 15:37 Wound Center Nurse 2 #10 LEFT LATERAL LE -Time 15:39 -Correct Patient Yes -Correct Side, Site, Position Yes -Correct Procedure Yes -Procedure Performed Yes -Type of Procedure Debridement -Clinical Debridement Subcutaneous -Post Debridement Size (cm) - Length 5.0 -Post Debridement Size (cm) - Width 5.5 -Post Debridement Size (cm) - Depth 0.1 -Total Square Cm 27.50 -Wound/Ulcer Outcome Not Healed -Ulcer Cleansing Not Cleansed -Foul Odor after Cleansing No -Bioengineered Tissue No -Bleeding Controlled with Pressure -Treatment Response Procedure Tolerated Well #11 LEFT MEDIAL LE -Time 15:37 -Correct Patient Yes -Correct Side, Site, Position Yes -Correct Procedure Yes -Procedure Performed Yes -Type of Procedure Debridement -Clinical Debridement Subcutaneous -Post Debridement Size (cm) - Length 9.5 -Post Debridement Size (cm) - Width 7.5 -Post Debridement Size (cm) - Depth 0.5 -Total Square Cm 71.25 -Wound/Ulcer Outcome Not Healed -Ulcer Cleansing Rinsed/ Irrigated with Saline -Foul Odor after Cleansing No -Bioengineered Tissue No -Bleeding Controlled with Pressure -Treatment Response Procedure Tolerated Well Pain Scale: 0-10 Numeric Is Patient Pain Free? Yes Wound debrided: left lateral LE Laterality: Left Type of Debridement: Excisional debridement Anesthesia Used: 4% Lidocaine Solution Depth: Down to and including healthy tissue, in the subcutaneous layer Percentage of wound debrided: 100 Instrument Used: 7mm curette Tissue Removed: yellow slough, devitalized tissue Severity: Fat Layer Exposed Amount of bleeding with debridement: Mild Bleeding Controlled with: Compression and gauze Patient tolerated procedure well - Additional Wound Wound debrided: left medial LE Laterality: Left Type of Debridement: Excisional debridement Anesthesia Used: 4% Lidocaine Solution Depth: Down to and including healthy tissue, in the subcutaneous layer Percentage of wound debrided: 100 Instrument Used: 7mm curette Tissue Removed: yellow slough, devitalized tissue Severity: Fat Layer Exposed Amount of bleeding with debridement: Mild Bleeding Controlled with: Compression and gauze Patient tolerated procedure: Patient tolerated procedure well Assessment/Plan Active Problems (Last Reviewed 12/20/17 @ 12:37 by Alejandra Singh) Obesity, Class III, BMI 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 obesity) (Chronic) Chronic venous insufficiency (Chronic) Venous ulcers of both lower extremities (Chronic) 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 Venous stasis ulcers of left LE. 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 Foul odor not present toady. Normal arterial testing, venous incompetence b/l. Will continue to treat her wounds with Aquacel and continue tubigrip for compression. Encouraged increased protein and continue with protein supplement that she is taking currently. Due to hypotension today, encouraged her to increase fluid intake and wrote note to check blood pressure before giving evening medications and hold if SBP <100 and notify her PCP. She does not appear toxic on exam. Continue treatment of squamous cell as per dermatology. Her treatment course has been changed to complex care due to her comorbidities and the complexity of her wounds. F/U in 2 weeks.
--- NOTE | 2018-01-05 17:03 | PN.PCM_ITS ---
(1) Obesity, Class III, BMI 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 obesity) Status: Chronic Current Visit: Yes Code(s): E66.01 - Morbid (severe) obesity due to excess calories (2) Chronic venous insufficiency Status: Chronic Current Visit: Yes (3) Venous ulcers of both lower extremities Status: Chronic Current Visit: Yes Code(s): I87.2 - Venous insufficiency (chronic) (peripheral) (4) Squamous cell carcinoma of left lower leg Status: Chronic Current Visit: Yes Code(s): C44.729 - Squamous cell carcinoma of skin of left lower limb, including hip (5) Squamous cell carcinoma of right lower leg Status: Chronic Current Visit: Yes Code(s): C44.722 - Squamous cell carcinoma of skin of right lower limb, including hip Type of Wound Chief Complaint: Venous ulcers to the bilateral lower extremities. Chronic venous insufficiency. Underlying SCC of nonhealing ulcers of left lower extremity History of Wound: Judy is a pleasant 71-year-old female resident at [facility] who presents to the wound healing center for evaluation of ulcers to her bilateral lower extremities. This has been an ongoing and recurrent problem for this patient. She's been treated numerous times previously at the wound center. She has a h/o nonhealing wound of left ankle which revealed squamous cell car cinoma which was treated with Mohs surgery on December 30 2015 and the lesion had been completely excised at the time. She is scheduled for vascular testing on 11/03/17. She was seen recently for her wounds by Dr. Bardales in the beginning of August but was subsequently admitted to the hospital for a bowel obstruction and sepsis. Her wounds have progressed since her visit in August. Vascular studies were postponed but labs ordered by Dr. Bardales are available and do not show any significant abnormalities other than some slight protein malnutrition for which she is already taking a protein supplement. She had been using adaptic and dry gauze as instructed after her visit with Dr. Bardales. She reports significant drainage from the wounds. She is wearing tubigrip compression as well. She was treated with Cefepime and Ancef during her hospital stay. Her large ulcers of her left lower leg were punch biopsied on 10/20/17 and showed squamous cell carcinoma. She reports that the wounds are painful and draining but denies fever or chills. Progress of Wound: Judy's wounds are somewhat improved but still very friable, especially the left medial wound. The left medial wound is about the same in size but has less amount of necrotic tissue and no odor today. Punch biopsies done previously revealed squamous cell carcinoma. Her case was discussed with her vice president sales and marketing, Dr. Johnny Grady. She completed radiation treatment. She reports increased pain in her legs/ulcers. She completed antibiotic treatment for positive wound cultures. Judy has tolerated dressings and compression. Vascular studies were done which showed incompetence of bilateral GSV, right SSV and right SFJ. She is hypotensive today and feels fatigued but denies any urinary, respiratory or bowel symptoms or fever or chills. - Physical Exam Vital Signs Temp Pulse Resp BP 95.5 F L 90 16 122/75 H 01/05/18 15:06 01/05/18 15:06 01/05/18 15:06 12/25/17 00:56 General: Alert, Oriented x3, Cooperative, No apparent distress HEENT: Atraumatic, Normocephalic Oral: Moist Mucosa Abdomen: Obese Extremities: Diminished Peripheral Pulses Skin: Ulcer/ Wound Wound Measurements and Assessment WC - Nurse 1 - General Ulcer Measurement Start: 01/05/18 09:41 Freq: Status: Active Protocol: Activity Type Activity Date Activity User E-Sign Co-Sign Detail Recorded Client Recorded Date Recorded By Document 01/05/18 15:06 [facility] [id number] 01/05/18 15:12 [facility] 01/05/18 15:06 Wound Center Nurse 1 [Ulcer Assessment] #10 LEFT LATERAL LE -Combined with other wound No -Current Size (cm) - Length 3.5 -Current Size (cm) - Width 2.1 -Current Size (cm) - Depth 0.1 -Total Square Cm 7.35 -Date of Last Picture (Recall this 01/05/18 field) -Photo Taken Yes -Epithelialization None Present -Tunneling No -Undermining/Tunneling No -Circular Undermining No -Exudate Amt Small (1-33%) -Exudate Type Serosanguineous -Wound Margin Distinct, Outline Attached -Granulation Amt Medium (34-66%) -Granulation Quality Red -Slough/Fibrin Yes -Necrosis Amt Medium (34-66%) -Necrotic Tissue Type Adherent Slough -Texture (Cristina-wound Skin Appearance) Scarring -Moisture (Cristian-wound Skin Appearance Dry/Scaly ) -Color (Cristina-wound Skin Appearance) Hemosiderin Staining -Temperature (Cristina-wound Skin No Abnormality Appearance) (Pt Warm) -Tenderness on Palpation (Cristina-wound No Skin Appearance) -Ulcer Cleansing Wound Cleanser -Foul Odor after Cleansing No -Anesthetic Used 4% Lidocaine Solution #11 LEFT MEDIAL LE -Combined with other wound No -Current Size (cm) - Length 17.5 -Current Size (cm) - Width 11.5 -Current Size (cm) - Depth 0.3 -Total Square Cm 201.25 -Date of Last Picture (Recall this 01/05/18 field) -Photo Taken Yes -Epithelialization None Present -Tunneling No -Undermining/Tunneling No -Circular Undermining No -Exudate Amt Medium (34-66%) -Exudate Type Serosanguineous -Wound Margin Distinct, Outline Attached -Granulation Amt Medium (34-66%) -Granulation Quality Red -Slough/Fibrin Yes -Necrosis Amt Medium (34-66%) -Necrotic Tissue Type Adherent Slough -Texture (Cristina-wound Skin Appearance) Scarring -Moisture (Cristina-wound Skin Appearance Dry/Scaly ) -Color (Cristina-wound Skin Appearance) Hemosiderin Staining -Temperature (Cristina-wound Skin No Abnormality Appearance) (Pt Warm) -Tenderness on Palpation (Cristina-wound No Skin Appearance) -Ulcer Cleansing Wound Cleanser -Foul Odor after Cleansing No -Anesthetic Used 4% Lidocaine Solution [Edema Assessment] -Lower Limb Edema Present Yes -Left Calf (cm) 33.9 -Left Ankle (cm) 23.5 WC - Nurse 2 - General Ulcer CM Notes Start: 01/05/18 09:41 Freq: Status: Active Protocol: Activity Type Activity Date Activity User E-Sign Co-Sign Detail Recorded Client Recorded Date Recorded By Document 01/05/18 15:37 [id number] 01/05/18 15:42 01/05/18 15:37 Wound Center Nurse 2 [Procedure/Treatment] #10 LEFT LATERAL LE -Time 15:39 -Correct Patient Yes -Correct Side, Site, Position Yes -Correct Procedure Yes -Procedure Performed Yes -Type of Procedure Debridement -Clinical Debridement Subcutaneous -Post Debridement Size (cm) - Length 5.0 -Post Debridement Size (cm) - Width 5.5 -Post Debridement Size (cm) - Depth 0.1 -Total Square Cm 27.50 -Wound/Ulcer Outcome Not Healed -Ulcer Cleansing Not Cleansed -Foul Odor after Cleansing No -Bioengineered Tissue No -Bleeding Controlled with Pressure -Treatment Response Procedure Tolerated Well #11 LEFT MEDIAL LE -Time 15:37 -Correct Patient Yes -Correct Side, Site, Position Yes -Correct Procedure Yes -Procedure Performed Yes -Type of Procedure Debridement -Clinical Debridement Subcutaneous -Post Debridement Size (cm) - Length 9.5 -Post Debridement Size (cm) - Width 7.5 -Post Debridement Size (cm) - Depth 0.5 -Total Square Cm 71.25 -Wound/Ulcer Outcome Not Healed -Ulcer Cleansing Rinsed/ Irrigated with Saline -Foul Odor after Cleansing No -Bioengineered Tissue No -Bleeding Controlled with Pressure -Treatment Response Procedure Tolerated Well [See Physician Procedure note for Specifics] Pain Scale: 0-10 Numeric [Pain] -Is Patient Pain Free? Yes Psych/Mental Status: Normal Affect, Appropriate Debridement Note Post-Debridement Measurements/Treatment WC - Nurse 2 - General Ulcer CM Notes Start: 01/05/18 09:41 Freq: Status: Active Protocol: Activity Type Activity Date Activity User E-Sign Co-Sign Detail Recorded Client Recorded Date Recorded By Document 01/05/18 15:37 [id number] 01/05/18 15:42 01/05/18 15:37 Wound Center Nurse 2 #10 LEFT LATERAL LE -Time 15:39 -Correct Patient Yes -Correct Side, Site, Position Yes -Correct Procedure Yes -Procedure Performed Yes -Type of Procedure Debridement -Clinical Debridement Subcutaneous -Post Debridement Size (cm) - Length 5.0 -Post Debridement Size (cm) - Width 5.5 -Post Debridement Size (cm) - Depth 0.1 -Total Square Cm 27.50 -Wound/Ulcer Outcome Not Healed -Ulcer Cleansing Not Cleansed -Foul Odor after Cleansing No -Bioengineered Tissue No -Bleeding Controlled with Pressure -Treatment Response Procedure Tolerated Well #11 LEFT MEDIAL LE -Time 15:37 -Correct Patient Yes -Correct Side, Site, Position Yes -Correct Procedure Yes -Procedure Performed Yes -Type of Procedure Debridement -Clinical Debridement Subcutaneous -Post Debridement Size (cm) - Length 9.5 -Post Debridement Size (cm) - Width 7.5 -Post Debridement Size (cm) - Depth 0.5 -Total Square Cm 71.25 -Wound/Ulcer Outcome Not Healed -Ulcer Cleansing Rinsed/ Irrigated with Saline -Foul Odor after Cleansing No -Bioengineered Tissue No -Bleeding Controlled with Pressure -Treatment Response Procedure Tolerated Well Pain Scale: 0-10 Numeric Is Patient Pain Free? Yes Wound debrided: left lateral LE Laterality: Left Type of Debridement: Excisional debridement Anesthesia Used: 4% Lidocaine Solution Depth: Down to and including healthy tissue, in the subcutaneous layer Percentage of wound debrided: 100 Instrument Used: 7mm curette Tissue Removed: yellow slough, devitalized tissue Severity: Fat Layer Exposed Amount of bleeding with debridement: Mild Bleeding Controlled with: Compression and gauze Patient tolerated procedure well - Additional Wound Wound debrided: left medial LE Laterality: Left Type of Debridement: Excisional debridement Anesthesia Used: 4% Lidocaine Solution Depth: Down to and including healthy tissue, in the subcutaneous layer Percentage of wound debrided: 100 Instrument Used: 7mm curette Tissue Removed: yellow slough, devitalized tissue Severity: Fat Layer Exposed Amount of bleeding with debridement: Mild Bleeding Controlled with: Compression and gauze Patient tolerated procedure: Patient tolerated procedure well Assessment/Plan Active Problems (Last Reviewed 12/20/17 @ 12:37 by Alejandra Singh) Obesity, Class III, BMI 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 obesity) (Chronic) Chronic venous insufficiency (Chronic) Venous ulcers of both lower extremities (Chronic) 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 Venous stasis ulcers of left LE. 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 Foul odor not present toady. Normal arterial testing, venous incompetence b/l. Will continue to treat her wounds with Aquacel and continue tubigrip for compression. Encouraged increased protein and continue with protein supplement that she is taking currently. Due to hypotension today, encouraged her to increase fluid intake and wrote note to check blood pressure before giving evening medications and hold if SBP <100 and notify her PCP. She does not appear toxic on exam. Continue treatment of squamous cell as per dermatology. Her treatment course has been changed to complex care due to her comorbidities and the complexity of her wounds. F/U in 2 weeks.
[2018-01-19 13:57] VITALS: BP 113/60; PULSE 83; RESP 18; TEMP 36.2
--- NOTE | 2018-01-19 18:05 | PCM.WC.PN ---
(1) Obesity, Class III, BMI 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 obesity) Status: Chronic Current Visit: Yes Code(s): E66.01 - Morbid (severe) obesity due to excess calories (2) Chronic venous insufficiency Status: Chronic Current Visit: Yes (3) Venous ulcers of both lower extremities Status: Chronic Current Visit: Yes Code(s): I87.2 - Venous insufficiency (chronic) (peripheral) (4) Squamous cell carcinoma of left lower leg Status: Chronic Current Visit: Yes Code(s): C44.729 - Squamous cell carcinoma of skin of left lower limb, including hip (5) Squamous cell carcinoma of right lower leg Status: Chronic Current Visit: Yes Code(s): C44.722 - Squamous cell carcinoma of skin of right lower limb, including hip Type of Wound Date of Service: 01/19/18 Chief Complaint: Venous ulcers to the bilateral lower extremities. Chronic venous insufficiency. Underlying SCC of nonhealing ulcers of left lower extremity History of Wound: Judy is a pleasant 71-year-old female resident at [facility] who presents to the wound healing center for evaluation of ulcers to her bilateral lower extremities. This has been an ongoing and recurrent problem for this patient. She's been treated numerous times previously at the wound center. She has a h/o nonhealing wound of left ankle which revealed squamous cell carcinoma which was treated with Mohs surgery on December 30 2015 and the lesion had been completely excised at the time. She is scheduled for vascular testing on 11/03/17. She was seen recently for her wounds by Dr. Bardales in the beginning of August but was subsequently admitted to the hospital for a bowel obstruction and sepsis. Her wounds have progressed since her visit in August. Vascular studies were postponed but labs ordered by Dr. Bardales are available and do not show any significant abnormalities other than some slight protein malnutrition for which she is already taking a protein supplement. She had been using adaptic and dry gauze as instructed after her visit with Dr. Bardales. She reports significant drainage from the wounds. She is wearing tubigrip compression as well. She was treated with Cefepime and Ancef during her hospital stay. Her large ulcers of her left lower leg were punch biopsied on 10/20/17 and showed squamous cell carcinoma. She reports that the wounds are painful and draining but denies fever or chills. Progress of Wound: Judy's wounds are somewhat improved but still very friable, especially the left medial wound. The left medial wound is about the same in size but has less amount of necrotic tissue but does have some odor today. She has also been diagnosed with C. diff. Punch biopsies done previously revealed squamous cell carcinoma. Her case was discussed with her window framer, Dr. Johnny Grady. She completed radiation treatment. She reports increased pain in her legs/ulcers. She completed antibiotic treatment for positive wound cultures. Judy has tolerated dressings and compression. Vascular studies were done which showed incompetence of bilateral GSV, right SSV and right SFJ. - Physical Exam Vital Signs Temp Pulse Resp BP 97.1 F L 83 18 113/60 01/19/18 13:57 01/19/18 13:57 01/19/18 13:57 01/19/18 13:57 General: Alert, Oriented x3, Cooperative, No apparent distress HEENT: Atraumatic, Normocephalic Oral: Moist Mucosa Abdomen: Obese Extremities: Edema Skin: Ulcer/ Wound Wound Measurements and Assessment WC - Nurse 1 - General Ulcer Measurement Start: 01/05/18 09:41 Freq: Status: Active Protocol: Activity Type Activity Date Activity User E-Sign Co-Sign Detail Recorded Client Recorded Date Recorded By Document 01/19/18 13:57 AN [id number] 01/19/18 14:12 AN 01/19/18 13:57 Wound Center Nurse 1 [Ulcer Assessment] # 12 left anterior lower leg -Current Size (cm) - Length 1.7 -Current Size (cm) - Width 0.7 -Current Size (cm) - Depth 0.1 -Total Square Cm 1.19 -Date of Last Picture (Recall this 01/19/18 field) -Photo Taken Yes -Epithelialization None Present -Tunneling No -Undermining/Tunneling No -Circular Undermining No -Classification - Thickness Full Thickness without Exposed Support Structure -Exudate Amt Medium (34-66%) -Exudate Type Serous -Wound Margin Flat & Intact -Granulation Amt Large (67-100%) -Granulation Quality Red -Necrosis Amt None Present (0 %) -Structure Exposed Fat Layer Exposed -Texture (Cristina-wound Skin Appearance) Localized Edema -Moisture (Cristina-wound Skin Appearance Dry/Scaly ) -Color (Cristina-wound Skin Appearance) Assessed -Temperature (Cristina-wound Skin Cool/Cold Appearance) -Tenderness on Palpation (Cristina-wound Yes Skin Appearance) -Ulcer Cleansing Rinsed/ Irrigated with Saline -Foul Odor after Cleansing No -Anesthetic Used 4% Lidocaine Solution #10 LEFT LATERAL LE -Current Size (cm) - Length 3.5 -Current Size (cm) - Width 2.0 -Current Size (cm) - Depth 0.1 -Total Square Cm 7.00 -Photo Taken No -Epithelialization None Present -Tunneling No -Undermining/Tunneling No -Circular Undermining No -Classification - Thickness Full Thickness without Exposed Support Structure -Exudate Amt Small (1-33%) -Exudate Type Serosanguineous -Wound Margin Distinct, Outline Attached -Granulation Amt Large (67-100%) -Granulation Quality Pale Red -Slough/Fibrin Yes -Necrosis Amt Small (1-33%) -Necrotic Tissue Type Adherent Slough -Structure Exposed Fat Layer Exposed -Texture (Cristina-wound Skin Appearance) Localized Edema -Moisture (Cristina-wound Skin Appearance Maceration ) Dry/Scaly -Color (Cristina-wound Skin Appearance) Assessed -Temperature (Cristina-wound Skin Cool/Cold Appearance) -Tenderness on Palpation (Cristina-wound Yes Skin Appearance) -Ulcer Cleansing Rinsed/ Irrigated with Saline -Foul Odor after Cleansing No -Anesthetic Used 4% Lidocaine Solution #11 LEFT MEDIAL LE -Current Size (cm) - Length 6.7 -Current Size (cm) - Width 5.0 -Current Size (cm) - Depth 0.2 -Total Square Cm 33.50 -Photo Taken No -Epithelialization None Present -Tunneling No -Undermining/Tunneling No -Exudate Amt Medium (34-66%) -Wound Margin Thickened -Granulation Amt Medium (34-66%) -Granulation Quality Pale [place] Red -Necrosis Amt Medium (34-66%) -Necrotic Tissue Type Adherent Slough -Structure Exposed Fat Layer Exposed -Texture (Cristina-wound Skin Appearance) Localized Edema -Moisture (Cristina-wound Skin Appearance Dry/Scaly ) -Color (Cristina-wound Skin Appearance) Assessed -Temperature (Cristina-wound Skin Cool/Cold Appearance) -Tenderness on Palpation (Cristina-wound Yes Skin Appearance) -Ulcer Cleansing Rinsed/ Irrigated with Saline -Foul Odor after Cleansing No -Anesthetic Used 4% Lidocaine Solution WC - Nurse 2 - General Ulcer CM Notes Start: 01/05/18 09:41 Freq: Status: Active Protocol: Activity Type Activity Date Activity User E-Sign Co-Sign Detail Recorded Client Recorded Date Recorded By Document 01/19/18 14:52 MW [id number] 01/19/18 14:59 MW 01/19/18 14:52 Wound Center Nurse 2 [Procedure/Treatment] # 12 left anterior lower leg -Time 14:52 -Correct Patient Yes -Correct Side, Site, Position Yes -Correct Procedure Yes -Procedure Performed Yes -Type of Procedure Debridement -Clinical Debridement Subcutaneous -Post Debridement Size (cm) - Length 1.7 -Post Debridement Size (cm) - Width 1.0 -Post Debridement Size (cm) - Depth 0.1 -Total Square Cm 1.70 -Wound/Ulcer Outcome Not Healed -Ulcer Cleansing Rinsed/ Irrigated with Saline -Foul Odor after Cleansing No -Bioengineered Tissue No -Bleeding Controlled with Pressure -Treatment Response Procedure Tolerated Well #10 LEFT LATERAL LE -Time 14:54 -Correct Patient Yes -Correct Side, Site, Position Yes -Correct Procedure Yes -Procedure Performed Yes -Type of Procedure Debridement -Clinical Debridement Subcutaneous -Post Debridement Size (cm) - Length 2.3 -Post Debridement Size (cm) - Width 1.0 -Post Debridement Size (cm) - Depth 0.1 -Total Square Cm 2.30 -Wound/Ulcer Outcome Not Healed -Ulcer Cleansing Rinsed/ Irrigated with Saline -Foul Odor after Cleansing No -Bioengineered Tissue No -Bleeding Controlled with Pressure -Treatment Response Procedure Tolerated Well #11 LEFT MEDIAL LE -Time 14:52 -Correct Patient Yes -Correct Side, Site, Position Yes -Correct Procedure Yes -Procedure Performed Yes -Type of Procedure Debridement -Clinical Debridement Subcutaneous -Post Debridement Size (cm) - Length 6.8 -Post Debridement Size (cm) - Width 6.4 -Post Debridement Size (cm) - Depth 0.3 -Total Square Cm 43.52 -Wound/Ulcer Outcome Not Healed -Ulcer Cleansing Rinsed/ Irrigated with Saline -Foul Odor after Cleansing No -Bioengineered Tissue No -Bleeding Controlled with Pressure -Treatment Response Procedure Tolerated Well [See Physician Procedure note for Specifics] Pain Scale: 0-10 Numeric [Pain] -Is Patient Pain Free? Yes Psych/Mental Status: Normal Affect, Appropriate Debridement Note Post-Debridement Measurements/Treatment WC - Nurse 2 - General Ulcer CM Notes Start: 01/05/18 09:41 Freq: Status: Active Protocol: Activity Type Activity Date Activity User E-Sign Co-Sign Detail Recorded Client Recorded Date Recorded By Document 01/05/18 15:37 CS [id number] 01/05/18 15:42 CS Document 01/19/18 14:52 MW [id number] 01/19/18 14:59 MW 01/05/18 01/19/18 15:37 14:52 Wound Center Nurse 2 # 12 left anterior lower leg -Time 14:52 -Correct Patient Yes -Correct Side, Site, Position Yes -Correct Procedure Yes -Procedure Performed Yes -Type of Procedure Debridement -Clinical Debridement Subcutaneous -Post Debridement Size (cm) - Length 1.7 -Post Debridement Size (cm) - Width 1.0 -Post Debridement Size (cm) - Depth 0.1 -Total Square Cm 1.70 -Wound/Ulcer Outcome Not Healed -Ulcer Cleansing Rinsed/ Irrigated with Saline -Foul Odor after Cleansing No -Bioengineered Tissue No -Bleeding Controlled with Pressure -Treatment Response Procedure Tolerated Well #10 LEFT LATERAL LE -Time 15:39 14:54 -Correct Patient Yes Yes -Correct Side, Site, Position Yes Yes -Correct Procedure Yes Yes -Procedure Performed Yes Yes -Type of Procedure Debridement Debridement -Clinical Debridement Subcutaneous Subcutaneous -Post Debridement Size (cm) - Length 5.0 2.3 -Post Debridement Size (cm) - Width 5.5 1.0 -Post Debridement Size (cm) - Depth 0.1 0.1 -Total Square Cm 27.50 2.30 -Wound/Ulcer Outcome Not Healed Not Healed -Ulcer Cleansing Not Cleansed Rinsed/ Irrigated with Saline -Foul Odor after Cleansing No No -Bioengineered Tissue No No -Bleeding Controlled with Pressure Pressure -Treatment Response Procedure Procedure Tolerated Well Tolerated Well #11 LEFT MEDIAL LE -Time 15:37 14:52 -Correct Patient Yes Yes -Correct Side, Site, Position Yes Yes -Correct Procedure Yes Yes -Procedure Performed Yes Yes -Type of Procedure Debridement Debridement -Clinical Debridement Subcutaneous Subcutaneous -Post Debridement Size (cm) - Length 9.5 6.8 -Post Debridement Size (cm) - Width 7.5 6.4 -Post Debridement Size (cm) - Depth 0.5 0.3 -Total Square Cm 71.25 43.52 -Wound/Ulcer Outcome Not Healed Not Healed -Ulcer Cleansing Rinsed/ Rinsed/ Irrigated with Irrigated with Saline Saline -Foul Odor after Cleansing No No -Bioengineered Tissue No No -Bleeding Controlled with Pressure Pressure -Treatment Response Procedure Procedure Tolerated Well Tolerated Well Pain Scale: 0-10 Numeric Is Patient Pain Free? Yes Yes Wound debrided: left anterior lower leg Laterality: Left Type of Debridement: Excisional debridement Anesthesia Used: 4% Lidocaine Solution Depth: Down to and including healthy tissue, in the subcutaneous layer Percentage of wound debrided: 100 Instrument Used: 7mm curette Tissue Removed: devitalized tissue, yellow slough Severity: Fat Layer Exposed Amount of bleeding with debridement: Mild Bleeding Controlled with: Compression and gauze Patient tolerated procedure well - Additional Wound Wound debrided: left lateral lower leg Laterality: Left Type of Debridement: Excisional debridement Anesthesia Used: 4% Lidocaine Solution Depth: Down to and including healthy tissue, in the subcutaneous layer Percentage of wound debrided: 100 Instrument Used: 5mm curette Tissue Removed: devitalized tissue, yellow slough Severity: Fat Layer Exposed Amount of bleeding with debridement: Mild Bleeding Controlled with: Compression and gauze Patient tolerated procedure: Patient tolerated procedure well - Additional Wound Wound debrided: left medial LE Laterality: Left Type of Debridement: Excisional debridement Anesthesia Used: 4% Lidocaine Solution Depth: Down to and including healthy tissue, in the subcutaneous layer Percentage of wound debrided: 100 Instrument Used: 7mm curette Tissue Removed: devitalized tissue, yellow slough Severity: Fat Layer Exposed Amount of bleeding with debridement: Mild Bleeding Controlled with: Compression and gauze Patient tolerated procedure: Patient tolerated procedure well Assessment/Plan Active Problems (Last Reviewed 01/18/18 @ 10:49 by Alejandra Singh) Obesity, Class III, BMI 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 obesity) (Chronic) Chronic venous insufficiency (Chronic) Venous ulcers of both lower extremities (Chronic) 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 Venous stasis ulcers of left LE. 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 Foul odor slightly present toady. Normal arterial testing, venous incompetence b/l. Will continue to treat her wounds with Aquacel and continue tubigrip for compression. Encouraged increased protein and continue with protein supplement that she is taking currently. Continue treatment of squamous cell as per dermatology. Her treatment course has been changed to complex care due to her comorbidities and the complexity of her wounds. F/U in 2 weeks.
== END 2018-01-24 23:59 ==
LOC: WC 13:15
PROVIDERS: Referring Provider Family Medicine; Visit Provider Family Medicine
DX: I87.2 Venous insufficiency (chronic) (peripheral) (principal); E66.9 Obesity, unspecified; Z71.3 Dietary counseling and surveillance; C44.722 Squamous cell carcinoma of skin of right lower limb, including hip; L97.922 Non-pressure chronic ulcer of unspecified part of left lower leg with fat layer exposed; I95.9 Hypotension, unspecified
CPT/HCPCS: 11042; 11045

== ENCOUNTER → 2018-01-25 08:01 | Outpatient (CLI) | payer MEDICARE, MEDICAID, SELFPAY ==
[2018-01-18 10:57] VITALS: BMI 39.4
--- NOTE | 2018-01-25 08:05 | CT_ITS ---
STUDY: CT BRAIN WITHOUT CONTRAST REASON FOR EXAM: Female, 72 years old. Hallucinations. Bipolar. Schizophrenia. Renal disease. RADIATION DOSAGE (If Supplied By Facility): CTDIvol = ( 44.99 ) mGy, DLP = ( 1490.98 ) mGycm TECHNIQUE: Transaxial CT imaging of the brain was performed without administration of intravenous contrast material. Individualized dose optimization techniques were used for this CT. COMPARISON: None. FINDINGS: Normal soft tissue structures. Normal calvarium. There is mild cerebral atrophy with widening of the extra-axial spaces and ventricular dilatation. There are areas of decreased attenuation within the white matter tracts of the supratentorial brain, consistent with microvascular disease changes. Normal basal ganglia and thalami. Normal brainstem. Normal cerebellum. There is no intracranial hemorrhage. There are no findings of an acute ischemic infarction. Normal visualized paranasal sinuses. CT/Brain/Head without Contrast IMPRESSION: Chronic involutional changes without evidence of acute intracranial or calvarial abnormality. Electronically Signed: Amos Pool DO at 20:41 EDT Tel [phone], Service support ,
== END ==
DX: R44.3 Hallucinations, unspecified (principal)
CPT/HCPCS: 70450

== ENCOUNTER → 2018-02-12 13:33 | Outpatient (CLI) | payer MEDICARE, MEDICAID, SELFPAY ==
[2018-01-18 10:57] VITALS: BMI 39.4
--- NOTE | 2018-02-12 13:39 | BI_ITS ---
MAMMOGRAPHY - BILATERAL DIAGNOSTIC REASON FOR EXAM: Female, 72 years old. Right breast pain with swelling and redness. PERTINENT HISTORY: Non-contributory. TECHNIQUE: Digital bilateral breast iqra (3D mammographic acquisition) in the CC and MLO projections. 2-D mediolateral oblique (MLO) and craniocaudad (CC) views of both breasts were obtained. CAD: Full Field Digital Mammography with Computer Added Detection was performed. COMPARISON: No comparison mammograms available at this time. If any prior films become available, an addendum to this report can be generated. FINDINGS: Breast Composition: There are scattered areas of fibroglandular density. There is diffuse increased markings in the right breast with diffuse skin thickening. This is suggestive of inflammatory breast carcinoma. There is evidence of a 1.9 cm x 2 cm spiculated nodule in the retroareolar region of the right breast. A biopsy recommended. No other significant abnormalities are identified. 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 A biopsy is recommended. ASSESSMENT CATEGORY: BIRADS Category 5: Highly Suggestive of Malignancy - Appropriate Action Should Be Taken. A letter regarding these results will be sent to the patient by the facility within 30 days. Approximately 10% of breast cancers are not detected by mammography. A normal mammogram should not delay biopsy of a clinically suspicious abnormality. Electronically Signed: Federico Cevallos MD at 13:44 EST Tel [phone], Service support ,
--- NOTE | 2018-02-12 14:26 | US_ITS ---
STUDY: ULTRASOUND BREAST - RIGHT REASON FOR EXAM: Female, 72 years old. Pain and redness of the right breast. Abnormal screening mammogram. TECHNIQUE: Axial and longitudinal images of the RIGHT breast were performed with a high resolution ultrasound transducer. COMPARISON: Comparison is made with prior mammogram done earlier today. FINDINGS: RIGHT Breast: This ends of diffuse edematous changes of the breast with her skin thickening. The skin has the appearance of orange peel. Inflammatory breast carcinoma should be ruled. US/Breast Limited Unilateral IMPRESSION: Findings suggestive of inflammatory breast carcinoma. A biopsy recommended. ASSESSMENT CATEGORY: BIRADS Category 5: Highly Suggestive of Malignancy - Appropriate Action Should Be Taken. A letter regarding these results will be sent to the patient by the facility within 30 days. Electronically Signed: Federico Cevallos MD at 8:06 EST Tel [phone], Service support ,
== END ==
PROVIDERS: Referring Provider Family Medicine; Visit Provider Family Medicine
DX: N63.0 Unspecified lump in unspecified breast (principal); N64.4 Mastodynia; R93.89 Abnormal findings on diagnostic imaging of other specified body structures; C82.20 Follicular lymphoma grade III, unspecified, unspecified site; R92.8 Other abnormal and inconclusive findings on diagnostic imaging of breast
CPT/HCPCS: 76642; 77062; 77066; G0279

== ENCOUNTER → 2018-02-14 14:49 | Outpatient (CLI) | payer MEDICARE, MEDICAID, SELFPAY ==
[2018-01-18 10:57] VITALS: BMI 39.4
--- NOTE | 2018-02-14 12:15 | BRBX_PTH ---
PATIENT: STACY VEE LOC: [facility] U#:[id number] AGE/SX: 79/F ROOM: RE02/14/[address]: Dr. Leonides Palomares MD : 1945 BED: DIS: SPEC #: [id number] RECD: 02/14/18 14:14 STATUS: UMESH STUART #: [id number] ANGELIA: 02/14/18 12:[address]: Leonieds Palomares DEPT: SURGICAL PATHOLOGY RECD BY: Desiree Nichole Tissues: Right breast, NOS Procedures: Surgery Specimen Level IV HEADER OPERATION: Right breast biopsy PRE-OP DIAGNOSIS: Abnormal mammogram/ultrasound right breast TISSUE SUBMITTED: Right breast tissue MICROSCOPIC DIAGNOSIS Right breast, core biopsy: A piece of skin with underlying tissue, consistent with punch biopsy, negative for malignancy. Fragments of adipose tissue with chronic inflammation and foreign body giant cell reaction, negative for malignancy. Breast tissue is not identified in the submitted specimen. SJ:anaya 02/16/18 COMMENT Correlation with clinical, radiologic findings and appropriate follow up are necessary. Rebiopsy is suggested if clinically indicated. MICROSCOPIC DESCRIPTION Slides are reviewed. GROSS DESCRIPTION Received in fixative is one container labeled with the patient's name and designated right breast. The specimen consists of multiple fragments of boothe-yellow fibroadipose tissue measuring in aggregate 1 x 0.5 x 0.1 cm. Also present in the container is a piece of boothe-pink punch biopsy of skin measuring 0.3 cm in diameter and up to 1 cm in length. The entire specimen is submitted in one cassette. / SJ:anaya 02/14/18 TC:5 CPT: 74926
== END ==
PROVIDERS: Referring Provider Surgery; Visit Provider Surgery
DX: R92.8 Other abnormal and inconclusive findings on diagnostic imaging of breast (principal)
CPT/HCPCS: 87070; 87205; 88305

== ENCOUNTER 2018-02-23 13:00 | Outpatient (RCR) | payer MEDICARE, MEDICAID, SELFPAY ==
[2018-01-18 10:57] VITALS: BMI 39.4
[2018-01-25 00:59] VITALS: BP 113/60; PULSE 83; RESP 18; TEMP 36.2
[2018-02-02 13:43] VITALS: BP 119/79; PULSE 71; RESP 16; TEMP 35.5
--- NOTE | 2018-02-02 16:45 | PCM.WC.PN ---
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 Chronic venous insufficiency. Underlying SCC of nonhealing ulcers of left lower extremity History of Wound: Judy is a pleasant 71-year-old female resident at [facility] who presents to the wound healing center for evaluation of ulcers to her bilateral lower extremities. This has been an ongoing and recurrent problem for this patient. She's been treated numerous times previously at the wound center. She has a h/o nonhealing wound of left ankle which revealed squamous cell carcinoma which was treated with Mohs surgery on December 30 2015 and the lesion had been completely excised at the time. She is scheduled for vascular testing on 11/03/17. She was seen recently for her wounds by Dr. Bardales in the beginning of August but was subsequently admitted to the hospital for a bowel obstruction and sepsis. Her wounds have progressed since her visit in August. Vascular studies were postponed but labs ordered by Dr. Bardales are available and do not show any significant abnormalities other than some slight protein malnutrition for which she is already taking a protein supplement. She had been using adaptic and dry gauze as instructed after her visit with Dr. Bardales. She reports significant drainage from the wounds. She is wearing tubigrip compression as well. She was treated with Cefepime and Ancef during her hospital stay. Her large ulcers of her left lower leg were punch biopsied on 10/20/17 and showed squamous cell carcinoma. She reports that the wounds are painful and draining but denies fever or chills. Progress of Wound: Judy's wounds are improved but still very friable, especially the left medial wound. The left medial wound is about the same in size but has less amount of necrotic tissue but does have some odor today. Punch biopsies done previously revealed squamous cell carcinoma. Her case was discussed with her standard machine stitcher, Dr. Johnny Grady. She completed radiation treatment. She reports increased pain in her legs/ulcers. She completed antibiotic treatment for positive wound cultures. Judy has tolerated dressings and compression. Vascular studies were done which showed incompetence of bilateral GSV, right SSV and right SFJ. - Physical Exam Vital Signs Temp Pulse Resp BP 96 F L 71 16 119/79 02/02/18 13:43 02/02/18 13:43 02/02/18 13:43 02/02/18 13:43 General: Alert, Oriented x3, Cooperative, No apparent distress HEENT: Atraumatic Oral: Moist Mucosa Abdomen: Obese Extremities: Edema Skin: Ulcer/ Wound Wound Measurements and Assessment WC - Nurse 1 - General Ulcer Measurement Start: 02/02/18 13:42 Freq: Status: Active Protocol: Activity Type Activity Date Activity User E-Sign Co-Sign Detail Recorded Client Recorded Date Recorded By Document 02/02/18 13:43 [facility] [id number] 02/02/18 13:59 [facility] 02/02/18 13:43 Wound Center Nurse 1 [Ulcer Assessment] #13- LT SUPERIOR VASQUEZ CLUSTER -Combined with other wound No -Current Size (cm) - Length 6 -Current Size (cm) - Width 6.2 -Current Size (cm) - Depth 0.1 -Total Square Cm 37.2 -Date of Last Picture (Recall this 02/02/18 field) -Photo Taken Yes -Epithelialization None Present -Tunneling No -Undermining/Tunneling No -Circular Undermining No -Exudate Amt Small (1-33%) -Exudate Type Serosanguineous -Wound Margin Distinct, Outline Attached -Granulation Amt Large (67-100%) -Granulation Quality Red -Slough/Fibrin Yes -Necrosis Amt Small (1-33%) -Necrotic Tissue Type Adherent Slough -Texture (Cristina-wound Skin Appearance) Scarring -Moisture (Cristina-wound Skin Appearance Dry/Scaly ) -Color (Cristina-wound Skin Appearance) Hemosiderin Staining -Temperature (Cristina-wound Skin No Abnormality Appearance) (Pt Warm) -Tenderness on Palpation (Cristina-wound Yes Skin Appearance) -Ulcer Cleansing Wound Cleanser -Foul Odor after Cleansing No -Anesthetic Used 4% Lidocaine Solution # 12 left anterior lower leg -Combined with other wound No -Current Size (cm) - Length 0.1 -Current Size (cm) - Width 0.1 -Current Size (cm) - Depth 0.1 -Total Square Cm 0.01 -Date of Last Picture (Recall this 02/02/18 field) -Photo Taken Yes -Epithelialization Large 67-100% #10 LEFT LATERAL LE -Combined with other wound No -Current Size (cm) - Length 1.5 -Current Size (cm) - Width 1.1 -Current Size (cm) - Depth 0.1 -Total Square Cm 1.65 -Date of Last Picture (Recall this 02/02/18 field) -Photo Taken Yes -Epithelialization Small 1-33% -Tunneling No -Undermining/Tunneling No -Circular Undermining No -Exudate Amt Small (1-33%) -Exudate Type Serosanguineous -Wound Margin Distinct, Outline Attached -Granulation Amt Large (67-100%) -Granulation Quality Red -Slough/Fibrin Yes -Necrosis Amt Small (1-33%) -Necrotic Tissue Type Adherent Slough -Texture (Cristina-wound Skin Appearance) Scarring -Moisture (Cristina-wound Skin Appearance Dry/Scaly ) -Color (Cristina-wound Skin Appearance) Hemosiderin Staining -Temperature (Cristina-wound Skin No Abnormality Appearance) (Pt Warm) -Tenderness on Palpation (Cristina-wound Yes Skin Appearance) -Ulcer Cleansing Wound Cleanser -Anesthetic Used 4% Lidocaine Solution #11 LEFT MEDIAL LE -Combined with other wound No -Current Size (cm) - Length 5.4 -Current Size (cm) - Width 6.9 -Current Size (cm) - Depth 0.3 -Total Square Cm 37.26 -Date of Last Picture (Recall this 02/02/18 field) -Photo Taken Yes -Epithelialization Small 1-33% -Tunneling No -Undermining/Tunneling No -Circular Undermining No -Exudate Amt Small (1-33%) -Exudate Type Serosanguineous -Wound Margin Distinct, Outline Attached -Granulation Amt Small (1-33%) -Granulation Quality [place] -Slough/Fibrin Yes -Necrosis Amt Large (67-100%) -Necrotic Tissue Type Adherent Slough -Texture (Cristina-wound Skin Appearance) Scarring -Moisture (Cristina-wound Skin Appearance Dry/Scaly ) -Color (Cristina-wound Skin Appearance) Erythema -Temperature (Cristina-wound Skin No Abnormality Appearance) (Pt Warm) -Tenderness on Palpation (Cristina-wound Yes Skin Appearance) -Ulcer Cleansing Wound Cleanser -Foul Odor after Cleansing No -Anesthetic Used 4% Lidocaine Solution [Edema Assessment] -Lower Limb Edema Present Yes -Left Calf (cm) 35.1 -Left Ankle (cm) 24 WC - Nurse 2 - General Ulcer CM Notes Start: 02/02/18 13:42 Freq: Status: Active Protocol: Activity Type Activity Date Activity User E-Sign Co-Sign Detail Recorded Client Recorded Date Recorded By Document 02/02/18 14:28 [id number] 02/02/18 14:40 CS 02/02/18 14:28 Wound Center Nurse 2 [Procedure/Treatment] #13- LT SUPERIOR VASQUEZ CLUSTER -Time 14:29 -Correct Patient Yes -Correct Side, Site, Position Yes -Correct Procedure Yes -Procedure Performed Yes -Type of Procedure Debridement -Clinical Debridement Subcutaneous -Post Debridement Size (cm) - Length 8.5 -Post Debridement Size (cm) - Width 8.5 -Post Debridement Size (cm) - Depth 0.1 -Total Square Cm 72.25 -Wound/Ulcer Outcome Not Healed -Ulcer Cleansing Not Cleansed -Foul Odor after Cleansing No -Bioengineered Tissue No -Bleeding Controlled with NA -Treatment Response Procedure Tolerated Well # 12 left anterior lower leg -Time 14:29 -Correct Patient Yes -Correct Side, Site, Position Yes -Correct Procedure Yes -Procedure Performed Yes -Type of Procedure Debridement -Clinical Debridement Subcutaneous -Post Debridement Size (cm) - Length 4.5 -Post Debridement Size (cm) - Width 4.0 -Post Debridement Size (cm) - Depth 0.1 -Total Square Cm 18.00 -Wound/Ulcer Outcome Not Healed -Ulcer Cleansing Not Cleansed -Foul Odor after Cleansing No -Bioengineered Tissue No -Bleeding Controlled with NA -Treatment Response Procedure Tolerated Well #10 LEFT LATERAL LE -Time 14:30 -Correct Patient Yes -Correct Side, Site, Position Yes -Correct Procedure Yes -Procedure Performed Yes -Type of Procedure Debridement -Clinical Debridement Subcutaneous -Post Debridement Size (cm) - Length 2 -Post Debridement Size (cm) - Width 1.5 -Post Debridement Size (cm) - Depth 0.1 -Total Square Cm 3.0 -Wound/Ulcer Outcome Amputation -Ulcer Cleansing Not Cleansed -Foul Odor after Cleansing No -Bioengineered Tissue No -Bleeding Controlled with NA #11 LEFT MEDIAL LE -Time 14:30 -Correct Patient Yes -Correct Side, Site, Position Yes -Correct Procedure Yes -Procedure Performed Yes -Type of Procedure Debridement -Clinical Debridement Subcutaneous -Post Debridement Size (cm) - Length 6 -Post Debridement Size (cm) - Width 6.5 -Post Debridement Size (cm) - Depth 0.3 -Total Square Cm 39.0 -Wound/Ulcer Outcome Not Healed -Ulcer Cleansing Not Cleansed -Foul Odor after Cleansing No -Bleeding Controlled with NA -Treatment Response Procedure Tolerated Well [See Physician Procedure note for Specifics] Pain Scale: 0-10 Numeric [Pain] -Is Patient Pain Free? Yes Psych/Mental Status: Normal Affect, Appropriate Debridement Note Post-Debridement Measurements/Treatment WC - Nurse 2 - General Ulcer CM Notes Start: 02/02/18 13:42 Freq: Status: Active Protocol: Activity Type Activity Date Activity User E-Sign Co-Sign Detail Recorded Client Recorded Date Recorded By Document 02/02/18 14:28 [id number] 02/02/18 14:40 02/02/18 14:28 Wound Center Nurse 2 #13- LT SUPERIOR VASQUEZ CLUSTER -Time 14:29 -Correct Patient Yes -Correct Side, Site, Position Yes -Correct Procedure Yes -Procedure Performed Yes -Type of Procedure Debridement -Clinical Debridement Subcutaneous -Post Debridement Size (cm) - Length 8.5 -Post Debridement Size (cm) - Width 8.5 -Post Debridement Size (cm) - Depth 0.1 -Total Square Cm 72.25 -Wound/Ulcer Outcome Not Healed -Ulcer Cleansing Not Cleansed -Foul Odor after Cleansing No -Bioengineered Tissue No -Bleeding Controlled with NA -Treatment Response Procedure Tolerated Well # 12 left anterior lower leg -Time 14:29 -Correct Patient Yes -Correct Side, Site, Position Yes -Correct Procedure Yes -Procedure Performed Yes -Type of Procedure Debridement -Clinical Debridement Subcutaneous -Post Debridement Size (cm) - Length 4.5 -Post Debridement Size (cm) - Width 4.0 -Post Debridement Size (cm) - Depth 0.1 -Total Square Cm 18.00 -Wound/Ulcer Outcome Not Healed -Ulcer Cleansing Not Cleansed -Foul Odor after Cleansing No -Bioengineered Tissue No -Bleeding Controlled with NA -Treatment Response Procedure Tolerated Well #10 LEFT LATERAL LE -Time 14:30 -Correct Patient Yes -Correct Side, Site, Position Yes -Correct Procedure Yes -Procedure Performed Yes -Type of Procedure Debridement -Clinical Debridement Subcutaneous -Post Debridement Size (cm) - Length 2 -Post Debridement Size (cm) - Width 1.5 -Post Debridement Size (cm) - Depth 0.1 -Total Square Cm 3.0 -Wound/Ulcer Outcome Amputation -Ulcer Cleansing Not Cleansed -Foul Odor after Cleansing No -Bioengineered Tissue No -Bleeding Controlled with NA #11 LEFT MEDIAL LE -Time 14:30 -Correct Patient Yes -Correct Side, Site, Position Yes -Correct Procedure Yes -Procedure Performed Yes -Type of Procedure Debridement -Clinical Debridement Subcutaneous -Post Debridement Size (cm) - Length 6 -Post Debridement Size (cm) - Width 6.5 -Post Debridement Size (cm) - Depth 0.3 -Total Square Cm 39.0 -Wound/Ulcer Outcome Not Healed -Ulcer Cleansing Not Cleansed -Foul Odor after Cleansing No -Bleeding Controlled with NA -Treatment Response Procedure Tolerated Well Pain Scale: 0-10 Numeric Is Patient Pain Free? Yes Wound debrided: left superior vasquez cluster Laterality: Left Type of Debridement: Excisional debridement Anesthesia Used: 4% Lidocaine Solution Depth: Down to and including healthy tissue, in the subcutaneous layer Percentage of wound debrided: 100 Instrument Used: 7mm curette Tissue Removed: devitalized tissue, yellow slough Severity: Fat Layer Exposed Amount of bleeding with debridement: Mild Bleeding Controlled with: Compression and gauze Patient tolerated procedure well - Additional Wound Wound debrided: left anterior lower leg Laterality: Left Type of Debridement: Excisional debridement Anesthesia Used: 4% Lidocaine Solution Depth: Down to and including healthy tissue, in the subcutaneous layer Percentage of wound debrided: 100 Instrument Used: 7mm curette Tissue Removed: devitalized tissue, yellow slough Severity: Fat Layer Exposed Amount of bleeding with debridement: Mild Bleeding Controlled with: Compression and gauze Patient tolerated procedure: Patient tolerated procedure well Assessment/Plan Active Problems (Last Reviewed 01/18/18 @ 10:49 by Alejandra Singh) Venous ulcers of both lower extremities (Chronic) 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 Venous stasis ulcers of left LE. 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 They have improved somewhat and do not have an odor today. Normal arterial testing, venous incompetence b/l. Will continue to treat her wounds with Aquacel and continue tubigrip for compression. Encouraged increased protein and continue with protein supplement that she is taking currently. Continue treatment of squamous cell as per dermatology. Her treatment course has been changed to complex care due to her comorbidities and the complexity of her wounds. F/U in 2 weeks.
[2018-02-23 13:46] VITALS: BP 102/87; PULSE 83; RESP 16; TEMP 36.2
--- NOTE | 2018-02-23 17:50 | PCM.WC.PN ---
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 Chronic venous insufficiency. Underlying SCC of nonhealing ulcers of left lower extremity History of Wound: Judy is a pleasant 71-year-old female resident at [facility] who presents to the wound healing center for evaluation of ulcers to her bilateral lower extremities. This has been an ongoing and recurrent problem for this patient. She's been treated numerous times previously at the wound center. She has a h/o nonhealing wound of left ankle which revealed squamous cell carcinoma which was treated with Mohs surgery on December 30 2015 and the lesion had been completely excised at the time. She is scheduled for vascular testing on 11/03/17. She was seen recently for her wounds by Dr. Bardales in the beginning of August but was subsequently admitted to the hospital for a bowel obstruction and sepsis. Her wounds have progressed since her visit in August. Vascular studies were postponed but labs ordered by Dr. Bardales are available and do not show any significant abnormalities other than some slight protein malnutrition for which she is already taking a protein supplement. She had been using adaptic and dry gauze as instructed after her visit with Dr. Bardales. She reports significant drainage from the wounds. She is wearing tubigrip compression as well. She was treated with Cefepime and Ancef during her hospital stay. Her large ulcers of her left lower leg were punch biopsied on 10/20/17 and showed squamous cell carcinoma. She reports that the wounds are painful and draining but denies fever or chills. Progress of Wound: Judy's wounds are improving slowly but complicated by underlying squamous cell carcinoma. She underwent radiation treatment for this which has helped her lesions. The left medial wound is about the same in size but has less amount of necrotic tissue. Punch biopsies done previously revealed squamous cell carcinoma. 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 Johnny Grady. She completed radiation treatment. She reports some pain in her legs/ulcers. Judy has tolerated dressings and compression. Vascular studies were done which showed incompetence of bilateral GSV, right SSV and right SFJ. She reports that staff does not place tubigrips for compression as ordered. - Physical Exam Vital Signs Temp Pulse Resp BP 97.1 F L 83 16 102/87 H 02/23/18 13:46 02/23/18 13:46 02/23/18 13:46 02/23/18 13:46 General: Alert, Oriented x3, Cooperative, No apparent distress HEENT: Atraumatic, Normocephalic Oral: Moist Mucosa Abdomen: Obese Extremities: Edema Skin: Ulcer/ Wound Wound Measurements and Assessment WC - Nurse 1 - General Ulcer Measurement Start: 02/02/18 13:42 Freq: Status: Active Protocol: Activity Type Activity Date Activity User E-Sign Co-Sign Detail Recorded Client Recorded Date Recorded By Document 02/23/18 13:46 [facility] [id number] 02/23/18 13:59 BM 02/23/18 13:46 Wound Center Nurse 1 [Ulcer Assessment] #13- LT SUPERIOR VASQUEZ CLUSTER -Combined with other wound No -Current Size (cm) - Length 12.3 -Current Size (cm) - Width 7 -Current Size (cm) - Depth 0.2 -Total Square Cm 86.1 -Photo Taken No -Epithelialization Small 1-33% -Tunneling No -Undermining/Tunneling No -Circular Undermining No -Exudate Amt Small (1-33%) -Exudate Type Serosanguineous -Wound Margin Distinct, Outline Attached -Granulation Amt Medium (34-66%) -Granulation Quality Red -Slough/Fibrin Yes -Necrosis Amt Medium (34-66%) -Necrotic Tissue Type Adherent Slough -Texture (Cristina-wound Skin Appearance) Friable Scarring -Moisture (Cristina-wound Skin Appearance Dry/Scaly ) -Color (Cristina-wound Skin Appearance) Assessed Hemosiderin Staining -Temperature (Cristina-wound Skin No Abnormality Appearance) (Pt Warm) -Tenderness on Palpation (Cristina-wound No Skin Appearance) -Ulcer Cleansing Wound Cleanser -Foul Odor after Cleansing No -Anesthetic Used 4% Lidocaine Solution # 12 left anterior lower leg -Combined with other wound No -Current Size (cm) - Length 0.1 -Current Size (cm) - Width 0.1 -Current Size (cm) - Depth 0.1 -Total Square Cm 0.01 -Photo Taken No -Epithelialization Large 67-100% -Tunneling No -Undermining/Tunneling No -Circular Undermining No -Exudate Amt None Present (0 %) -Texture (Cristina-wound Skin Appearance) Friable Scarring -Moisture (Cristina-wound Skin Appearance Dry/Scaly ) -Color (Cristina-wound Skin Appearance) Assessed Hemosiderin Staining -Temperature (Cristina-wound Skin No Abnormality Appearance) (Pt Warm) -Tenderness on Palpation (Cristina-wound No Skin Appearance) -Ulcer Cleansing Wound Cleanser -Foul Odor after Cleansing No -Anesthetic Used 4% Lidocaine Solution #10 LEFT LATERAL LE -Combined with other wound No -Current Size (cm) - Length 1 -Current Size (cm) - Width 1.1 -Current Size (cm) - Depth 0.2 -Total Square Cm 1.1 -Photo Taken No -Epithelialization None Present -Tunneling No -Undermining/Tunneling No -Circular Undermining No -Exudate Amt Small (1-33%) -Exudate Type Serosanguineous -Wound Margin Distinct, Outline Attached -Granulation Amt Medium (34-66%) -Granulation Quality Red -Slough/Fibrin Yes -Necrosis Amt Medium (34-66%) -Necrotic Tissue Type Adherent Slough -Texture (Cristina-wound Skin Appearance) Friable Scarring -Moisture (Cristina-wound Skin Appearance Assessed ) Dry/Scaly -Color (Cristina-wound Skin Appearance) Hemosiderin Staining -Temperature (Cristina-wound Skin No Abnormality Appearance) (Pt Warm) -Tenderness on Palpation (Cristina-wound No Skin Appearance) -Ulcer Cleansing Wound Cleanser -Foul Odor after Cleansing No -Anesthetic Used 4% Lidocaine Solution #11 LEFT MEDIAL LE -Combined with other wound No -Current Size (cm) - Length 5.4 -Current Size (cm) - Width 4.6 -Current Size (cm) - Depth 0.3 -Total Square Cm 24.84 -Photo Taken No -Epithelialization Small 1-33% -Tunneling No -Undermining/Tunneling No -Circular Undermining No -Exudate Amt Small (1-33%) -Exudate Type Serosanguineous -Wound Margin Distinct, Outline Attached -Granulation Amt Medium (34-66%) -Granulation Quality Gattman -Slough/Fibrin Yes -Necrosis Amt Large (67-100%) -Necrotic Tissue Type Adherent Slough -Texture (Cristina-wound Skin Appearance) Friable Scarring -Moisture (Cristina-wound Skin Appearance Dry/Scaly ) -Color (Cristina-wound Skin Appearance) Hemosiderin Staining -Temperature (Cristina-wound Skin No Abnormality Appearance) (Pt Warm) -Tenderness on Palpation (Cristina-wound No Skin Appearance) -Ulcer Cleansing Wound Cleanser -Foul Odor after Cleansing No -Anesthetic Used 4% Lidocaine Solution [Edema Assessment] -Lower Limb Edema Present No -Left Calf (cm) 31.5 -Left Ankle (cm) 23.4 WC - Nurse 2 - General Ulcer CM Notes Start: 02/02/18 13:42 Freq: Status: Active Protocol: Activity Type Activity Date Activity User E-Sign Co-Sign Detail Recorded Client Recorded Date Recorded By Document 02/23/18 14:12 [id number] 02/23/18 14:18 02/23/18 14:12 Wound Center Nurse 2 [Procedure/Treatment] #13- LT SUPERIOR VASQUEZ CLUSTER -Time 14:12 -Correct Patient Yes -Correct Side, Site, Position Yes -Correct Procedure Yes -Procedure Performed Yes -Type of Procedure Debridement -Clinical Debridement Subcutaneous -Post Debridement Size (cm) - Length 12.5 -Post Debridement Size (cm) - Width 7.5 -Post Debridement Size (cm) - Depth 0.1 -Total Square Cm 93.75 -Wound/Ulcer Outcome Not Healed -Ulcer Cleansing Rinsed/ Irrigated with Saline -Foul Odor after Cleansing No -Bioengineered Tissue No -Bleeding Controlled with Pressure -Offloading No -Treatment Response Procedure Tolerated Well # 12 left anterior lower leg -Time 14:12 -Correct Patient Yes -Correct Side, Site, Position Yes -Correct Procedure Yes -Procedure Performed Yes -Type of Procedure Debridement -Clinical Debridement Subcutaneous -Post Debridement Size (cm) - Length 5 -Post Debridement Size (cm) - Width 3 -Post Debridement Size (cm) - Depth 0.1 -Total Square Cm 15 -Wound/Ulcer Outcome Not Healed -Ulcer Cleansing Rinsed/ Irrigated with Saline -Bioengineered Tissue No -Bleeding Controlled with Pressure -Offloading No #10 LEFT LATERAL LE -Time 14:12 -Correct Patient Yes -Correct Side, Site, Position Yes -Correct Procedure Yes -Procedure Performed Yes -Type of Procedure Debridement -Clinical Debridement Subcutaneous -Post Debridement Size (cm) - Length 1.7 -Post Debridement Size (cm) - Width 1 -Post Debridement Size (cm) - Depth 0.2 -Total Square Cm 1.7 -Wound/Ulcer Outcome Not Healed -Ulcer Cleansing Rinsed/ Irrigated with Saline -Bioengineered Tissue No -Bleeding Controlled with Pressure -Offloading No #11 LEFT MEDIAL LE -Time 14:13 -Correct Patient Yes -Correct Side, Site, Position Yes -Correct Procedure Yes -Procedure Performed Yes -Type of Procedure Debridement -Clinical Debridement Subcutaneous -Post Debridement Size (cm) - Length 5.5 -Post Debridement Size (cm) - Width 5.7 -Post Debridement Size (cm) - Depth 0.3 -Total Square Cm 31.35 -Wound/Ulcer Outcome Not Healed -Ulcer Cleansing Rinsed/ Irrigated with Saline -Foul Odor after Cleansing No -Bioengineered Tissue No -Bleeding Controlled with Pressure -Offloading No -Treatment Response Procedure Tolerated Well [See Physician Procedure note for Specifics] Pain Scale: 0-10 Numeric [Pain] -Is Patient Pain Free? Yes Psych/Mental Status: Normal Affect, Appropriate Debridement Note Post-Debridement Measurements/Treatment WC - Nurse 2 - General Ulcer CM Notes Start: 02/02/18 13:42 Freq: Status: Active Protocol: Activity Type Activity Date Activity User E-Sign Co-Sign Detail Recorded Client Recorded Date Recorded By Document 02/02/18 14:28 [id number] 02/02/18 14:40 CS Document 02/23/18 14:12 [id number] 02/23/18 14:18 CS 02/02/18 02/23/18 14:28 14:12 Wound Center Nurse 2 #13- LT SUPERIOR VASQUEZ CLUSTER -Time 14:29 14:12 -Correct Patient Yes Yes -Correct Side, Site, Position Yes Yes -Correct Procedure Yes Yes -Procedure Performed Yes Yes -Type of Procedure Debridement Debridement -Clinical Debridement Subcutaneous Subcutaneous -Post Debridement Size (cm) - Length 8.5 12.5 -Post Debridement Size (cm) - Width 8.5 7.5 -Post Debridement Size (cm) - Depth 0.1 0.1 -Total Square Cm 72.25 93.75 -Wound/Ulcer Outcome Not Healed Not Healed -Ulcer Cleansing Not Cleansed Rinsed/ Irrigated with Saline -Foul Odor after Cleansing No No -Bioengineered Tissue No No -Bleeding Controlled with NA Pressure -Offloading No -Treatment Response Procedure Procedure Tolerated Well Tolerated Well # 12 left anterior lower leg -Time 14:29 14:12 -Correct Patient Yes Yes -Correct Side, Site, Position Yes Yes -Correct Procedure Yes Yes -Procedure Performed Yes Yes -Type of Procedure Debridement Debridement -Clinical Debridement Subcutaneous Subcutaneous -Post Debridement Size (cm) - Length 4.5 5 -Post Debridement Size (cm) - Width 4.0 3 -Post Debridement Size (cm) - Depth 0.1 0.1 -Total Square Cm 18.00 15 -Wound/Ulcer Outcome Not Healed Not Healed -Ulcer Cleansing Not Cleansed Rinsed/ Irrigated with Saline -Foul Odor after Cleansing No -Bioengineered Tissue No No -Bleeding Controlled with NA Pressure -Offloading No -Treatment Response Procedure Tolerated Well #10 LEFT LATERAL LE -Time 14:30 14:12 -Correct Patient Yes Yes -Correct Side, Site, Position Yes Yes -Correct Procedure Yes Yes -Procedure Performed Yes Yes -Type of Procedure Debridement Debridement -Clinical Debridement Subcutaneous Subcutaneous -Post Debridement Size (cm) - Length 2 1.7 -Post Debridement Size (cm) - Width 1.5 1 -Post Debridement Size (cm) - Depth 0.1 0.2 -Total Square Cm 3.0 1.7 -Wound/Ulcer Outcome Amputation Not Healed -Ulcer Cleansing Not Cleansed Rinsed/ Irrigated with Saline -Foul Odor after Cleansing No -Bioengineered Tissue No No -Bleeding Controlled with NA Pressure -Offloading No #11 LEFT MEDIAL LE -Time 14:30 14:13 -Correct Patient Yes Yes -Correct Side, Site, Position Yes Yes -Correct Procedure Yes Yes -Procedure Performed Yes Yes -Type of Procedure Debridement Debridement -Clinical Debridement Subcutaneous Subcutaneous -Post Debridement Size (cm) - Length 6 5.5 -Post Debridement Size (cm) - Width 6.5 5.7 -Post Debridement Size (cm) - Depth 0.3 0.3 -Total Square Cm 39.0 31.35 -Wound/Ulcer Outcome Not Healed Not Healed -Ulcer Cleansing Not Cleansed Rinsed/ Irrigated with Saline -Foul Odor after Cleansing No No -Bioengineered Tissue No -Bleeding Controlled with NA Pressure -Offloading No -Treatment Response Procedure Procedure Tolerated Well Tolerated Well Pain Scale: 0-10 Numeric Is Patient Pain Free? Yes Yes Wound debrided: left superior vasquez cluster Laterality: Left Type of Debridement: Excisional debridement Anesthesia Used: 4% Lidocaine Solution Depth: Down to and including healthy tissue, in the subcutaneous layer Percentage of wound debrided: 30 - area of wound is approx. 30% of total area measured due to cluster of wounds Instrument Used: 5mm curette Tissue Removed: yellow slough, devitalized tissue Severity: Fat Layer Exposed Amount of bleeding with debridement: Mild Bleeding Controlled with: Compression and gauze Patient tolerated procedure well - Additional Wound Wound debrided: left anterior lower leg Laterality: Left Type of Debridement: Excisional debridement Anesthesia Used: 4% Lidocaine Solution Depth: Down to and including healthy tissue, in the subcutaneous layer Percentage of wound debrided: 50 - area of wounds is approx. 50% of total area recorded due to cluster of wounds Instrument Used: 5mm curette Tissue Removed: yellow slough, devitalized tissue Severity: Fat Layer Exposed Amount of bleeding with debridement: Mild Bleeding Controlled with: Compression and gauze Patient tolerated procedure: Patient tolerated procedure well - Additional Wound Wound debrided: left lateral LE Laterality: Left Type of Debridement: Excisional debridement Anesthesia Used: 4% Lidocaine Solution Depth: Down to and including healthy tissue, in the subcutaneous layer Percentage of wound debrided: 100 Instrument Used: 7mm curette Tissue Removed: yellow slough, devitalized tissue Severity: Fat Layer Exposed Amount of bleeding with debridement: Mild Bleeding Controlled with: Compression and gauze Patient tolerated procedure: Patient tolerated procedure well - Additional Wound Wound debrided: left medial LE Laterality: Left Type of Debridement: Excisional debridement Anesthesia Used: 4% Lidocaine Solution Depth: Down to and including healthy tissue, in the subcutaneous layer Percentage of wound debrided: 100 Instrument Used: 5mm curette Tissue Removed: yellow slough, devitalized tissue Severity: Fat Layer Exposed Amount of bleeding with debridement: Mild Bleeding Controlled with: Compression and gauze Patient tolerated procedure: Patient tolerated procedure well Assessment/Plan Active Problems (Last Reviewed 02/23/18 @ 08:48 by Bela Lewis) Venous ulcers of both lower extremities (Chronic) 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 Venous stasis ulcers of left LE. 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 They have improved somewhat and do not have any odor today. Normal arterial testing, venous incompetence b/l. Will continue to treat her wounds with Aquacel and continue tubigrip for compression. Encouraged increased protein and continue with protein supplement that she is taking currently. Continue treatment of squamous cell as per dermatology. Her treatment course has been changed to complex care due to her comorbidities and the complexity of her wounds. F/U in 2 weeks.
== END 2018-02-23 23:59 ==
LOC: WC 13:00
PROVIDERS: Referring Provider Family Medicine; Visit Provider Family Medicine
DX: I87.2 Venous insufficiency (chronic) (peripheral) (principal); L97.822 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 layer exposed; C44.722 Squamous cell carcinoma of skin of right lower limb, including hip; C44.729 Squamous cell carcinoma of skin of left lower limb, including hip; Z92.3 Personal history of irradiation
CPT/HCPCS: 11042; 11045